=== PATIENT | female | born 1990 | race Caucasian/White ===

== ENCOUNTER 2019-07-17 08:30 | Outpatient (CLI) | payer BC ==
[~2019-07-17] VITALS: Ht 160 cm; Wt 90.0 kg
[~2019-07-17 08:30] MED LIST: BUPR300T43 PO; CETI10TA21 PO; DESO1TAB89 PO; FLUT9.9S NS; NF-LAMO200 PO; PRAZ1CAP2 PO
[2019-07-18] MEDS ORDERED: PRD20T PO (11:20)
[2019-07-18] MEDS ORDERED: AMOX500T2 PO (11:20)
[2019-07-18] MEDS ORDERED: HYDR-4226 PO (11:20)
== END 2019-07-17 08:47 | disposition home or self-care (01) ==
LOC: EDSEX 08:30 → PREOP 08:30
PROVIDERS: ATTEND Otolaryngology Otolaryngology/Facial Plastic Surgery
DX: Z01.818 Encounter for other preprocedural examination (principal)

== ENCOUNTER 2019-07-18 07:54 | Day surgery (SDC) | payer BC ==
[2019-07-18] VITALS (10 sets, daily range): BP systolic 101–136; BP diastolic 72–96
[~2019-07-18] VITALS: Ht 160 cm; Wt 90.0 kg
[2019-07-18] MEDS ORDERED: LACTATED RINGERS 1,000 ML IV PRN (08:13)
[2019-07-18] MEDS ORDERED: AMPICILLIN/SULBACTAM INJECTION 1.5 GM in NS (IVPB) 100 ML IV ONE (08:15)
[2019-07-18] MEDS ORDERED: HYDROCORTISONE 100 MG/2 ML (Solu-CORTEF) VIAL IV ONE (08:15)
[2019-07-18] MEDS ORDERED: BSS 15 ML ONE (08:24)
[2019-07-18] MEDS ORDERED: PHENYLEPHRINE 0.5% NASAL SPR (NEO-SYNEPHRINE) REG ONE (08:24)
[2019-07-18] MEDS ORDERED: LIDOCAINE/EPI 1%-1:100,000 (XYLOCAINE) 20ML ONE (08:24)
[2019-07-18] MEDS ORDERED: COCAINE HCL 4% 2 ML SYR ONE (08:24)
[2019-07-18] MEDS ORDERED: SCOPOLAMINE 1.5 MG (TRANSDERM-SCOP) PATCH ONE (08:27)
[2019-07-18] MEDS ORDERED: ONDANSETRON 4 MG/2 ML (SDV) Z0FRAN ONE ×2 (08:28→08:37)
[2019-07-18] MEDS ORDERED: FAMOTIDINE 20MG/2ML IV (PEPCID) ONE (08:28)
--- NOTE | 2019-07-18 08:31 | Progress Note-Pre Operative ---
Pre-Operative Progress Note H&P Reviewed The H&P was reviewed, patient examined and no changes noted. Date Seen by Provider: Jul 18, 2019 Time Seen by Provider: 08:10 Date H&P Reviewed: Jul 18, 2019 Time H&P Reviewed: 08:10 Pre-Operative Diagnosis: Bilateral Chronic Sinusitis, Deviatd Septum, Bialt Red of Inf Turbs JOVANI HAYES MD Jul 18, 2019 08:31
[2019-07-18] MEDS ORDERED: DEXAMETHASONE 10 MG/ML (DECADRON) 1 ML VIAL ONE (08:37)
[2019-07-18] MEDS ORDERED: LIDOCAINE PF 2% 5 ML (XYLOCAINE) VIAL ONE (08:37)
[2019-07-18] MEDS ORDERED: MIDAZOLAM 2 MG/2 ML (VERSED) VIAL ONE (08:37)
[2019-07-18] MEDS ORDERED: fentaNYL INJECTION 100 MCG/2 ML AMP ONE (08:37)
[2019-07-18] MEDS ORDERED: ROCURONIUM 10 MG/ML 5 ML SYRINGE IV ONE (08:37)
[2019-07-18] MEDS ORDERED: proPOfol 200 MG/20 ML (DIPRIVAN) VIAL IV ONE (08:37)
[2019-07-18] MEDS ORDERED: FAMOTIDINE 20MG/2ML IV (PEPCID) IV ONE (08:45)
[2019-07-18] MEDS ORDERED: ONDANSETRON 4 MG/2 ML (SDV) Z0FRAN IV ONE (08:45)
[2019-07-18] MEDS ORDERED: SCOPOLAMINE 1.5 MG (TRANSDERM-SCOP) PATCH TOP ONE (08:45)
[2019-07-18] MEDS ORDERED: SEVOFLURANE (ULTANE) 15 ML INHAL SOLN ONE ×2 (09:07→09:56)
[2019-07-18] MEDS ORDERED: PHENYLEPHRINE 100 MCG/ML 10 ML (ANESTHESIA) SYR ONE (09:17)
[2019-07-18] MEDS ORDERED: D5 1/2 NS W/KCL 20 MEQ/L 1,000 ML IV SCH (09:56)
--- NOTE | 2019-07-18 09:56 | Progress Note-Post Operative ---
Post-Operative Progess Note Surgeon (s)/Band Attacher (s) Surgeon JOVANI HAYES MD Band Attacher n/a Pre-Operative Diagnosis Bilateral Chronic Sinusitis, Deviatd Septum, Bialt Red of Inf Turbs Post-Operative Diagnosis same Post-Op Procedure Note Date of Procedure: Jul 18, 2019 Name of Procedure Performed: Bilat ESS, Bilateral Partial REduction of the INferior Turbiantes Description & Findings Description and Findings: n/a Anesthesia Type get Estimated Blood Loss minimal Packing none. Specimen(s) collected/removed Bilat Chronic Sinus Disease JOVANI HAYES MD Jul 18, 2019 09:56
[2019-07-18] MEDS ORDERED: MEPERIDINE (DEMEROL) INJ 50 MG/ML IVP ONE (10:00)
[2019-07-18] MEDS ORDERED: ONDANSETRON 4 MG/2 ML (SDV) Z0FRAN IVP PRN (10:00)
[2019-07-18] MEDS ORDERED: HYDROcodone/APAP 5 MG/325 MG (LORTAB) TAB PO PRN (10:00)
[2019-07-18] MEDS ORDERED: PROMETHAZINE INJ 25 MG/ML (PHENERGAN) AMP IVP PRN (10:00)
[2019-07-18] MEDS ORDERED: morphine INJ 10 MG/ML 1ML (SYR OR VIAL) IVP ONE (10:00)
[2019-07-18] MEDS ORDERED: PROMETHAZINE INJ 25 MG/ML (PHENERGAN) AMP IVP ONE (10:00)
[2019-07-18] MEDS ORDERED: predniSONE 20 MG TAB PO ONE (10:00)
[2019-07-18] MEDS ORDERED: HYDROmorphone 2 MG/ML VIAL (DILAUDID) IV ONE (10:00)
[2019-07-18] MEDS ORDERED: ACETAMINOPHEN 325 MG TABLET PO PRN (10:00)
--- NOTE | 2019-07-18 10:58 | Anesthesia-General Post-Op ---
General Patient Condition Mental Status/LOC: Same as Preop Cardiovascular: Satisfactory Nausea/Vomiting: Absent Respiratory: Satisfactory Pain: Controlled Complications: Absent Post Op Complications Complications None Follow Up Care/Instructions Patient Instructions None needed. Anesthesia/Patient Condition Patient Condition Patient is doing well, no complaints, stable vital signs, no apparent adverse anesthesia problems. No complications reported per nursing. APRIL MARTIN CRNA Jul 18, 2019 10:58
[2019-07-18] MEDS ORDERED: AMOX500T2 PO (11:20)
[2019-07-18] MEDS ORDERED: HYDR-4226 PO (11:20)
[2019-07-18] MEDS ORDERED: PRD20T PO (11:20)
--- NOTE | 2019-07-18 11:50 | NUR ---
phoned or and spoke with malorie thornton who relayed to dr. marcelino that patient is nauseated and is asking for medication to go home with. dr. marcelino gave telephone order for zofran 4mg 1 tablet q8h qty 10 refill 1 prn for nausea. this rn phoned to [facility] at [phone].
--- OUTSIDE RECORDS SUMMARY | 2019-07-22 04:51 | XMS REPORT ---
Author Author Virgen CUEVAS Organization [facility] [address] [place] [address] Care Team Providers Care Negative Assembler Name Role Phone AMINAH CUEVAS Unavailable PROBLEMS Unknown Problems ALLERGIES No Information ENCOUNTERS Encounter Location Date Diagnosis [facility] [address] [place] [address] Apr, Pre- employment drug testing Z02.1 IMMUNIZATIONS No Known Immunizations SOCIAL HISTORY Never Assessed REASON FOR VISIT in house ua. DianelysScott PLAN OF CARE Activity Details Follow Up prn Reason: VITAL SIGNS MEDICATIONS Unknown Medications RESULTS Name Result Date Reference Range URINE DRUG SCREEN (IN HOUSE) 2018-04-15 Lot # [id number] Exp date 06/2019 Control valid COCAINE neg AMPH neg MTD neg THC neg OPIATE neg BENZO positive PCP neg BAR neg OXY neg MAMP neg BUP MDMA neg TCA neg PROCEDURES Procedure Date Ordered Result Body Site DRUG TEST PRSMV DIR OPT OBS Apr 15, 2018 INSTRUCTIONS MEDICATIONS ADMINISTERED No Known Medications
--- OUTSIDE RECORDS SUMMARY | 2019-07-22 04:52 | XMS REPORT | Clinical Summary ---
Author Author Admin, Virgen MICHELET Organization [facility] Address Unknown Phone Unavailable Allergies, Adverse Reactions, Alerts Allergy Name Reaction Description Start Date Severity Status Pr ovider IODINE rash Mild Active Alban gentile MD LATEX rash Mild Active Alban gentile MD Conditions or Problems Problem Name Problem Code Onset Date Status Entry Date Provider Comment Standard Description Annotate Upper respiratory infection, viral 465.9 Resolved 2 Remigio Childress MD Acute upper respiratory infections of un specified site Sinusitis, acute frontal 461.1 Resolved Remigio Childress MD Acute frontal sinusitis Allergic rhinitis 477.9 Active Remigio Childress MD Allergic rhinitis, cause unspecified Bipolar disorder 296.80 Active Remigio Ann Bipolar disorder, unspecified Post traumatic stress disorder 309.81 Active 09/20 Remigio Childress MD Posttraumatic stress disorder Health screening V70.0 Active Remigio Ann Routine general medical examination at a health care facility Exercise induced asthma 493.81 Active Daryn Childress MD Exercise induced bronchospasm BMI 35-35.9 Refinement Remigio Childress MD Body Mass Index 35.0- 35.9, adult BMI 36-36.9 Refinement Kiana Miller APRN-C Body Mass Index 35.0- 35.9, adult BMI 35-35.9 Refinement Remigio Childress MD Body Mass Index 35.0- 35.9, adult BMI 36-36.9 Refinement Tigre Braden APRN Body Mass Index 35.0- 35.9, adult BMI 35-35.9 Refinement Lashawn Ding dy Mass Index 35.0-35.9, adult BMI 37-37.9 Refinement Angelique Dobson LPN Body Mass Index 35.0- 35.9, adult BMI 36-36.9 Active Remigio Childress MD Body Mass Index 35.0- 35.9, adult Obesity Class II (BMI 35-39.9) 278.00 Active Remigio Childress MD Obesity, unspecified Hyperlipidemia 272.4 Active Remigio Childress MD Other and unspecified hyperlipidemia Bitten by cat, initial encounter & Other injury of unspecified body region, initial encounter 879.8 Resolved Remigio Childress MD Open wound(s) (multiple) of unspecified site(s) except limbs, without mention of complication Acute sinusitis 461.9 Resolved Remigio Ann Acute sinusitis, unspecified Chronic sinusitis 473.9 Resolved Remigio Childress MD Unspecified sinusitis (chronic) Eustachian tube dysfunction, bilateral 381.81 Resolved Remigio Childress MD Dysfunction of Eustachian tube Mycoplasma pneumonia 483.0 Resolved Remigio vinson MD Pneumonia due to Mycoplasma pneumoniae Gynecological examination, routine V72.3 Active 2 Rebecca Burgos MD Special investigations and examinations - Gynecological examination Contraceptive pill surveillance V25.41 Active 2018 Rebecca Burgos MD Encounter for surveillance of contracept parth pill Hirsutism 704.1 Active Rebecca Burgos MD Hirsutism Sinus congestion 478.19 Resolved Remigio Childress MD Other disease of nasal cavity and sinuses Productive cough purulent sputum 786.2 Resolved 202 Remigio Childress MD Cough Low back pain, acute 724.2 Active Remigio zavala MD Lumbago Pre op cardiovascular exam V72.84 Active Jelly arguelloler Preoperative examination, unspecified Upper respiratory infection, viral ICD-465.9 I nactive Remigio Childress MD Sinusitis, acute frontal ICD-461.1 Inactive Remigio Childress MD Bitten by cat, initial encounter & Other injury of unspecified body region, initial encounter ICD-879.8 Inactive Remigio Childress MD Acute sinusitis ICD-461.9 Inactive Remigio vinson MD Chronic sinusitis ICD-473.9 Inactive Remigio johnson MD Eustachian tube dysfunction, bilateral ICD-381.81 20 01/04/06 Inactive Remigio Childress MD Mycoplasma pneumonia ICD-483.0 Inactive Daryn Childress MD Sinus congestion ICD-478.19 Inactive Remigio johnson MD Productive cough purulent sputum ICD-786.2 Jessica ctive Remigio Childress MD Medication List Medication Instructions Start Date Stop Date Generic Name NDC Status Provider Patient Instruction LAMICTAL 200 MG ORAL TABLET 2 po qHS LAMOTRIGINE 13615223193 Active Remigio Childress MD Active CETIRIZINE HCL 10 MG ORAL TABLET 1 po qd PRN Allergies CETIRIZINE HCL 36216805838 Active Remigio Childress MD Active MULTIVITAMIN ADULT ORAL TABLET 1 po qd MULTIPLE VITAMINS-MINERALS 13825212399 No Longer Active Remigio Childress MD Active PREDNISONE 20 MG ORAL TABLET take 40 mg daily for 7 days PREDNISONE 17227496075 No Longer Active Remigio Childress MD Activ e ZITHROMAX Z-FELA 250 MG ORAL TABLET 2 today, then 1 daily for 4 d ays AZITHROMYCIN 23893687673 No Longer Active Tigre Braden APRN Active TESSALON PERLES 100 MG ORAL CAPSULE 1 tablet by mouth 3 times da gin BENZONATATE 62155709398 No Longer Active Lashawn Blank Activ e PREDNISONE 20 MG ORAL TABLET take 40 mg dialy for 6 days PREDNISONE 32784759916 No Longer Active Tigre Braden APRN Active ATORVASTATIN CALCIUM 20 MG ORAL TABLET 1 po qHS 20 01/04/06 ATORVASTATIN CALCIUM 07324481783 No Longer Active Remigio Childress MD Active CLARITIN 10 MG ORAL TABLET 1 tab daily LORATADI NE 57878699390 No Longer Active Remigio Childress MD Active FLONASE ALLERGY RELIEF 50 MCG/ACT NASAL SUSPENSION 1 spray e ach nare BID FLUTICASONE PROPIONATE 42055178390 No Longer Active Aleksandra Childress MD Active PREDNISONE 20 MG ORAL TABLET 2 tabs po daily x3 days 2 PREDNISONE 49176041256 No Longer Active Remigio Childress MD Activ e CEFUROXIME AXETIL 500 MG ORAL TABLET 0.5 tab by mouth twice a da y CEFUROXIME AXETIL 36481676969 No Longer Active Kiana Miller APRN-Deonna Active AUGMENTIN 875-125 MG ORAL TABLET 1 po BID x 10 days 20 30/10/14 AMOXICILLIN-POT CLAVULANATE No Longer Active Tigre Braden APRN Active PRAZOSIN HCL 1 MG ORAL CAPSULE 2 po qHS PRAZOSIN HCL 26418021238 Active Remigio Childress MD Active BUPROPION HCL ER (XL) 300 MG ORAL TABLET EXTENDED RELEASE 24 HOUR 1 po qd BUPROPION HCL 54113776724 Active Remigio Childress MD Active PROAIR HFA 108 (90 BASE) MCG/ACT INHALATION AEROSOL SO LUTION 2 puffs q4hr PRN Shortness of air/Wheezing ALBUTEROL SULFATE 34632141165 Ac tive Remigio Childress MD Active FLUTICASONE PROPIONATE 50 MCG/ACT NASAL SUSPENSION 2 s prays/nostril qd PRN Congestion/Allergies FLUTICASONE PROPIONATE 56226790912 Ac tive Remigio Childress MD Active ENSKYCE 0.15-30 MG-MCG ORAL TABLET 1 po qd DESOGESTREL-ETHINYL ESTRADIOL 45999513177 Active Remigio Childress MD Active ZITHROMAX Z-FELA 250 MG ORAL TABLET 2 today, then 1 daily for 4 d ays AZITHROMYCIN 94662626580 No Longer Active Alban Boyce MD Active PREDNISONE 20 MG ORAL TABLET 3 tabs for 2 days, 2 tabs for 4 days 1 ta for 4 days, 1/2 tab for 4 days PREDNISONE 85631792208 No Longer Active Alban Boyce MD Active AMOXICILLIN-POT CLAVULANATE 875-125 MG ORAL TABLET 1 pill by mouth twice daily AMOXICILLIN-POT CLAVULANATE 35523919002 No Longer Act parth Trina Sell LEAK INSPECTOR Active ATORVASTATIN CALCIUM 20 MG ORAL TABLET 1 po qHS 20 02/07/19 ATORVASTATIN CALCIUM 29132995584 No Longer Active Trina Sell LEAK INSPECTOR Active [facility] MELATONIN 5 MG ORAL TABLET 1 TAB PO Q HS ME LATONIN 59631002044 No Longer Active Trina Sell LEAK INSPECTOR Active PROMETHAZINE-CODEINE 6.25-10 MG/5ML ORAL SYRUP 5ml po q6hr PRN C ough PROMETHAZINE-CODEINE 69448915051 No Longer Active Trina Sell LEAK INSPECTOR Active PREDNISONE 20 MG ORAL TABLET 2 po qd x 5 days P REDNISONE 52034290700 No Longer Active Remigio Childress MD Active PROMETHAZINE-CODEINE 6.25-10 MG/5ML ORAL SYRUP 5ml po q6hr PRN C ough PROMETHAZINE-CODEINE 6.25-10 MG/5ML ORAL SYRUP 495672 PROMETHAZINE-CODEINE Inactive [facility] MELATONIN 5 MG ORAL TABLET 1 TAB PO Q HS 1 [facility] MELATONIN 5 MG ORAL TABLET 718706 MELATONIN Inactive PREDNISONE 20 MG ORAL TABLET 3 tabs for 2 days, 2 tabs for 4 days 1 ta for 4 days, 1/2 tab for 4 days PREDNISONE 20 MG ORAL T ABLET 661507 PREDNISONE Inactive PREDNISONE 20 MG ORAL TABLET 2 tabs po daily x3 days 2 PREDNISONE 20 MG ORAL TABLET 076227 PREDNISONE Inactive FLONASE ALLERGY RELIEF 50 MCG/ACT NASAL SUSPENSION 1 spray e ach nare BID FLONASE ALLERGY RELIEF 50 MCG/ACT NASAL SUSPENSION 8681615 FLUTICASONE PROPIONATE Inactive CLARITIN 10 MG ORAL TABLET 1 tab daily C LARITIN 10 MG ORAL TABLET 957658 LORATADINE Inactive ATORVASTATIN CALCIUM 20 MG ORAL TABLET 1 po qHS 20 01/04/06 ATORVASTATIN CALCIUM 20 MG ORAL TABLET 221347 ATORVASTATIN CALCIUM Inactive TESSALON PERLES 100 MG ORAL CAPSULE 1 tablet by mouth 3 times da gin TESSALON PERLES 100 MG ORAL CAPSULE 946482 BENZONATATE Inactive PREDNISONE 20 MG ORAL TABLET take 40 mg daily for 7 days PREDNISONE 20 MG ORAL TABLET 693586 PREDNISONE Inactive MULTIVITAMIN ADULT ORAL TABLET 1 po qd MULTIVITAMIN ADULT ORAL TABLET MULTIPLE VITAMINS-MINERALS Inactive PREDNISONE 20 MG ORAL TABLET 2 po qd x 5 days PREDNISONE 20 MG ORAL TABLET 675407 PREDNISONE Inactive ATORVASTATIN CALCIUM 20 MG ORAL TABLET 1 po qHS 20 02/07/19 ATORVASTATIN CALCIUM 20 MG ORAL TABLET 162994 ATORVASTATIN CALCIUM Inactive AMOXICILLIN-POT CLAVULANATE 875-125 MG ORAL TABLET 1 pill by mouth twice daily AMOXICILLIN-POT CLAVULANATE 875-125 MG ORAL TABL ET 106332 AMOXICILLIN-POT CLAVULANATE Inactive ZITHROMAX Z-FELA 250 MG ORAL TABLET 2 today, then 1 daily for 4 d ays ZITHROMAX Z-FELA 250 MG ORAL TABLET 376038 AZITHROMYCIN Inactive AUGMENTIN 875-125 MG ORAL TABLET 1 po BID x 10 days 30/10/14 AUGMENTIN 875-125 MG ORAL TABLET AMOXICILLIN-POT CLAVULANATE Inactive CEFUROXIME AXETIL 500 MG ORAL TABLET 0.5 tab by mouth twice a da y CEFUROXIME AXETIL 500 MG ORAL TABLET 316472 CEFUROXIME AXETIL Inactive PREDNISONE 20 MG ORAL TABLET take 40 mg dialy for 6 days PREDNISONE 20 MG ORAL TABLET 869302 PREDNISONE Inactive ZITHROMAX Z-FELA 250 MG ORAL TABLET 2 today, then 1 daily for 4 d ays ZITHROMAX Z-FELA 250 MG ORAL TABLET 172120 AZITHROMYCIN Inactive Immunizations Vaccine Administration Date Value Standard Heber cription influenza immunization (Flu Vax) has been administered 03/19 Flulaval Quadrivalent (Flu) 10Pk Syringe IM influenza virus vaccine, unspecified formulation influenza immunization (Flu Vax) has been administered 02/26 Done according to patient influenza virus vaccine, unspecified for mulation Vital Signs Date Name Value Unit Range Description blood pressure, diastolic, repeated by physician 79 BP [place] blood pressure, diastolic 79 mm[Hg] BP [place] blood pressure, systolic, repeated by physician 122 BP sys blood pressure, systolic 122 mm[Hg] BP sys height E&M 63 [in_us] Bdy height pulse rate E&M 80 /min Heart rate temperature E&M 98.2 [degF] Body temp erature weight E&M 207.31 [lb_av] Weight Measure d blood pressure, diastolic, repeated by physician 85 BP [place] blood pressure, diastolic 85 mm[Hg] BP [place] blood pressure, systolic, repeated by physician 125 BP sys blood pressure, systolic 125 mm[Hg] BP sys height E&M 63 [in_us] Bdy height pulse rate E&M 75 /min Heart rate temperature E&M 99.2 [degF] Body temp erature weight E&M 209.50 [lb_av] Weight Measure d blood pressure, diastolic, repeated by physician 86 BP [place] blood pressure, diastolic 86 mm[Hg] BP [place] blood pressure, systolic, repeated by physician 119 BP sys blood pressure, systolic 119 mm[Hg] BP sys height E&M 63 [in_us] Bdy height pulse rate E&M 77 /min Heart rate temperature E&M 98.4 [degF] Body temp erature weight E&M 202 [lb_av] Weight Measure d blood pressure, diastolic, repeated by physician 87 BP [place] blood pressure, diastolic 87 mm[Hg] BP [place] blood pressure, systolic, repeated by physician 123 BP sys blood pressure, systolic 123 mm[Hg] BP sys height E&M 63 [in_us] Bdy height pulse rate E&M 101 /min Heart rate temperature E&M 98.3 [degF] Body temp erature weight E&M 204 [lb_av] Weight Measure d blood pressure, diastolic, repeated by physician 78 BP [place] blood pressure, diastolic 78 mm[Hg] BP [place] blood pressure, systolic, repeated by physician 118 BP sys blood pressure, systolic 118 mm[Hg] BP sys height E&M 63 [in_us] Bdy height pulse rate E&M 83 /min Heart rate temperature E&M 98.1 [degF] Body temp erature weight E&M 201.31 [lb_av] Weight Measure d blood pressure, diastolic, repeated by physician 96 BP [place] blood pressure, diastolic 96 mm[Hg] BP [place] blood pressure, systolic, repeated by physician 146 BP sys blood pressure, systolic 146 mm[Hg] BP sys height E&M 63 [in_us] Bdy height pulse rate E&M 81 /min Heart rate temperature E&M 98.9 [degF] Body temp erature weight E&M 203.40 [lb_av] Weight Measure d blood pressure, diastolic 83 mm[Hg] BP [place] blood pressure, systolic 123 mm[Hg] BP sys height E&M 63 [in_us] Bdy height pulse rate E&M 72 /min Heart rate temperature E&M 99.3 [degF] Body temp erature weight E&M 201 [lb_av] Weight Measure d blood pressure, diastolic 90 mm[Hg] BP [place] blood pressure, systolic 124 mm[Hg] BP sys height E&M 63 [in_us] Bdy height pulse rate E&M 81 /min Heart rate temperature E&M 97.6 [degF] Body temp erature weight E&M 199 [lb_av] Weight Measure d blood pressure, diastolic 86 mm[Hg] BP [place] blood pressure, systolic 116 mm[Hg] BP sys pulse rate E&M 68 /min Heart rate temperature E&M 99.0 [degF] Body temp erature weight E&M 193.50 [lb_av] Weight Measure d Diagnostic Results Date Name Value Unit Range Description Lab Report: Lipid Panel, CBC, Comp. [place] [facility] - Chemistry cholesterol, serum 256 mg/dL 617-026 9612/01/13 triglyceride, serum, fasting 166 mg/dL 30-200 HDL cholesterol, serum 78 mg/dL 32-60 LDL cholesterol, serum 145 mg/dL 0-130 sodium, serum 138 mmol/L 351-061 3764/01/13 carbon dioxide, venous blood 28.4 mmol/L 21.0-32 .0 potassium, serum 4.0 mmol/L 3.5-5.2 chloride, serum 104 mmol/L 98-107 blood glucose 90 mg/dL 65-95 urea nitrogen, blood 13 mg/dL 7-18 creatinine, serum 0.98 mg/dL 0.60-1.30 Estimated Glomerular Filtration Rate (calc) 71 (?) mL/min/1.73m2 = OR > 60 mL/min alanine aminotransferase (SGPT), serum 14 U/L 12-78 aspartate aminotransferase (SGOT), serum 21 U/L 15-37 calcium, serum 9.1 mg/dL 8.5-10.1 bilirubin, serum, total 0.40 mg/dL 0.00-1.00 Lab Report: Lipid Panel, CBC, Comp. [place] [facility] - Hematology leukocyte count, blood 6.8 10^3/MM^3 10*3/mm3 4.6-10.2 erythrocyte (RBC) count 4.50 10^6/MM^3 10*6/mm3 3.80-5.8 0 hemoglobin, blood 13.4 g/dL 12.0-16.0 hematocrit, blood 39.9 % 37.0-47.0 mean corpuscular volume, RBC 89 fL 80-97 mean corpuscular hemoglobin, RBC 29.8 pg 27. 0-31.2 mean corpuscular hemoglobin concentration, RBC 33.6 G/DL % 31.8-35.4 red blood cell distribution width 11.2 % 13 .0-18.0 platelet count 312 10^3/MM^3 10*3/mm3 142-424 Lab Report: Lipid Panel, CBC, Comp. [place] [facility] - Lab Alkaline phosphatase 66 50-136 Office Visit: 2 month follow up 302 - Ba sic LDL target level 160 mg/dL Office Visit: congestion,fever,cough - C hemistry HDL cholesterol, serum, target level 40 mg/dL cholesterol, target level 200 mg/dL triglyceride, target level 150 mg/dL Encounters Code Encounter Date Provider Facility CPT-44556 Level 4 Est. Patient 09:14:43 CONVENTION SERVICES DIRECTOR Remigio Childress MD [facility] CPT-15742 Level 3 Est. Patient 16:17:24 CONVENTION SERVICES DIRECTOR Tigre fu [facility] CPT-69045 Level 3 Est. Patient 09:05:56 CONVENTION SERVICES DIRECTOR Tigre fu [facility] CPT-39365 Level 4 Est. Patient 09:00:38 CONVENTION SERVICES DIRECTOR Remigio Childress MD [facility] CPT-52107 Level 3 Est. Patient 14:18:32 CDT Tigre fu [facility] CPT-62975 Level 4 Est. Patient 13:48:04 CDT Remigio Childress MD [facility] CPT-76987 09047-Ast Vst-Est Level III 10:10:19 CONVENTION SERVICES DIRECTOR Alban Boyce MD [facility] CPT-26158 Level 3 Est. Patient 13:45:32 CONVENTION SERVICES DIRECTOR Trina tapia [facility] CPT-95907 Level 3 Est. Patient 10:03:23 CDT Remigio Childress MD [facility] Procedures Code Procedure Name Date Entry Date Standard Desc ription CPT-07118 Venipuncture Draw Fee 08:56:26 CONVENTION SERVICES DIRECTOR CPT-YL8278T (4274F) Influenza immunization administe red or previously received 09:14:43 CONVENTION SERVICES DIRECTOR CPT-88995 Venipuncture Draw Fee 09:28:58 CONVENTION SERVICES DIRECTOR CPT-GE7185K (4274F) Influenza immunization administe red or previously received 16:05:01 CONVENTION SERVICES DIRECTOR CPT-97058 Prv Med Est Pt 18-39yrs 12:46:30 CONVENTION SERVICES DIRECTOR 05/31 CPT-21236 Prv Med Est Pt 18-39yrs 12:25:19 CONVENTION SERVICES DIRECTOR 05/31 CPT-90662 IM or SQ Injection 09:09:52 CONVENTION SERVICES DIRECTOR CPT-84872 41203 - Immun Admin 1 vac 09:08:43 CONVENTION SERVICES DIRECTOR 2018 CPT-97351 Flulaval Quadrivalent (Flu) 10Pk Syringe IM 2018 09:08:43 CONVENTION SERVICES DIRECTOR CPT-000 Give PPD 13:51:16 CDT
--- OUTSIDE RECORDS SUMMARY | 2019-07-22 04:52 | XMS REPORT | Clinical Summary ---
Author Author Admin, Virgen MICHELET Organization [employer] Address Unknown Phone Unavailable Allergies, Adverse Reactions, [...] Pre op cardiovascular exam V72.84 Active Jelly yañez Preoperative examination, unspecified Upper respiratory infection, viral [...] MG ORAL TABLET 2 po qHS LAMOTRIGINE 96100773803 Active Remigio Childress MD Active CETIRIZINE HCL 10 MG ORAL TABLET 1 po qd PRN Allergies CETIRIZINE HCL 14009777454 Active Remigio Childress MD Active MULTIVITAMIN ADULT ORAL TABLET 1 po qd MULTIPLE VITAMINS-MINERALS 85793602328 No Longer Active Remigio Childress MD Active PREDNISONE 20 MG ORAL TABLET take 40 mg daily for 7 days PREDNISONE 96636217256 No Longer Active Remigio Childress MD Activ e ZITHROMAX Z-FELA 250 MG ORAL TABLET 2 today, then 1 daily for 4 d ays AZITHROMYCIN 43240537713 No Longer Active Tigre Braden APRN Active TESSALON PERLES 100 MG ORAL CAPSULE 1 tablet by mouth 3 times da gin BENZONATATE 46613814688 No Longer Active Lashawn Blank Activ e PREDNISONE 20 MG ORAL TABLET take 40 mg dialy for 6 days PREDNISONE 55280968736 No Longer Active Tigre Braden APRN Active ATORVASTATIN CALCIUM 20 MG ORAL TABLET 1 po qHS 20 01/04/06 ATORVASTATIN CALCIUM 37711542387 No Longer Active Remigio Childress MD Active CLARITIN 10 MG ORAL TABLET 1 tab daily LORATADI [place] 32048819219 No Longer Active Remigio Childress MD Active FLONASE ALLERGY RELIEF 50 MCG/ACT NASAL SUSPENSION 1 spray e ach nare BID FLUTICASONE PROPIONATE 66849066879 No Longer Active Aleksandra Childress MD Active PREDNISONE 20 MG ORAL TABLET 2 tabs po daily x3 days 2 PREDNISONE 45745271772 No Longer Active Remigio Childress MD Activ e CEFUROXIME AXETIL 500 MG ORAL TABLET 0.5 tab by mouth twice a da y CEFUROXIME AXETIL 57949536803 No Longer Active Kiana Miller APRN-Deonna Active AUGMENTIN 875-125 MG ORAL TABLET 1 po BID x 10 days 20 30/10/14 AMOXICILLIN-POT CLAVULANATE No Longer Active Tigre Braden APRN Active PRAZOSIN HCL 1 MG ORAL CAPSULE 2 po qHS PRAZOSIN HCL 70133870388 Active Remigio Childress MD Active BUPROPION HCL ER (XL) 300 MG ORAL TABLET EXTENDED RELEASE 24 HOUR 1 po qd BUPROPION HCL 20211296291 Active Remigio Childress MD Active PROAIR HFA 108 (90 BASE) MCG/ACT INHALATION AEROSOL SO LUTION 2 puffs q4hr PRN Shortness of air/Wheezing ALBUTEROL SULFATE 20797715034 Ac tive Remigio Childress MD Active FLUTICASONE PROPIONATE 50 MCG/ACT NASAL SUSPENSION 2 s prays/nostril qd PRN Congestion/Allergies FLUTICASONE PROPIONATE 30302595366 Ac tive Remigio Childress MD Active ENSKYCE 0.15-30 MG-MCG ORAL TABLET 1 po qd DESOGESTREL-ETHINYL ESTRADIOL 03715784254 Active Remigio Childress MD Active ZITHROMAX Z-FELA 250 MG ORAL TABLET 2 today, then 1 daily for 4 d ays AZITHROMYCIN 54397965182 No Longer Active Alban Boyce MD Active PREDNISONE 20 MG ORAL TABLET 3 tabs for 2 days, 2 tabs for 4 days 1 ta for 4 days, 1/2 tab for 4 days PREDNISONE 60074043792 No Longer Active Alban Boyce MD Active AMOXICILLIN-POT CLAVULANATE 875-125 MG ORAL TABLET 1 pill by mouth twice daily AMOXICILLIN-POT CLAVULANATE 78318486896 No Longer Act parth Trina Sell APRON WORKER Active ATORVASTATIN CALCIUM 20 MG ORAL TABLET 1 po qHS 20 02/07/19 ATORVASTATIN CALCIUM 20559107334 No Longer Active Trina Sell APRON WORKER Active [facility] MELATONIN 5 MG ORAL TABLET 1 TAB PO Q HS ME LATONIN 48977026732 No Longer Active Trina Sell APRON WORKER Active PROMETHAZINE-CODEINE 6.25-10 MG/5ML ORAL SYRUP 5ml po q6hr PRN C ough PROMETHAZINE-CODEINE 01143036465 No Longer Active Trina Sell APRON WORKER Active PREDNISONE 20 MG ORAL TABLET 2 po qd x 5 days P REDNISONE 23145612412 No Longer Active Remigio Childress MD Active PROMETHAZINE-CODEINE 6.25-10 MG/5ML ORAL SYRUP 5ml po q6hr PRN C ough PROMETHAZINE-CODEINE 6.25-10 MG/5ML ORAL SYRUP 325114 PROMETHAZINE-CODEINE Inactive [facility] MELATONIN 5 MG ORAL TABLET 1 TAB PO Q HS 1 [facility] MEL[facility]IN 5 MG ORAL TABLET 143516 MELATONIN Inactive PREDNISONE 20 MG ORAL TABLET 3 tabs for 2 days, 2 tabs for 4 days 1 ta for 4 days, 1/2 tab for 4 days PREDNISONE 20 MG ORAL T ABLET 731974 PREDNISONE Inactive PREDNISONE 20 MG ORAL TABLET 2 tabs po daily x3 days 2 PREDNISONE 20 MG ORAL TABLET 624335 PREDNISONE Inactive FLONASE ALLERGY RELIEF 50 MCG/ACT NASAL SUSPENSION 1 spray e ach nare BID FLONASE ALLERGY RELIEF 50 MCG/ACT NASAL SUSPENSION 1356486 FLUTICASONE PROPIONATE Inactive CLARITIN 10 MG ORAL TABLET 1 tab daily C LARITIN 10 MG ORAL TABLET 284459 LORATADINE Inactive ATORVASTATIN CALCIUM 20 MG ORAL TABLET 1 po qHS 20 01/04/06 ATORVASTATIN CALCIUM 20 MG ORAL TABLET 936051 ATORVASTATIN CALCIUM Inactive TESSALON PERLES 100 MG ORAL CAPSULE 1 tablet by mouth 3 times da gin TESSALON PERLES 100 MG ORAL CAPSULE 037782 BENZONATATE Inactive PREDNISONE 20 MG ORAL TABLET take 40 mg daily for 7 days PREDNISONE 20 MG ORAL TABLET 350770 PREDNISONE Inactive MULTIVITAMIN ADULT ORAL TABLET 1 po qd MULTIVITAMIN ADULT ORAL TABLET MULTIPLE VITAMINS-MINERALS Inactive PREDNISONE 20 MG ORAL TABLET 2 po qd x 5 days PREDNISONE 20 MG ORAL TABLET 412887 PREDNISONE Inactive ATORVASTATIN CALCIUM 20 MG ORAL TABLET 1 po qHS 20 02/07/19 ATORVASTATIN CALCIUM 20 MG ORAL TABLET 627319 ATORVASTATIN CALCIUM Inactive AMOXICILLIN-POT CLAVULANATE 875-125 MG ORAL TABLET 1 pill by mouth twice daily AMOXICILLIN-POT CLAVULANATE 875-125 MG ORAL TABL ET 339954 AMOXICILLIN-POT CLAVULANATE Inactive ZITHROMAX Z-FELA 250 MG ORAL TABLET 2 today, then 1 daily for 4 d ays ZITHROMAX Z-FELA 250 MG ORAL TABLET 143712 AZITHROMYCIN Inactive AUGMENTIN 875-125 MG ORAL TABLET 1 po BID x 10 days 30/10/14 AUGMENTIN 875-125 MG ORAL TABLET AMOXICILLIN-POT CLAVULANATE Inactive CEFUROXIME AXETIL 500 MG ORAL TABLET 0.5 tab by mouth twice a da y CEFUROXIME AXETIL 500 MG ORAL TABLET 515490 CEFUROXIME AXETIL Inactive PREDNISONE 20 MG ORAL TABLET take 40 mg dialy for 6 days PREDNISONE 20 MG ORAL TABLET 273196 PREDNISONE Inactive ZITHROMAX Z-FELA 250 MG ORAL TABLET 2 today, then 1 daily for 4 d ays ZITHROMAX Z-FELA 250 MG ORAL TABLET 882527 AZITHROMYCIN Inactive Immunizations Vaccine Administration Date Value [...] Name Value Unit Range Description Lab Report: Basic Metabolic Panel, CBC - Chemistry sodium, serum 139 mmol/L 395-780 3657/03/05 potassium, serum 3.7 mmol/L 3.5-5.2 chloride, serum 106 mmol/L 98-107 carbon dioxide, venous blood 27.8 mmol/L 21.0-32 .0 blood glucose 83 mg/dL 65-95 calcium, serum 9.0 mg/dL 8.5-10.1 urea nitrogen, blood 16 mg/dL 7-18 creatinine, serum 0.96 mg/dL 0.60-1.30 Estimated Glomerular Filtration Rate (calc) 73 (?) mL/min/1.73m2 = OR > 60 mL/min Lab Report: Basic Metabolic Panel, CBC - Hematology leukocyte count, blood 11.8 10^3/MM^3 10*3/mm3 4.6-10.2 erythrocyte (RBC) count 4.48 10^6/MM^3 10*6/mm3 3.80-5.8 0 hemoglobin, blood 13.7 g/dL 12.0-16.0 hematocrit, blood 41.3 % 37.0-47.0 mean corpuscular volume, RBC 92 fL 80-97 mean corpuscular hemoglobin, RBC 30.5 pg 27. 0-31.2 mean corpuscular hemoglobin concentration, RBC 33.2 G/DL % 31.8-35.4 red blood cell distribution width 11.1 % 13 .0-18.0 platelet count 314 10^3/MM^3 10*3/mm3 142-424 Lab Report: Lipid Panel, CBC, Comp. [place] [facility] Panel - Chemistry cholesterol, serum 256 mg/dL 615-502 1488/01/13 triglyceride, serum, fasting 166 mg/dL 30-200 HDL cholesterol, serum 78 mg/dL 32-60 LDL cholesterol, serum 145 mg/dL 0-130 sodium, serum 138 mmol/L 914-648 0433/01/13 carbon dioxide, venous blood 28.4 mmol/L 21.0-32 [...] 0.00-1.00 Lab Report: Lipid Panel, CBC, Comp. [place] [facility] Panel - Hematology leukocyte count, blood [...] 142-424 Lab Report: Lipid Panel, CBC, Comp. [place] [facility] Panel - Lab Alkaline phosphatase 66 50-136 Office Visit: 2 month follow up 302 - Ba [facility] LDL target level 160 mg/dL Office Visit: congestion,fever,cough - C hemistry HDL cholesterol, serum, target level 40 mg/dL cholesterol, target level 200 mg/dL triglyceride, target level 150 mg/dL Encounters Code Encounter Date Provider Facility CPT-14820 Level 4 Est. Patient 09:14:43 STEEL BURNER Remigio Childress MD [facility] CPT-71608 Level 3 Est. Patient 16:17:24 STEEL BURNER Tigre fu [facility] CPT-92659 Level 3 Est. Patient 09:05:56 STEEL BURNER Tigre fu [facility] CPT-03835 Level 4 Est. Patient 09:00:38 STEEL B[employer]NER Remigio Childress MD [facility] CPT-01479 Level 3 Est. Patient 14:18:32 CDT Tigre fu [facility] CPT-40840 Level 4 Est. Patient 13:48:04 CDT Remigio Childress MD [facility] CPT-88564 [id number] Vst-Est Level III 10:10:19 STE[employer]NER Alban Boyce MD [facility] CPT-89271 Level 3 Est. Patient 13:45:32 STE[employer] B[employer]NER Trina tapia [facility] CPT-35754 Level 3 Est. Patient 10:03:23 CDT Remigio Childress MD [facility] Procedures Code Procedure Name Date Entry Date Standard Desc ription CPT-85957 Venipuncture Draw Fee 08:56:26 STEEL BURNER CPT-[id number] (4274F) Influenza immunization administe red or previously received 09:14:43 STE[employer]NER CPT-29559 Venipuncture Draw Fee 09:28:58 STE[employer] CPT-[id number] (4274F) Influenza immunization administe red or previously received 16:05:01 STE[employer]NER CPT-31384 Prv Med Est Pt 18-39yrs 12:46:30 STEEL BURNER 05/31 CPT-69670 Prv Med Est Pt 18-39yrs 12:25:19 STEEL BURNER 05/31 CPT-77861 IM or SQ Injection 09:09:52 STEEL BURNER CPT-09600 78604 - Immun Admin 1 vac 09:08:43 STEEL BURNER 2018 CPT-49434 Flulaval Quadrivalent (Flu) 10Pk Syringe IM 2018 09:08:43 STEEL BURNER CPT-000 Give PPD 13:51:16 CDT
--- OUTSIDE RECORDS SUMMARY | 2019-07-22 04:52 | XMS REPORT | Clinical Summary ---
Author Author Admin, Virgen MICHELET Organization [employer] Address Unknown Phone Unavailable Allergies, Adverse Reactions, [...] V72.84 Active Jelly arguelloler Preoperative examination, unspecified Sinusitis, acute frontal ICD-461.1 Inactive Remigio Childress MD Upper respiratory infection, viral ICD-465.9 I nactive Remigio Childress MD Bitten by cat, initial [...] Generic Name NDC Status Provider Patient Instruction PRAZOSIN HCL 1 MG ORAL CAPSULE 2 po qHS PRAZOSIN HCL 09655706835 Active Remigio Childress MD Active LAMICTAL 200 MG ORAL TABLET 2 po qHS LAMOTRIGINE 46755911504 Active Remigio hCildress MD Active CETIRIZINE HCL 10 MG ORAL TABLET 1 po qd PRN Allergies CETIRIZINE HCL 78004673523 Active Remigio Childress MD Active MULTIVITAMIN ADULT ORAL TABLET 1 po qd MULTIPLE VITAMINS-MINERALS 46385893355 No Longer Active Remigio Childress MD Active PREDNISONE 20 MG ORAL TABLET take 40 mg daily for 7 days PREDNISONE 06157435489 No Longer Active Remigio Childress MD Activ e ZITHROMAX Z-FELA 250 MG ORAL TABLET 2 today, then 1 daily for 4 d ays AZITHROMYCIN 23709683165 No Longer Active Tigre Braden APRN Active TESSALON PERLES 100 MG ORAL CAPSULE 1 tablet by mouth 3 times da gin BENZONATATE 94034570786 No Longer Active Lashawn Blank Activ e PREDNISONE 20 MG ORAL TABLET take 40 mg dialy for 6 days PREDNISONE 15679984644 No Longer Active Tigre Braden APRN Active ATORVASTATIN CALCIUM 20 MG ORAL TABLET 1 po qHS 20 01/04/06 ATORVASTATIN CALCIUM 20886528144 No Longer Active Remigio Childress MD Active CLARITIN 10 MG ORAL TABLET 1 tab daily LORATADI NE 18970856279 No Longer Active Remigio Childress MD Active FLONASE ALLERGY RELIEF 50 MCG/ACT NASAL SUSPENSION 1 spray e ach nare BID FLUTICASONE PROPIONATE 10745252798 No Longer Active Aleksandra Childress MD Active PREDNISONE 20 MG ORAL TABLET 2 tabs po daily x3 days 2 PREDNISONE 76553789946 No Longer Active Remigio Childress MD Activ e CEFUROXIME AXETIL 500 MG ORAL TABLET 0.5 tab by mouth twice a da y CEFUROXIME AXETIL 20984150331 No Longer Active Kiana Miller APRN-Deonna Active AUGMENTIN 875-125 MG ORAL TABLET 1 po BID x 10 days 20 30/10/14 AMOXICILLIN-POT CLAVULANATE No Longer Active Tigre Braden APRN Active BUPROPION HCL ER (XL) 300 MG ORAL TABLET EXTENDED RELEASE 24 HOUR 1 po qd BUPROPION HCL 87515837094 Active Remigio Childress MD Active PROAIR HFA 108 (90 BASE) MCG/ACT INHALATION AEROSOL SO LUTION 2 puffs q4hr PRN Shortness of air/Wheezing ALBUTEROL SULFATE 51466728265 Ac tive Remigio Childress MD Active FLUTICASONE PROPIONATE 50 MCG/ACT NASAL SUSPENSION 2 s prays/nostril qd PRN Congestion/Allergies FLUTICASONE PROPIONATE 05718244195 Ac tive Remigio Childress MD Active ENSKYCE 0.15-30 MG-MCG ORAL TABLET 1 po qd DESOGESTREL-ETHINYL ESTRADIOL 44477378375 Active Remigio Childress MD Active ZITHROMAX Z-FELA 250 MG ORAL TABLET 2 today, then 1 daily for 4 d ays AZITHROMYCIN 61396490611 No Longer Active Alban Boyce MD Active PREDNISONE 20 MG ORAL TABLET 3 tabs for 2 days, 2 tabs for 4 days 1 ta for 4 days, 1/2 tab for 4 days PREDNISONE 16940467635 No Longer Active Alban Boyce MD Active AMOXICILLIN-POT CLAVULANATE 875-125 MG ORAL TABLET 1 pill by mouth twice daily AMOXICILLIN-POT CLAVULANATE 00205617332 No Longer Act parth Trina Sell LAST CLEANER Active ATORVASTATIN CALCIUM 20 MG ORAL TABLET 1 po qHS 20 02/07/19 ATORVASTATIN CALCIUM 68740054155 No Longer Active Trina Sell LAST CLEANER Active [facility] MELATONIN 5 MG ORAL TABLET 1 TAB PO Q HS ME LATONIN 39822063180 No Longer Active Trina Sell LAST CLEANER Active PROMETHAZINE-CODEINE 6.25-10 MG/5ML ORAL SYRUP 5ml po q6hr PRN C ough PROMETHAZINE-CODEINE 13563752067 No Longer Active Trina Sell LAST CLEANER Active PREDNISONE 20 MG ORAL TABLET 2 po qd x 5 days P REDNISONE 08006194967 No Longer Active Remigio Childress MD Active PROMETHAZINE-CODEINE 6.25-10 MG/5ML ORAL SYRUP 5ml po q6hr PRN C ough PROMETHAZINE-CODEINE 6.25-10 MG/5ML ORAL SYRUP 710861 PROMETHAZINE-CODEINE Inactive [facility] MELAT[facility]IN 5 MG ORAL TABLET 1 TAB PO Q HS 1 [facility] MEL[facility]IN 5 MG ORAL TABLET 185348 MELATONIN Inactive PREDNISONE 20 MG ORAL TABLET 3 tabs for 2 days, 2 tabs for 4 days 1 ta for 4 days, 1/2 tab for 4 days PREDNISONE 20 MG ORAL T ABLET 247140 PREDNISONE Inactive PREDNISONE 20 MG ORAL TABLET 2 tabs po daily x3 days 2 PREDNISONE 20 MG ORAL TABLET 182675 PREDNISONE Inactive FLONASE ALLERGY RELIEF 50 MCG/ACT NASAL SUSPENSION 1 spray e ach nare BID FLONASE ALLERGY RELIEF 50 MCG/ACT NASAL SUSPENSION 5690931 FLUTICASONE PROPIONATE Inactive CLARITIN 10 MG ORAL TABLET 1 tab daily C LARITIN 10 MG ORAL TABLET 074595 LORATADINE Inactive ATORVASTATIN CALCIUM 20 MG ORAL TABLET 1 po qHS 20 01/04/06 ATORVASTATIN CALCIUM 20 MG ORAL TABLET 061679 ATORVASTATIN CALCIUM Inactive TESSALON PERLES 100 MG ORAL CAPSULE 1 tablet by mouth 3 times da gin TESSALON PERLES 100 MG ORAL CAPSULE 122446 BENZONATATE Inactive PREDNISONE 20 MG ORAL TABLET take 40 mg daily for 7 days PREDNISONE 20 MG ORAL TABLET 484173 PREDNISONE Inactive MULTIVITAMIN ADULT ORAL TABLET 1 po qd MULTIVITAMIN ADULT ORAL TABLET MULTIPLE VITAMINS-MINERALS Inactive PREDNISONE 20 MG ORAL TABLET 2 po qd x 5 days PREDNISONE 20 MG ORAL TABLET 887934 PREDNISONE Inactive ATORVASTATIN CALCIUM 20 MG ORAL TABLET 1 po qHS 20 02/07/19 ATORVASTATIN CALCIUM 20 MG ORAL TABLET 340516 ATORVASTATIN CALCIUM Inactive AMOXICILLIN-POT CLAVULANATE 875-125 MG ORAL TABLET 1 pill by mouth twice daily AMOXICILLIN-POT CLAVULANATE 875-125 MG ORAL TABL ET 984718 AMOXICILLIN-POT CLAVULANATE Inactive ZITHROMAX Z-FELA 250 MG ORAL TABLET 2 today, then 1 daily for 4 d ays ZITHROMAX Z-FELA 250 MG ORAL TABLET 298801 AZITHROMYCIN Inactive AUGMENTIN 875-125 MG ORAL TABLET 1 po BID x 10 days 30/10/14 AUGMENTIN 875-125 MG ORAL TABLET AMOXICILLIN-POT CLAVULANATE Inactive CEFUROXIME AXETIL 500 MG ORAL TABLET 0.5 tab by mouth twice a da y CEFUROXIME AXETIL 500 MG ORAL TABLET 651050 CEFUROXIME AXETIL Inactive PREDNISONE 20 MG ORAL TABLET take 40 mg dialy for 6 days PREDNISONE 20 MG ORAL TABLET 336808 PREDNISONE Inactive ZITHROMAX Z-FELA 250 MG ORAL TABLET 2 today, then 1 daily for 4 d ays ZITHROMAX Z-FELA 250 MG ORAL TABLET 221582 AZITHROMYCIN Inactive Immunizations Vaccine Administration Date Value [...] CBC - Chemistry sodium, serum 139 mmol/L 950-418 0538/03/05 potassium, serum 3.7 mmol/L 3.5-5.2 chloride, serum [...] 142-424 Lab Report: Lipid Panel, CBC, Comp. [place] [facility]olic Panel - Chemistry cholesterol, serum 256 mg/dL 481-094 1047/01/13 triglyceride, serum, fasting 166 mg/dL 30-200 HDL cholesterol, serum 78 mg/dL 32-60 LDL cholesterol, serum 145 mg/dL 0-130 sodium, serum 138 mmol/L 549-258 8592/01/13 carbon dioxide, venous blood 28.4 mmol/L 21.0-32 [...] 0.00-1.00 Lab Report: Lipid Panel, CBC, Comp. [place] [facility] Panel - Hematology leukocyte count, blood [...] 142-424 Lab Report: Lipid Panel, CBC, Comp. [place] [facility] Panel - Lab Alkaline phosphatase 66 50-136 Office Visit: 2 month follow up 302 - [facility] LDL target level 160 mg/dL Office Visit: congestion,fever,cough - C hemistry HDL cholesterol, serum, target level 40 mg/dL cholesterol, target level 200 mg/dL triglyceride, target level 150 mg/dL Encounters Code Encounter Date Provider Facility CPT-14693 Level 4 Est. Patient 09:14:43 OIL FILTERS INSPECTOR Remigio Childress MD [facility] CPT-64579 Level 3 Est. Patient 16:17:24 OIL FILTERS INSPECTOR Tigre fu [facility] CPT-45971 Level 3 Est. Patient 09:05:56 OIL FILTERS INSPECTOR Tigre fu [facility] CPT-47303 Level 4 Est. Patient 09:00:38 OIL FILTERS INSPECTOR Remigio Childress MD [facility] CPT-02633 Level 3 Est. Patient 14:18:32 CDT Tigre fu [facility] CPT-27074 Level 4 Est. Patient 13:48:04 CDT Remigio Childress MD [facility] CPT-10146 [id number] Vst-Est Level III 10:10:19 OIL FILTERS INSPECTOR Alban Boyce MD [facility] CPT-90818 Level 3 Est. Patient 13:45:32 OIL FILTERS INSPECTOR Trina Se tapia [facility] CPT-99861 Level 3 Est. Patient 10:03:23 CDT Remigio Childress MD [facility] Procedures Code Procedure Name Date Entry Date Standard Desc ription CPT-42449 Venipuncture Draw Fee 08:56:26 OIL FILTERS INSPECTOR CPT-[id number] (4274F) Influenza immunization administe red or previously received 09:14:43 OIL FILTERS INSPECTOR CPT-51103 Venipuncture Draw Fee 09:28:58 OIL FILTERS INSPECTOR CPT-[id number] (4274F) Influenza immunization administe red or previously received 16:05:01 OIL FILTERS INSPECTOR CPT-53637 Prv Med Est Pt 18-39yrs 12:46:30 OIL FILTERS INSPECTOR 05/31 CPT-99976 Prv Med Est Pt 18-39yrs 12:25:19 OIL FILTERS INSPECTOR 05/31 CPT-08932 IM or SQ Injection 09:09:52 OIL FILTERS INSPECTOR CPT-32690 51277 - Immun Admin 1 vac 09:08:43 OIL FILTERS INSPECTOR 2018 CPT-94975 Flulaval Quadrivalent (Flu) 10Pk Syringe IM 2018 09:08:43 OIL FILTERS INSPECTOR CPT-000 Give PPD 13:51:16 CDT
--- OUTSIDE RECORDS SUMMARY | 2019-07-22 04:53 | XMS REPORT | Clinical Summary ---
Author Author Admin, Virgen MICHELET Organization [employer] Address Unknown Phone Unavailable Allergies, Adverse Reactions, [...] ICD-381.81 20 01/04/06 Inactive Remigio Childress MD Sinus congestion ICD-478.19 Inactive Remigio johnson MD Productive cough purulent sputum ICD-786.2 [place] ct[place] Remigio Childress MD Mycoplasma pneumonia ICD-483.0 Inactive Daryn Childress MD Medication List Medication Instructions Start Date Stop Date Generic Name NDC Status Provider Patient Instruction CETIRIZINE HCL 10 MG ORAL TABLET 1 po qd PRN Allergies CETIRIZINE HCL 47483290422 Active Remigio Childress MD Active MULTIVITAMIN ADULT ORAL TABLET 1 po qd MULTIPLE VITAMINS-MINERALS 13390001087 No Longer Active Remigio Childress MD Active PREDNISONE 20 MG ORAL TABLET take 40 mg daily for 7 days PREDNISONE 22088476962 No Longer Active Remigio Childress MD Activ e ZITHROMAX Z-FELA 250 MG ORAL TABLET 2 today, then 1 daily for 4 d ays AZITHROMYCIN 94497497635 No Longer Active Tigre Braden APRN Active TESSALON PERLES 100 MG ORAL CAPSULE 1 tablet by mouth 3 times da gin BENZONATATE 04804876729 No Longer Active Lashawn Tannerna Activ e PREDNISONE 20 MG ORAL TABLET take 40 mg dialy for 6 days PREDNISONE 86110466263 No Longer Active Tigre Braden APRN Active ATORVASTATIN CALCIUM 20 MG ORAL TABLET 1 po qHS 20 01/04/06 ATORVASTATIN CALCIUM 12289984955 No Longer Active Remigio Childress MD Active LAMICTAL 200 MG ORAL TABLET 1.5 po qHS LAMOTRIGIN E 63462842978 Active Remigio Childress MD Active CLARITIN 10 MG ORAL TABLET 1 tab daily L[place]ATADI [place] 55321199113 No Longer Active Remigio Childress MD Active FLONASE ALLERGY RELIEF 50 MCG/ACT NASAL SUSPENSION 1 spray e ach nare BID FLUTICASONE PROPIONATE 29263550745 No Longer Active Aleksandra Childress MD Active PREDNISONE 20 MG ORAL TABLET 2 tabs po daily x3 days 2 PREDNISONE 58591270868 No Longer Active Remigio Childress MD Activ e CEFUROXIME AXETIL 500 MG ORAL TABLET 0.5 tab by mouth twice a da y CEFUROXIME AXETIL 91605442034 No Longer Active Kiana Miller APRN-C Active AUGMENTIN 875-125 MG ORAL TABLET 1 po BID x 10 days 20 30/10/14 AMOXICILLIN-POT CLAVULANATE No Longer Active Tigre Braden APRN Active PRAZOSIN HCL 1 MG ORAL CAPSULE 2 po qHS PRAZOSIN HCL 73700621216 Active Remigio Childress MD Active BUPROPION HCL ER (XL) 300 MG ORAL TABLET EXTENDED RELEASE 24 HOUR 1 po qd BUPROPION HCL 78185587825 Active Remigio Childress MD Active PROAIR HFA 108 (90 BASE) MCG/ACT INHALATION AEROSOL SO LUTION 2 puffs q4hr PRN Shortness of air/Wheezing ALBUTEROL SULFATE 28871179035 Ac tive Remigio Childress MD Active FLUTICASONE PROPIONATE 50 MCG/ACT NASAL SUSPENSION 2 s prays/nostril qd PRN Congestion/Allergies FLUTICASONE PROPIONATE 66486031339 Ac tive Remigio Childress MD Active ENSKYCE 0.15-30 MG-MCG ORAL TABLET 1 po qd DESOGESTREL-ETHINYL ESTRADIOL 25717031575 Active Remigio Childress MD Active ZITHROMAX Z-FELA 250 MG ORAL TABLET 2 today, then 1 daily for 4 d ays AZITHROMYCIN 13781775391 No Longer Active Alban Boyce MD Active PREDNISONE 20 MG ORAL TABLET 3 tabs for 2 days, 2 tabs for 4 days 1 ta for 4 days, 1/2 tab for 4 days PREDNISONE 24460613226 No Longer Active Alban Boyce MD Active AMOXICILLIN-POT CLAVULANATE 875-125 MG ORAL TABLET 1 pill by mouth twice daily AMOXICILLIN-POT CLAVULANATE 94440423034 No Longer Act parth Trina Sell [employer] Active ATORVASTATIN CALCIUM 20 MG ORAL TABLET 1 po qHS 20 02/07/19 ATORVASTATIN CALCIUM 14935385444 No Longer Active Trina Sell [employer] Active [facility] MELATONIN 5 MG ORAL TABLET 1 TAB PO Q HS ME LATONIN 04681278416 No Longer Active Trina Sell [employer]GIVER Active PROMETHAZINE-CODEINE 6.25-10 MG/5ML ORAL SYRUP 5ml po q6hr PRN C ough PROMETHAZINE-CODEINE 11014802862 No Longer Active Trina Sell [employer]GIVER Active PREDNISONE 20 MG ORAL TABLET 2 po qd x 5 days P REDNISONE 99970478557 No Longer Active Remigio Childress MD Active PROMETHAZINE-CODEINE 6.25-10 MG/5ML ORAL SYRUP 5ml po q6hr PRN C ough PROMETHAZINE-CODEINE 6.25-10 MG/5ML ORAL SYRUP 285822 PROMETHAZINE-CODEINE Inactive [facility] MELATONIN 5 MG ORAL TABLET 1 TAB PO Q HS 1 [facility] MELATONIN 5 MG ORAL TABLET 409858 MELATONIN Inactive PREDNISONE 20 MG ORAL TABLET 3 tabs for 2 days, 2 tabs for 4 days 1 ta for 4 days, 1/2 tab for 4 days PREDNISONE 20 MG ORAL T ABLET 037728 PREDNISONE Inactive PREDNISONE 20 MG ORAL TABLET 2 tabs po daily x3 days 2 PREDNISONE 20 MG ORAL TABLET 564220 PREDNISONE Inactive FLONASE ALLERGY RELIEF 50 MCG/ACT NASAL SUSPENSION 1 spray e ach nare BID FLONASE ALLERGY RELIEF 50 MCG/ACT NASAL SUSPENSION 6524003 FLUTICASONE PROPIONATE Inactive CLARITIN 10 MG ORAL TABLET 1 tab daily C LARITIN 10 MG ORAL TABLET 766019 LORATADINE Inactive ATORVASTATIN CALCIUM 20 MG ORAL TABLET 1 po qHS 20 01/04/06 ATORVASTATIN CALCIUM 20 MG ORAL TABLET 666949 ATORVASTATIN CALCIUM Inactive TESSALON PERLES 100 MG ORAL CAPSULE 1 tablet by mouth 3 times da gin TESSALON PERLES 100 MG ORAL CAPSULE 185491 BENZONATATE Inactive PREDNISONE 20 MG ORAL TABLET take 40 mg daily for 7 days PREDNISONE 20 MG ORAL TABLET 559568 PREDNISONE Inactive MULTIVITAMIN ADULT ORAL TABLET 1 po qd MULTIVITAMIN ADULT ORAL TABLET MULTIPLE VITAMINS-MINERALS Inactive PREDNISONE 20 MG ORAL TABLET 2 po qd x 5 days PREDNISONE 20 MG ORAL TABLET 100854 PREDNISONE Inactive ATORVASTATIN CALCIUM 20 MG ORAL TABLET 1 po qHS 20 02/07/19 ATORVASTATIN CALCIUM 20 MG ORAL TABLET 360914 ATORVASTATIN CALCIUM Inactive AMOXICILLIN-POT CLAVULANATE 875-125 MG ORAL TABLET 1 pill by mouth twice daily AMOXICILLIN-POT CLAVULANATE 875-125 MG ORAL TABL ET 632177 AMOXICILLIN-POT CLAVULANATE Inactive ZITHROMAX Z-FELA 250 MG ORAL TABLET 2 today, then 1 daily for 4 d ays ZITHROMAX Z-FELA 250 MG ORAL TABLET 087851 AZITHROMYCIN Inactive AUGMENTIN 875-125 MG ORAL TABLET 1 po BID x 10 days 30/10/14 AUGMENTIN 875-125 MG ORAL TABLET AMOXICILLIN-POT CLAVULANATE Inactive CEFUROXIME AXETIL 500 MG ORAL TABLET 0.5 tab by mouth twice a da y CEFUROXIME AXETIL 500 MG ORAL TABLET 947878 CEFUROXIME AXETIL Inactive PREDNISONE 20 MG ORAL TABLET take 40 mg dialy for 6 days PREDNISONE 20 MG ORAL TABLET 224443 PREDNISONE Inactive ZITHROMAX Z-FELA 250 MG ORAL TABLET 2 today, then 1 daily for 4 d ays ZITHROMAX Z-FELA 250 MG ORAL TABLET 074559 AZITHROMYCIN Inactive Immunizations Vaccine Administration Date Value [...] Description Lab Report: Lipid Panel, CBC, Comp. [place] [facility] Panel - Chemistry cholesterol, serum 256 mg/dL 965-424 2111/01/13 triglyceride, serum, fasting 166 mg/dL 30-200 HDL cholesterol, serum 78 mg/dL 32-60 LDL cholesterol, serum 145 mg/dL 0-130 sodium, serum 138 mmol/L 417-585 3755/01/13 carbon dioxide, venous blood 28.4 mmol/L 21.0-32 [...] 0.00-1.00 Lab Report: Lipid Panel, CBC, Comp. [place] [facility]olic Panel - Hematology leukocyte count, blood [...] 142-424 Lab Report: Lipid Panel, CBC, Comp. [place] [facility] Panel - Lab Alkaline phosphatase 66 50-136 Office Visit: 2 month follow up 302 - [facility] LDL target level 160 mg/dL Office Visit: congestion,fever,cough - C hemistry HDL cholesterol, serum, target level 40 mg/dL cholesterol, target level 200 mg/dL triglyceride, target level 150 mg/dL Encounters Code Encounter Date Provider Facility CPT-40944 Level 4 Est. Patient 09:14:43 LAB AID Remigio Childress MD [facility] CPT-35015 Level 3 Est. Patient 16:17:24 LAB AID Tigre micheleedward [facility] CPT-47893 Level 3 Est. Patient 09:05:56 LAB AID Tigre fu [facility] CPT-13066 Level 4 Est. Patient 09:00:38 LAB AID Remigio Childress MD [facility] CPT-19031 Level 3 Est. Patient 14:18:32 CDT Tigre fu [facility] CPT-06511 Level 4 Est. Patient 13:48:04 CDT Remigio Childress MD [facility] CPT-21845 [id number] Vst-Est Level III 10:10:19 LAB AID Alban Boyce MD [facility] CPT-33696 Level 3 Est. Patient 13:45:32 LAB AID Trina tapia [facility] CPT-15725 Level 3 Est. Patient 10:03:23 CDT Remigio Childress [facility] Procedures Code Procedure Name Date Entry Date Standard Desc ription [id number] (4274F) Influenza immunization administe red or previously received 09:14:43 LAB AID CPT-14919 Venipuncture Draw Fee 09:28:58 LAB AID [id number] (4274F) Influenza immunization administe red or previously received 16:05:01 LAB AID CPT-16038 Prv Med Est Pt 18-39yrs 12:46:30 LAB AID 05/31 CPT-10587 Prv Med Est Pt 18-39yrs 12:25:19 LAB AID 05/31 CPT-45643 IM or SQ Injection 09:09:52 LAB AID CPT-51544 44102 - Immun Admin 1 vac 09:08:43 LAB AID 2018 CPT-04310 Flulaval Quadrivalent (Flu) 10Pk Syringe IM 2018 09:08:43 LAB AID CPT-000 Give PPD 13:51:16 CDT
--- OUTSIDE RECORDS SUMMARY | 2019-07-22 04:53 | XMS REPORT | Clinical Summary ---
Author Author Admin, Virgen MICHELET Organization [employer] Address Unknown Phone Unavailable Allergies, Adverse Reactions, [...] 35.0- 35.9, adult BMI 36-36.9 Active Remigio Chidlress MD Body Mass Index 35.0- 35.9, adult [...] acute 724.2 Active Remigio zavala MD Lumbago Upper respiratory infection, viral ICD-465.9 I nactive [...] 1 po qd PRN Allergies CETIRIZINE HCL 38015234508 Active Remigio Childress MD Active MULTIVITAMIN ADULT ORAL TABLET 1 po qd MULTIPLE VITAMINS-MINERALS 49560538708 No Longer Active Remigio Childress MD Active PREDNISONE 20 MG ORAL TABLET take 40 mg daily for 7 days PREDNISONE 00026665462 No Longer Active Remigio Childress MD Activ e ZITHROMAX Z-FELA 250 MG ORAL TABLET 2 today, then 1 daily for 4 d ays AZITHROMYCIN 42693190461 No Longer Active Tigre Braden APRN Active TESSALON PERLES 100 MG ORAL CAPSULE 1 tablet by mouth 3 times da gin BENZONATATE 66816524798 No Longer Active Lashawn Blank Activ e PREDNISONE 20 MG ORAL TABLET take 40 mg dialy for 6 days PREDNISONE 70700815709 No Longer Active Tgire Braden APRN Active ATORVASTATIN CALCIUM 20 MG ORAL TABLET 1 po qHS 20 01/04/06 ATORVASTATIN CALCIUM 65626414241 No Longer Active Remigio Childress MD Active LAMICTAL 200 MG ORAL TABLET 1.5 po qHS LAMOTRIGIN E 34986891096 Active Remigio Childress MD Active CLARITIN 10 MG ORAL TABLET 1 tab daily LORATADI NE 65785675205 No Longer Active Remigio Childress MD Active FLONASE ALLERGY RELIEF 50 MCG/ACT NASAL SUSPENSION 1 spray e ach nare BID FLUTICASONE PROPIONATE 20834982307 No Longer Active Aleksandra Childress MD Active PREDNISONE 20 MG ORAL TABLET 2 tabs po daily x3 days 2 PREDNISONE 62046754431 No Longer Active Remigio Childress MD Activ e CEFUROXIME AXETIL 500 MG ORAL TABLET 0.5 tab by mouth twice a da y CEFUROXIME AXETIL 39757521731 No Longer Active Kiana Miller APRN-C Active AUGMENTIN 875-125 MG ORAL TABLET 1 po BID x 10 days 20 30/10/14 AMOXICILLIN-POT CLAVULANATE No Longer Active Tigre Braden APRN Active PRAZOSIN HCL 1 MG ORAL CAPSULE 2 po qHS PRAZOSIN HCL 90268357870 Active Remigio Childress MD Active BUPROPION HCL ER (XL) 300 MG ORAL TABLET EXTENDED RELEASE 24 HOUR 1 po qd BUPROPION HCL 19813469569 Active Remigio Childress MD Active PROAIR HFA 108 (90 BASE) MCG/ACT INHALATION AEROSOL SO LUTION 2 puffs q4hr PRN Shortness of air/Wheezing ALBUTEROL SULFATE 42197530390 Ac gifty Childress MD Active FLUTICASONE PROPIONATE 50 MCG/ACT NASAL SUSPENSION 2 s prays/nostril qd PRN Congestion/Allergies FLUTICASONE PROPIONATE 99112638930 Ac gifty Childress MD Active ENSKYCE 0.15-30 MG-MCG ORAL TABLET 1 po qd DESOGESTREL-ETHINYL ESTRADIOL 79791212121 Active Remigio Childress MD Active ZITHROMAX Z-FELA 250 MG ORAL TABLET 2 today, then 1 daily for 4 d ays AZITHROMYCIN 70492413025 No Longer Active Alban Boyec MD Active PREDNISONE 20 MG ORAL TABLET 3 tabs for 2 days, 2 tabs for 4 days 1 ta for 4 days, 1/2 tab for 4 days PREDNISONE 28999882126 No Longer Active Alban Boyce MD Active AMOXICILLIN-POT CLAVULANATE 875-125 MG ORAL TABLET 1 pill by mouth twice daily AMOXICILLIN-POT CLAVULANATE 48908940622 No Longer Act parth Trina Sell [employer]BLER Active ATORVASTATIN CALCIUM 20 MG ORAL TABLET 1 po qHS 20 02/07/19 ATORVASTATIN CALCIUM 43446853176 No Longer Active Trina Sell [employer] Active [facility] MELATONIN 5 MG ORAL TABLET 1 TAB PO Q HS ME LATONIN 06486060861 No Longer Active Trina Sell [employer] Active PROMETHAZINE-CODEINE 6.25-10 MG/5ML ORAL SYRUP 5ml po q6hr PRN C ou PROMETHAZINE-CODEINE 13076069913 No Longer Active Trina Sell [employer] Active PREDNISONE 20 MG ORAL TABLET 2 po qd x 5 days P REDNISONE 52336488367 No Longer Active Remigio Childress MD Active PROMETHAZINE-CODEINE 6.25-10 MG/5ML ORAL SYRUP 5ml po q6hr PRN C ou PROMETHAZINE-CODEINE 6.25-10 MG/5ML ORAL SYRUP 924054 PROMETHAZINE-CODEINE Inactive [facility] MELAT[facility]IN 5 MG ORAL TABLET 1 TAB PO Q HS 1 [facility] MELATONIN 5 MG ORAL TABLET 580424 MELATONIN Inactive PREDNISONE 20 MG ORAL TABLET 3 tabs for 2 days, 2 tabs for 4 days 1 ta for 4 days, 1/2 tab for 4 days PREDNISONE 20 MG ORAL T ABLET 830869 PREDNISONE Inactive PREDNISONE 20 MG ORAL TABLET 2 tabs po daily x3 days 2 PREDNISONE 20 MG ORAL TABLET 698153 PREDNISONE Inactive FLONASE ALLERGY RELIEF 50 MCG/ACT NASAL SUSPENSION 1 spray e ach nare BID FLONASE ALLERGY RELIEF 50 MCG/ACT NASAL SUSPENSION 5480625 FLUTICASONE PROPIONATE Inactive CLARITIN 10 MG ORAL TABLET 1 tab daily C LARITIN 10 MG ORAL TABLET 560992 LORATADINE Inactive ATORVASTATIN CALCIUM 20 MG ORAL TABLET 1 po qHS 20 01/04/06 ATORVASTATIN CALCIUM 20 MG ORAL TABLET 818493 ATORVASTATIN CALCIUM Inactive TESSALON PERLES 100 MG ORAL CAPSULE 1 tablet by mouth 3 times da gin TESSALON PERLES 100 MG ORAL CAPSULE 047987 BENZONATATE Inactive PREDNISONE 20 MG ORAL TABLET take 40 mg daily for 7 days PREDNISONE 20 MG ORAL TABLET 363908 PREDNISONE Inactive MULTIVITAMIN ADULT ORAL TABLET 1 po qd MULTIVITAMIN ADULT ORAL TABLET MULTIPLE VITAMINS-MINERALS Inactive PREDNISONE 20 MG ORAL TABLET 2 po qd x 5 days PREDNISONE 20 MG ORAL TABLET 672104 PREDNISONE Inactive ATORVASTATIN CALCIUM 20 MG ORAL TABLET 1 po qHS 20 02/07/19 ATORVASTATIN CALCIUM 20 MG ORAL TABLET 960075 ATORVASTATIN CALCIUM Inactive AMOXICILLIN-POT CLAVULANATE 875-125 MG ORAL TABLET 1 pill by mouth twice daily AMOXICILLIN-POT CLAVULANATE 875-125 MG ORAL TABL ET 458570 AMOXICILLIN-POT CLAVULANATE Inactive ZITHROMAX Z-FELA 250 MG ORAL TABLET 2 today, then 1 daily for 4 d ays ZITHROMAX Z-FELA 250 MG ORAL TABLET 972520 AZITHROMYCIN Inactive AUGMENTIN 875-125 MG ORAL TABLET 1 po BID x 10 days 20 30/10/14 AUGMENTIN 875-125 MG ORAL TABLET AMOXICILLIN-POT CLAVULANATE Inactive CEFUROXIME AXETIL 500 MG ORAL TABLET 0.5 tab by mouth twice a da y CEFUROXIME AXETIL 500 MG ORAL TABLET 652300 CEFUROXIME AXETIL Inactive PREDNISONE 20 MG ORAL TABLET take 40 mg dialy for 6 days PREDNISONE 20 MG ORAL TABLET 812033 PREDNISONE Inactive ZITHROMAX Z-FELA 250 MG ORAL TABLET 2 today, then 1 daily for 4 d ays ZITHROMAX Z-FELA 250 MG ORAL TABLET 808338 AZITHROMYCIN Inactive Immunizations Vaccine Administration Date Value [...] Description Lab Report: Lipid Panel, CBC, Comp. [place] [facility]olic Panel - Chemistry cholesterol, serum 256 mg/dL 318-931 5508/01/13 triglyceride, serum, fasting 166 mg/dL 30-200 HDL cholesterol, serum 78 mg/dL 32-60 LDL cholesterol, serum 145 mg/dL 0-130 sodium, serum 138 mmol/L 320-304 1529/01/13 carbon dioxide, venous blood 28.4 mmol/L 21.0-32 [...] 0.00-1.00 Lab Report: Lipid Panel, CBC, Comp. [place] bolic Panel - Hematology leukocyte count, blood [...] 142-424 Lab Report: Lipid Panel, CBC, Comp. [place] [facility]olic Panel - Lab Alkaline phosphatase 66 50-136 Office Visit: [address] [facility] LDL target level 160 mg/dL Office Visit: congestion,fever,cough - C hemistry HDL cholesterol, serum, target level 40 mg/dL cholesterol, target level 200 mg/dL triglyceride, target level 150 mg/dL Encounters Code Encounter Date Provider Facility CPT-69574 Level 4 Est. Patient 09:14:43 LIFE SCIENCES INSTRUCTOR Remigio Childress MD [facility] CPT-15712 Level 3 Est. Patient 16:17:24 LIFE SCIENCES INSTRUCTOR Tigre fu [facility] [place] CPT-22972 Level 3 Est. Patient 09:05:56 LIFE SCIENCES INSTRUCTOR Tigre fu [facility] [place] CPT-16798 Level 4 Est. Patient 09:00:38 LIFE SCIENCES INSTRUCTOR Remigio Childress MD [facility] CPT-40001 Level 3 Est. Patient 14:18:32 CDT Tigre fu [facility] [place] CPT-62068 Level 4 Est. Patient 13:48:04 CDT Remigio Childress MD [facility] CPT-62384 [id number] Vst-Est Level III 10:10:19 LIFE SCIENCES INSTRUCTOR Alban Boyce MD [facility] CPT-49346 Level 3 Est. Patient 13:45:32 LIFE SCIENCES INSTRUCTOR Trina tapia [facility] [place] CPT-10924 Level 3 Est. Patient 10:03:23 CDT Remigio Childress MD [facility] Procedures Code Procedure Name Date Entry Date Standard Desc ription [id number] (4274F) Influenza immunization administe red or previously received 09:14:43 LIFE SCIENCES INSTRUCTOR CPT-83708 Venipuncture Draw Fee 09:28:58 LIFE SCIENCES INSTRUCTOR CPT-[id number] (4274F) Influenza immunization administe red or previously received 16:05:01 LIFE SCIENCES INSTRUCTOR CPT-77668 Prv Med Est Pt 18-39yrs 12:46:30 LIFE SCIENCES INSTRUCTOR 05/31 CPT-76098 Prv Med Est Pt 18-39yrs 12:25:19 LIFE SCIENCES INSTRUCTOR 05/31 CPT-84507 IM or SQ Injection 09:09:52 LIFE SCIENCES INSTRUCTOR CPT-49960 78857 - Immun Admin 1 vac 09:08:43 LIFE SCIENCES INSTRUCTOR 2018 CPT-94947 Flulaval Quadrivalent (Flu) 10Pk Syringe IM 2018 09:08:43 LIFE SCIENCES INSTRUCTOR CPT-000 Give PPD 13:51:16 CDT
--- OUTSIDE RECORDS SUMMARY | 2019-07-22 04:53 | XMS REPORT | Clinical Summary ---
Author Author Admin, Virgen MICHELET Organization [employer] Address Unknown Phone Unavailable Allergies, Adverse Reactions, [...] 1 po qd PRN Allergies CETIRIZINE HCL 91177688286 Active Remigio Childress MD Active MULTIVITAMIN ADULT ORAL TABLET 1 po qd MULTIPLE VITAMINS-MINERALS 12146245626 No Longer Active Remigio Childress MD Active PREDNISONE 20 MG ORAL TABLET take 40 mg daily for 7 days PREDNISONE 17409260009 No Longer Active Remigio Childress MD Activ e ZITHROMAX Z-FELA 250 MG ORAL TABLET 2 today, then 1 daily for 4 d ays AZITHROMYCIN 16302695531 No Longer Active Tigre Braden APRN Active TESSALON PERLES 100 MG ORAL CAPSULE 1 tablet by mouth 3 times da gin BENZONATATE 76568979313 No Longer Active Lashawn Tannerna Activ e PREDNISONE 20 MG ORAL TABLET take 40 mg dialy for 6 days PREDNISONE 41056184134 No Longer Active Tigre Braden APRN Active ATORVASTATIN CALCIUM 20 MG ORAL TABLET 1 po qHS 20 01/04/06 ATORVASTATIN CALCIUM 67174396306 No Longer Active Remigio Childress MD Active LAMICTAL 200 MG ORAL TABLET 1.5 po qHS LAMOTRIGIN E 91111234550 Active Remigio Childress MD Active CLARITIN 10 MG ORAL TABLET 1 tab daily LORATADI NE 00401204281 No Longer Active Remigio Childress MD Active FLONASE ALLERGY RELIEF 50 MCG/ACT NASAL SUSPENSION 1 spray e ach nare BID FLUTICASONE PROPIONATE 58846192832 No Longer Active Aleksandra Childress MD Active PREDNISONE 20 MG ORAL TABLET 2 tabs po daily x3 days 2 PREDNISONE 68051709373 No Longer Active Remigio Childress MD Activ e CEFUROXIME AXETIL 500 MG ORAL TABLET 0.5 tab by mouth twice a da y CEFUROXIME AXETIL 02945957242 No Longer Active Kiana Miller APRN-C Active AUGMENTIN 875-125 MG ORAL TABLET 1 po BID x 10 days 20 30/10/14 AMOXICILLIN-POT CLAVULANATE No Longer Active Tigre Braden APRN Active PRAZOSIN HCL 1 MG ORAL CAPSULE 2 po qHS PRAZOSIN HCL 36616880499 Active Remigio Childress MD Active BUPROPION HCL ER (XL) 300 MG ORAL TABLET EXTENDED RELEASE 24 HOUR 1 po qd BUPROPION HCL 43406824175 Active Remigio Childress MD Active PROAIR HFA 108 (90 BASE) MCG/ACT INHALATION AEROSOL SO LUTION 2 puffs q4hr PRN Shortness of air/Wheezing ALBUTEROL SULFATE 04669932139 Ac tive Remigio Childress MD Active FLUTICASONE PROPIONATE 50 MCG/ACT NASAL SUSPENSION 2 s prays/nostril qd PRN Congestion/Allergies FLUTICASONE PROPIONATE 89261946539 Ac tive Remigio Childress MD Active ENSKYCE 0.15-30 MG-MCG ORAL TABLET 1 po qd DESOGESTREL-ETHINYL ESTRADIOL 31472156601 Active Remigio Childress MD Active ZITHROMAX Z-FELA 250 MG ORAL TABLET 2 today, then 1 daily for 4 d ays AZITHROMYCIN 39671544050 No Longer Active Alban Boyce MD Active PREDNISONE 20 MG ORAL TABLET 3 tabs for 2 days, 2 tabs for 4 days 1 ta for 4 days, 1/2 tab for 4 days PREDNISONE 96265652696 No Longer Active Alban Boyce MD Active AMOXICILLIN-POT CLAVULANATE 875-125 MG ORAL TABLET 1 pill by mouth twice daily AMOXICILLIN-POT CLAVULANATE 59419576946 No Longer Act parth Trina Sell CLIENT SUPPORT REPRESENTATIVE Active ATORVASTATIN CALCIUM 20 MG ORAL TABLET 1 po qHS 20 02/07/19 ATORVASTATIN CALCIUM 10707890617 No Longer Active Trina Sell CLIENT SUPPORT REPRESENTATIVE Active [facility] MELATONIN 5 MG ORAL TABLET 1 TAB PO Q HS ME LATONIN 89000647896 No Longer Active Trina Sell CLIENT SUPPORT REPRESENTATIVE Active PROMETHAZINE-CODEINE 6.25-10 MG/5ML ORAL SYRUP 5ml po q6hr PRN C ough PROMETHAZINE-CODEINE 34366552613 No Longer Active Trina Sell CLIENT SUPPORT REPRESENTATIVE Active PREDNISONE 20 MG ORAL TABLET 2 po qd x 5 days P REDNISONE 34603854031 No Longer Active Remigio Childress MD Active PROMETHAZINE-CODEINE 6.25-10 MG/5ML ORAL SYRUP 5ml po q6hr PRN C ough PROMETHAZINE-CODEINE 6.25-10 MG/5ML ORAL SYRUP 486134 PROMETHAZINE-CODEINE Inactive [facility] MELATONIN 5 MG ORAL TABLET 1 TAB PO Q HS 1 [facility] MELATONIN 5 MG ORAL TABLET 016837 MELATONIN Inactive PREDNISONE 20 MG ORAL TABLET 3 tabs for 2 days, 2 tabs for 4 days 1 ta for 4 days, 1/2 tab for 4 days PREDNISONE 20 MG ORAL T ABLET 653725 PREDNISONE Inactive PREDNISONE 20 MG ORAL TABLET 2 tabs po daily x3 days 2 PREDNISONE 20 MG ORAL TABLET 491806 PREDNISONE Inactive FLONASE ALLERGY RELIEF 50 MCG/ACT NASAL SUSPENSION 1 spray e ach nare BID FLONASE ALLERGY RELIEF 50 MCG/ACT NASAL SUSPENSION 2039967 FLUTICASONE PROPIONATE Inactive CLARITIN 10 MG ORAL TABLET 1 tab daily C LARITIN 10 MG ORAL TABLET 537838 LORATADINE Inactive ATORVASTATIN CALCIUM 20 MG ORAL TABLET 1 po qHS 20 01/04/06 ATORVASTATIN CALCIUM 20 MG ORAL TABLET 155361 ATORVASTATIN CALCIUM Inactive TESSALON PERLES 100 MG ORAL CAPSULE 1 tablet by mouth 3 times da gin TESSALON PERLES 100 MG ORAL CAPSULE 470922 BENZONATATE Inactive PREDNISONE 20 MG ORAL TABLET take 40 mg daily for 7 days PREDNISONE 20 MG ORAL TABLET 965991 PREDNISONE Inactive MULTIVITAMIN ADULT ORAL TABLET 1 po qd MULTIVITAMIN ADULT ORAL TABLET MULTIPLE VITAMINS-MINERALS Inactive PREDNISONE 20 MG ORAL TABLET 2 po qd x 5 days PREDNISONE 20 MG ORAL TABLET 347978 PREDNISONE Inactive ATORVASTATIN CALCIUM 20 MG ORAL TABLET 1 po qHS 20 02/07/19 ATORVASTATIN CALCIUM 20 MG ORAL TABLET 806293 ATORVASTATIN CALCIUM Inactive AMOXICILLIN-POT CLAVULANATE 875-125 MG ORAL TABLET 1 pill by mouth twice daily AMOXICILLIN-POT CLAVULANATE 875-125 MG ORAL TABL ET 948031 AMOXICILLIN-POT CLAVULANATE Inactive ZITHROMAX Z-FELA 250 MG ORAL TABLET 2 today, then 1 daily for 4 d ays ZITHROMAX Z-FELA 250 MG ORAL TABLET 635323 AZITHROMYCIN Inactive AUGMENTIN 875-125 MG ORAL TABLET 1 po BID x 10 days 30/10/14 AUGMENTIN 875-125 MG ORAL TABLET AMOXICILLIN-POT CLAVULANATE Inactive CEFUROXIME AXETIL 500 MG ORAL TABLET 0.5 tab by mouth twice a da y CEFUROXIME AXETIL 500 MG ORAL TABLET 300732 CEFUROXIME AXETIL Inactive PREDNISONE 20 MG ORAL TABLET take 40 mg dialy for 6 days PREDNISONE 20 MG ORAL TABLET 161092 PREDNISONE Inactive ZITHROMAX Z-FELA 250 MG ORAL TABLET 2 today, then 1 daily for 4 d ays ZITHROMAX Z-FELA 250 MG ORAL TABLET 506950 AZITHROMYCIN Inactive Immunizations Vaccine Administration Date Value [...] Description Lab Report: Lipid Panel, CBC, Comp. Fonda bolic Panel - Chemistry cholesterol, serum 256 mg/dL 996-768 5976/01/13 triglyceride, serum, fasting 166 mg/dL 30-200 HDL cholesterol, serum 78 mg/dL 32-60 LDL cholesterol, serum 145 mg/dL 0-130 sodium, serum 138 mmol/L 905-116 0240/01/13 carbon dioxide, venous blood 28.4 mmol/L 21.0-32 [...] 0.00-1.00 Lab Report: Lipid Panel, CBC, Comp. Fonda bolic Panel - Hematology leukocyte count, blood [...] 142-424 Lab Report: Lipid Panel, CBC, Comp. Fonda bolic Panel - Lab Alkaline phosphatase 66 50-136 Office Visit: 2 month follow up 302 - [facility] LDL target level 160 mg/dL Office Visit: congestion,fever,cough - C hemistry HDL cholesterol, serum, target level 40 mg/dL cholesterol, target level 200 mg/dL triglyceride, target level 150 mg/dL Encounters Code Encounter Date Provider Facility CPT-16108 Level 4 Est. Patient 09:14:43 PUMP PRESS OPERATOR Remigio Childress MD [facility] CPT-08725 Level 3 Est. Patient 16:17:24 PUMP PRESS OPERATOR Tigre micheleedward [facility] [place] CPT-35402 Level 3 Est. Patient 09:05:56 PUMP PRESS OPERATOR Tigre micheleedward [facility] [place] CPT-70088 Level 4 Est. Patient 09:00:38 PUMP PRESS OPERATOR Remigio Childress MD [facility] CPT-55585 Level 3 Est. Patient 14:18:32 CDT Tigre fu [facility] CPT-85511 Level 4 Est. Patient 13:48:04 CDT Remigio Childress MD [facility] CPT-33993 [id number] Vst-Est Level III 10:10:19 PUMP PRESS OPERATOR Alban Boyce MD [facility] CPT-69823 Level 3 Est. Patient 13:45:32 PUMP PRESS OPERATOR Trina tapia [facility] [place] CPT-99647 Level 3 Est. Patient 10:03:23 CDT Remigio Childress [facility] Procedures Code Procedure Name Date Entry Date Standard Desc ription CPT-85398 Venipuncture Draw Fee 08:56:26 PUMP PRESS OPERATOR CPT-[id number] (4274F) Influenza immunization administe red or previously received 09:14:43 PUMP PRESS OPERATOR CPT-59791 Venipuncture Draw Fee 09:28:58 PUMP PRESS OPERATOR CPT-[id number] (4274F) Influenza immunization administe red or previously received 16:05:01 PUMP PRESS OPERATOR CPT-93650 Prv Med Est Pt 18-39yrs 12:46:30 PUMP PRESS OPERATOR 05/31 CPT-61804 Prv Med Est Pt 18-39yrs 12:25:19 PUMP PRESS OPERATOR 05/31 CPT-42918 IM or SQ Injection 09:09:52 PUMP PRESS OPERATOR CPT-51683 48158 - Immun Admin 1 vac 09:08:43 PUMP PRESS OPERATOR 2018 CPT-51700 Flulaval Quadrivalent (Flu) 10Pk Syringe IM 2018 09:08:43 PUMP PRESS OPERATOR CPT-000 Give PPD 13:51:16 CDT
--- OUTSIDE RECORDS SUMMARY | 2019-07-22 04:53 | XMS REPORT | Clinical Summary ---
Author Author Admin, Virgen MICHELET Organization [facility] Address Unknown Phone Unavailable Allergies, Adverse Reactions, [...] 35.0- 35.9, adult BMI 36-36.9 Refinement Kiana MELENDEZ Body Mass Index 35.0- 35.9, adult BMI [...] 1 po qd PRN Allergies CETIRIZINE HCL 60831199717 Active Remigio Childress MD Active MULTIVITAMIN ADULT ORAL TABLET 1 po qd MULTIPLE VITAMINS-MINERALS 21355659110 No Longer Active Remigio Childress MD Active PREDNISONE 20 MG ORAL TABLET take 40 mg daily for 7 days PREDNISONE 71527862738 No Longer Active Remigio Childress MD Activ e ZITHROMAX Z-FELA 250 MG ORAL TABLET 2 today, then 1 daily for 4 d ays AZITHROMYCIN 33118704610 No Longer Active Tigre Braden APRN Active TESSALON PERLES 100 MG ORAL CAPSULE 1 tablet by mouth 3 times da gin BENZONATATE 89755096967 No Longer Active Lashawn Rosamaria Activ e PREDNISONE 20 MG ORAL TABLET take 40 mg dialy for 6 days PREDNISONE 67176128875 No Longer Active Tigre Braden APRN Active ATORVASTATIN CALCIUM 20 MG ORAL TABLET 1 po qHS 20 01/04/06 ATORVASTATIN CALCIUM 41152751899 No Longer Active Remigio Childress MD Active LAMICTAL 200 MG ORAL TABLET 1.5 po qHS LAMOTRIGIN E 22529100521 Active Remigio Childress MD Active CLARITIN 10 MG ORAL TABLET 1 tab daily LORATADI NE 46121896525 No Longer Active Remigio Childress MD Active FLONASE ALLERGY RELIEF 50 MCG/ACT NASAL SUSPENSION 1 spray e ach nare BID FLUTICASONE PROPIONATE 19245362889 No Longer Active Aleksandra Childress MD Active PREDNISONE 20 MG ORAL TABLET 2 tabs po daily x3 days 2 PREDNISONE 67457059486 No Longer Active Remigio Childress MD Activ e CEFUROXIME AXETIL 500 MG ORAL TABLET 0.5 tab by mouth twice a da y CEFUROXIME AXETIL 99179138416 No Longer Active Kiana Miller APRN-Deonna Active AUGMENTIN 875-125 MG ORAL TABLET 1 po BID x 10 days 20 30/10/14 AMOXICILLIN-POT CLAVULANATE No Longer Active Tigre Braden APRN Active PRAZOSIN HCL 1 MG ORAL CAPSULE 2 po qHS PRAZOSIN HCL 44826265496 Active Remigio Childress MD Active BUPROPION HCL ER (XL) 300 MG ORAL TABLET EXTENDED RELEASE 24 HOUR 1 po qd BUPROPION HCL 01423402184 Active Remigio Childress MD Active PROAIR HFA 108 (90 BASE) MCG/ACT INHALATION AEROSOL SO LUTION 2 puffs q4hr PRN Shortness of air/Wheezing ALBUTEROL SULFATE 04003186820 Ac gifty Childress MD Active FLUTICASONE PROPIONATE 50 MCG/ACT NASAL SUSPENSION 2 s prays/nostril qd PRN Congestion/Allergies FLUTICASONE PROPIONATE 07548184178 Ac gifty Childress MD Active ENSKYCE 0.15-30 MG-MCG ORAL TABLET 1 po qd DESOGESTREL-ETHINYL ESTRADIOL 78913833693 Active Remigio Childress MD Active ZITHROMAX Z-FELA 250 MG ORAL TABLET 2 today, then 1 daily for 4 d ays AZITHROMYCIN 52379471605 No Longer Active Alban Boyce MD Active PREDNISONE 20 MG ORAL TABLET 3 tabs for 2 days, 2 tabs for 4 days 1 ta for 4 days, 1/2 tab for 4 days PREDNISONE 77727956740 No Longer Active Alban Boyce MD Active AMOXICILLIN-POT CLAVULANATE 875-125 MG ORAL TABLET 1 pill by mouth twice daily AMOXICILLIN-POT CLAVULANATE 52287675935 No Longer Act parth Trina Sell BEHAVIORAL HEALTH CASE MANAGER Active ATORVASTATIN CALCIUM 20 MG ORAL TABLET 1 po qHS 20 02/07/19 ATORVASTATIN CALCIUM 70985285415 No Longer Active Trina Sell BEHAVIORAL HEALTH CASE MANAGER Active [facility] MELATONIN 5 MG ORAL TABLET 1 TAB PO Q HS ME LATONIN 08221537394 No Longer Active Trina Sell BEHAVIORAL HEALTH CASE MANAGER Active PROMETHAZINE-CODEINE 6.25-10 MG/5ML ORAL SYRUP 5ml po q6hr PRN C ou PROMETHAZINE-CODEINE 08537021819 No Longer Active Trina Sell BEHAVIORAL HEALTH CASE MANAGER Active PREDNISONE 20 MG ORAL TABLET 2 po qd x 5 days P REDNISONE 67459495048 No Longer Active Remigio Childress MD Active PROMETHAZINE-CODEINE 6.25-10 MG/5ML ORAL SYRUP 5ml po q6hr PRN C ou PROMETHAZINE-CODEINE 6.25-10 MG/5ML ORAL SYRUP 957424 PROMETHAZINE-CODEINE Inactive [facility] MELATONIN 5 MG ORAL TABLET 1 TAB PO Q HS 1 [facility] MELATONIN 5 MG ORAL TABLET 526617 MELATONIN Inactive PREDNISONE 20 MG ORAL TABLET 3 tabs for 2 days, 2 tabs for 4 days 1 ta for 4 days, 1/2 tab for 4 days PREDNISONE 20 MG ORAL T ABLET 816515 PREDNISONE Inactive PREDNISONE 20 MG ORAL TABLET 2 tabs po daily x3 days 2 PREDNISONE 20 MG ORAL TABLET 292337 PREDNISONE Inactive FLONASE ALLERGY RELIEF 50 MCG/ACT NASAL SUSPENSION 1 spray e ach nare BID FLONASE ALLERGY RELIEF 50 MCG/ACT NASAL SUSPENSION 6887740 FLUTICASONE PROPIONATE Inactive CLARITIN 10 MG ORAL TABLET 1 tab daily C LARITIN 10 MG ORAL TABLET 284001 LORATADINE Inactive ATORVASTATIN CALCIUM 20 MG ORAL TABLET 1 po qHS 20 01/04/06 ATORVASTATIN CALCIUM 20 MG ORAL TABLET 863694 ATORVASTATIN CALCIUM Inactive TESSALON PERLES 100 MG ORAL CAPSULE 1 tablet by mouth 3 times da gin TESSALON PERLES 100 MG ORAL CAPSULE 374271 BENZONATATE Inactive PREDNISONE 20 MG ORAL TABLET take 40 mg daily for 7 days PREDNISONE 20 MG ORAL TABLET 877389 PREDNISONE Inactive MULTIVITAMIN ADULT ORAL TABLET 1 po qd MULTIVITAMIN ADULT ORAL TABLET MULTIPLE VITAMINS-MINERALS Inactive PREDNISONE 20 MG ORAL TABLET 2 po qd x 5 days PREDNISONE 20 MG ORAL TABLET 363312 PREDNISONE Inactive ATORVASTATIN CALCIUM 20 MG ORAL TABLET 1 po qHS 20 02/07/19 ATORVASTATIN CALCIUM 20 MG ORAL TABLET 487198 ATORVASTATIN CALCIUM Inactive AMOXICILLIN-POT CLAVULANATE 875-125 MG ORAL TABLET 1 pill by mouth twice daily AMOXICILLIN-POT CLAVULANATE 875-125 MG ORAL TABL ET 964679 AMOXICILLIN-POT CLAVULANATE Inactive ZITHROMAX Z-FELA 250 MG ORAL TABLET 2 today, then 1 daily for 4 d ays ZITHROMAX Z-FELA 250 MG ORAL TABLET 457689 AZITHROMYCIN Inactive AUGMENTIN 875-125 MG ORAL TABLET 1 po BID x 10 days 20 30/10/14 AUGMENTIN 875-125 MG ORAL TABLET AMOXICILLIN-POT CLAVULANATE Inactive CEFUROXIME AXETIL 500 MG ORAL TABLET 0.5 tab by mouth twice a da y CEFUROXIME AXETIL 500 MG ORAL TABLET 590697 CEFUROXIME AXETIL Inactive PREDNISONE 20 MG ORAL TABLET take 40 mg dialy for 6 days PREDNISONE 20 MG ORAL TABLET 558186 PREDNISONE Inactive ZITHROMAX Z-FELA 250 MG ORAL TABLET 2 today, then 1 daily for 4 d ays ZITHROMAX Z-FELA 250 MG ORAL TABLET 874715 AZITHROMYCIN Inactive Immunizations Vaccine Administration Date Value [...] Description Lab Report: Lipid Panel, CBC, Comp. Melvin bolic Panel - Chemistry cholesterol, serum 256 mg/dL 925-274 6356/01/13 triglyceride, serum, fasting 166 mg/dL 30-200 HDL cholesterol, serum 78 mg/dL 32-60 LDL cholesterol, serum 145 mg/dL 0-130 sodium, serum 138 mmol/L 399-977 0411/01/13 carbon dioxide, venous blood 28.4 mmol/L 21.0-32 [...] 0.00-1.00 Lab Report: Lipid Panel, CBC, Comp. Melvin bolic Panel - Hematology leukocyte count, blood [...] 142-424 Lab Report: Lipid Panel, CBC, Comp. Melvin bolic Panel - Lab Alkaline phosphatase 66 50-136 Office Visit: 2 month follow up 302 - [facility] LDL target level 160 mg/dL Office Visit: congestion,fever,cough - C hemistry HDL cholesterol, serum, target level 40 mg/dL cholesterol, target level 200 mg/dL triglyceride, target level 150 mg/dL Encounters Code Encounter Date Provider Facility CPT-90878 Level 4 Est. Patient 09:14:43 DERRICK BUILDER Remigio Childress MD [facility] CPT-00482 Level 3 Est. Patient 16:17:24 DERRICK BUILDER Tigre fu [facility] [place] CPT-79147 Level 3 Est. Patient 09:05:56 DERRICK BUILDER Tigre fu [facility] CPT-12953 Level 4 Est. Patient 09:00:38 DERRICK BUILDER Remigio Childress MD [facility] CPT-52559 Level 3 Est. Patient 14:18:[address] [facility] CPT-79783 Level 4 Est. Patient 13:48:04 CDT Remigio Childress MD [facility] CPT-21911 [id number] Vst-Est Level III 10:10:19 DERRICK BUILDER Alban Boyce MD [facility] CPT-81115 Level 3 Est. Patient 13:45:32 DERRICK BUILDER Trina tapia [facility] CPT-11178 Level 3 Est. Patient 10:03:23 CDT Remigio Childress MD [facility] Procedures Code Procedure Name Date Entry Date Standard Desc ription [id number] (4274F) Influenza immunization administe red or previously received 09:14:43 DERRICK BUILDER CPT-31281 Venipuncture Draw Fee 09:28:58 DERRICK BUILDER CPT-[id number] (4274F) Influenza immunization administe red or previously received 16:05:01 DERRICK BUILDER CPT-46926 Prv Med Est Pt 18-39yrs 12:46:30 DERRICK BUILDER 05/31 CPT-02918 Prv Med Est Pt 18-39yrs 12:25:19 DERRICK BUILDER 05/31 CPT-46691 IM or SQ Injection 09:09:52 DERRICK BUILDER CPT-57488 96573 - Immun Admin 1 vac 09:08:43 DERRICK BUILDER 2018 [facility]-30726 Flulaval Quadrivalent (Flu) 10Pk Syringe IM 2018 09:08:43 DERRICK BUILDER CPT-000 Give PPD 13:51:16 CDT
--- OUTSIDE RECORDS SUMMARY | 2019-07-22 04:54 | XMS REPORT | Clinical Summary ---
Author Author Admin, Virgen MICHELET Organization [employer] Address Unknown Phone Unavailable Allergies, Adverse Reactions, [...] care facility Exercise induced asthma 493.81 Active aDryn Childress MD Exercise induced bronchospasm BMI 35-35.9 [...] 1 po qd PRN Allergies CETIRIZINE HCL 72409681033 Active Remigio Childress MD Active MULTIVITAMIN ADULT ORAL TABLET 1 po qd MULTIPLE VITAMINS-MINERALS 69126902172 No Longer Active Remigio Childress MD Active PREDNISONE 20 MG ORAL TABLET take 40 mg daily for 7 days PREDNISONE 27313248230 No Longer Active Remigio Childress MD Activ e ZITHROMAX Z-FELA 250 MG ORAL TABLET 2 today, then 1 daily for 4 d ays AZITHROMYCIN 33181317603 No Longer Active Tigre Braden APRN Active TESSALON PERLES 100 MG ORAL CAPSULE 1 tablet by mouth 3 times da gin BENZONATATE 41417900477 No Longer Active Lashawn Blank Activ e PREDNISONE 20 MG ORAL TABLET take 40 mg dialy for 6 days PREDNISONE 64332109117 No Longer Active Tigre Braden APRN Active ATORVASTATIN CALCIUM 20 MG ORAL TABLET 1 po qHS 20 01/04/06 ATORVASTATIN CALCIUM 63326674407 No Longer Active Remigio Childress MD Active LAMICTAL 200 MG ORAL TABLET 1.5 po qHS LAMOTRIGIN E 79248754316 Active Remigio Childress MD Active CLARITIN 10 MG ORAL TABLET 1 tab daily LORATADI [place] 79379286402 No Longer Active Remigio Childress MD Active FLONASE ALLERGY RELIEF 50 MCG/ACT NASAL SUSPENSION 1 spray e ach nare BID FLUTICASONE PROPIONATE 18022729474 No Longer Active Aleksandra Childress MD Active PREDNISONE 20 MG ORAL TABLET 2 tabs po daily x3 days 2 PREDNISONE 03460559829 No Longer Active Remigio Childress MD Activ e CEFUROXIME AXETIL 500 MG ORAL TABLET 0.5 tab by mouth twice a da y CEFUROXIME AXETIL 22259423186 No Longer Active Kiana Miller APRN-C Active AUGMENTIN 875-125 MG ORAL TABLET 1 po BID x 10 days 20 30/10/14 AMOXICILLIN-POT CLAVULANATE No Longer Active Tigre Braden APRN Active PRAZOSIN HCL 1 MG ORAL CAPSULE 2 po qHS PRAZOSIN HCL 98678891728 Active Remigio Childress MD Active BUPROPION HCL ER (XL) 300 MG ORAL TABLET EXTENDED RELEASE 24 HOUR 1 po qd BUPROPION HCL 03464788971 Active Remigio Childress MD Active PROAIR HFA 108 (90 BASE) MCG/ACT INHALATION AEROSOL SO LUTION 2 puffs q4hr PRN Shortness of air/Wheezing ALBUTEROL SULFATE 99861083684 Ac gifty Childress MD Active FLUTICASONE PROPIONATE 50 MCG/ACT NASAL SUSPENSION 2 s prays/nostril qd PRN Congestion/Allergies FLUTICASONE PROPIONATE 61745417915 Ac gifty Childress MD Active ENSKYCE 0.15-30 MG-MCG ORAL TABLET 1 po qd DESOGESTREL-ETHINYL ESTRADIOL 45238358913 Active Remigio Childress MD Active ZITHROMAX Z-FELA 250 MG ORAL TABLET 2 today, then 1 daily for 4 d ays AZITHROMYCIN 13200457372 No Longer Active Alban Boyce MD Active PREDNISONE 20 MG ORAL TABLET 3 tabs for 2 days, 2 tabs for 4 days 1 ta for 4 days, 1/2 tab for 4 days PREDNISONE 87454273232 No Longer Active Alban Boyce MD Active AMOXICILLIN-POT CLAVULANATE 875-125 MG ORAL TABLET 1 pill by mouth twice daily AMOXICILLIN-POT CLAVULANATE 23752832624 No Longer Act parth Trina Sell GREY STOCK RECORDER Active ATORVASTATIN CALCIUM 20 MG ORAL TABLET 1 po qHS 20 02/07/19 ATORVASTATIN CALCIUM 27791209076 No Longer Active Trina Sell GREY STOCK RECORDER Active [facility] MELAT[facility] 5 MG ORAL TABLET 1 TAB PO Q HS ME LATONIN 18823036400 No Longer Active Trina Sell GREY STOCK RECORDER Active PROMETHAZINE-CODEINE 6.25-10 MG/5ML ORAL SYRUP 5ml po q6hr PRN C ou PROMETHAZINE-CODEINE 84099607229 No Longer Active Trina Sell GREY STOCK RECORDER Active PREDNISONE 20 MG ORAL TABLET 2 po qd x 5 days P REDNISONE 22233722687 No Longer Active Remigio Childress MD Active PROMETHAZINE-CODEINE 6.25-10 MG/5ML ORAL SYRUP 5ml po q6hr PRN C ou PROMETHAZINE-CODEINE 6.25-10 MG/5ML ORAL SYRUP 939671 PROMETHAZINE-CODEINE Inactive [facility] MELAT[facility]IN 5 MG ORAL TABLET 1 TAB PO Q HS 1 [facility] MELAT[facility] 5 MG ORAL TABLET 477505 MELATONIN Inactive PREDNISONE 20 MG ORAL TABLET 3 tabs for 2 days, 2 tabs for 4 days 1 ta for 4 days, 1/2 tab for 4 days PREDNISONE 20 MG ORAL T ABLET 461964 PREDNISONE Inactive PREDNISONE 20 MG ORAL TABLET 2 tabs po daily x3 days 2 PREDNISONE 20 MG ORAL TABLET 426803 PREDNISONE Inactive FLONASE ALLERGY RELIEF 50 MCG/ACT NASAL SUSPENSION 1 spray e ach nare BID FLONASE ALLERGY RELIEF 50 MCG/ACT NASAL SUSPENSION 6368584 FLUTICASONE PROPIONATE Inactive CLARITIN 10 MG ORAL TABLET 1 tab daily C LARITIN 10 MG ORAL TABLET 495444 LORATADINE Inactive ATORVASTATIN CALCIUM 20 MG ORAL TABLET 1 po qHS 20 01/04/06 ATORVASTATIN CALCIUM 20 MG ORAL TABLET 973823 ATORVASTATIN CALCIUM Inactive TESSALON PERLES 100 MG ORAL CAPSULE 1 tablet by mouth 3 times da gin TESSALON PERLES 100 MG ORAL CAPSULE 465753 BENZONATATE Inactive PREDNISONE 20 MG ORAL TABLET take 40 mg daily for 7 days PREDNISONE 20 MG ORAL TABLET 732277 PREDNISONE Inactive MULTIVITAMIN ADULT ORAL TABLET 1 po qd MULTIVITAMIN ADULT ORAL TABLET MULTIPLE VITAMINS-MINERALS Inactive PREDNISONE 20 MG ORAL TABLET 2 po qd x 5 days PREDNISONE 20 MG ORAL TABLET 420938 PREDNISONE Inactive ATORVASTATIN CALCIUM 20 MG ORAL TABLET 1 po qHS 20 02/07/19 ATORVASTATIN CALCIUM 20 MG ORAL TABLET 891247 ATORVASTATIN CALCIUM Inactive AMOXICILLIN-POT CLAVULANATE 875-125 MG ORAL TABLET 1 pill by mouth twice daily AMOXICILLIN-POT CLAVULANATE 875-125 MG ORAL TABL ET 337122 AMOXICILLIN-POT CLAVULANATE Inactive ZITHROMAX Z-FELA 250 MG ORAL TABLET 2 today, then 1 daily for 4 d ays ZITHROMAX Z-FELA 250 MG ORAL TABLET 613749 AZITHROMYCIN Inactive AUGMENTIN 875-125 MG ORAL TABLET 1 po BID x 10 days 20 30/10/14 AUGMENTIN 875-125 MG ORAL TABLET AMOXICILLIN-POT CLAVULANATE Inactive CEFUROXIME AXETIL 500 MG ORAL TABLET 0.5 tab by mouth twice a da y CEFUROXIME AXETIL 500 MG ORAL TABLET 687870 CEFUROXIME AXETIL Inactive PREDNISONE 20 MG ORAL TABLET take 40 mg dialy for 6 days PREDNISONE 20 MG ORAL TABLET 628145 PREDNISONE Inactive ZITHROMAX Z-FELA 250 MG ORAL TABLET 2 today, then 1 daily for 4 d ays ZITHROMAX Z-FELA 250 MG ORAL TABLET 112597 AZITHROMYCIN Inactive Immunizations Vaccine Administration Date Value [...] weight E&M 193.50 [lb_av] Weight Measure d blood pressure, diastolic 89 mm[Hg] BP [place] blood pressure, systolic 129 mm[Hg] BP sys pulse rate E&M 86 /min Heart rate temperature E&M 97.8 [degF] Body temp erature weight E&M 191 [lb_av] Weight Measure d Diagnostic Results Date Name Value Unit Range Description Lab Report: Lipid Panel, CBC, Comp. [place] [facility] Panel - Chemistry cholesterol, serum 256 mg/dL 059-022 0573/01/13 triglyceride, serum, fasting 166 mg/dL 30-200 HDL cholesterol, serum 78 mg/dL 32-60 LDL cholesterol, serum 145 mg/dL 0-130 sodium, serum 138 mmol/L 425-288 2421/01/13 carbon dioxide, venous blood 28.4 mmol/L 21.0-32 [...] 0.00-1.00 Lab Report: Lipid Panel, CBC, Comp. [place] [facility] Panel - Hematology leukocyte count, blood [...] 142-424 Lab Report: Lipid Panel, CBC, Comp. [place] [facility] Panel - Lab Alkaline phosphatase 66 50-136 Office Visit: 2 month follow up 302 - Ba sic LDL target level 160 mg/dL Office Visit: congestion,fever,cough - C hemistry HDL cholesterol, serum, target level 40 mg/dL cholesterol, target level 200 mg/dL triglyceride, target level 150 mg/dL Encounters Code Encounter Date Provider Facility CPT-57448 Level 4 Est. Patient 09:14:43 EXPLOITATION ANALYST Remigio Childress MD [facility] CPT-06664 Level 3 Est. Patient 16:17:24 EXPLOITATION ANALYST Tigre fu [facility] CPT-85765 Level 3 Est. Patient 09:05:56 EXPLOITATION ANALYST Tigre fu [facility] CPT-39218 Level 4 Est. Patient 09:00:38 EXPLOITATION ANALYST Remigio Childress MD [facility] CPT-22273 Level 3 Est. Patient 14:18:32 CDT Tigre fu [facility] CPT-31179 Level 4 Est. Patient 13:48:04 CDT Remigio Childress MD [facility] CPT-50843 [id number] Vst-Est Level III 10:10:19 EXPLOITATION ANALYST Alban Boyce MD [facility] CPT-12055 Level 3 Est. Patient 13:45:32 EXPLOITATION ANALYST Trina tapia [facility] CPT-31616 Level 3 Est. Patient 10:03:23 CDT Remigio Childress MD [facility] Procedures Code Procedure Name Date Entry Date Standard Desc ription [id number] (4274F) Influenza immunization administe red or previously received 09:14:43 EXPLOITATION ANALYST CPT-63082 Venipuncture Draw Fee 09:28:58 EXPLOITATION ANALYST CPT-[id number] (4274F) Influenza immunization administe red or previously received 16:05:01 EXPLOITATION ANALYST CPT-52986 Prv Med Est Pt 18-39yrs 12:46:30 EXPLOITATION ANALYST 05/31 CPT-94671 Prv Med Est Pt 18-39yrs 12:25:19 EXPLOITATION ANALYST 05/31 CPT-01640 IM or SQ Injection 09:09:52 EXPLOITATION ANALYST CPT-27164 98904 - Immun Admin 1 vac 09:08:43 EXPLOITATION ANALYST 2018 CPT-29707 Flulaval Quadrivalent (Flu) 10Pk Syringe IM 2018 09:08:43 EXPLOITATION ANALYST CPT-000 Give PPD 13:51:16 CDT
--- OUTSIDE RECORDS SUMMARY | 2019-07-22 04:54 | XMS REPORT | Clinical Summary ---
Author Author Admin, Virgen MICHELET Organization [employer] Address Unknown Phone Unavailable Allergies, Adverse Reactions, [...] MD Exercise induced bronchospasm BMI 35-35.9 Refinement Rmeigio Childress MD Body Mass Index 35.0- 35.9, [...] 1 po qd PRN Allergies CETIRIZINE HCL 54770903294 Active Remigio Childress MD Active MULTIVITAMIN ADULT ORAL TABLET 1 po qd MULTIPLE VITAMINS-MINERALS 79859709893 No Longer Active Remigio Childress MD Active PREDNISONE 20 MG ORAL TABLET take 40 mg daily for 7 days PREDNISONE 39838436897 No Longer Active Remigio Childress MD Activ e ZITHROMAX Z-FELA 250 MG ORAL TABLET 2 today, then 1 daily for 4 d ays AZITHROMYCIN 41050394179 No Longer Active Tigre Braden APRN Active TESSALON PERLES 100 MG ORAL CAPSULE 1 tablet by mouth 3 times da gin BENZONATATE 09904073559 No Longer Active Lashawn Blank Activ e PREDNISONE 20 MG ORAL TABLET take 40 mg dialy for 6 days PREDNISONE 96774998061 No Longer Active Tigre Braden APRN Active ATORVASTATIN CALCIUM 20 MG ORAL TABLET 1 po qHS 20 01/04/06 ATORVASTATIN CALCIUM 04805779318 No Longer Active Remigio Childress MD Active LAMICTAL 200 MG ORAL TABLET 1.5 po qHS LAMOTRIGIN E 24449406281 Active Remigio Childress MD Active CLARITIN 10 MG ORAL TABLET 1 tab daily LORATADI NE 15618119550 No Longer Active Remigio Cihldress MD Active FLONASE ALLERGY RELIEF 50 MCG/ACT NASAL SUSPENSION 1 spray e ach nare BID FLUTICASONE PROPIONATE 06727864674 No Longer Active Aleksandra Childress MD Active PREDNISONE 20 MG ORAL TABLET 2 tabs po daily x3 days 2 PREDNISONE 63285346798 No Longer Active Remigio Childress MD Activ e CEFUROXIME AXETIL 500 MG ORAL TABLET 0.5 tab by mouth twice a da y CEFUROXIME AXETIL 72301024288 No Longer Active Kiana Miller APRN-C Active AUGMENTIN 875-125 MG ORAL TABLET 1 po BID x 10 days 20 30/10/14 AMOXICILLIN-POT CLAVULANATE No Longer Active Tigre Braden APRN Active PRAZOSIN HCL 1 MG ORAL CAPSULE 2 po qHS PRAZOSIN HCL 04414629693 Active Remigio Childress MD Active BUPROPION HCL ER (XL) 300 MG ORAL TABLET EXTENDED RELEASE 24 HOUR 1 po qd BUPROPION HCL 78389364642 Active Remigio Childress MD Active PROAIR HFA 108 (90 BASE) MCG/ACT INHALATION AEROSOL SO LUTION 2 puffs q4hr PRN Shortness of air/Wheezing ALBUTEROL SULFATE 91518832046 Ac gifty Childress MD Active FLUTICASONE PROPIONATE 50 MCG/ACT NASAL SUSPENSION 2 s prays/nostril qd PRN Congestion/Allergies FLUTICASONE PROPIONATE 34584001870 Ac gifty Childress MD Active ENSKYCE 0.15-30 MG-MCG ORAL TABLET 1 po qd DESOGESTREL-ETHINYL ESTRADIOL 57864463007 Active Remigio Childress MD Active ZITHROMAX Z-FELA 250 MG ORAL TABLET 2 today, then 1 daily for 4 d ays AZITHROMYCIN 70863997872 No Longer Active Alban Boyce MD Active PREDNISONE 20 MG ORAL TABLET 3 tabs for 2 days, 2 tabs for 4 days 1 ta for 4 days, 1/2 tab for 4 days PREDNISONE 06212423089 No Longer Active Alban Boyce MD Active AMOXICILLIN-POT CLAVULANATE 875-125 MG ORAL TABLET 1 pill by mouth twice daily AMOXICILLIN-POT CLAVULANATE 41774528835 No Longer Act parth Trina Sell FLASK CARRIER Active ATORVASTATIN CALCIUM 20 MG ORAL TABLET 1 po qHS 20 02/07/19 ATORVASTATIN CALCIUM 82899263527 No Longer Active Trina Sell FLASK CARRIER Active [facility] MELAT[facility]IN 5 MG ORAL TABLET 1 TAB PO Q HS ME LATONIN 17170775365 No Longer Active Trina Sell FLASK CARRIER Active PROMETHAZINE-CODEINE 6.25-10 MG/5ML ORAL SYRUP 5ml po q6hr PRN C ou PROMETHAZINE-CODEINE 42924274363 No Longer Active Trina Sell FLASK CARRIER Active PREDNISONE 20 MG ORAL TABLET 2 po qd x 5 days P REDNISONE 80514428692 No Longer Active Remigio Childress MD Active PROMETHAZINE-CODEINE 6.25-10 MG/5ML ORAL SYRUP 5ml po q6hr PRN C ou PROMETHAZINE-CODEINE 6.25-10 MG/5ML ORAL SYRUP 928850 PROMETHAZINE-CODEINE Inactive [facility] MELAT[facility]IN 5 MG ORAL TABLET 1 TAB PO Q HS 1 [facility] MEL[facility]IN 5 MG ORAL TABLET 664812 MELATONIN Inactive PREDNISONE 20 MG ORAL TABLET 3 tabs for 2 days, 2 tabs for 4 days 1 ta for 4 days, 1/2 tab for 4 days PREDNISONE 20 MG ORAL T ABLET 236826 PREDNISONE Inactive PREDNISONE 20 MG ORAL TABLET 2 tabs po daily x3 days 2 PREDNISONE 20 MG ORAL TABLET 365605 PREDNISONE Inactive FLONASE ALLERGY RELIEF 50 MCG/ACT NASAL SUSPENSION 1 spray e ach nare BID FLONASE ALLERGY RELIEF 50 MCG/ACT NASAL SUSPENSION 4271485 FLUTICASONE PROPIONATE Inactive CLARITIN 10 MG ORAL TABLET 1 tab daily C LARITIN 10 MG ORAL TABLET 505845 LORATADINE Inactive ATORVASTATIN CALCIUM 20 MG ORAL TABLET 1 po qHS 20 01/04/06 ATORVASTATIN CALCIUM 20 MG ORAL TABLET 782120 ATORVASTATIN CALCIUM Inactive TESSALON PERLES 100 MG ORAL CAPSULE 1 tablet by mouth 3 times da gin TESSALON PERLES 100 MG ORAL CAPSULE 327082 BENZONATATE Inactive PREDNISONE 20 MG ORAL TABLET take 40 mg daily for 7 days PREDNISONE 20 MG ORAL TABLET 099086 PREDNISONE Inactive MULTIVITAMIN ADULT ORAL TABLET 1 po qd MULTIVITAMIN ADULT ORAL TABLET MULTIPLE VITAMINS-MINERALS Inactive PREDNISONE 20 MG ORAL TABLET 2 po qd x 5 days PREDNISONE 20 MG ORAL TABLET 390625 PREDNISONE Inactive ATORVASTATIN CALCIUM 20 MG ORAL TABLET 1 po qHS 20 02/07/19 ATORVASTATIN CALCIUM 20 MG ORAL TABLET 067695 ATORVASTATIN CALCIUM Inactive AMOXICILLIN-POT CLAVULANATE 875-125 MG ORAL TABLET 1 pill by mouth twice daily AMOXICILLIN-POT CLAVULANATE 875-125 MG ORAL TABL ET 147124 AMOXICILLIN-POT CLAVULANATE Inactive ZITHROMAX Z-FELA 250 MG ORAL TABLET 2 today, then 1 daily for 4 d ays ZITHROMAX Z-FELA 250 MG ORAL TABLET 409090 AZITHROMYCIN Inactive AUGMENTIN 875-125 MG ORAL TABLET 1 po BID x 10 days 20 30/10/14 AUGMENTIN 875-125 MG ORAL TABLET AMOXICILLIN-POT CLAVULANATE Inactive CEFUROXIME AXETIL 500 MG ORAL TABLET 0.5 tab by mouth twice a da y CEFUROXIME AXETIL 500 MG ORAL TABLET 106808 CEFUROXIME AXETIL Inactive PREDNISONE 20 MG ORAL TABLET take 40 mg dialy for 6 days PREDNISONE 20 MG ORAL TABLET 859700 PREDNISONE Inactive ZITHROMAX Z-FELA 250 MG ORAL TABLET 2 today, then 1 daily for 4 d ays ZITHROMAX Z-FELA 250 MG ORAL TABLET 071945 AZITHROMYCIN Inactive Immunizations Vaccine Administration Date Value [...] Description Lab Report: Lipid Panel, CBC, Comp. [place] bolic Panel - Chemistry cholesterol, serum 256 mg/dL 612-809 9222/01/13 triglyceride, serum, fasting 166 mg/dL 30-200 HDL cholesterol, serum 78 mg/dL 32-60 LDL cholesterol, serum 145 mg/dL 0-130 sodium, serum 138 mmol/L 503-948 4607/01/13 carbon dioxide, venous blood 28.4 mmol/L 21.0-32 [...] 0.00-1.00 Lab Report: Lipid Panel, CBC, Comp. [place] bolic Panel - Hematology leukocyte count, blood [...] 142-424 Lab Report: Lipid Panel, CBC, Comp. [place] bolic Panel - Lab Alkaline phosphatase 66 50-136 Office Visit: 2 month follow up 302 - Ba sic LDL target level 160 mg/dL Office Visit: congestion,fever,cough - C hemistry HDL cholesterol, serum, target level 40 mg/dL cholesterol, target level 200 mg/dL triglyceride, target level 150 mg/dL Encounters Code Encounter Date Provider Facility CPT-91894 Level 4 Est. Patient 09:14:43 MANUFACTURING ENGINEER MACHINING Remigio Childress MD [facility] CPT-78782 Level 3 Est. Patient 16:17:24 MANUFACTURING ENGINEER MACHINING Tigre fu [facility] CPT-50724 Level 3 Est. Patient 09:05:56 MANUFACTURING ENGINEER MACHINING Tigre fu [facility] CPT-40045 Level 4 Est. Patient 09:00:38 MANUFACTURING ENGINEER MACHINING Remigio Childress MD [facility] CPT-67734 Level 3 Est. Patient 14:18:32 CDT Tigre fu [facility] CPT-73093 Level 4 Est. Patient 13:48:04 CDT Remigio Childress MD [facility] CPT-15983 52866-Biy Vst-Est Level III 10:10:19 MANUFACTURING ENGINEER MACHINING Alban Boyce MD [facility] CPT-70096 Level 3 Est. Patient 13:45:32 MANUFACTURING ENGINEER MACHINING Trina tapia [facility] CPT-70857 Level 3 Est. Patient 10:03:23 CDT Remigio Childress MD [facility] Procedures Code Procedure Name Date Entry Date Standard Desc ription CPT-[id number] (4274F) Influenza immunization administe red or previously received 09:14:43 MANUFACTURING ENGINEER MACHINING CPT-99073 Venipuncture Draw Fee 09:28:58 MANUFACTURING ENGINEER MACHINING CPT-CI3273X (4274F) Influenza immunization administe red or previously received 16:05:01 MANUFACTURING ENGINEER MACHINING CPT-46094 Prv Med Est Pt 18-39yrs 12:46:30 MANUFACTURING ENGINEER MACHINING 05/31 CPT-71411 Prv Med Est Pt 18-39yrs 12:25:19 MANUFACTURING ENGINEER MACHINING 05/31 CPT-62529 IM or SQ Injection 09:09:52 MANUFACTURING ENGINEER MACHINING CPT-10589 01607 - Immun Admin 1 vac 09:08:43 MANUFACTURING ENGINEER MACHINING 2018 CPT-96637 Flulaval Quadrivalent (Flu) 10Pk Syringe IM 2018 09:08:43 MANUFACTURING ENGINEER MACHINING CPT-000 Give PPD 13:51:16 CDT
--- OUTSIDE RECORDS SUMMARY | 2019-07-22 04:54 | XMS REPORT | Clinical Summary ---
Author Author Admin, Virgen MICHELET Organization [facility] Address Unknown Phone Unavailable Allergies, Adverse Reactions, [...] Childress MD Obesity, unspecified Hyperlipidemia 272.4 Active Remiigo Childress MD Other and unspecified hyperlipidemia Bitten [...] 1 po qd PRN Allergies CETIRIZINE HCL 61436891623 Active Remigio Childress MD Active MULTIVITAMIN ADULT ORAL TABLET 1 po qd MULTIPLE VITAMINS-MINERALS 91716178540 No Longer Active Remigio Childress MD Active PREDNISONE 20 MG ORAL TABLET take 40 mg daily for 7 days PREDNISONE 57184704111 No Longer Active Remigio Childress MD Activ e ZITHROMAX Z-FELA 250 MG ORAL TABLET 2 today, then 1 daily for 4 d ays AZITHROMYCIN 13235024522 No Longer Active Tigre Braden APRN Active TESSALON PERLES 100 MG ORAL CAPSULE 1 tablet by mouth 3 times da gin BENZONATATE 48607327189 No Longer Active Lashawn Blank Activ e PREDNISONE 20 MG ORAL TABLET take 40 mg dialy for 6 days PREDNISONE 49663889360 No Longer Active Tigre Braden APRN Active ATORVASTATIN CALCIUM 20 MG ORAL TABLET 1 po qHS 20 01/04/06 ATORVASTATIN CALCIUM 64884966929 No Longer Active Remigio Childress MD Active LAMICTAL 200 MG ORAL TABLET 1.5 po qHS LAMOTRIGIN E 98584150302 Active Remgiio Childress MD Active CLARITIN 10 MG ORAL TABLET 1 tab daily LORATADI NE 02532732578 No Longer Active Remigio Childress MD Active FLONASE ALLERGY RELIEF 50 MCG/ACT NASAL SUSPENSION 1 spray e ach nare BID FLUTICASONE PROPIONATE 17883872268 No Longer Active Aleksandra Childress MD Active PREDNISONE 20 MG ORAL TABLET 2 tabs po daily x3 days 2 PREDNISONE 09542543203 No Longer Active Remigio Childress MD Activ e CEFUROXIME AXETIL 500 MG ORAL TABLET 0.5 tab by mouth twice a da y CEFUROXIME AXETIL 14906566040 No Longer Active Kiana Miller APRN-C Active AUGMENTIN 875-125 MG ORAL TABLET 1 po BID x 10 days 20 30/10/14 AMOXICILLIN-POT CLAVULANATE No Longer Active Tigre Braden APRN Active PRAZOSIN HCL 1 MG ORAL CAPSULE 2 po qHS PRAZOSIN HCL 45447520623 Active Remigio Childress MD Active BUPROPION HCL ER (XL) 300 MG ORAL TABLET EXTENDED RELEASE 24 HOUR 1 po qd BUPROPION HCL 77430684826 Active Remigio Childress MD Active PROAIR HFA 108 (90 BASE) MCG/ACT INHALATION AEROSOL SO LUTION 2 puffs q4hr PRN Shortness of air/Wheezing ALBUTEROL SULFATE 24380054538 Ac gifty Childress MD Active FLUTICASONE PROPIONATE 50 MCG/ACT NASAL SUSPENSION 2 s prays/nostril qd PRN Congestion/Allergies FLUTICASONE PROPIONATE 16276072952 Ac gifty Childress MD Active ENSKYCE 0.15-30 MG-MCG ORAL TABLET 1 po qd DESOGESTREL-ETHINYL ESTRADIOL 90932966451 Active Remigio Childress MD Active ZITHROMAX Z-FELA 250 MG ORAL TABLET 2 today, then 1 daily for 4 d ays AZITHROMYCIN 64148043441 No Longer Active Alban Boyce MD Active PREDNISONE 20 MG ORAL TABLET 3 tabs for 2 days, 2 tabs for 4 days 1 ta for 4 days, 1/2 tab for 4 days PREDNISONE 84937995229 No Longer Active Alban Boyce MD Active AMOXICILLIN-POT CLAVULANATE 875-125 MG ORAL TABLET 1 pill by mouth twice daily AMOXICILLIN-POT CLAVULANATE 62118148002 No Longer Act parth Trina Sell DESIGN DRAFTSMAN Active ATORVASTATIN CALCIUM 20 MG ORAL TABLET 1 po qHS 20 02/07/19 ATORVASTATIN CALCIUM 79182612474 No Longer Active Trina Sell DESIGN DRAFTSMAN Active [facility] MELATONIN 5 MG ORAL TABLET 1 TAB PO Q HS ME LATONIN 28409183682 No Longer Active Trina Sell DESIGN DRAFTSMAN Active PROMETHAZINE-CODEINE 6.25-10 MG/5ML ORAL SYRUP 5ml po q6hr PRN C ou PROMETHAZINE-CODEINE 18120973415 No Longer Active Trina Sell DESIGN DRAFTSMAN Active PREDNISONE 20 MG ORAL TABLET 2 po qd x 5 days P REDNISONE 94985631199 No Longer Active Remigio Childress MD Active PROMETHAZINE-CODEINE 6.25-10 MG/5ML ORAL SYRUP 5ml po q6hr PRN C ou PROMETHAZINE-CODEINE 6.25-10 MG/5ML ORAL SYRUP 584187 PROMETHAZINE-CODEINE Inactive [facility] MELATONIN 5 MG ORAL TABLET 1 TAB PO Q HS 1 [facility] MELATONIN 5 MG ORAL TABLET 558786 MELATONIN Inactive PREDNISONE 20 MG ORAL TABLET 3 tabs for 2 days, 2 tabs for 4 days 1 ta for 4 days, 1/2 tab for 4 days PREDNISONE 20 MG ORAL T ABLET 373218 PREDNISONE Inactive PREDNISONE 20 MG ORAL TABLET 2 tabs po daily x3 days 2 PREDNISONE 20 MG ORAL TABLET 866576 PREDNISONE Inactive FLONASE ALLERGY RELIEF 50 MCG/ACT NASAL SUSPENSION 1 spray e ach nare BID FLONASE ALLERGY RELIEF 50 MCG/ACT NASAL SUSPENSION 6000715 FLUTICASONE PROPIONATE Inactive CLARITIN 10 MG ORAL TABLET 1 tab daily C LARITIN 10 MG ORAL TABLET 932050 LORATADINE Inactive ATORVASTATIN CALCIUM 20 MG ORAL TABLET 1 po qHS 20 01/04/06 ATORVASTATIN CALCIUM 20 MG ORAL TABLET 151963 ATORVASTATIN CALCIUM Inactive TESSALON PERLES 100 MG ORAL CAPSULE 1 tablet by mouth 3 times da gin TESSALON PERLES 100 MG ORAL CAPSULE 213137 BENZONATATE Inactive PREDNISONE 20 MG ORAL TABLET take 40 mg daily for 7 days PREDNISONE 20 MG ORAL TABLET 823206 PREDNISONE Inactive MULTIVITAMIN ADULT ORAL TABLET 1 po qd MULTIVITAMIN ADULT ORAL TABLET MULTIPLE VITAMINS-MINERALS Inactive PREDNISONE 20 MG ORAL TABLET 2 po qd x 5 days PREDNISONE 20 MG ORAL TABLET 648891 PREDNISONE Inactive ATORVASTATIN CALCIUM 20 MG ORAL TABLET 1 po qHS 20 02/07/19 ATORVASTATIN CALCIUM 20 MG ORAL TABLET 665529 ATORVASTATIN CALCIUM Inactive AMOXICILLIN-POT CLAVULANATE 875-125 MG ORAL TABLET 1 pill by mouth twice daily AMOXICILLIN-POT CLAVULANATE 875-125 MG ORAL TABL ET 157570 AMOXICILLIN-POT CLAVULANATE Inactive ZITHROMAX Z-FELA 250 MG ORAL TABLET 2 today, then 1 daily for 4 d ays ZITHROMAX Z-FELA 250 MG ORAL TABLET 741463 AZITHROMYCIN Inactive AUGMENTIN 875-125 MG ORAL TABLET 1 po BID x 10 days 20 30/10/14 AUGMENTIN 875-125 MG ORAL TABLET AMOXICILLIN-POT CLAVULANATE Inactive CEFUROXIME AXETIL 500 MG ORAL TABLET 0.5 tab by mouth twice a da y CEFUROXIME AXETIL 500 MG ORAL TABLET 119626 CEFUROXIME AXETIL Inactive PREDNISONE 20 MG ORAL TABLET take 40 mg dialy for 6 days PREDNISONE 20 MG ORAL TABLET 957932 PREDNISONE Inactive ZITHROMAX Z-FELA 250 MG ORAL TABLET 2 today, then 1 daily for 4 d ays ZITHROMAX Z-FELA 250 MG ORAL TABLET 589872 AZITHROMYCIN Inactive Immunizations Vaccine Administration Date Value [...] Description Lab Report: Lipid Panel, CBC, Comp. [place] bolic Panel - Chemistry cholesterol, serum 256 mg/dL 478-086 3403/01/13 triglyceride, serum, fasting 166 mg/dL 30-200 HDL cholesterol, serum 78 mg/dL 32-60 LDL cholesterol, serum 145 mg/dL 0-130 sodium, serum 138 mmol/L 566-507 4798/01/13 carbon dioxide, venous blood 28.4 mmol/L 21.0-32 [...] 0.00-1.00 Lab Report: Lipid Panel, CBC, Comp. [place] bolic Panel - Hematology leukocyte count, blood [...] 142-424 Lab Report: Lipid Panel, CBC, Comp. [place] [facility] Panel - Lab Alkaline phosphatase 66 50-136 Office Visit: 2 month follow up 302 - Ba sic LDL target level 160 mg/dL Office Visit: congestion,fever,cough - C hemistry HDL cholesterol, serum, target level 40 mg/dL cholesterol, target level 200 mg/dL triglyceride, target level 150 mg/dL Encounters Code Encounter Date Provider Facility CPT-24441 Level 4 Est. 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 Patient 16:17:24 SUPERVISOR ELECTRIC MOTOR TESTING Tigre fu [facility] CPT-64350 Level 3 Est. Patient 09:05:56 SUPERVISOR ELECTRIC MOTOR TESTING Tigre fu [facility] CPT-22895 Level 4 Est. Patient 09:00:38 SUPERVISOR ELECTRIC MOTOR TESTING Remigio Childress MD [facility] CPT-49183 Level 3 Est. Patient 14:18:32 CDT Tigre fu [facility] CPT-94891 Level 4 Est. Patient 13:48:04 CDT Remigio Childress MD [facility] CPT-61567 37260-Ypf Vst-Est Level III 10:10:19 SUPERVISOR ELECTR[employer] MOTOR TESTING Alban Boyce MD [facility] CPT-45402 Level 3 Est. Patient 13:45:32 SUPERVISOR ELECTRIC MOTOR TESTING Trina tapia [facility] CPT-08578 Level 3 Est. Patient 10:03:23 CDT Remigio Childress MD [facility] Procedures Code Procedure Name Date Entry Date Standard Desc ription [id number] (4274F) Influenza immunization administe red or previously received 09:14:43 SUPERVISOR [employer] TESTING CPT-43462 Venipuncture Draw Fee 09:28:58 SUPERVISOR E[employer] TESTING CPT-[id number] (4274F) Influenza immunization administe red or previously received 16:05:01 SUPERVISOR E[employer] TESTING CPT-40076 Prv Med Est Pt 18-39yrs 12:46:30 SUPERVISOR E[employer] TESTING 05/31 CPT-81501 Prv Med Est Pt 18-39yrs 12:25:19 SUPERVISOR [employer] TESTING 05/31 CPT-39784 IM or SQ Injection 09:09:52 SUPERVISOR E[employer] TESTING CPT-71554 31498 - Immun Admin 1 vac 09:08:43 SUPERVISOR ELECTR[employer]OR TESTING 2018 CPT-87752 Flulaval Quadrivalent (Flu) 10Pk Syringe IM 2018 09:08:43 SUPERVISOR ELECTR[employer]OR TESTING CPT-000 Give PPD 13:51:16 CDT
--- OUTSIDE RECORDS SUMMARY | 2019-07-22 04:55 | XMS REPORT | Clinical Summary ---
Author Author Admin, Virgen MICHELET Organization [employer] Address Unknown Phone Unavailable Allergies, Adverse Reactions, [...] 35.0- 35.9, adult BMI 35-35.9 Refinement Lashawn Rosamaria [place] Mass Index 35.0-35.9, adult BMI 37-37.9 Active Angelique Dobson LPN [place] Mass Index 35.0-35.9, adult Obesity Class II (BMI 35-39.9) 278.00 [...] Dysfunction of Eustachian tube Mycoplasma pneumonia 483.0 Active Tigre Braden APRN Pneumonia due to Mycoplasma pneumoniae Gynecological examination, routine V72.3 Active 2 Rebecca Burgos MD Special investigations and examinations - Gynecological examination Contraceptive pill surveillance V25.41 Active 2018 Rebecca Burgos MD Encounter for surveillance of contracept parth pill Hirsutism 704.1 Active Rebecca Burgos MD Hirsutism Sinus congestion 478.19 Active Tigre Braden APRN Other disease of nasal cavity and sinuses Productive cough purulent sputum 786.2 Active 201 01/23/26 Tigre Braden APRN Cough Upper respiratory infection, viral ICD-465.9 I nactive Remigio Childress MD Sinusitis, acute frontal ICD-461.1 Inactive Remigio Childress MD Bitten by cat, initial encounter & Other injury of unspecified body region, initial encounter ICD-879.8 Inactive Remigio Childress MD Acute sinusitis ICD-461.9 Inactive Remigio vinson MD Chronic sinusitis ICD-473.9 Inactive Remigio johnson MD Eustachian tube dysfunction, bilateral ICD-381.81 20 01/04/06 Inactive Remigio Childress MD Medication List Medication Instructions Start Date Stop Date Generic Name NDC Status Provider Patient Instruction PREDNISONE 20 MG ORAL TABLET take 40 mg daily for 7 days PREDNISONE 70093992387 Active Tigre Asiya REMOTE ENCODING OPERATIONS SUPERVISOR Active ZITHROMAX Z-FELA 250 MG ORAL TABLET 2 today, then 1 daily for 4 d ays AZITHROMYCIN 15390589705 No Longer Active Tigre Braden APRN Active ZYRTEC ALLERGY 10 MG ORAL CAPSULE 1 tablet daily CETIRIZINE HCL 49025393433 Active Lashawn Blank Active TESSALON PERLES 100 MG ORAL CAPSULE 1 tablet by mouth 3 times da gin BENZONATATE 28774813365 No Longer Active Lashawn Rosamaria Activ e PREDNISONE 20 MG ORAL TABLET take 40 mg dialy for 6 days PREDNISONE 68166540564 No Longer Active Tigre Braden APRN Active ATORVASTATIN CALCIUM 20 MG ORAL TABLET 1 po qHS 20 01/04/06 ATORVASTATIN CALCIUM 82228030989 No Longer Active Remigio Childress MD Active LAMICTAL 200 MG ORAL TABLET 1.5 po qHS LAMOTRIGIN E 31245938219 Active Remigio Childress MD Active CLARITIN 10 MG ORAL TABLET 1 tab daily LORATADI NE 14919217499 No Longer Active Remigio Childress MD Active FLONASE ALLERGY RELIEF 50 MCG/ACT NASAL SUSPENSION 1 spray e ach nare BID FLUTICASONE PROPIONATE 68157177568 No Longer Active Aleksandra Childress MD Active PREDNISONE 20 MG ORAL TABLET 2 tabs po daily x3 days 2 PREDNISONE 28057816079 No Longer Active Remigio Childress MD Activ e CEFUROXIME AXETIL 500 MG ORAL TABLET 0.5 tab by mouth twice a da y CEFUROXIME AXETIL 09767677181 No Longer Active Kiana Miller REMOTE ENCODING OPERATIONS SUPERVISOR-C Active AUGMENTIN 875-125 MG ORAL TABLET 1 po BID x 10 days 30/10/14 AMOXICILLIN-POT CLAVULANATE No Longer Active Tigre Braden APRN Active PRAZOSIN HCL 1 MG ORAL CAPSULE 2 po qHS PRAZOSIN HCL 49792653567 Active Remigio Childress MD Active BUPROPION HCL ER (XL) 300 MG ORAL TABLET EXTENDED RELEASE 24 HOUR 1 po qd BUPROPION HCL 11872381582 Active Remigio Childress MD Active MULTIVITAMIN ADULT ORAL TABLET 1 po qd MULTI PLE VITAMINS-MINERALS 29017682439 Active Remigio Childress MD Active PROAIR HFA 108 (90 BASE) MCG/ACT INHALATION AEROSOL SO LUTION 2 puffs q4hr PRN Shortness of air/Wheezing ALBUTEROL SULFATE 74546518038 Ac tive Remigio Childress MD Active FLUTICASONE PROPIONATE 50 MCG/ACT NASAL SUSPENSION 2 s prays/nostril qd PRN Congestion/Allergies FLUTICASONE PROPIONATE 55509098120 Ac gifty Childress MD Active ENSKYCE 0.15-30 MG-MCG ORAL TABLET 1 po qd DESOGESTREL-ETHINYL ESTRADIOL 81707287193 Active Remigio Childress MD Active ZITHROMAX Z-FELA 250 MG ORAL TABLET 2 today, then 1 daily for 4 d ays AZITHROMYCIN 07978953558 No Longer Active Alban Boyce MD Active PREDNISONE 20 MG ORAL TABLET 3 tabs for 2 days, 2 tabs for 4 days 1 ta for 4 days, 1/2 tab for 4 days PREDNISONE 51354763873 No Longer Active Alban Boyce MD Active AMOXICILLIN-POT CLAVULANATE 875-125 MG ORAL TABLET 1 pill by mouth twice daily AMOXICILLIN-POT CLAVULANATE 06971125501 No Longer Act parth Trina Sell REMOTE ENCODING OPERATIONS SUPERVISOR Active ATORVASTATIN CALCIUM 20 MG ORAL TABLET 1 po qHS 02/07/19 ATORVASTATIN CALCIUM 52227937312 No Longer Active Trina Sell REMOTE ENCODING OPERATIONS SUPERVISOR Active [facility] MELATONIN 5 MG ORAL TABLET 1 TAB PO Q HS ME LATONIN 87739344766 No Longer Active Trina Sell REMOTE ENCODING OPERATIONS SUPERVISOR Active PROMETHAZINE-CODEINE 6.25-10 MG/5ML ORAL SYRUP 5ml po q6hr PRN C ou PROMETHAZINE-CODEINE 36492012533 No Longer Active Trina Sell REMOTE ENCODING OPERATIONS SUPERVISOR Active PREDNISONE 20 MG ORAL TABLET 2 po qd x 5 days P REDNISONE 64529146678 No Longer Active Remigio Childress MD Active PROMETHAZINE-CODEINE 6.25-10 MG/5ML ORAL SYRUP 5ml po q6hr PRN C ou PROMETHAZINE-CODEINE 6.25-10 MG/5ML ORAL SYRUP 127610 PROMETHAZINE-CODEINE Inactive [facility] MELATONIN 5 MG ORAL TABLET 1 TAB PO Q HS 1 [facility] MELATONIN 5 MG ORAL TABLET 769807 MELATONIN Inactive PREDNISONE 20 MG ORAL TABLET 3 tabs for 2 days, 2 tabs for 4 days 1 ta for 4 days, 1/2 tab for 4 days PREDNISONE 20 MG ORAL T ABLET 390175 PREDNISONE Inactive PREDNISONE 20 MG ORAL TABLET 2 tabs po daily x3 days 2 PREDNISONE 20 MG ORAL TABLET 489382 PREDNISONE Inactive FLONASE ALLERGY RELIEF 50 MCG/ACT NASAL SUSPENSION 1 spray e ach nare BID FLONASE ALLERGY RELIEF 50 MCG/ACT NASAL SUSPENSION 0568899 FLUTICASONE PROPIONATE Inactive CLARITIN 10 MG ORAL TABLET 1 tab daily C LARITIN 10 MG ORAL TABLET 564031 LORATADINE Inactive ATORVASTATIN CALCIUM 20 MG ORAL TABLET 1 po qHS 01/04/06 ATORVASTATIN CALCIUM 20 MG ORAL TABLET 060837 ATORVASTATIN CALCIUM Inactive TESSALON PERLES 100 MG ORAL CAPSULE 1 tablet by mouth 3 times da gin TESSALON PERLES 100 MG ORAL CAPSULE 938044 BENZONATATE Inactive PREDNISONE 20 MG ORAL TABLET 2 po qd x 5 days PREDNISONE 20 MG ORAL TABLET 311129 PREDNISONE Inactive ATORVASTATIN CALCIUM 20 MG ORAL TABLET 1 po qHS 02/07/19 ATORVASTATIN CALCIUM 20 MG ORAL TABLET 945561 ATORVASTATIN CALCIUM Inactive AMOXICILLIN-POT CLAVULANATE 875-125 MG ORAL TABLET 1 pill by mouth twice daily AMOXICILLIN-POT CLAVULANATE 875-125 MG ORAL TABL ET 711921 AMOXICILLIN-POT CLAVULANATE Inactive ZITHROMAX Z-FEAL 250 MG ORAL TABLET 2 today, then 1 daily for 4 d ays ZITHROMAX Z-FELA 250 MG ORAL TABLET 112541 AZITHROMYCIN Inactive AUGMENTIN 875-125 MG ORAL TABLET 1 po BID x 10 days 30/10/14 AUGMENTIN 875-125 MG ORAL TABLET AMOXICILLIN-POT CLAVULANATE Inactive CEFUROXIME AXETIL 500 MG ORAL TABLET 0.5 tab by mouth twice a da y CEFUROXIME AXETIL 500 MG ORAL TABLET 793738 CEFUROXIME AXETIL Inactive PREDNISONE 20 MG ORAL TABLET take 40 mg dialy for 6 days PREDNISONE 20 MG ORAL TABLET 614675 PREDNISONE Inactive ZITHROMAX Z-FELA 250 MG ORAL TABLET 2 today, then 1 daily for 4 d ays ZITHROMAX Z-FELA 250 MG ORAL TABLET 730971 AZITHROMYCIN Inactive Immunizations Vaccine Administration Date Value Standard Heber cription influenza immunization (Flu Vax) has been administered 03/19 Flulaval Quadrivalent (Flu) 10Pk Syringe IM influenza virus vaccine, unspecified formulation influenza immunization (Flu Vax) has been administered 02/26 Done according to patient influenza virus vaccine, unspecified for mulation Vital Signs Date Name Value Unit Range Description blood pressure, diastolic, repeated by physician 85 [...] Description Lab Report: Lipid Panel, CBC, Comp. [place] bolic Panel - Chemistry cholesterol, serum 256 mg/dL 821-206 7864/01/13 triglyceride, serum, fasting 166 mg/dL 30-200 HDL cholesterol, serum 78 mg/dL 32-60 LDL cholesterol, serum 145 mg/dL 0-130 sodium, serum 138 mmol/L 460-715 7668/01/13 carbon dioxide, venous blood 28.4 mmol/L 21.0-32 [...] 0.00-1.00 Lab Report: Lipid Panel, CBC, Comp. [place] bolic Panel - Hematology leukocyte count, blood [...] 142-424 Lab Report: Lipid Panel, CBC, Comp. [place] bolic Panel - Lab Alkaline phosphatase 66 50-136 Office Visit: congestion,fever,cough - C hemistry HDL cholesterol, serum, target level 40 mg/dL cholesterol, target level 200 mg/dL triglyceride, target level 150 mg/dL Encounters Code Encounter Date Provider Facility CPT-77730 Level 3 Est. Patient 16:17:24 FURNITURE DESIGNER Tigre fu [facility] [place] CPT-57394 Level 3 Est. Patient 09:05:56 FURNITURE DESIGNER Tigre fu [facility] [place] CPT-77268 Level 4 Est. Patient 09:00:38 FURNITURE DESIGNER Remigio Childress MD [facility] CPT-30786 Level 3 Est. Patient 14:18:32 CDT Tigre fu [facility] [place] CPT-63031 Level 4 Est. Patient 13:48:04 CDT Remigio Childress MD [facility] CPT-63347 14068-Ioc Vst-Est Level III 10:10:19 FURNITURE DESIGNER Alban Boyce MD [facility] CPT-76171 Level 3 Est. Patient 13:45:32 FURNITURE DESIGNER Trina tapia [facility] [place] CPT-59185 Level 3 Est. Patient 10:03:23 CDT Remigio Childress MD [facility] Procedures Code Procedure Name Date Entry Date Standard Desc ription CPT-78407 Venipuncture Draw Fee 09:28:58 FURNITURE DESIGNER CPT-LS3779V (4274F) Influenza immunization administe red or previously received 16:05:[address] [facility] CPT-65842 Prv Med Est Pt 18-39yrs 12:46:30 FURNITURE DESIGNER 05/31 CPT-94703 Prv Med Est Pt 18-39yrs 12:25:[address] [facility] 05/31 CPT-01054 IM or SQ Injection 09:09:52 FURNITURE DESIGNER CPT-26599 24676 - Immun Admin 1 vac 09:08:43 FURNITURE DESIGNER 2018 CPT-74919 Flulaval Quadrivalent (Flu) 10Pk Syringe IM 2018 09:08:43 FURNITURE DESIGNER CPT-000 Give PPD 13:51:16 CDT
--- OUTSIDE RECORDS SUMMARY | 2019-07-22 04:55 | XMS REPORT | Clinical Summary ---
Author Author Admin, Virgen MICHELET Organization [employer] Address Unknown Phone Unavailable Allergies, Adverse Reactions, [...] of Eustachian tube Mycoplasma pneumonia 483.0 Active iTgre Braden APRN Pneumonia due to Mycoplasma pneumoniae [...] 40 mg daily for 7 days PREDNISONE 83446296906 Active Tigre Asiya WRECKING MECHANIC Active ZITHROMAX Z-FELA 250 MG ORAL TABLET 2 today, then 1 daily for 4 d ays AZITHROMYCIN 93547497153 No Longer Active Tigre Braden APRN Active ZYRTEC ALLERGY 10 MG ORAL CAPSULE 1 tablet daily CETIRIZINE HCL 89601513975 Active Lashawn Blank Active TESSALON PERLES 100 MG ORAL CAPSULE 1 tablet by mouth 3 times da gin BENZONATATE 26860798569 No Longer Active Lashawn Rosamaria Activ e PREDNISONE 20 MG ORAL TABLET take 40 mg dialy for 6 days PREDNISONE 33287749883 No Longer Active Tigre Braden APRN Active ATORVASTATIN CALCIUM 20 MG ORAL TABLET 1 po qHS 20 01/04/06 ATORVASTATIN CALCIUM 40522696568 No Longer Active Remigio Childress MD Active LAMICTAL 200 MG ORAL TABLET 1.5 po qHS LAMOTRIGIN E 52297321515 Active Remigio Childress MD Active CLARITIN 10 MG ORAL TABLET 1 tab daily LORATADI NE 19075544057 No Longer Active Remigio Childress MD Active FLONASE ALLERGY RELIEF 50 MCG/ACT NASAL SUSPENSION 1 spray e ach nare BID FLUTICASONE PROPIONATE 73047788398 No Longer Active Aleksandra Childress MD Active PREDNISONE 20 MG ORAL TABLET 2 tabs po daily x3 days 2 PREDNISONE 37651568513 No Longer Active Remigio Childress MD Activ e CEFUROXIME AXETIL 500 MG ORAL TABLET 0.5 tab by mouth twice a da y CEFUROXIME AXETIL 91739091543 No Longer Active Kiana Miller WRECKING MECHANIC-C Active AUGMENTIN 875-125 MG ORAL TABLET 1 po BID x 10 days 30/10/14 AMOXICILLIN-POT CLAVULANATE No Longer Active Tigre Braden APRN Active PRAZOSIN HCL 1 MG ORAL CAPSULE 2 po qHS PRAZOSIN HCL 62913507448 Active Remigio Childress MD Active BUPROPION HCL ER (XL) 300 MG ORAL TABLET EXTENDED RELEASE 24 HOUR 1 po qd BUPROPION HCL 85649290241 Active Remigio Childress MD Active MULTIVITAMIN ADULT ORAL TABLET 1 po qd MULTI PLE VITAMINS-MINERALS 53072738277 Active Remigio Childress MD Active PROAIR HFA 108 (90 BASE) MCG/ACT INHALATION AEROSOL SO LUTION 2 puffs q4hr PRN Shortness of air/Wheezing ALBUTEROL SULFATE 89728724227 Ac tive Remigio Childress MD Active FLUTICASONE PROPIONATE 50 MCG/ACT NASAL SUSPENSION 2 s prays/nostril qd PRN Congestion/Allergies FLUTICASONE PROPIONATE 75730355500 Ac gifty Childress MD Active ENSKYCE 0.15-30 MG-MCG ORAL TABLET 1 po qd DESOGESTREL-ETHINYL ESTRADIOL 90695405224 Active Remigio Childress MD Active ZITHROMAX Z-FELA 250 MG ORAL TABLET 2 today, then 1 daily for 4 d ays AZITHROMYCIN 95037633841 No Longer Active Alban Boyce MD Active PREDNISONE 20 MG ORAL TABLET 3 tabs for 2 days, 2 tabs for 4 days 1 ta for 4 days, 1/2 tab for 4 days PREDNISONE 10892291171 No Longer Active Alban Boyce MD Active AMOXICILLIN-POT CLAVULANATE 875-125 MG ORAL TABLET 1 pill by mouth twice daily AMOXICILLIN-POT CLAVULANATE 48602100094 No Longer Act parth Trina Sell WRECKING MECHANIC Active ATORVASTATIN CALCIUM 20 MG ORAL TABLET 1 po qHS 02/07/19 ATORVASTATIN CALCIUM 87037731645 No Longer Active Trina Sell WRECKING MECHANIC Active [facility] MELATONIN 5 MG ORAL TABLET 1 TAB PO Q HS ME LATONIN 67389848551 No Longer Active Trina Sell WRECKING MECHANIC Active PROMETHAZINE-CODEINE 6.25-10 MG/5ML ORAL SYRUP 5ml po q6hr PRN C ou PROMETHAZINE-CODEINE 25057273897 No Longer Active Trina Sell WRECKING MECHANIC Active PREDNISONE 20 MG ORAL TABLET 2 po qd x 5 days P REDNISONE 05551754960 No Longer Active Remigio Childress MD Active PROMETHAZINE-CODEINE 6.25-10 MG/5ML ORAL SYRUP 5ml po q6hr PRN C ou PROMETHAZINE-CODEINE 6.25-10 MG/5ML ORAL SYRUP 697859 PROMETHAZINE-CODEINE Inactive [facility] MELATONIN 5 MG ORAL TABLET 1 TAB PO Q HS 1 [facility] MELATONIN 5 MG ORAL TABLET 817631 MELATONIN Inactive PREDNISONE 20 MG ORAL TABLET 3 tabs for 2 days, 2 tabs for 4 days 1 ta for 4 days, 1/2 tab for 4 days PREDNISONE 20 MG ORAL T ABLET 227673 PREDNISONE Inactive PREDNISONE 20 MG ORAL TABLET 2 tabs po daily x3 days 2 PREDNISONE 20 MG ORAL TABLET 229354 PREDNISONE Inactive FLONASE ALLERGY RELIEF 50 MCG/ACT NASAL SUSPENSION 1 spray e ach nare BID FLONASE ALLERGY RELIEF 50 MCG/ACT NASAL SUSPENSION 0394704 FLUTICASONE PROPIONATE Inactive CLARITIN 10 MG ORAL TABLET 1 tab daily C LARITIN 10 MG ORAL TABLET 259039 LORATADINE Inactive ATORVASTATIN CALCIUM 20 MG ORAL TABLET 1 po qHS 01/04/06 ATORVASTATIN CALCIUM 20 MG ORAL TABLET 559467 ATORVASTATIN CALCIUM Inactive TESSALON PERLES 100 MG ORAL CAPSULE 1 tablet by mouth 3 times da gin TESSALON PERLES 100 MG ORAL CAPSULE 316273 BENZONATATE Inactive PREDNISONE 20 MG ORAL TABLET 2 po qd x 5 days PREDNISONE 20 MG ORAL TABLET 510389 PREDNISONE Inactive ATORVASTATIN CALCIUM 20 MG ORAL TABLET 1 po qHS 02/07/19 ATORVASTATIN CALCIUM 20 MG ORAL TABLET 941487 ATORVASTATIN CALCIUM Inactive AMOXICILLIN-POT CLAVULANATE 875-125 MG ORAL TABLET 1 pill by mouth twice daily AMOXICILLIN-POT CLAVULANATE 875-125 MG ORAL TABL ET 592450 AMOXICILLIN-POT CLAVULANATE Inactive ZITHROMAX Z-FELA 250 MG ORAL TABLET 2 today, then 1 daily for 4 d ays ZITHROMAX Z-FELA 250 MG ORAL TABLET 878050 AZITHROMYCIN Inactive AUGMENTIN 875-125 MG ORAL TABLET 1 po BID x 10 days 30/10/14 AUGMENTIN 875-125 MG ORAL TABLET AMOXICILLIN-POT CLAVULANATE Inactive CEFUROXIME AXETIL 500 MG ORAL TABLET 0.5 tab by mouth twice a da y CEFUROXIME AXETIL 500 MG ORAL TABLET 539409 CEFUROXIME AXETIL Inactive PREDNISONE 20 MG ORAL TABLET take 40 mg dialy for 6 days PREDNISONE 20 MG ORAL TABLET 253331 PREDNISONE Inactive ZITHROMAX Z-FELA 250 MG ORAL TABLET 2 today, then 1 daily for 4 d ays ZITHROMAX Z-FELA 250 MG ORAL TABLET 107143 AZITHROMYCIN Inactive Immunizations Vaccine Administration Date Value [...] Results Date Name Value Unit Range Description Office Visit: congestion,fever,cough - C hemistry HDL cholesterol, serum, target level 40 mg/dL cholesterol, target level 200 mg/dL triglyceride, target level 150 mg/dL Encounters Code Encounter Date Provider Facility CPT-01585 Level 3 Est. Patient 16:17:24 CENTRAL [employer]PPLY WORKER Tigre fu [facility] CPT-69692 Level 3 Est. Patient 09:05:56 CENTRAL SUPPLY WORKER Tigre fu [facility] CPT-53847 Level 4 Est. Patient 09:00:38 CENTRAL SUPPLY WORKER Remigio Childress MD [facility] CPT-97486 Level 3 Est. Patient 14:18:32 CDT Tigre fu [facility] CPT-80782 Level 4 Est. Patient 13:48:04 CDT Remigio Childress MD [facility] CPT-62597 [id number] Vst-Est Level III 10:10:19 CENTRAL SUPPLY WORKER Alban Boyce MD [facility] CPT-90288 Level 3 Est. Patient 13:45:32 CENTRAL SUPPLY WORKER Trina tapia [facility] CPT-89342 Level 3 Est. Patient 10:03:23 CDT Remigio Childress MD [facility] Procedures Code Procedure Name Date Entry Date Standard Desc ription CPT-93208 Venipuncture Draw Fee 09:28:58 [employer] CPT-IZ3410R (4274F) Influenza immunization administe red or previously received 16:05:01 [employer] CPT-92385 Prv Med Est Pt 18-39yrs 12:46:30 [employer] WORK[employer] 05/31 CPT-50779 Prv Med Est Pt 18-39yrs 12:25:19 [employer] 05/31 CPT-14920 IM or SQ Injection 09:09:52 [employer] CPT-91696 63559 - Immun Admin 1 vac 09:08:43 [employer]AL [employer]Y WORK[employer] 2018 CPT-79898 Flulaval Quadrivalent (Flu) 10Pk Syringe IM 2018 09:08:43 [employer] CPT-000 Give PPD 13:51:16 CDT
--- OUTSIDE RECORDS SUMMARY | 2019-07-22 04:55 | XMS REPORT | Clinical Summary ---
Author Author Admin, Virgen MICHELET Organization [employer] Address Unknown Phone Unavailable Allergies, Adverse Reactions, [...] 40 mg daily for 7 days PREDNISONE 92931584584 Active Tirge Asiya BENZOL STILL OPERATOR Active ZITHROMAX Z-FELA 250 MG ORAL TABLET 2 today, then 1 daily for 4 d ays AZITHROMYCIN 15275799402 No Longer Active Tigre Braden APRN Active ZYRTEC ALLERGY 10 MG ORAL CAPSULE 1 tablet daily CETIRIZINE HCL 66101008869 Active Lashawn lBank Active TESSALON PERLES 100 MG ORAL CAPSULE 1 tablet by mouth 3 times da gin BENZONATATE 12625428270 No Longer Active Lashawn Rosamaria Activ e PREDNISONE 20 MG ORAL TABLET take 40 mg dialy for 6 days PREDNISONE 15895963143 No Longer Active Tigre Braden APRN Active ATORVASTATIN CALCIUM 20 MG ORAL TABLET 1 po qHS 20 01/04/06 ATORVASTATIN CALCIUM 27405854149 No Longer Active Remigio Childress MD Active LAMICTAL 200 MG ORAL TABLET 1.5 po qHS LAMOTRIGIN E 30815408191 Active Remigio Childress MD Active CLARITIN 10 MG ORAL TABLET 1 tab daily LORATADI NE 11410944030 No Longer Active Remigio Childress MD Active FLONASE ALLERGY RELIEF 50 MCG/ACT NASAL SUSPENSION 1 spray e ach nare BID FLUTICASONE PROPIONATE 66418099685 No Longer Active Aleksandra Childress MD Active PREDNISONE 20 MG ORAL TABLET 2 tabs po daily x3 days 2 PREDNISONE 92352625334 No Longer Active Remigio Childress MD Activ e CEFUROXIME AXETIL 500 MG ORAL TABLET 0.5 tab by mouth twice a da y CEFUROXIME AXETIL 05785813515 No Longer Active Kiana Miller BENZOL STILL OPERATOR-C Active AUGMENTIN 875-125 MG ORAL TABLET 1 po BID x 10 days 30/10/14 AMOXICILLIN-POT CLAVULANATE No Longer Active Tigre Braden APRN Active PRAZOSIN HCL 1 MG ORAL CAPSULE 2 po qHS PRAZOSIN HCL 17763430464 Active Remigio Childress MD Active BUPROPION HCL ER (XL) 300 MG ORAL TABLET EXTENDED RELEASE 24 HOUR 1 po qd BUPROPION HCL 19714331380 Active Remigio Childress MD Active MULTIVITAMIN ADULT ORAL TABLET 1 po qd MULTI PLE VITAMINS-MINERALS 22475679067 Active Remigio Childress MD Active PROAIR HFA 108 (90 BASE) MCG/ACT INHALATION AEROSOL SO LUTION 2 puffs q4hr PRN Shortness of air/Wheezing ALBUTEROL SULFATE 23810118054 Ac tive Remigio Childress MD Active FLUTICASONE PROPIONATE 50 MCG/ACT NASAL SUSPENSION 2 s prays/nostril qd PRN Congestion/Allergies FLUTICASONE PROPIONATE 67275829334 Ac gifty Childress MD Active ENSKYCE 0.15-30 MG-MCG ORAL TABLET 1 po qd DESOGESTREL-ETHINYL ESTRADIOL 22535223858 Active Remigio Childress MD Active ZITHROMAX Z-FELA 250 MG ORAL TABLET 2 today, then 1 daily for 4 d ays AZITHROMYCIN 33472613443 No Longer Active Alban Boyce MD Active PREDNISONE 20 MG ORAL TABLET 3 tabs for 2 days, 2 tabs for 4 days 1 ta for 4 days, 1/2 tab for 4 days PREDNISONE 02287663139 No Longer Active Alban Boyce MD Active AMOXICILLIN-POT CLAVULANATE 875-125 MG ORAL TABLET 1 pill by mouth twice daily AMOXICILLIN-POT CLAVULANATE 87505784505 No Longer Act parth Trina Sell BENZOL STILL OPERATOR Active ATORVASTATIN CALCIUM 20 MG ORAL TABLET 1 po qHS 02/07/19 ATORVASTATIN CALCIUM 73683549291 No Longer Active Trina Sell BENZOL STILL OPERATOR Active [facility] MELATONIN 5 MG ORAL TABLET 1 TAB PO Q HS ME LATONIN 80476995869 No Longer Active Trina Sell BENZOL STILL OPERATOR Active PROMETHAZINE-CODEINE 6.25-10 MG/5ML ORAL SYRUP 5ml po q6hr PRN C ou PROMETHAZINE-CODEINE 51333740972 No Longer Active Trina Sell BENZOL STILL OPERATOR Active PREDNISONE 20 MG ORAL TABLET 2 po qd x 5 days P REDNISONE 27047778729 No Longer Active Remigio Childress MD Active PROMETHAZINE-CODEINE 6.25-10 MG/5ML ORAL SYRUP 5ml po q6hr PRN C ou PROMETHAZINE-CODEINE 6.25-10 MG/5ML ORAL SYRUP 313214 PROMETHAZINE-CODEINE Inactive [facility] MELATONIN 5 MG ORAL TABLET 1 TAB PO Q HS 1 [facility] MELATONIN 5 MG ORAL TABLET 398695 MELATONIN Inactive PREDNISONE 20 MG ORAL TABLET 3 tabs for 2 days, 2 tabs for 4 days 1 ta for 4 days, 1/2 tab for 4 days PREDNISONE 20 MG ORAL T ABLET 887613 PREDNISONE Inactive PREDNISONE 20 MG ORAL TABLET 2 tabs po daily x3 days 2 PREDNISONE 20 MG ORAL TABLET 457855 PREDNISONE Inactive FLONASE ALLERGY RELIEF 50 MCG/ACT NASAL SUSPENSION 1 spray e ach nare BID FLONASE ALLERGY RELIEF 50 MCG/ACT NASAL SUSPENSION 3973911 FLUTICASONE PROPIONATE Inactive CLARITIN 10 MG ORAL TABLET 1 tab daily C LARITIN 10 MG ORAL TABLET 296992 LORATADINE Inactive ATORVASTATIN CALCIUM 20 MG ORAL TABLET 1 po qHS 01/04/06 ATORVASTATIN CALCIUM 20 MG ORAL TABLET 740846 ATORVASTATIN CALCIUM Inactive TESSALON PERLES 100 MG ORAL CAPSULE 1 tablet by mouth 3 times da gin TESSALON PERLES 100 MG ORAL CAPSULE 048272 BENZONATATE Inactive PREDNISONE 20 MG ORAL TABLET 2 po qd x 5 days PREDNISONE 20 MG ORAL TABLET 812907 PREDNISONE Inactive ATORVASTATIN CALCIUM 20 MG ORAL TABLET 1 po qHS 02/07/19 ATORVASTATIN CALCIUM 20 MG ORAL TABLET 109190 ATORVASTATIN CALCIUM Inactive AMOXICILLIN-POT CLAVULANATE 875-125 MG ORAL TABLET 1 pill by mouth twice daily AMOXICILLIN-POT CLAVULANATE 875-125 MG ORAL TABL ET 552843 AMOXICILLIN-POT CLAVULANATE Inactive ZITHROMAX Z-FELA 250 MG ORAL TABLET 2 today, then 1 daily for 4 d ays ZITHROMAX Z-FELA 250 MG ORAL TABLET 302111 AZITHROMYCIN Inactive AUGMENTIN 875-125 MG ORAL TABLET 1 po BID x 10 days 30/10/14 AUGMENTIN 875-125 MG ORAL TABLET AMOXICILLIN-POT CLAVULANATE Inactive CEFUROXIME AXETIL 500 MG ORAL TABLET 0.5 tab by mouth twice a da y CEFUROXIME AXETIL 500 MG ORAL TABLET 898281 CEFUROXIME AXETIL Inactive PREDNISONE 20 MG ORAL TABLET take 40 mg dialy for 6 days PREDNISONE 20 MG ORAL TABLET 182327 PREDNISONE Inactive ZITHROMAX Z-FELA 250 MG ORAL TABLET 2 today, then 1 daily for 4 d ays ZITHROMAX Z-FELA 250 MG ORAL TABLET 171957 AZITHROMYCIN Inactive Immunizations Vaccine Administration Date Value [...] Description Lab Report: Lipid Panel, CBC, Comp. [facility] bolic Panel - Chemistry cholesterol, serum 256 mg/dL 160-029 4349/01/13 triglyceride, serum, fasting 166 mg/dL 30-200 HDL cholesterol, serum 78 mg/dL 32-60 LDL cholesterol, serum 145 mg/dL 0-130 sodium, serum 138 mmol/L 280-325 5532/01/13 carbon dioxide, venous blood 28.4 mmol/L 21.0-32 [...] 0.00-1.00 Lab Report: Lipid Panel, CBC, Comp. [facility] bolic Panel - Hematology leukocyte count, blood [...] 142-424 Lab Report: Lipid Panel, CBC, Comp. [facility] bolic Panel - Lab Alkaline phosphatase 66 50-136 Office Visit: congestion,fever,cough - C hemistry HDL cholesterol, serum, target level 40 mg/dL cholesterol, target level 200 mg/dL triglyceride, target level 150 mg/dL Encounters Code Encounter Date Provider Facility CPT-09690 Level 3 Est. Patient 16:17:24 EMS EDUCATOR Tigre fu [facility] CPT-52213 Level 3 Est. Patient 09:05:56 EMS EDUCATOR Tigre fu [facility] CPT-43089 Level 4 Est. Patient 09:00:38 EMS EDUCATOR Remigio Childress MD [facility] CPT-13346 Level 3 Est. Patient 14:18:32 CDT Tigre fu [facility] CPT-08832 Level 4 Est. Patient 13:48:04 CDT Remigio Childress MD [facility] CPT-81632 [id number] Vst-Est Level III 10:10:19 EMS EDUCATOR Alban Boyce MD [facility] CPT-26292 Level 3 Est. Patient 13:45:32 EMS EDUCATOR Trina tapia [facility] CPT-21970 Level 3 Est. Patient 10:03:23 CDT Remigio Childress MD [facility] Procedures Code Procedure Name Date Entry Date Standard Desc ription CPT-20805 Venipuncture Draw Fee 09:28:58 EMS EDUCATOR CPT-[id number] (4274F) Influenza immunization administe red or previously received 16:05:01 [facility] CPT-53093 Prv Med Est Pt 18-39yrs 12:46:30 EMS EDUCATOR 05/31 CPT-00606 Prv Med Est Pt 18-39yrs 12:25:19 [facility] 05/31 CPT-10848 IM or SQ Injection 09:09:52 EMS EDUCATOR CPT-50822 41490 - Immun Admin 1 vac 09:08:43 EMS EDUCATOR 2018 CPT-71023 Flulaval Quadrivalent (Flu) 10Pk Syringe IM 2018 09:08:43 EMS EDUCATOR CPT-000 Give PPD 13:51:16 CDT
--- OUTSIDE RECORDS SUMMARY | 2019-07-22 04:55 | XMS REPORT | Clinical Summary ---
Author Author Admin, Virgen MICHELET Organization [facility] Address Unknown Phone Unavailable Allergies, Adverse Reactions, [...] 40 mg daily for 7 days PREDNISONE 18585574571 Active Tigre Asiya DRY HEAT ROOM ATTENDANT Active ZITHROMAX Z-FELA 250 MG ORAL TABLET 2 today, then 1 daily for 4 d ays AZITHROMYCIN 85103672492 No Longer Active Tigre Braden APRN Active ZYRTEC ALLERGY 10 MG ORAL CAPSULE 1 tablet daily CETIRIZINE HCL 60415637458 Active Lashawn Blank Active TESSALON PERLES 100 MG ORAL CAPSULE 1 tablet by mouth 3 times da gin BENZONATATE 30129484830 No Longer Active Lashawn Rosamaria Activ e PREDNISONE 20 MG ORAL TABLET take 40 mg dialy for 6 days PREDNISONE 52812932839 No Longer Active Tigre Braden APRN Active ATORVASTATIN CALCIUM 20 MG ORAL TABLET 1 po qHS 20 01/04/06 ATORVASTATIN CALCIUM 48452959298 No Longer Active Remigio Childress MD Active LAMICTAL 200 MG ORAL TABLET 1.5 po qHS LAMOTRIGIN E 60119885302 Active Remigio Childress MD Active CLARITIN 10 MG ORAL TABLET 1 tab daily LORATADI NE 89031630929 No Longer Active Remigio Childress MD Active FLONASE ALLERGY RELIEF 50 MCG/ACT NASAL SUSPENSION 1 spray e ach nare BID FLUTICASONE PROPIONATE 20622471494 No Longer Active Aleksandra Childress MD Active PREDNISONE 20 MG ORAL TABLET 2 tabs po daily x3 days 2 PREDNISONE 68949087209 No Longer Active Remigio Childress MD Activ e CEFUROXIME AXETIL 500 MG ORAL TABLET 0.5 tab by mouth twice a da y CEFUROXIME AXETIL 23817968635 No Longer Active Kiana Miller DRY HEAT ROOM ATTENDANT-C Active AUGMENTIN 875-125 MG ORAL TABLET 1 po BID x 10 days 30/10/14 AMOXICILLIN-POT CLAVULANATE No Longer Active Tigre Braden APRN Active PRAZOSIN HCL 1 MG ORAL CAPSULE 2 po qHS PRAZOSIN HCL 23012754404 Active Remigio Childress MD Active BUPROPION HCL ER (XL) 300 MG ORAL TABLET EXTENDED RELEASE 24 HOUR 1 po qd BUPROPION HCL 46114504306 Active Remigio Childress MD Active MULTIVITAMIN ADULT ORAL TABLET 1 po qd MULTI PLE VITAMINS-MINERALS 21696978975 Active Remigio Childress MD Active PROAIR HFA 108 (90 BASE) MCG/ACT INHALATION AEROSOL SO LUTION 2 puffs q4hr PRN Shortness of air/Wheezing ALBUTEROL SULFATE 39686776547 Ac gifty Childress MD Active FLUTICASONE PROPIONATE 50 MCG/ACT NASAL SUSPENSION 2 s prays/nostril qd PRN Congestion/Allergies FLUTICASONE PROPIONATE 39308681048 Ac gifty Childress MD Active ENSKYCE 0.15-30 MG-MCG ORAL TABLET 1 po qd DESOGESTREL-ETHINYL ESTRADIOL 62587493956 Active Remigio Childress MD Active ZITHROMAX Z-FELA 250 MG ORAL TABLET 2 today, then 1 daily for 4 d ays AZITHROMYCIN 66114675933 No Longer Active Alban Boyce MD Active PREDNISONE 20 MG ORAL TABLET 3 tabs for 2 days, 2 tabs for 4 days 1 ta for 4 days, 1/2 tab for 4 days PREDNISONE 05857597894 No Longer Active Alban Boyce MD Active AMOXICILLIN-POT CLAVULANATE 875-125 MG ORAL TABLET 1 pill by mouth twice daily AMOXICILLIN-POT CLAVULANATE 73209884458 No Longer Act parth Trina Sell DRY HEAT ROOM ATTENDANT Active ATORVASTATIN CALCIUM 20 MG ORAL TABLET 1 po qHS 02/07/19 ATORVASTATIN CALCIUM 08818724370 No Longer Active Trina Sell DRY HEAT ROOM ATTENDANT Active [facility] MELATONIN 5 MG ORAL TABLET 1 TAB PO Q HS ME LATONIN 80047210883 No Longer Active Trina Sell DRY HEAT ROOM ATTENDANT Active PROMETHAZINE-CODEINE 6.25-10 MG/5ML ORAL SYRUP 5ml po q6hr PRN C ou PROMETHAZINE-CODEINE 77537724179 No Longer Active Tirna Sell DRY HEAT ROOM ATTENDANT Active PREDNISONE 20 MG ORAL TABLET 2 po qd x 5 days P REDNISONE 18395234317 No Longer Active Remigio Childress MD Active PROMETHAZINE-CODEINE 6.25-10 MG/5ML ORAL SYRUP 5ml po q6hr PRN C ou PROMETHAZINE-CODEINE 6.25-10 MG/5ML ORAL SYRUP 200749 PROMETHAZINE-CODEINE Inactive [facility] MELATONIN 5 MG ORAL TABLET 1 TAB PO Q HS 1 [facility] MELATONIN 5 MG ORAL TABLET 120530 MELATONIN Inactive PREDNISONE 20 MG ORAL TABLET 3 tabs for 2 days, 2 tabs for 4 days 1 ta for 4 days, 1/2 tab for 4 days PREDNISONE 20 MG ORAL T ABLET 719537 PREDNISONE Inactive PREDNISONE 20 MG ORAL TABLET 2 tabs po daily x3 days 2 PREDNISONE 20 MG ORAL TABLET 328164 PREDNISONE Inactive FLONASE ALLERGY RELIEF 50 MCG/ACT NASAL SUSPENSION 1 spray e ach nare BID FLONASE ALLERGY RELIEF 50 MCG/ACT NASAL SUSPENSION 9806867 FLUTICASONE PROPIONATE Inactive CLARITIN 10 MG ORAL TABLET 1 tab daily C LARITIN 10 MG ORAL TABLET 056038 LORATADINE Inactive ATORVASTATIN CALCIUM 20 MG ORAL TABLET 1 po qHS 01/04/06 ATORVASTATIN CALCIUM 20 MG ORAL TABLET 537151 ATORVASTATIN CALCIUM Inactive TESSALON PERLES 100 MG ORAL CAPSULE 1 tablet by mouth 3 times da gin TESSALON PERLES 100 MG ORAL CAPSULE 588579 BENZONATATE Inactive PREDNISONE 20 MG ORAL TABLET 2 po qd x 5 days PREDNISONE 20 MG ORAL TABLET 969846 PREDNISONE Inactive ATORVASTATIN CALCIUM 20 MG ORAL TABLET 1 po qHS 02/07/19 ATORVASTATIN CALCIUM 20 MG ORAL TABLET 851777 ATORVASTATIN CALCIUM Inactive AMOXICILLIN-POT CLAVULANATE 875-125 MG ORAL TABLET 1 pill by mouth twice daily AMOXICILLIN-POT CLAVULANATE 875-125 MG ORAL TABL ET 273658 AMOXICILLIN-POT CLAVULANATE Inactive ZITHROMAX Z-FELA 250 MG ORAL TABLET 2 today, then 1 daily for 4 d ays ZITHROMAX Z-FELA 250 MG ORAL TABLET 034625 AZITHROMYCIN Inactive AUGMENTIN 875-125 MG ORAL TABLET 1 po BID x 10 days 30/10/14 AUGMENTIN 875-125 MG ORAL TABLET AMOXICILLIN-POT CLAVULANATE Inactive CEFUROXIME AXETIL 500 MG ORAL TABLET 0.5 tab by mouth twice a da y CEFUROXIME AXETIL 500 MG ORAL TABLET 338894 CEFUROXIME AXETIL Inactive PREDNISONE 20 MG ORAL TABLET take 40 mg dialy for 6 days PREDNISONE 20 MG ORAL TABLET 152033 PREDNISONE Inactive ZITHROMAX Z-FELA 250 MG ORAL TABLET 2 today, then 1 daily for 4 d ays ZITHROMAX Z-FELA 250 MG ORAL TABLET 637515 AZITHROMYCIN Inactive Immunizations Vaccine Administration Date Value [...] mg/dL Encounters Code Encounter Date Provider Facility CPT-13665 Level 3 Est. Patient 16:17:24 [employer] Tigre fu [facility] CPT-44185 Level 3 Est. Patient 09:05:56 [employer] Tigre fu [facility] CPT-39339 Level 4 Est. Patient 09:00:38 [employer] Remigio Childress MD [facility] CPT-57970 Level 3 Est. Patient 14:18:32 CDT Tigre fu [facility] CPT-14883 Level 4 Est. Patient 13:48:04 CDT Remigio Childress MD [facility] CPT-07749 [id number] Vst-Est Level III 10:10:19 [employer] Alban Boyce MD [facility] CPT-78314 Level 3 Est. Patient 13:45:32 [employer] Trina tapia [facility] CPT-93059 Level 3 Est. Patient 10:03:23 CDT Remigio Childress MD [facility] Procedures Code Procedure Name Date Entry Date Standard Desc ription CPT-17265 Venipuncture Draw Fee 09:28:58 [employer] CPT-[id number] (4274F) Influenza immunization administe red or previously received 16:05:01 [employer] CPT-75727 Prv Med Est Pt 18-39yrs 12:46:30 [employer] 05/31 CPT-67265 Prv Med Est Pt 18-39yrs 12:25:19 [employer] 05/31 CPT-67601 IM or SQ Injection 09:09:52 [employer] CPT-52746 60490 - Immun Admin 1 vac 09:08:43 [employer] 2018 CPT-62800 Flulaval Quadrivalent (Flu) 10Pk Syringe IM 2018 09:08:43 [employer] CPT-000 Give PPD 13:51:16 CDT
--- OUTSIDE RECORDS SUMMARY | 2019-07-22 04:56 | XMS REPORT | Clinical Summary ---
Author Author Admin, Virgen MICHELET Organization [facility] Address Unknown Phone Unavailable Allergies, Adverse Reactions, [...] 40 mg daily for 7 days PREDNISONE 36906818412 Active Tigre Asiya SAFE TECHNICIAN Active ZITHROMAX Z-FELA 250 MG ORAL TABLET 2 today, then 1 daily for 4 d ays AZITHROMYCIN 61173199612 No Longer Active Tigre Braden APRN Active ZYRTEC ALLERGY 10 MG ORAL CAPSULE 1 tablet daily CETIRIZINE HCL 07168618334 Active Lashawn Blank Active TESSALON PERLES 100 MG ORAL CAPSULE 1 tablet by mouth 3 times da gin BENZONATATE 03680477520 No Longer Active Lashawn Rosamaria Activ e PREDNISONE 20 MG ORAL TABLET take 40 mg dialy for 6 days PREDNISONE 55123898397 No Longer Active Tigre Braden APRN Active ATORVASTATIN CALCIUM 20 MG ORAL TABLET 1 po qHS 20 01/04/06 ATORVASTATIN CALCIUM 57706576880 No Longer Active Remigio Childress MD Active LAMICTAL 200 MG ORAL TABLET 1.5 po qHS LAMOTRIGIN E 46292789801 Active Remigio Childress MD Active CLARITIN 10 MG ORAL TABLET 1 tab daily LORATADI NE 62316610701 No Longer Active Remigio Childress MD Active FLONASE ALLERGY RELIEF 50 MCG/ACT NASAL SUSPENSION 1 spray e ach nare BID FLUTICASONE PROPIONATE 19048668058 No Longer Active Aleksandra Childress MD Active PREDNISONE 20 MG ORAL TABLET 2 tabs po daily x3 days 2 PREDNISONE 62218824401 No Longer Active Remigio Childress MD Activ e CEFUROXIME AXETIL 500 MG ORAL TABLET 0.5 tab by mouth twice a da y CEFUROXIME AXETIL 48887896429 No Longer Active Kiana Miller SAFE TECHNICIAN-C Active AUGMENTIN 875-125 MG ORAL TABLET 1 po BID x 10 days 30/10/14 AMOXICILLIN-POT CLAVULANATE No Longer Active Tigre Braden APRN Active PRAZOSIN HCL 1 MG ORAL CAPSULE 2 po qHS PRAZOSIN HCL 16682213871 Active Remigio Childress MD Active BUPROPION HCL ER (XL) 300 MG ORAL TABLET EXTENDED RELEASE 24 HOUR 1 po qd BUPROPION HCL 92510143440 Active Remigio Childress MD Active MULTIVITAMIN ADULT ORAL TABLET 1 po qd MULTI PLE VITAMINS-MINERALS 56314086797 Active Remigio Childress MD Active PROAIR HFA 108 (90 BASE) MCG/ACT INHALATION AEROSOL SO LUTION 2 puffs q4hr PRN Shortness of air/Wheezing ALBUTEROL SULFATE 53681373266 Ac gifty Childress MD Active FLUTICASONE PROPIONATE 50 MCG/ACT NASAL SUSPENSION 2 s prays/nostril qd PRN Congestion/Allergies FLUTICASONE PROPIONATE 41897510507 Ac gifty Childress MD Active ENSKYCE 0.15-30 MG-MCG ORAL TABLET 1 po qd DESOGESTREL-ETHINYL ESTRADIOL 66742018934 Active Remigio Childress MD Active ZITHROMAX Z-FELA 250 MG ORAL TABLET 2 today, then 1 daily for 4 d ays AZITHROMYCIN 10207402696 No Longer Active Alban Boyce MD Active PREDNISONE 20 MG ORAL TABLET 3 tabs for 2 days, 2 tabs for 4 days 1 ta for 4 days, 1/2 tab for 4 days PREDNISONE 37747112529 No Longer Active Alban Boyce MD Active AMOXICILLIN-POT CLAVULANATE 875-125 MG ORAL TABLET 1 pill by mouth twice daily AMOXICILLIN-POT CLAVULANATE 93595209126 No Longer Act parth Trina Sell SAFE TECHNICIAN Active ATORVASTATIN CALCIUM 20 MG ORAL TABLET 1 po qHS 02/07/19 ATORVASTATIN CALCIUM 01980357442 No Longer Active Trina Sell SAFE TECHNICIAN Active [facility] MELATONIN 5 MG ORAL TABLET 1 TAB PO Q HS ME LATONIN 32763109165 No Longer Active Trina Sell SAFE TECHNICIAN Active PROMETHAZINE-CODEINE 6.25-10 MG/5ML ORAL SYRUP 5ml po q6hr PRN C ou PROMETHAZINE-CODEINE 23945821148 No Longer Active Trina Sell SAFE TECHNICIAN Active PREDNISONE 20 MG ORAL TABLET 2 po qd x 5 days P REDNISONE 58792789297 No Longer Active Remigio Childress MD Active PROMETHAZINE-CODEINE 6.25-10 MG/5ML ORAL SYRUP 5ml po q6hr PRN C ou PROMETHAZINE-CODEINE 6.25-10 MG/5ML ORAL SYRUP 345981 PROMETHAZINE-CODEINE Inactive [facility] MELATONIN 5 MG ORAL TABLET 1 TAB PO Q HS 1 [facility] MELATONIN 5 MG ORAL TABLET 371443 MELATONIN Inactive PREDNISONE 20 MG ORAL TABLET 3 tabs for 2 days, 2 tabs for 4 days 1 ta for 4 days, 1/2 tab for 4 days PREDNISONE 20 MG ORAL T ABLET 097493 PREDNISONE Inactive PREDNISONE 20 MG ORAL TABLET 2 tabs po daily x3 days 2 PREDNISONE 20 MG ORAL TABLET 456500 PREDNISONE Inactive FLONASE ALLERGY RELIEF 50 MCG/ACT NASAL SUSPENSION 1 spray e ach nare BID FLONASE ALLERGY RELIEF 50 MCG/ACT NASAL SUSPENSION 0504034 FLUTICASONE PROPIONATE Inactive CLARITIN 10 MG ORAL TABLET 1 tab daily C LARITIN 10 MG ORAL TABLET 162275 LORATADINE Inactive ATORVASTATIN CALCIUM 20 MG ORAL TABLET 1 po qHS 01/04/06 ATORVASTATIN CALCIUM 20 MG ORAL TABLET 092738 ATORVASTATIN CALCIUM Inactive TESSALON PERLES 100 MG ORAL CAPSULE 1 tablet by mouth 3 times da gin TESSALON PERLES 100 MG ORAL CAPSULE 835687 BENZONATATE Inactive PREDNISONE 20 MG ORAL TABLET 2 po qd x 5 days PREDNISONE 20 MG ORAL TABLET 919792 PREDNISONE Inactive ATORVASTATIN CALCIUM 20 MG ORAL TABLET 1 po qHS 02/07/19 ATORVASTATIN CALCIUM 20 MG ORAL TABLET 235765 ATORVASTATIN CALCIUM Inactive AMOXICILLIN-POT CLAVULANATE 875-125 MG ORAL TABLET 1 pill by mouth twice daily AMOXICILLIN-POT CLAVULANATE 875-125 MG ORAL TABL ET 564354 AMOXICILLIN-POT CLAVULANATE Inactive ZITHROMAX Z-FELA 250 MG ORAL TABLET 2 today, then 1 daily for 4 d ays ZITHROMAX Z-FELA 250 MG ORAL TABLET 242516 AZITHROMYCIN Inactive AUGMENTIN 875-125 MG ORAL TABLET 1 po BID x 10 days 30/10/14 AUGMENTIN 875-125 MG ORAL TABLET AMOXICILLIN-POT CLAVULANATE Inactive CEFUROXIME AXETIL 500 MG ORAL TABLET 0.5 tab by mouth twice a da y CEFUROXIME AXETIL 500 MG ORAL TABLET 537726 CEFUROXIME AXETIL Inactive PREDNISONE 20 MG ORAL TABLET take 40 mg dialy for 6 days PREDNISONE 20 MG ORAL TABLET 006652 PREDNISONE Inactive ZITHROMAX Z-FELA 250 MG ORAL TABLET 2 today, then 1 daily for 4 d ays ZITHROMAX Z-FELA 250 MG ORAL TABLET 664289 AZITHROMYCIN Inactive Immunizations Vaccine Administration Date Value [...] mg/dL Encounters Code Encounter Date Provider Facility CPT-40003 Level 3 Est. Patient 16:17:24 [employer] [facility]re fu [facility] CPT-08111 Level 3 Est. Patient 09:05:56 [employer] [facility] CPT-66683 Level 4 Est. Patient 09:00:38 [employer] Remigio Childress MD [facility] CPT-57961 Level 3 Est. Patient 14:18:32 CDT Tigre fu [facility] CPT-69883 Level 4 Est. Patient 13:48:04 CDT Remigio Childress MD [facility] CPT-33057 [id number] Vst-Est Level III 10:10:19 [employer] Alban Boyce MD [facility] CPT-89622 Level 3 Est. Patient 13:45:32 [employer] Trina tapia [facility] CPT-01893 Level 3 Est. Patient 10:03:23 CDT Remigio Childress MD [facility] Procedures Code Procedure Name Date Entry Date Standard Desc ription [id number]-[id number] (4274F) Influenza immunization administe red or previously received 16:05:01 [employer] CPT-01495 Prv Med Est Pt 18-39yrs 12:46:30 [employer] 05/31 CPT-91328 Prv Med Est Pt 18-39yrs 12:25:19 [employer] 05/31 CPT-47429 IM or SQ Injection 09:09:52 [employer] CPT-49458 68665 - Immun Admin 1 vac 09:08:43 [employer] 2018 CPT-44639 Flulaval Quadrivalent (Flu) 10Pk Syringe IM 2018 09:08:43 [employer] CPT-000 Give PPD 13:51:16 CDT
--- OUTSIDE RECORDS SUMMARY | 2019-07-22 04:56 | XMS REPORT | Clinical Summary ---
Author Author Admin, Virgen MICHELET Organization [facility] Address Unknown Phone Unavailable Allergies, Adverse Reactions, [...] Upper respiratory infection, viral ICD-465.9 I nactive eRmigio Childress MD Sinusitis, acute frontal ICD-461.1 Inactive [...] 40 mg daily for 7 days PREDNISONE 88024040419 Active Tigre Asiya ICE HOCKEY COACH Active ZITHROMAX Z-FELA 250 MG ORAL TABLET 2 today, then 1 daily for 4 d ays AZITHROMYCIN 67549511254 No Longer Active Tigre Braden APRN Active ZYRTEC ALLERGY 10 MG ORAL CAPSULE 1 tablet daily CETIRIZINE HCL 32219559666 Active Lashawn Blank Active TESSALON PERLES 100 MG ORAL CAPSULE 1 tablet by mouth 3 times da gin BENZONATATE 02814903466 No Longer Active Lashawn Tannerna Activ e PREDNISONE 20 MG ORAL TABLET take 40 mg dialy for 6 days PREDNISONE 05184566406 No Longer Active Tigre Braden APRN Active ATORVASTATIN CALCIUM 20 MG ORAL TABLET 1 po qHS 20 01/04/06 ATORVASTATIN CALCIUM 76050230668 No Longer Active Remigio Childress MD Active LAMICTAL 200 MG ORAL TABLET 1.5 po qHS LAMOTRIGIN E 02721790557 Active Remigio Childress MD Active CLARITIN 10 MG ORAL TABLET 1 tab daily LORATADI NE 38643681023 No Longer Active Remigio Childress MD Active FLONASE ALLERGY RELIEF 50 MCG/ACT NASAL SUSPENSION 1 spray e ach nare BID FLUTICASONE PROPIONATE 46818440461 No Longer Active Aleksandra Childress MD Active PREDNISONE 20 MG ORAL TABLET 2 tabs po daily x3 days 2 PREDNISONE 23976380997 No Longer Active Remigio Childress MD Activ e CEFUROXIME AXETIL 500 MG ORAL TABLET 0.5 tab by mouth twice a da y CEFUROXIME AXETIL 85946666807 No Longer Active Kiana Miller ICE HOCKEY COACH-C Active AUGMENTIN 875-125 MG ORAL TABLET 1 po BID x 10 days 30/10/14 AMOXICILLIN-POT CLAVULANATE No Longer Active Tigre Braden APRN Active PRAZOSIN HCL 1 MG ORAL CAPSULE 2 po qHS PRAZOSIN HCL 82539613098 Active Remigio Childress MD Active BUPROPION HCL ER (XL) 300 MG ORAL TABLET EXTENDED RELEASE 24 HOUR 1 po qd BUPROPION HCL 18252905325 Active Remigio Childress MD Active MULTIVITAMIN ADULT ORAL TABLET 1 po qd MULTI PLE VITAMINS-MINERALS 72783307132 Active Remigio Childress MD Active PROAIR HFA 108 (90 BASE) MCG/ACT INHALATION AEROSOL SO LUTION 2 puffs q4hr PRN Shortness of air/Wheezing ALBUTEROL SULFATE 74161245567 Ac tive Remigio Childress MD Active FLUTICASONE PROPIONATE 50 MCG/ACT NASAL SUSPENSION 2 s prays/nostril qd PRN Congestion/Allergies FLUTICASONE PROPIONATE 38758167161 Ac rickve Remigio Childress MD Active ENSKYCE 0.15-30 MG-MCG ORAL TABLET 1 po qd DESOGESTREL-ETHINYL ESTRADIOL 17770951518 Active Remigio Childress MD Active ZITHROMAX Z-FELA 250 MG ORAL TABLET 2 today, then 1 daily for 4 d ays AZITHROMYCIN 41974992932 No Longer Active Alban Boyce MD Active PREDNISONE 20 MG ORAL TABLET 3 tabs for 2 days, 2 tabs for 4 days 1 ta for 4 days, 1/2 tab for 4 days PREDNISONE 58130873247 No Longer Active Alban Boyce MD Active AMOXICILLIN-POT CLAVULANATE 875-125 MG ORAL TABLET 1 pill by mouth twice daily AMOXICILLIN-POT CLAVULANATE 48545502600 No Longer Act parth Trina Sell ICE HOCKEY COACH Active ATORVASTATIN CALCIUM 20 MG ORAL TABLET 1 po qHS 02/07/19 ATORVASTATIN CALCIUM 50337719702 No Longer Active Trina Sell ICE HOCKEY COACH Active [facility] MELATONIN 5 MG ORAL TABLET 1 TAB PO Q HS ME LATONIN 75021900771 No Longer Active Trina Sell ICE HOCKEY COACH Active PROMETHAZINE-CODEINE 6.25-10 MG/5ML ORAL SYRUP 5ml po q6hr PRN C ou PROMETHAZINE-CODEINE 38763116814 No Longer Active Trina Sell ICE HOCKEY COACH Active PREDNISONE 20 MG ORAL TABLET 2 po qd x 5 days P REDNISONE 51330058480 No Longer Active Remigio Childress MD Active PROMETHAZINE-CODEINE 6.25-10 MG/5ML ORAL SYRUP 5ml po q6hr PRN C ou PROMETHAZINE-CODEINE 6.25-10 MG/5ML ORAL SYRUP 036587 PROMETHAZINE-CODEINE Inactive [facility] MELATONIN 5 MG ORAL TABLET 1 TAB PO Q HS 1 [facility] MELATONIN 5 MG ORAL TABLET 959840 MELATONIN Inactive PREDNISONE 20 MG ORAL TABLET 3 tabs for 2 days, 2 tabs for 4 days 1 ta for 4 days, 1/2 tab for 4 days PREDNISONE 20 MG ORAL T ABLET 598251 PREDNISONE Inactive PREDNISONE 20 MG ORAL TABLET 2 tabs po daily x3 days 2 PREDNISONE 20 MG ORAL TABLET 523219 PREDNISONE Inactive FLONASE ALLERGY RELIEF 50 MCG/ACT NASAL SUSPENSION 1 spray e ach nare BID FLONASE ALLERGY RELIEF 50 MCG/ACT NASAL SUSPENSION 4617303 FLUTICASONE PROPIONATE Inactive CLARITIN 10 MG ORAL TABLET 1 tab daily C LARITIN 10 MG ORAL TABLET 843126 LORATADINE Inactive ATORVASTATIN CALCIUM 20 MG ORAL TABLET 1 po qHS 01/04/06 ATORVASTATIN CALCIUM 20 MG ORAL TABLET 745379 ATORVASTATIN CALCIUM Inactive TESSALON PERLES 100 MG ORAL CAPSULE 1 tablet by mouth 3 times da gin TESSALON PERLES 100 MG ORAL CAPSULE 331751 BENZONATATE Inactive PREDNISONE 20 MG ORAL TABLET 2 po qd x 5 days PREDNISONE 20 MG ORAL TABLET 996754 PREDNISONE Inactive ATORVASTATIN CALCIUM 20 MG ORAL TABLET 1 po qHS 02/07/19 ATORVASTATIN CALCIUM 20 MG ORAL TABLET 720067 ATORVASTATIN CALCIUM Inactive AMOXICILLIN-POT CLAVULANATE 875-125 MG ORAL TABLET 1 pill by mouth twice daily AMOXICILLIN-POT CLAVULANATE 875-125 MG ORAL TABL ET 851597 AMOXICILLIN-POT CLAVULANATE Inactive ZITHROMAX Z-FELA 250 MG ORAL TABLET 2 today, then 1 daily for 4 d ays ZITHROMAX Z-FELA 250 MG ORAL TABLET 478219 AZITHROMYCIN Inactive AUGMENTIN 875-125 MG ORAL TABLET 1 po BID x 10 days 30/10/14 AUGMENTIN 875-125 MG ORAL TABLET AMOXICILLIN-POT CLAVULANATE Inactive CEFUROXIME AXETIL 500 MG ORAL TABLET 0.5 tab by mouth twice a da y CEFUROXIME AXETIL 500 MG ORAL TABLET 552725 CEFUROXIME AXETIL Inactive PREDNISONE 20 MG ORAL TABLET take 40 mg dialy for 6 days PREDNISONE 20 MG ORAL TABLET 406272 PREDNISONE Inactive ZITHROMAX Z-FELA 250 MG ORAL TABLET 2 today, then 1 daily for 4 d ays ZITHROMAX Z-FELA 250 MG ORAL TABLET 627475 AZITHROMYCIN Inactive Immunizations Vaccine Administration Date Value [...] mg/dL Encounters Code Encounter Date Provider Facility CPT-35826 Level 3 Est. Patient 16:17:24 [employer] Tigre fu [facility] CPT-20316 Level 3 Est. Patient 09:05:56 [employer] Tigre fu [facility] [place] CPT-56555 Level 4 Est. Patient 09:00:38 [employer] Remigio Childress MD [facility] CPT-55817 Level 3 Est. Patient 14:18:32 CDT Tigre fu [facility] CPT-85868 Level 4 Est. Patient 13:48:04 CDT Remigio Childress MD [facility] CPT-86385 [id number] Vst-Est Level III 10:10:19 [employer] Alban Boyce MD [facility] CPT-24243 Level 3 Est. Patient 13:45:32 [employer] Trina tapia [facility] [facility] CPT-13086 Level 3 Est. Patient 10:03:23 CDT Remigio Childress MD [facility] Procedures Code Procedure Name Date Entry Date Standard Desc ription [id number] (4274F) Influenza immunization administe red or previously received 16:05:01 [employer] CPT-81993 Prv Med Est Pt 18-39yrs 12:46:30 [employer] 05/31 CPT-25841 Prv Med Est Pt 18-39yrs 12:25:19 [employer] 05/31 CPT-70272 IM or SQ Injection 09:09:52 [employer] CPT-81278 03994 - Immun Admin 1 vac 09:08:43 [employer] 2018 CPT-70230 Flulaval Quadrivalent (Flu) 10Pk Syringe IM 2018 09:08:43 [employer] CPT-000 Give PPD 13:51:16 CDT
--- OUTSIDE RECORDS SUMMARY | 2019-07-22 04:56 | XMS REPORT | Clinical Summary ---
Author Author Admin, Virgen MICHELET Organization [facility] Address Unknown Phone Unavailable Allergies, Adverse Reactions, [...] 40 mg daily for 7 days PREDNISONE 38862700109 Active Tigre Asiya NIGHT WORKER Active ZITHROMAX Z-FELA 250 MG ORAL TABLET 2 today, then 1 daily for 4 d ays AZITHROMYCIN 78029672321 Active Tigre Braden APRN Acti ve ZYRTEC ALLERGY 10 MG ORAL CAPSULE 1 tablet daily CETIRIZINE HCL 80748680927 Active Lashawn Blank Active TESSALON PERLES 100 MG ORAL CAPSULE 1 tablet by mouth 3 times da gin BENZONATATE 36608904738 No Longer Active Lashawn Blank Activ e PREDNISONE 20 MG ORAL TABLET take 40 mg dialy for 6 days PREDNISONE 19437209590 No Longer Active Tigre Braden APRN Active ATORVASTATIN CALCIUM 20 MG ORAL TABLET 1 po qHS 20 01/04/06 ATORVASTATIN CALCIUM 62506298817 No Longer Active Remigio Childress MD Active LAMICTAL 200 MG ORAL TABLET 1.5 po qHS LAMOTRIGIN E 00573895090 Active Remigio Childress MD Active CLARITIN 10 MG ORAL TABLET 1 tab daily LORATADI NE 78929559505 No Longer Active Remigio Childress MD Active FLONASE ALLERGY RELIEF 50 MCG/ACT NASAL SUSPENSION 1 spray e ach nare BID FLUTICASONE PROPIONATE 07690217681 No Longer Active Aleksandra Childress MD Active PREDNISONE 20 MG ORAL TABLET 2 tabs po daily x3 days 2 PREDNISONE 07007060046 No Longer Active Remigio Childress MD Activ e CEFUROXIME AXETIL 500 MG ORAL TABLET 0.5 tab by mouth twice a da y CEFUROXIME AXETIL 41652273503 No Longer Active Kiana Miller NIGHT WORKER-C Active AUGMENTIN 875-125 MG ORAL TABLET 1 po BID x 10 days 30/10/14 AMOXICILLIN-POT CLAVULANATE No Longer Active Tigre Braden APRN Active PRAZOSIN HCL 1 MG ORAL CAPSULE 2 po qHS PRAZOSIN HCL 31186541089 Active Remigio Childress MD Active BUPROPION HCL ER (XL) 300 MG ORAL TABLET EXTENDED RELEASE 24 HOUR 1 po qd BUPROPION HCL 67288879117 Active Remigio Childress MD Active MULTIVITAMIN ADULT ORAL TABLET 1 po qd MULTI PLE VITAMINS-MINERALS 28896811225 Active Remigio Childress MD Active PROAIR HFA 108 (90 BASE) MCG/ACT INHALATION AEROSOL SO LUTION 2 puffs q4hr PRN Shortness of air/Wheezing ALBUTEROL SULFATE 75281001601 Ac tive Remigio Childress MD Active FLUTICASONE PROPIONATE 50 MCG/ACT NASAL SUSPENSION 2 s prays/nostril qd PRN Congestion/Allergies FLUTICASONE PROPIONATE 36930807324 Ac rickve Remigio Childress MD Active ENSKYCE 0.15-30 MG-MCG ORAL TABLET 1 po qd DESOGESTREL-ETHINYL ESTRADIOL 66884054864 Active Remigio Childress MD Active ZITHROMAX Z-FELA 250 MG ORAL TABLET 2 today, then 1 daily for 4 d ays AZITHROMYCIN 53047866108 No Longer Active Alban Boyce MD Active PREDNISONE 20 MG ORAL TABLET 3 tabs for 2 days, 2 tabs for 4 days 1 ta for 4 days, 1/2 tab for 4 days PREDNISONE 61199749596 No Longer Active Alban Boyce MD Active AMOXICILLIN-POT CLAVULANATE 875-125 MG ORAL TABLET 1 pill by mouth twice daily AMOXICILLIN-POT CLAVULANATE 86138779999 No Longer Act parth Trina Sell NIGHT WORKER Active ATORVASTATIN CALCIUM 20 MG ORAL TABLET 1 po qHS 02/07/19 ATORVASTATIN CALCIUM 48556545831 No Longer Active Trina Sell NIGHT WORKER Active [facility] MELATONIN 5 MG ORAL TABLET 1 TAB PO Q HS ME LATONIN 67293137000 No Longer Active Trina Sell NIGHT WORKER Active PROMETHAZINE-CODEINE 6.25-10 MG/5ML ORAL SYRUP 5ml po q6hr PRN C ou PROMETHAZINE-CODEINE 36645962557 No Longer Active Trina Sell NIGHT WORKER Active PREDNISONE 20 MG ORAL TABLET 2 po qd x 5 days P REDNISONE 09832607609 No Longer Active Remigio Childress MD Active PROMETHAZINE-CODEINE 6.25-10 MG/5ML ORAL SYRUP 5ml po q6hr PRN C ou PROMETHAZINE-CODEINE 6.25-10 MG/5ML ORAL SYRUP 805990 PROMETHAZINE-CODEINE Inactive [facility] MELATONIN 5 MG ORAL TABLET 1 TAB PO Q HS 1 [facility] MELATONIN 5 MG ORAL TABLET 383705 MELATONIN Inactive PREDNISONE 20 MG ORAL TABLET 3 tabs for 2 days, 2 tabs for 4 days 1 ta for 4 days, 1/2 tab for 4 days PREDNISONE 20 MG ORAL T ABLET 015655 PREDNISONE Inactive PREDNISONE 20 MG ORAL TABLET 2 tabs po daily x3 days 2 PREDNISONE 20 MG ORAL TABLET 788619 PREDNISONE Inactive FLONASE ALLERGY RELIEF 50 MCG/ACT NASAL SUSPENSION 1 spray e ach nare BID FLONASE ALLERGY RELIEF 50 MCG/ACT NASAL SUSPENSION 6921107 FLUTICASONE PROPIONATE Inactive CLARITIN 10 MG ORAL TABLET 1 tab daily C LARITIN 10 MG ORAL TABLET 047475 LORATADINE Inactive ATORVASTATIN CALCIUM 20 MG ORAL TABLET 1 po qHS 01/04/06 ATORVASTATIN CALCIUM 20 MG ORAL TABLET 140905 ATORVASTATIN CALCIUM Inactive TESSALON PERLES 100 MG ORAL CAPSULE 1 tablet by mouth 3 times da gin TESSALON PERLES 100 MG ORAL CAPSULE 008660 BENZONATATE Inactive PREDNISONE 20 MG ORAL TABLET 2 po qd x 5 days PREDNISONE 20 MG ORAL TABLET 647170 PREDNISONE Inactive ATORVASTATIN CALCIUM 20 MG ORAL TABLET 1 po qHS 02/07/19 ATORVASTATIN CALCIUM 20 MG ORAL TABLET 451583 ATORVASTATIN CALCIUM Inactive AMOXICILLIN-POT CLAVULANATE 875-125 MG ORAL TABLET 1 pill by mouth twice daily AMOXICILLIN-POT CLAVULANATE 875-125 MG ORAL TABL ET 822305 AMOXICILLIN-POT CLAVULANATE Inactive ZITHROMAX Z-FELA 250 MG ORAL TABLET 2 today, then 1 daily for 4 d ays ZITHROMAX Z-FELA 250 MG ORAL TABLET 419917 AZITHROMYCIN Inactive AUGMENTIN 875-125 MG ORAL TABLET 1 po BID x 10 days 30/10/14 AUGMENTIN 875-125 MG ORAL TABLET AMOXICILLIN-POT CLAVULANATE Inactive CEFUROXIME AXETIL 500 MG ORAL TABLET 0.5 tab by mouth twice a da y CEFUROXIME AXETIL 500 MG ORAL TABLET 926294 CEFUROXIME AXETIL Inactive PREDNISONE 20 MG ORAL TABLET take 40 mg dialy for 6 days PREDNISONE 20 MG ORAL TABLET 604293 PREDNISONE Inactive Immunizations Vaccine Administration Date Value Standard [...] mg/dL Encounters Code Encounter Date Provider Facility CPT-12437 Level 3 Est. Patient 16:17:24 SIDE SEAM MACHINE OPERATOR Tigre uf [facility] CPT-83008 Level 3 Est. Patient 09:05:56 SIDE SEAM MACHINE OPERATOR Tigre fu [facility] CPT-72030 Level 4 Est. Patient 09:00:38 SIDE SEAM MACHINE OPERATOR Remigio Childress MD [facility] CPT-44007 Level 3 Est. Patient 14:18:32 CDT Tigre fu [facility] CPT-26338 Level 4 Est. Patient 13:48:04 CDT Remigio Childress MD [facility] CPT-19958 [id number] Vst-Est Level III 10:10:19 SIDE SEAM MACHINE OPERATOR Alban Boyce MD [facility] CPT-34061 Level 3 Est. Patient 13:45:32 SIDE SEAM MACHINE OPERATOR Trina tapia [facility] CPT-47271 Level 3 Est. Patient 10:03:23 CDT Remigio Childress [facility] Procedures Code Procedure Name Date Entry Date Standard Desc ription [id number]-[id number] (4274F) Influenza immunization administe red or previously received 16:05:01 SIDE SEAM MACHINE OPERATOR CPT-43671 Prv Med Est Pt 18-39yrs 12:46:30 SIDE SEAM MACHINE OPERATOR 05/31 CPT-17304 Prv Med Est Pt 18-39yrs 12:25:19 SIDE SEAM MACHINE OPERATOR 05/31 CPT-96375 IM or SQ Injection 09:09:52 SIDE SEAM MACHINE OPERATOR CPT-65387 90241 - Immun Admin 1 vac 09:08:43 SIDE SEAM MACHINE OPERATOR 2018 CPT-70450 Flulaval Quadrivalent (Flu) 10Pk Syringe IM 2018 09:08:43 SIDE SEAM MACHINE OPERATOR CPT-000 Give PPD 13:51:16 CDT
--- OUTSIDE RECORDS SUMMARY | 2019-07-22 04:56 | XMS REPORT | Clinical Summary ---
Author Author Admin, Virgen MICHELET Organization [employer] Address Unknown Phone Unavailable Allergies, Adverse Reactions, [...] 40 mg daily for 7 days PREDNISONE 36470113237 Active Tigre Asiya VICE PRESIDENT TALENT MANAGEMENT Active ZITHROMAX Z-FELA 250 MG ORAL TABLET 2 today, then 1 daily for 4 d ays AZITHROMYCIN 49282872228 Active Tigre Braden APRN Acti ve ZYRTEC ALLERGY 10 MG ORAL CAPSULE 1 tablet daily CETIRIZINE HCL 86556405304 Active Lashawn Blank Active TESSALON PERLES 100 MG ORAL CAPSULE 1 tablet by mouth 3 times da gin BENZONATATE 41405480159 No Longer Active Lashawn Tannerna Activ e PREDNISONE 20 MG ORAL TABLET take 40 mg dialy for 6 days PREDNISONE 38295279583 No Longer Active Tigre Braden APRN Active ATORVASTATIN CALCIUM 20 MG ORAL TABLET 1 po qHS 20 01/04/06 ATORVASTATIN CALCIUM 21644992832 No Longer Active Remigio Childress MD Active LAMICTAL 200 MG ORAL TABLET 1.5 po qHS LAMOTRIGIN E 19569272759 Active Remigio Childress MD Active CLARITIN 10 MG ORAL TABLET 1 tab daily LORATADI NE 93603144119 No Longer Active Remigio Childress MD Active FLONASE ALLERGY RELIEF 50 MCG/ACT NASAL SUSPENSION 1 spray e ach nare BID FLUTICASONE PROPIONATE 58311752041 No Longer Active Aleksandra Childress MD Active PREDNISONE 20 MG ORAL TABLET 2 tabs po daily x3 days 2 PREDNISONE 35006731889 No Longer Active Remigio Childress MD Activ e CEFUROXIME AXETIL 500 MG ORAL TABLET 0.5 tab by mouth twice a da y CEFUROXIME AXETIL 83547387647 No Longer Active Kiana Miller VICE PRESIDENT TALENT MANAGEMENT-C Active AUGMENTIN 875-125 MG ORAL TABLET 1 po BID x 10 days 30/10/14 AMOXICILLIN-POT CLAVULANATE No Longer Active Tigre Braden APRN Active PRAZOSIN HCL 1 MG ORAL CAPSULE 2 po qHS PRAZOSIN HCL 92489095378 Active Remigio Childress MD Active BUPROPION HCL ER (XL) 300 MG ORAL TABLET EXTENDED RELEASE 24 HOUR 1 po qd BUPROPION HCL 75611637009 Active Remigio Childress MD Active MULTIVITAMIN ADULT ORAL TABLET 1 po qd MULTI PLE VITAMINS-MINERALS 64317131002 Active Remigio Childress MD Active PROAIR HFA 108 (90 BASE) MCG/ACT INHALATION AEROSOL SO LUTION 2 puffs q4hr PRN Shortness of air/Wheezing ALBUTEROL SULFATE 19410357685 Ac tive Remigio Childress MD Active FLUTICASONE PROPIONATE 50 MCG/ACT NASAL SUSPENSION 2 s prays/nostril qd PRN Congestion/Allergies FLUTICASONE PROPIONATE 75964968711 Ac gifty Childress MD Active ENSKYCE 0.15-30 MG-MCG ORAL TABLET 1 po qd DESOGESTREL-ETHINYL ESTRADIOL 62969558546 Active Remigio Childress MD Active ZITHROMAX Z-FELA 250 MG ORAL TABLET 2 today, then 1 daily for 4 d ays AZITHROMYCIN 53059872938 No Longer Active Alban Boyce MD Active PREDNISONE 20 MG ORAL TABLET 3 tabs for 2 days, 2 tabs for 4 days 1 ta for 4 days, 1/2 tab for 4 days PREDNISONE 27331687440 No Longer Active Alban Boyce MD Active AMOXICILLIN-POT CLAVULANATE 875-125 MG ORAL TABLET 1 pill by mouth twice daily AMOXICILLIN-POT CLAVULANATE 79136964965 No Longer Act parth Trina Sell VICE PRESIDENT TALENT MANAGEMENT Active ATORVASTATIN CALCIUM 20 MG ORAL TABLET 1 po qHS 02/07/19 ATORVASTATIN CALCIUM 89407971035 No Longer Active Trina Sell VICE PRESIDENT TALENT MANAGEMENT Active [facility] MELATONIN 5 MG ORAL TABLET 1 TAB PO Q HS ME LATONIN 77848278788 No Longer Active Trina Sell VICE PRESIDENT TALENT MANAGEMENT Active PROMETHAZINE-CODEINE 6.25-10 MG/5ML ORAL SYRUP 5ml po q6hr PRN C ou PROMETHAZINE-CODEINE 93834699145 No Longer Active Trina Sell VICE PRESIDENT TALENT MANAGEMENT Active PREDNISONE 20 MG ORAL TABLET 2 po qd x 5 days P REDNISONE 11082239968 No Longer Active Remigio Childress MD Active PROMETHAZINE-CODEINE 6.25-10 MG/5ML ORAL SYRUP 5ml po q6hr PRN C ou PROMETHAZINE-CODEINE 6.25-10 MG/5ML ORAL SYRUP 224976 PROMETHAZINE-CODEINE Inactive [facility] MELATONIN 5 MG ORAL TABLET 1 TAB PO Q HS 1 [facility] MELATONIN 5 MG ORAL TABLET 617987 MELATONIN Inactive PREDNISONE 20 MG ORAL TABLET 3 tabs for 2 days, 2 tabs for 4 days 1 ta for 4 days, 1/2 tab for 4 days PREDNISONE 20 MG ORAL T ABLET 689791 PREDNISONE Inactive PREDNISONE 20 MG ORAL TABLET 2 tabs po daily x3 days 2 PREDNISONE 20 MG ORAL TABLET 690117 PREDNISONE Inactive FLONASE ALLERGY RELIEF 50 MCG/ACT NASAL SUSPENSION 1 spray e ach nare BID FLONASE ALLERGY RELIEF 50 MCG/ACT NASAL SUSPENSION 5225681 FLUTICASONE PROPIONATE Inactive CLARITIN 10 MG ORAL TABLET 1 tab daily C LARITIN 10 MG ORAL TABLET 927175 LORATADINE Inactive ATORVASTATIN CALCIUM 20 MG ORAL TABLET 1 po qHS 01/04/06 ATORVASTATIN CALCIUM 20 MG ORAL TABLET 034016 ATORVASTATIN CALCIUM Inactive TESSALON PERLES 100 MG ORAL CAPSULE 1 tablet by mouth 3 times da gin TESSALON PERLES 100 MG ORAL CAPSULE 936625 BENZONATATE Inactive PREDNISONE 20 MG ORAL TABLET 2 po qd x 5 days PREDNISONE 20 MG ORAL TABLET 778775 PREDNISONE Inactive ATORVASTATIN CALCIUM 20 MG ORAL TABLET 1 po qHS 02/07/19 ATORVASTATIN CALCIUM 20 MG ORAL TABLET 798405 ATORVASTATIN CALCIUM Inactive AMOXICILLIN-POT CLAVULANATE 875-125 MG ORAL TABLET 1 pill by mouth twice daily AMOXICILLIN-POT CLAVULANATE 875-125 MG ORAL TABL ET 910566 AMOXICILLIN-POT CLAVULANATE Inactive ZITHROMAX Z-FELA 250 MG ORAL TABLET 2 today, then 1 daily for 4 d ays ZITHROMAX Z-FELA 250 MG ORAL TABLET 752744 AZITHROMYCIN Inactive AUGMENTIN 875-125 MG ORAL TABLET 1 po BID x 10 days 30/10/14 AUGMENTIN 875-125 MG ORAL TABLET AMOXICILLIN-POT CLAVULANATE Inactive CEFUROXIME AXETIL 500 MG ORAL TABLET 0.5 tab by mouth twice a da y CEFUROXIME AXETIL 500 MG ORAL TABLET 976635 CEFUROXIME AXETIL Inactive PREDNISONE 20 MG ORAL TABLET take 40 mg dialy for 6 days PREDNISONE 20 MG ORAL TABLET 222069 PREDNISONE Inactive Immunizations Vaccine Administration Date Value [...] mg/dL Encounters Code Encounter Date Provider Facility CPT-81546 Level 3 Est. Patient 16:17:24 DIRECTOR OF REGIONAL SALES Tigre fu [facility] CPT-87344 Level 3 Est. Patient 09:05:56 DIRECTOR OF REGIONAL SALES Tigre fu [facility] CPT-93315 Level 4 Est. Patient 09:00:38 DIRECTOR OF REGIONAL SALES Remigio Childress MD [facility] CPT-99915 Level 3 Est. Patient 14:18:32 CDT Tigre fu [facility] CPT-60122 Level 4 Est. Patient 13:48:04 CDT Remigio Childress MD [facility] CPT-25815 [id number] Vst-Est Level III 10:10:19 DIRECTOR OF REGIONAL SALES Alban Boyce MD [facility] CPT-77384 Level 3 Est. Patient 13:45:32 DIRECTOR OF REGIONAL SALES Trina tapia [facility] CPT-85354 Level 3 Est. Patient 10:03:23 CDT Remigio Childress [facility] Procedures Code Procedure Name Date Entry Date Standard Desc ription [id number] (4274F) Influenza immunization administe red or previously received 16:05:01 DIRECTOR OF REGIONAL SALES CPT-35784 Prv Med Est Pt 18-39yrs 12:46:30 DIRECTOR OF REGIONAL SALES 05/31 CPT-20172 Prv Med Est Pt 18-39yrs 12:25:19 DIRECTOR OF REGIONAL SALES 05/31 CPT-32247 IM or SQ Injection 09:09:52 DIRECTOR OF REGIONAL SALES CPT-07509 43097 - Immun Admin 1 vac 09:08:43 DIRECTOR OF REGIONAL SALES 2018 CPT-07168 Flulaval Quadrivalent (Flu) 10Pk Syringe IM 2018 09:08:43 DIRECTOR OF REGIONAL SALES CPT-000 Give PPD 13:51:16 CDT
--- OUTSIDE RECORDS SUMMARY | 2019-07-22 04:57 | XMS REPORT | Clinical Summary ---
Author Author Admin, Virgen MICHELET Organization [employer] Address Unknown Phone Unavailable Allergies, Adverse Reactions, [...] Mass Index 35.0- 35.9, adult BMI 35-35.9 Active Lashawn Blank Body Mass Index 35.0-35.9, adult Obesity Class II [...] tube Mycoplasma pneumonia 483.0 Active Tigre Braden SEAFOOD SPECIALIST Pneumonia due to Mycoplasma pneumoniae Gynecological examination, routine V72.3 Active 2 Rebecca Burgos MD Special investigations and examinations - Gynecological examination Contraceptive pill surveillance V25.41 Active 2018 Rebecca Burgos MD Encounter for surveillance of contracept parth pill Hirsutism 704.1 Active Rebecca Burgos MD Hirsutism Upper respiratory infection, viral ICD-465.9 I nactive [...] Generic Name NDC Status Provider Patient Instruction ZYRTEC ALLERGY 10 MG ORAL CAPSULE 1 tablet daily CETIRIZINE HCL 13064600799 Active Lashawn Blank Active TESSALON PERLES 100 MG ORAL CAPSULE 1 tablet by mouth 3 times da gin BENZONATATE 70174810991 No Longer Active Lashawn Blank Activ e PREDNISONE 20 MG ORAL TABLET take 40 mg dialy for 6 days PREDNISONE 99323932729 No Longer Active Tigre Braden APRN Active ATORVASTATIN CALCIUM 20 MG ORAL TABLET 1 po qHS 20 01/04/06 ATORVASTATIN CALCIUM 07224550704 No Longer Active Remigio Childress MD Active LAMICTAL 200 MG ORAL TABLET 1.5 po qHS LAMOTRIGIN E 96625100038 Active Remigio Childress MD Active CLARITIN 10 MG ORAL TABLET 1 tab daily LORATADI NE 63944725492 No Longer Active Remigio Childress MD Active FLONASE ALLERGY RELIEF 50 MCG/ACT NASAL SUSPENSION 1 spray e ach nare BID FLUTICASONE PROPIONATE 04876399163 No Longer Active Aleksandra Childress MD Active PREDNISONE 20 MG ORAL TABLET 2 tabs po daily x3 days 2 PREDNISONE 70252777909 No Longer Active Remigio Childress MD Activ e CEFUROXIME AXETIL 500 MG ORAL TABLET 0.5 tab by mouth twice a da y CEFUROXIME AXETIL 41780173034 No Longer Active Kiana Miller SEAFOOD SPECIALIST-C Active AUGMENTIN 875-125 MG ORAL TABLET 1 po BID x 10 days 20 30/10/14 AMOXICILLIN-POT CLAVULANATE No Longer Active Tigre Braden APRN Active PRAZOSIN HCL 1 MG ORAL CAPSULE 2 po qHS PRAZOSIN HCL 16866396320 Active Remigio Childress MD Active BUPROPION HCL ER (XL) 300 MG ORAL TABLET EXTENDED RELEASE 24 HOUR 1 po qd BUPROPION HCL 25361305763 Active Remigio Childress MD Active MULTIVITAMIN ADULT ORAL TABLET 1 po qd MULTI PLE VITAMINS-MINERALS 61455128321 Active Remigio Childress MD Active PROAIR HFA 108 (90 BASE) MCG/ACT INHALATION AEROSOL SO LUTION 2 puffs q4hr PRN Shortness of air/Wheezing ALBUTEROL SULFATE 09943225616 Ac gifty Childress MD Active FLUTICASONE PROPIONATE 50 MCG/ACT NASAL SUSPENSION 2 s prays/nostril qd PRN Congestion/Allergies FLUTICASONE PROPIONATE 45741951146 Ac gifty Childress MD Active ENSKYCE 0.15-30 MG-MCG ORAL TABLET 1 po qd DESOGESTREL-ETHINYL ESTRADIOL 35116103546 Active Remigio Childress MD Active ZITHROMAX Z-FELA 250 MG ORAL TABLET 2 today, then 1 daily for 4 d ays AZITHROMYCIN 26802558878 No Longer Active Alban Boyce MD Active PREDNISONE 20 MG ORAL TABLET 3 tabs for 2 days, 2 tabs for 4 days 1 ta for 4 days, 1/2 tab for 4 days PREDNISONE 48889365477 No Longer Active Alban Boyce MD Active AMOXICILLIN-POT CLAVULANATE 875-125 MG ORAL TABLET 1 pill by mouth twice daily AMOXICILLIN-POT CLAVULANATE 43469049293 No Longer Act parth Trina Sell SEAFOOD SPECIALIST Active ATORVASTATIN CALCIUM 20 MG ORAL TABLET 1 po qHS 20 02/07/19 ATORVASTATIN CALCIUM 49897524088 No Longer Active Trina Sell SEAFOOD SPECIALIST Active [facility] MELATONIN 5 MG ORAL TABLET 1 TAB PO Q HS ME LATONIN 29082394491 No Longer Active Trina Sell SEAFOOD SPECIALIST Active PROMETHAZINE-CODEINE 6.25-10 MG/5ML ORAL SYRUP 5ml po q6hr PRN C ough PROMETHAZINE-CODEINE 50525798131 No Longer Active Trina Sell SEAFOOD SPECIALIST Active PREDNISONE 20 MG ORAL TABLET 2 po qd x 5 days P REDNISONE 29281240044 No Longer Active Remigio Childress MD Active PROMETHAZINE-CODEINE 6.25-10 MG/5ML ORAL SYRUP 5ml po q6hr PRN C ough PROMETHAZINE-CODEINE 6.25-10 MG/5ML ORAL SYRUP 494707 PROMETHAZINE-CODEINE Inactive [facility] MELATONIN 5 MG ORAL TABLET 1 TAB PO Q HS 1 [facility] MELATONIN 5 MG ORAL TABLET 561762 MELATONIN Inactive PREDNISONE 20 MG ORAL TABLET 3 tabs for 2 days, 2 tabs for 4 days 1 ta for 4 days, 1/2 tab for 4 days PREDNISONE 20 MG ORAL T ABLET 018989 PREDNISONE Inactive PREDNISONE 20 MG ORAL TABLET 2 tabs po daily x3 days 2 PREDNISONE 20 MG ORAL TABLET 310537 PREDNISONE Inactive FLONASE ALLERGY RELIEF 50 MCG/ACT NASAL SUSPENSION 1 spray e ach nare BID FLONASE ALLERGY RELIEF 50 MCG/ACT NASAL SUSPENSION 0321580 FLUTICASONE PROPIONATE Inactive CLARITIN 10 MG ORAL TABLET 1 tab daily C LARITIN 10 MG ORAL TABLET 105471 LORATADINE Inactive ATORVASTATIN CALCIUM 20 MG ORAL TABLET 1 po qHS 20 01/04/06 ATORVASTATIN CALCIUM 20 MG ORAL TABLET 716828 ATORVASTATIN CALCIUM Inactive TESSALON PERLES 100 MG ORAL CAPSULE 1 tablet by mouth 3 times da gin TESSALON PERLES 100 MG ORAL CAPSULE 315686 BENZONATATE Inactive PREDNISONE 20 MG ORAL TABLET 2 po qd x 5 days PREDNISONE 20 MG ORAL TABLET 699660 PREDNISONE Inactive ATORVASTATIN CALCIUM 20 MG ORAL TABLET 1 po qHS 20 02/07/19 ATORVASTATIN CALCIUM 20 MG ORAL TABLET 975561 ATORVASTATIN CALCIUM Inactive AMOXICILLIN-POT CLAVULANATE 875-125 MG ORAL TABLET 1 pill by mouth twice daily AMOXICILLIN-POT CLAVULANATE 875-125 MG ORAL TABL ET 114613 AMOXICILLIN-POT CLAVULANATE Inactive ZITHROMAX Z-FELA 250 MG ORAL TABLET 2 today, then 1 daily for 4 d ays ZITHROMAX Z-FELA 250 MG ORAL TABLET 245685 AZITHROMYCIN Inactive AUGMENTIN 875-125 MG ORAL TABLET 1 po BID x 10 days 30/10/14 AUGMENTIN 875-125 MG ORAL TABLET AMOXICILLIN-POT CLAVULANATE Inactive CEFUROXIME AXETIL 500 MG ORAL TABLET 0.5 tab by mouth twice a da y CEFUROXIME AXETIL 500 MG ORAL TABLET 106657 CEFUROXIME AXETIL Inactive PREDNISONE 20 MG ORAL TABLET take 40 mg dialy for 6 days PREDNISONE 20 MG ORAL TABLET 226001 PREDNISONE Inactive Immunizations Vaccine Administration Date Value Standard Heber cription influenza immunization (Flu Vax) has been administered 03/19 Flulaval Quadrivalent (Flu) 10Pk Syringe IM influenza virus vaccine, unspecified formulation influenza immunization (Flu Vax) has been administered 02/26 Done according to patient influenza virus vaccine, unspecified for mulation Vital Signs Date Name Value Unit Range Description blood pressure, diastolic, repeated by physician 86 [...] mg/dL Encounters Code Encounter Date Provider Facility CPT-06942 Level 3 Est. Patient 09:05:56 SENIOR CONSULTANT Tigre fu [facility] CPT-19749 Level 4 Est. Patient 09:00:38 SENIOR CONSULTANT Remigio Childress MD [facility] CPT-11234 Level 3 Est. Patient 14:18:32 CDT Tigre fu [facility] CPT-21470 Level 4 Est. Patient 13:48:04 CDT Remigio Childress MD [facility] CPT-63063 [id number] Vst-Est Level III 10:10:19 SENIOR CONSULTANT Alban Boyce MD [facility] CPT-10073 Level 3 Est. Patient 13:45:32 SENIOR CONSULTANT Trina tapia [facility] CPT-82476 Level 3 Est. Patient 10:03:23 CDT Remigio Childress MD [facility] Procedures Code Procedure Name Date Entry Date Standard Desc ription CPT-56366 Prv Med Est Pt 18-39yrs 12:46:30 SENIOR CONSULTANT 05/31 CPT-16488 Prv Med Est Pt 18-39yrs 12:25:19 SENIOR CONSULTANT 05/31 CPT-14193 IM or SQ Injection 09:09:52 SENIOR CONSULTANT CPT-11556 44833 - Immun Admin 1 vac 09:08:43 SENIOR CONSULTANT 2018 CPT-36199 Flulaval Quadrivalent (Flu) 10Pk Syringe IM 2018 09:08:43 SENIOR CONSULTANT CPT-000 Give PPD 13:51:16 CDT
--- OUTSIDE RECORDS SUMMARY | 2019-07-22 04:57 | XMS REPORT | Clinical Summary ---
Author Author Admin, Virgen MICHELET Organization [employer] Address Unknown Phone Unavailable Allergies, Adverse Reactions, [...] tube Mycoplasma pneumonia 483.0 Active Tigre Braden RADAR REPAIRER Pneumonia due to Mycoplasma pneumoniae Gynecological examination, routine V72.3 Active 2 Rebecca Burgos MD Special investigations and examinations - Gynecological examination Contraceptive pill surveillance V25.41 Active 2018 Rebecca Burgos MD Encounter for surveillance of contracept parth pill Hirsutism 704.1 Active Rebecca Burgos MD Hirsutism Sinusitis, acute frontal ICD-461.1 Inactive Remigio Childress [...] ORAL CAPSULE 1 tablet daily CETIRIZINE HCL 15240400164 Active Lashawn Blank Active TESSALON PERLES 100 MG ORAL CAPSULE 1 tablet by mouth 3 times da gin BENZONATATE 46103246138 No Longer Active Lashawn Blank Activ e PREDNISONE 20 MG ORAL TABLET take 40 mg dialy for 6 days PREDNISONE 55751415750 No Longer Active Tigre Braden APRN Active ATORVASTATIN CALCIUM 20 MG ORAL TABLET 1 po qHS 20 01/04/06 ATORVASTATIN CALCIUM 52161351171 No Longer Active Remigio Childress MD Active LAMICTAL 200 MG ORAL TABLET 1.5 po qHS LAMOTRIGIN E 06796794670 Active Remigio Childress MD Active CLARITIN 10 MG ORAL TABLET 1 tab daily LORATADI NE 35933290773 No Longer Active Remigio Childress MD Active FLONASE ALLERGY RELIEF 50 MCG/ACT NASAL SUSPENSION 1 spray e ach nare BID FLUTICASONE PROPIONATE 53558156028 No Longer Active Aleksandra Childress MD Active PREDNISONE 20 MG ORAL TABLET 2 tabs po daily x3 days 2 PREDNISONE 80824135703 No Longer Active Remigio Childress MD Activ e CEFUROXIME AXETIL 500 MG ORAL TABLET 0.5 tab by mouth twice a da y CEFUROXIME AXETIL 31054373474 No Longer Active Kiana Miller RADAR REPAIRER-C Active AUGMENTIN 875-125 MG ORAL TABLET 1 po BID x 10 days 20 30/10/14 AMOXICILLIN-POT CLAVULANATE No Longer Active Tigre Braden APRN Active PRAZOSIN HCL 1 MG ORAL CAPSULE 2 po qHS PRAZOSIN HCL 20262026232 Active Remigio Childress MD Active BUPROPION HCL ER (XL) 300 MG ORAL TABLET EXTENDED RELEASE 24 HOUR 1 po qd BUPROPION HCL 36931546920 Active Remigio Childress MD Active MULTIVITAMIN ADULT ORAL TABLET 1 po qd MULTI PLE VITAMINS-MINERALS 48523655550 Active Remigio Childress MD Active PROAIR HFA 108 (90 BASE) MCG/ACT INHALATION AEROSOL SO LUTION 2 puffs q4hr PRN Shortness of air/Wheezing ALBUTEROL SULFATE 01832744739 Ac gifty Childress MD Active FLUTICASONE PROPIONATE 50 MCG/ACT NASAL SUSPENSION 2 s prays/nostril qd PRN Congestion/Allergies FLUTICASONE PROPIONATE 27900221297 Ac gifty Childress MD Active ENSKYCE 0.15-30 MG-MCG ORAL TABLET 1 po qd DESOGESTREL-ETHINYL ESTRADIOL 87436241035 Active Remigio Childress MD Active ZITHROMAX Z-FELA 250 MG ORAL TABLET 2 today, then 1 daily for 4 d ays AZITHROMYCIN 95165635541 No Longer Active Alban Boyce MD Active PREDNISONE 20 MG ORAL TABLET 3 tabs for 2 days, 2 tabs for 4 days 1 ta for 4 days, 1/2 tab for 4 days PREDNISONE 31940030598 No Longer Active Alban Boyce MD Active AMOXICILLIN-POT CLAVULANATE 875-125 MG ORAL TABLET 1 pill by mouth twice daily AMOXICILLIN-POT CLAVULANATE 27252578343 No Longer Act parth Trina Sell RADAR REPAIRER Active ATORVASTATIN CALCIUM 20 MG ORAL TABLET 1 po qHS 20 02/07/19 ATORVASTATIN CALCIUM 44893403700 No Longer Active Trina Sell RADAR REPAIRER Active [facility] MELATONIN 5 MG ORAL TABLET 1 TAB PO Q HS ME LATONIN 29543014936 No Longer Active Trina Sell RADAR REPAIRER Active PROMETHAZINE-CODEINE 6.25-10 MG/5ML ORAL SYRUP 5ml po q6hr PRN C ough PROMETHAZINE-CODEINE 53331635462 No Longer Active Trina Sell RADAR REPAIRER Active PREDNISONE 20 MG ORAL TABLET 2 po qd x 5 days P REDNISONE 58352647908 No Longer Active Remigio Childress MD Active PROMETHAZINE-CODEINE 6.25-10 MG/5ML ORAL SYRUP 5ml po q6hr PRN C ough PROMETHAZINE-CODEINE 6.25-10 MG/5ML ORAL SYRUP 646764 PROMETHAZINE-CODEINE Inactive [facility] MELATONIN 5 MG ORAL TABLET 1 TAB PO Q HS 1 [facility] MELATONIN 5 MG ORAL TABLET 076995 MELATONIN Inactive PREDNISONE 20 MG ORAL TABLET 3 tabs for 2 days, 2 tabs for 4 days 1 ta for 4 days, 1/2 tab for 4 days PREDNISONE 20 MG ORAL T ABLET 213779 PREDNISONE Inactive PREDNISONE 20 MG ORAL TABLET 2 tabs po daily x3 days 2 PREDNISONE 20 MG ORAL TABLET 105238 PREDNISONE Inactive FLONASE ALLERGY RELIEF 50 MCG/ACT NASAL SUSPENSION 1 spray e ach nare BID FLONASE ALLERGY RELIEF 50 MCG/ACT NASAL SUSPENSION 6313108 FLUTICASONE PROPIONATE Inactive CLARITIN 10 MG ORAL TABLET 1 tab daily C LARITIN 10 MG ORAL TABLET 262400 LORATADINE Inactive ATORVASTATIN CALCIUM 20 MG ORAL TABLET 1 po qHS 20 01/04/06 ATORVASTATIN CALCIUM 20 MG ORAL TABLET 875705 ATORVASTATIN CALCIUM Inactive TESSALON PERLES 100 MG ORAL CAPSULE 1 tablet by mouth 3 times da gin TESSALON PERLES 100 MG ORAL CAPSULE 380523 BENZONATATE Inactive PREDNISONE 20 MG ORAL TABLET 2 po qd x 5 days PREDNISONE 20 MG ORAL TABLET 523876 PREDNISONE Inactive ATORVASTATIN CALCIUM 20 MG ORAL TABLET 1 po qHS 20 02/07/19 ATORVASTATIN CALCIUM 20 MG ORAL TABLET 214818 ATORVASTATIN CALCIUM Inactive AMOXICILLIN-POT CLAVULANATE 875-125 MG ORAL TABLET 1 pill by mouth twice daily AMOXICILLIN-POT CLAVULANATE 875-125 MG ORAL TABL ET 435685 AMOXICILLIN-POT CLAVULANATE Inactive ZITHROMAX Z-FELA 250 MG ORAL TABLET 2 today, then 1 daily for 4 d ays ZITHROMAX Z-FELA 250 MG ORAL TABLET 521478 AZITHROMYCIN Inactive AUGMENTIN 875-125 MG ORAL TABLET 1 po BID x 10 days 30/10/14 AUGMENTIN 875-125 MG ORAL TABLET AMOXICILLIN-POT CLAVULANATE Inactive CEFUROXIME AXETIL 500 MG ORAL TABLET 0.5 tab by mouth twice a da y CEFUROXIME AXETIL 500 MG ORAL TABLET 742783 CEFUROXIME AXETIL Inactive PREDNISONE 20 MG ORAL TABLET take 40 mg dialy for 6 days PREDNISONE 20 MG ORAL TABLET 286881 PREDNISONE Inactive Immunizations Vaccine Administration Date Value [...] mg/dL Encounters Code Encounter Date Provider Facility CPT-32130 Level 3 Est. Patient 09:05:56 GUARD SUPERVISOR Tigre fu [facility] CPT-44052 Level 4 Est. Patient 09:00:38 GUARD SUPERVISOR Remigio Childress MD [facility] CPT-87781 Level 3 Est. Patient 14:18:32 CDT Tigre fu [facility] CPT-02910 Level 4 Est. Patient 13:48:04 CDT Remigio Childress MD [facility] CPT-18758 [id number] Vst-Est Level III 10:10:19 GUARD SUPERVISOR Alban Boyce MD [facility] CPT-35201 Level 3 Est. Patient 13:45:32 GUARD SUPERVISOR Trina tapia [facility] CPT-42352 Level 3 Est. Patient 10:03:23 CDT Remigio Childress MD [facility] Procedures Code Procedure Name Date Entry Date Standard Desc ription CPT-28508 Prv Med Est Pt 18-39yrs 12:46:30 GUARD SUPERVISOR 05/31 CPT-57814 Prv Med Est Pt 18-39yrs 12:25:19 GUARD SUPERVISOR 05/31 CPT-14366 IM or SQ Injection 09:09:52 GUARD SUPERVISOR CPT-40658 19021 - Immun Admin 1 vac 09:08:43 GUARD SUPERVISOR 2018 CPT-77676 Flulaval Quadrivalent (Flu) 10Pk Syringe IM 2018 09:08:43 GUARD SUPERVISOR CPT-000 Give PPD 13:51:16 CDT
--- OUTSIDE RECORDS SUMMARY | 2019-07-22 04:57 | XMS REPORT | Clinical Summary ---
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 INSURANCE CLAIMS PROCESSOR Pneumonia due to Mycoplasma pneumoniae Gynecological examination, [...] ORAL CAPSULE 1 tablet daily CETIRIZINE HCL 76575303390 Active Lashawn Rosamaria Active TESSALON PERLES 100 MG ORAL CAPSULE 1 tablet by mouth 3 times da gin BENZONATATE 73999138803 No Longer Active Lashawn Blank Activ e PREDNISONE 20 MG ORAL TABLET take 40 mg dialy for 6 days PREDNISONE 82989719887 No Longer Active Tigre Braden APRN Active ATORVASTATIN CALCIUM 20 MG ORAL TABLET 1 po qHS 20 01/04/06 ATORVASTATIN CALCIUM 36211160556 No Longer Active Remigio Childress MD Active LAMICTAL 200 MG ORAL TABLET 1.5 po qHS LAMOTRIGIN E 19524552653 Active Remigio Childress MD Active CLARITIN 10 MG ORAL TABLET 1 tab daily LORATADI NE 68045235310 No Longer Active Remigio Childress MD Active FLONASE ALLERGY RELIEF 50 MCG/ACT NASAL SUSPENSION 1 spray e ach nare BID FLUTICASONE PROPIONATE 46462716544 No Longer Active Aleksandra Childress MD Active PREDNISONE 20 MG ORAL TABLET 2 tabs po daily x3 days 2 PREDNISONE 24616477854 No Longer Active Remigio Childress MD Activ e CEFUROXIME AXETIL 500 MG ORAL TABLET 0.5 tab by mouth twice a da y CEFUROXIME AXETIL 46443291920 No Longer Active Kiana Miller INSURANCE CLAIMS PROCESSOR-C Active AUGMENTIN 875-125 MG ORAL TABLET 1 po BID x 10 days 20 30/10/14 AMOXICILLIN-POT CLAVULANATE No Longer Active Tigre Braden APRN Active PRAZOSIN HCL 1 MG ORAL CAPSULE 2 po qHS PRAZOSIN HCL 63567755011 Active Remigio Childress MD Active BUPROPION HCL ER (XL) 300 MG ORAL TABLET EXTENDED RELEASE 24 HOUR 1 po qd BUPROPION HCL 45151011989 Active Remigio Childress MD Active MULTIVITAMIN ADULT ORAL TABLET 1 po qd MULTI PLE VITAMINS-MINERALS 87224681552 Active Remigio Childress MD Active PROAIR HFA 108 (90 BASE) MCG/ACT INHALATION AEROSOL SO LUTION 2 puffs q4hr PRN Shortness of air/Wheezing ALBUTEROL SULFATE 26802507317 Ac rickve Remigio Childress MD Active FLUTICASONE PROPIONATE 50 MCG/ACT NASAL SUSPENSION 2 s prays/nostril qd PRN Congestion/Allergies FLUTICASONE PROPIONATE 97763238834 Ac rickve Remigio Childress MD Active ENSKYCE 0.15-30 MG-MCG ORAL TABLET 1 po qd DESOGESTREL-ETHINYL ESTRADIOL 52280027516 Active Remigio Childress MD Active ZITHROMAX Z-FELA 250 MG ORAL TABLET 2 today, then 1 daily for 4 d ays AZITHROMYCIN 69553598077 No Longer Active Alban Boyce MD Active PREDNISONE 20 MG ORAL TABLET 3 tabs for 2 days, 2 tabs for 4 days 1 ta for 4 days, 1/2 tab for 4 days PREDNISONE 26852003070 No Longer Active Alban Boyce MD Active AMOXICILLIN-POT CLAVULANATE 875-125 MG ORAL TABLET 1 pill by mouth twice daily AMOXICILLIN-POT CLAVULANATE 91298929994 No Longer Act parth Trina Sell INSURANCE CLAIMS PROCESSOR Active ATORVASTATIN CALCIUM 20 MG ORAL TABLET 1 po qHS 20 02/07/19 ATORVASTATIN CALCIUM 98352201628 No Longer Active Trina Sell INSURANCE CLAIMS PROCESSOR Active [facility] MELATONIN 5 MG ORAL TABLET 1 TAB PO Q HS ME LATONIN 50728117023 No Longer Active Trina Sell INSURANCE CLAIMS PROCESSOR Active PROMETHAZINE-CODEINE 6.25-10 MG/5ML ORAL SYRUP 5ml po q6hr PRN C ough PROMETHAZINE-CODEINE 11208640240 No Longer Active Trina Sell INSURANCE CLAIMS PROCESSOR Active PREDNISONE 20 MG ORAL TABLET 2 po qd x 5 days P REDNISONE 46548331863 No Longer Active Remigio Childress MD Active PROMETHAZINE-CODEINE 6.25-10 MG/5ML ORAL SYRUP 5ml po q6hr PRN C ough PROMETHAZINE-CODEINE 6.25-10 MG/5ML ORAL SYRUP 435275 PROMETHAZINE-CODEINE Inactive [facility] MELATONIN 5 MG ORAL TABLET 1 TAB PO Q HS 1 [facility] MELATONIN 5 MG ORAL TABLET 931242 MELATONIN Inactive PREDNISONE 20 MG ORAL TABLET 3 tabs for 2 days, 2 tabs for 4 days 1 ta for 4 days, 1/2 tab for 4 days PREDNISONE 20 MG ORAL T ABLET 711130 PREDNISONE Inactive PREDNISONE 20 MG ORAL TABLET 2 tabs po daily x3 days 2 PREDNISONE 20 MG ORAL TABLET 752375 PREDNISONE Inactive FLONASE ALLERGY RELIEF 50 MCG/ACT NASAL SUSPENSION 1 spray e ach nare BID FLONASE ALLERGY RELIEF 50 MCG/ACT NASAL SUSPENSION 5685300 FLUTICASONE PROPIONATE Inactive CLARITIN 10 MG ORAL TABLET 1 tab daily C LARITIN 10 MG ORAL TABLET 882671 LORATADINE Inactive ATORVASTATIN CALCIUM 20 MG ORAL TABLET 1 po qHS 20 01/04/06 ATORVASTATIN CALCIUM 20 MG ORAL TABLET 222655 ATORVASTATIN CALCIUM Inactive TESSALON PERLES 100 MG ORAL CAPSULE 1 tablet by mouth 3 times da gin TESSALON PERLES 100 MG ORAL CAPSULE 009339 BENZONATATE Inactive PREDNISONE 20 MG ORAL TABLET 2 po qd x 5 days PREDNISONE 20 MG ORAL TABLET 109592 PREDNISONE Inactive ATORVASTATIN CALCIUM 20 MG ORAL TABLET 1 po qHS 20 02/07/19 ATORVASTATIN CALCIUM 20 MG ORAL TABLET 238168 ATORVASTATIN CALCIUM Inactive AMOXICILLIN-POT CLAVULANATE 875-125 MG ORAL TABLET 1 pill by mouth twice daily AMOXICILLIN-POT CLAVULANATE 875-125 MG ORAL TABL ET 799078 AMOXICILLIN-POT CLAVULANATE Inactive ZITHROMAX Z-FELA 250 MG ORAL TABLET 2 today, then 1 daily for 4 d ays ZITHROMAX Z-FELA 250 MG ORAL TABLET 806129 AZITHROMYCIN Inactive AUGMENTIN 875-125 MG ORAL TABLET 1 po BID x 10 days 30/10/14 AUGMENTIN 875-125 MG ORAL TABLET AMOXICILLIN-POT CLAVULANATE Inactive CEFUROXIME AXETIL 500 MG ORAL TABLET 0.5 tab by mouth twice a da y CEFUROXIME AXETIL 500 MG ORAL TABLET 920202 CEFUROXIME AXETIL Inactive PREDNISONE 20 MG ORAL TABLET take 40 mg dialy for 6 days PREDNISONE 20 MG ORAL TABLET 399630 PREDNISONE Inactive Immunizations Vaccine Administration Date Value [...] mg/dL Encounters Code Encounter Date Provider Facility CPT-36441 Level 3 Est. Patient 09:05:56 HAND BRUSH FILLER Tigre fu [facility] CPT-38066 Level 4 Est. Patient 09:00:38 HAND BRUSH FILLER Remigio Childress MD [facility] CPT-27726 Level 3 Est. Patient 14:18:32 CDT Tigre fu [facility] CPT-49120 Level 4 Est. Patient 13:48:04 CDT Remigio Childress MD [facility] CPT-32943 33906-Ghp Vst-Est Level III 10:10:19 HAND BRUSH FILLER Alban Boyce MD [facility] CPT-45306 Level 3 Est. Patient 13:45:32 HAND BRUSH FILLER Trina tapia [facility] CPT-37739 Level 3 Est. Patient 10:03:23 CDT Remigio Childress MD [facility] Procedures Code Procedure Name Date Entry Date Standard Desc ription CPT-17468 Prv Med Est Pt 18-39yrs 12:46:30 HAND BRUSH FILLER 05/31 CPT-80079 Prv Med Est Pt 18-39yrs 12:25:19 HAND BRUSH FILLER 05/31 CPT-18027 IM or SQ Injection 09:09:52 HAND BRUSH FILLER CPT-00632 71367 - Immun Admin 1 vac 09:08:43 HAND BRUSH FILLER 2018 CPT-80852 Flulaval Quadrivalent (Flu) 10Pk Syringe IM 2018 09:08:43 HAND BRUSH FILLER CPT-000 Give PPD 13:51:16 CDT
--- OUTSIDE RECORDS SUMMARY | 2019-07-22 04:57 | XMS REPORT | Clinical Summary ---
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 Pneumonia due to Mycoplasma pneumoniae Gynecological [...] dysfunction, bilateral ICD-381.81 20 01/04/06 Inactive Remigio Childerss MD Medication List Medication Instructions Start Date Stop Date Generic Name NDC Status Provider Patient Instruction ZYRTEC ALLERGY 10 MG ORAL CAPSULE 1 tablet daily CETIRIZINE HCL 46145568942 Active Lashawn Blank Active TESSALON PERLES 100 MG ORAL CAPSULE 1 tablet by mouth 3 times da gin BENZONATATE 65673843796 No Longer Active Lashawn Blank Activ e PREDNISONE 20 MG ORAL TABLET take 40 mg dialy for 6 days PREDNISONE 98793024418 No Longer Active Tigre Braden APRN Active ATORVASTATIN CALCIUM 20 MG ORAL TABLET 1 po qHS 20 01/04/06 ATORVASTATIN CALCIUM 81934069877 No Longer Active Remigio Childress MD Active LAMICTAL 200 MG ORAL TABLET 1.5 po qHS LAMOTRIGIN E 13823990891 Active Remigio Childress MD Active CLARITIN 10 MG ORAL TABLET 1 tab daily LORATADI NE 64587816531 No Longer Active Remigio Childress MD Active FLONASE ALLERGY RELIEF 50 MCG/ACT NASAL SUSPENSION 1 spray e ach nare BID FLUTICASONE PROPIONATE 13574499312 No Longer Active Aleksandra Childress MD Active PREDNISONE 20 MG ORAL TABLET 2 tabs po daily x3 days 2 PREDNISONE 22066858975 No Longer Active Remigio Childress MD Activ e CEFUROXIME AXETIL 500 MG ORAL TABLET 0.5 tab by mouth twice a da y CEFUROXIME AXETIL 73580682938 No Longer Active Kiana Miller RESIDENTIAL TREATMENT SPECIALIST-C Active AUGMENTIN 875-125 MG ORAL TABLET 1 po BID x 10 days 20 30/10/14 AMOXICILLIN-POT CLAVULANATE No Longer Active Tigre Braden APRN Active PRAZOSIN HCL 1 MG ORAL CAPSULE 2 po qHS PRAZOSIN HCL 60807725395 Active Remigio Childress MD Active BUPROPION HCL ER (XL) 300 MG ORAL TABLET EXTENDED RELEASE 24 HOUR 1 po qd BUPROPION HCL 61466914374 Active Remigio Childress MD Active MULTIVITAMIN ADULT ORAL TABLET 1 po qd MULTI PLE VITAMINS-MINERALS 58314460944 Active Remigio Childress MD Active PROAIR HFA 108 (90 BASE) MCG/ACT INHALATION AEROSOL SO LUTION 2 puffs q4hr PRN Shortness of air/Wheezing ALBUTEROL SULFATE 07962077043 Ac gifty Childress MD Active FLUTICASONE PROPIONATE 50 MCG/ACT NASAL SUSPENSION 2 s prays/nostril qd PRN Congestion/Allergies FLUTICASONE PROPIONATE 73808757172 Ac gifty Childress MD Active ENSKYCE 0.15-30 MG-MCG ORAL TABLET 1 po qd DESOGESTREL-ETHINYL ESTRADIOL 67302192521 Active Remigio Childress MD Active ZITHROMAX Z-FELA 250 MG ORAL TABLET 2 today, then 1 daily for 4 d ays AZITHROMYCIN 65992628022 No Longer Active Alban Boyce MD Active PREDNISONE 20 MG ORAL TABLET 3 tabs for 2 days, 2 tabs for 4 days 1 ta for 4 days, 1/2 tab for 4 days PREDNISONE 36457525049 No Longer Active Alban Boyce MD Active AMOXICILLIN-POT CLAVULANATE 875-125 MG ORAL TABLET 1 pill by mouth twice daily AMOXICILLIN-POT CLAVULANATE 76831434686 No Longer Act parth Trina Sell RESIDENTIAL TREATMENT SPECIALIST Active ATORVASTATIN CALCIUM 20 MG ORAL TABLET 1 po qHS 20 02/07/19 ATORVASTATIN CALCIUM 63857362323 No Longer Active Trina Sell RESIDENTIAL TREATMENT SPECIALIST Active [facility] MELAT[facility]IN 5 MG ORAL TABLET 1 TAB PO Q HS ME LATONIN 10961911868 No Longer Active Trina Sell RESIDENTIAL TREATMENT SPECIALIST Active PROMETHAZINE-CODEINE 6.25-10 MG/5ML ORAL SYRUP 5ml po q6hr PRN C ough PROMETHAZINE-CODEINE 49686065535 No Longer Active Trina Sell RESIDENTIAL TREATMENT SPECIALIST Active PREDNISONE 20 MG ORAL TABLET 2 po qd x 5 days P REDNISONE 55937432948 No Longer Active Remigio Childress MD Active PROMETHAZINE-CODEINE 6.25-10 MG/5ML ORAL SYRUP 5ml po q6hr PRN C ough PROMETHAZINE-CODEINE 6.25-10 MG/5ML ORAL SYRUP 933660 PROMETHAZINE-CODEINE Inactive [facility] MELATONIN 5 MG ORAL TABLET 1 TAB PO Q HS 1 [facility] MELATONIN 5 MG ORAL TABLET 821212 MELATONIN Inactive PREDNISONE 20 MG ORAL TABLET 3 tabs for 2 days, 2 tabs for 4 days 1 ta for 4 days, 1/2 tab for 4 days PREDNISONE 20 MG ORAL T ABLET 775878 PREDNISONE Inactive PREDNISONE 20 MG ORAL TABLET 2 tabs po daily x3 days 2 PREDNISONE 20 MG ORAL TABLET 559754 PREDNISONE Inactive FLONASE ALLERGY RELIEF 50 MCG/ACT NASAL SUSPENSION 1 spray e ach nare BID FLONASE ALLERGY RELIEF 50 MCG/ACT NASAL SUSPENSION 7632068 FLUTICASONE PROPIONATE Inactive CLARITIN 10 MG ORAL TABLET 1 tab daily C LARITIN 10 MG ORAL TABLET 234223 LORATADINE Inactive ATORVASTATIN CALCIUM 20 MG ORAL TABLET 1 po qHS 20 01/04/06 ATORVASTATIN CALCIUM 20 MG ORAL TABLET 002373 ATORVASTATIN CALCIUM Inactive TESSALON PERLES 100 MG ORAL CAPSULE 1 tablet by mouth 3 times da gin TESSALON PERLES 100 MG ORAL CAPSULE 132344 BENZONATATE Inactive PREDNISONE 20 MG ORAL TABLET 2 po qd x 5 days PREDNISONE 20 MG ORAL TABLET 660970 PREDNISONE Inactive ATORVASTATIN CALCIUM 20 MG ORAL TABLET 1 po qHS 20 02/07/19 ATORVASTATIN CALCIUM 20 MG ORAL TABLET 265221 ATORVASTATIN CALCIUM Inactive AMOXICILLIN-POT CLAVULANATE 875-125 MG ORAL TABLET 1 pill by mouth twice daily AMOXICILLIN-POT CLAVULANATE 875-125 MG ORAL TABL ET 905161 AMOXICILLIN-POT CLAVULANATE Inactive ZITHROMAX Z-FELA 250 MG ORAL TABLET 2 today, then 1 daily for 4 d ays ZITHROMAX Z-FELA 250 MG ORAL TABLET 027304 AZITHROMYCIN Inactive AUGMENTIN 875-125 MG ORAL TABLET 1 po BID x 10 days 30/10/14 AUGMENTIN 875-125 MG ORAL TABLET AMOXICILLIN-POT CLAVULANATE Inactive CEFUROXIME AXETIL 500 MG ORAL TABLET 0.5 tab by mouth twice a da y CEFUROXIME AXETIL 500 MG ORAL TABLET 307573 CEFUROXIME AXETIL Inactive PREDNISONE 20 MG ORAL TABLET take 40 mg dialy for 6 days PREDNISONE 20 MG ORAL TABLET 895331 PREDNISONE Inactive Immunizations Vaccine Administration Date Value [...] mg/dL Encounters Code Encounter Date Provider Facility CPT-95431 Level 3 Est. 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 Patient 09:00:38 CHILD DEVELOPMENT ASSOCIATE TEACHER Remigio Childress MD [facility] CPT-38603 Level 3 Est. Patient 14:18:32 CDT Tigre fu [facility] CPT-76598 Level 4 Est. Patient 13:48:04 CDT Remigio Childress MD [facility] CPT-42814 [id number] Vst-Est Level III 10:10:19 CHILD DEVELOPMENT ASSOCIATE TEACHER Alban Boyce MD [facility] CPT-55755 Level 3 Est. Patient 13:45:32 CHILD DEVELOPMENT ASSOCIATE TEACHER Trina tapia [facility] CPT-89746 Level 3 Est. Patient 10:03:23 CDT Remigio Childress MD [facility] Procedures Code Procedure Name Date Entry Date Standard Desc ription CPT-62983 Prv Med Est Pt 18-39yrs 12:46:30 CHILD DEVELOPMENT ASSOCIATE TEACHER 05/31 CPT-81733 Prv Med Est Pt 18-39yrs 12:25:19 CHILD DEVELOPMENT ASSOCIATE TEACHER 05/31 CPT-08838 IM or SQ Injection 09:09:52 CHILD DEVELOPMENT ASSOCIATE TEACHER CPT-03874 98246 - Immun Admin 1 vac 09:08:43 CHILD DEVELOPMENT ASSOCIATE TEACHER 2018 CPT-44132 Flulaval Quadrivalent (Flu) 10Pk Syringe IM 2018 09:08:43 CHILD DEVELOPMENT ASSOCIATE TEACHER CPT-000 Give PPD 13:51:16 CDT
--- OUTSIDE RECORDS SUMMARY | 2019-07-22 04:57 | XMS REPORT | Clinical Summary ---
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 Pneumonia due to Mycoplasma pneumoniae Gynecological examination, [...] ORAL CAPSULE 1 tablet daily CETIRIZINE HCL 59897099195 Active Lashawn Rosamaria Active TESSALON PERLES 100 MG ORAL CAPSULE 1 tablet by mouth 3 times da gin BENZONATATE 10251140019 No Longer Active Lashawn Blank Activ e PREDNISONE 20 MG ORAL TABLET take 40 mg dialy for 6 days PREDNISONE 06981734813 No Longer Active iTgre Braden APRN Active ATORVASTATIN CALCIUM 20 MG ORAL TABLET 1 po qHS 20 01/04/06 ATORVASTATIN CALCIUM 20918276806 No Longer Active Remigio Childress MD Active LAMICTAL 200 MG ORAL TABLET 1.5 po qHS LAMOTRIGIN E 68108647967 Active Remigio Childress MD Active CLARITIN 10 MG ORAL TABLET 1 tab daily LORATADI NE 47981737860 No Longer Active Remigio Childress MD Active FLONASE ALLERGY RELIEF 50 MCG/ACT NASAL SUSPENSION 1 spray e ach nare BID FLUTICASONE PROPIONATE 93317363913 No Longer Active Aleksandra Childress MD Active PREDNISONE 20 MG ORAL TABLET 2 tabs po daily x3 days 2 PREDNISONE 35690020591 No Longer Active Remigio Childress MD Activ e CEFUROXIME AXETIL 500 MG ORAL TABLET 0.5 tab by mouth twice a da y CEFUROXIME AXETIL 06293616180 No Longer Active Kiana Miller RECORDER HELPER SEISMOGRAPH-C Active AUGMENTIN 875-125 MG ORAL TABLET 1 po BID x 10 days 20 30/10/14 AMOXICILLIN-POT CLAVULANATE No Longer Active Tigre Braden APRN Active PRAZOSIN HCL 1 MG ORAL CAPSULE 2 po qHS PRAZOSIN HCL 42807453310 Active Remigio Childress MD Active BUPROPION HCL ER (XL) 300 MG ORAL TABLET EXTENDED RELEASE 24 HOUR 1 po qd BUPROPION HCL 93757823528 Active Remigio Childress MD Active MULTIVITAMIN ADULT ORAL TABLET 1 po qd MULTI PLE VITAMINS-MINERALS 04936396788 Active Remigio Childress MD Active PROAIR HFA 108 (90 BASE) MCG/ACT INHALATION AEROSOL SO LUTION 2 puffs q4hr PRN Shortness of air/Wheezing ALBUTEROL SULFATE 22257478333 Ac rickve Remigio Childress MD Active FLUTICASONE PROPIONATE 50 MCG/ACT NASAL SUSPENSION 2 s prays/nostril qd PRN Congestion/Allergies FLUTICASONE PROPIONATE 09801230818 Ac rikcve Remigio Childress MD Active ENSKYCE 0.15-30 MG-MCG ORAL TABLET 1 po qd DESOGESTREL-ETHINYL ESTRADIOL 39825926835 Active Remigio Childress MD Active ZITHROMAX Z-FELA 250 MG ORAL TABLET 2 today, then 1 daily for 4 d ays AZITHROMYCIN 21181937548 No Longer Active Alban Boyce MD Active PREDNISONE 20 MG ORAL TABLET 3 tabs for 2 days, 2 tabs for 4 days 1 ta for 4 days, 1/2 tab for 4 days PREDNISONE 95366832062 No Longer Active Alban Boyce MD Active AMOXICILLIN-POT CLAVULANATE 875-125 MG ORAL TABLET 1 pill by mouth twice daily AMOXICILLIN-POT CLAVULANATE 20671984794 No Longer Act parth Trina Sell RECORDER HELPER SEISMOGRAPH Active ATORVASTATIN CALCIUM 20 MG ORAL TABLET 1 po qHS 20 02/07/19 ATORVASTATIN CALCIUM 39019435099 No Longer Active Trina Sell RECORDER HELPER SEISMOGRAPH Active [facility] MEL[facility]IN 5 MG ORAL TABLET 1 TAB PO Q HS ME LATONIN 88726219563 No Longer Active Trina Sell RECORDER HELPER SEISMOGRAPH Active PROMETHAZINE-CODEINE 6.25-10 MG/5ML ORAL SYRUP 5ml po q6hr PRN C ough PROMETHAZINE-CODEINE 17036921544 No Longer Active Trina Sell RECORDER HELPER SEISMOGRAPH Active PREDNISONE 20 MG ORAL TABLET 2 po qd x 5 days P REDNISONE 65407018671 No Longer Active Remigio Childress MD Active PROMETHAZINE-CODEINE 6.25-10 MG/5ML ORAL SYRUP 5ml po q6hr PRN C ough PROMETHAZINE-CODEINE 6.25-10 MG/5ML ORAL SYRUP 091014 PROMETHAZINE-CODEINE Inactive [facility] MELATONIN 5 MG ORAL TABLET 1 TAB PO Q HS 1 [facility] MELATONIN 5 MG ORAL TABLET 473697 MELATONIN Inactive PREDNISONE 20 MG ORAL TABLET 3 tabs for 2 days, 2 tabs for 4 days 1 ta for 4 days, 1/2 tab for 4 days PREDNISONE 20 MG ORAL T ABLET 538366 PREDNISONE Inactive PREDNISONE 20 MG ORAL TABLET 2 tabs po daily x3 days 2 PREDNISONE 20 MG ORAL TABLET 626466 PREDNISONE Inactive FLONASE ALLERGY RELIEF 50 MCG/ACT NASAL SUSPENSION 1 spray e ach nare BID FLONASE ALLERGY RELIEF 50 MCG/ACT NASAL SUSPENSION 7278467 FLUTICASONE PROPIONATE Inactive CLARITIN 10 MG ORAL TABLET 1 tab daily C LARITIN 10 MG ORAL TABLET 846562 LORATADINE Inactive ATORVASTATIN CALCIUM 20 MG ORAL TABLET 1 po qHS 20 01/04/06 ATORVASTATIN CALCIUM 20 MG ORAL TABLET 441945 ATORVASTATIN CALCIUM Inactive TESSALON PERLES 100 MG ORAL CAPSULE 1 tablet by mouth 3 times da gin TESSALON PERLES 100 MG ORAL CAPSULE 548855 BENZONATATE Inactive PREDNISONE 20 MG ORAL TABLET 2 po qd x 5 days PREDNISONE 20 MG ORAL TABLET 470705 PREDNISONE Inactive ATORVASTATIN CALCIUM 20 MG ORAL TABLET 1 po qHS 20 02/07/19 ATORVASTATIN CALCIUM 20 MG ORAL TABLET 705740 ATORVASTATIN CALCIUM Inactive AMOXICILLIN-POT CLAVULANATE 875-125 MG ORAL TABLET 1 pill by mouth twice daily AMOXICILLIN-POT CLAVULANATE 875-125 MG ORAL TABL ET 073507 AMOXICILLIN-POT CLAVULANATE Inactive ZITHROMAX Z-FELA 250 MG ORAL TABLET 2 today, then 1 daily for 4 d ays ZITHROMAX Z-FELA 250 MG ORAL TABLET 953594 AZITHROMYCIN Inactive AUGMENTIN 875-125 MG ORAL TABLET 1 po BID x 10 days 30/10/14 AUGMENTIN 875-125 MG ORAL TABLET AMOXICILLIN-POT CLAVULANATE Inactive CEFUROXIME AXETIL 500 MG ORAL TABLET 0.5 tab by mouth twice a da y CEFUROXIME AXETIL 500 MG ORAL TABLET 241789 CEFUROXIME AXETIL Inactive PREDNISONE 20 MG ORAL TABLET take 40 mg dialy for 6 days PREDNISONE 20 MG ORAL TABLET 626375 PREDNISONE Inactive Immunizations Vaccine Administration Date Value [...] mg/dL Encounters Code Encounter Date Provider Facility CPT-29935 Level 3 Est. Patient 09:05:56 AIRPLANE FUELER Tigre fu [facility] CPT-50703 Level 4 Est. Patient 09:00:38 AIRPLANE FUELER Remigio Childress MD [facility] CPT-02721 Level 3 Est. Patient 14:18:32 CDT Tigre fu [facility] CPT-79242 Level 4 Est. Patient 13:48:04 CDT Remigio Childress MD [facility] CPT-86319 14816-Vvu Vst-Est Level III 10:10:19 AIRPLANE FUELER Alban Boyce MD [facility] CPT-92398 Level 3 Est. Patient 13:45:32 AIRPLANE FUELER Trina tapia [facility] CPT-94145 Level 3 Est. Patient 10:03:23 CDT Remigio Childress MD [facility] Procedures Code Procedure Name Date Entry Date Standard Desc ription CPT-95654 Prv Med Est Pt 18-39yrs 12:46:30 AIRPLANE FUELER 05/31 CPT-59304 Prv Med Est Pt 18-39yrs 12:25:19 AIRPLANE FUELER 05/31 CPT-00007 IM or SQ Injection 09:09:52 AIRPLANE FUELER CPT-64901 66372 - Immun Admin 1 vac 09:08:43 AIRPLANE FUELER 2018 CPT-21158 Flulaval Quadrivalent (Flu) 10Pk Syringe IM 2018 09:08:43 AIRPLANE FUELER CPT-000 Give PPD 13:51:16 CDT
--- OUTSIDE RECORDS SUMMARY | 2019-07-22 04:58 | XMS REPORT | Clinical Summary ---
Author Author Admin, Virgen MICHELET Organization [employer] Address Unknown Phone Unavailable Allergies, Adverse Reactions, [...] Index 35.0- 35.9, adult BMI 36-36.9 Active Tigre Braden APRN Body Mass Index 35.0-35.9, adult Obesity Class [...] Braden APRN Pneumonia due to Mycoplasma pneumoniae Upper respiratory infection, viral ICD-465.9 I nactive [...] Generic Name NDC Status Provider Patient Instruction TESSALON PERLES 100 MG ORAL CAPSULE 1 tablet by mouth 3 times da gin BENZONATATE 15323828927 Active Tigre Braden APRN Activ e PREDNISONE 20 MG ORAL TABLET take 40 mg dialy for 6 days PREDNISONE 12305299158 No Longer Active Tigre Braden APRN Active ATORVASTATIN CALCIUM 20 MG ORAL TABLET 1 po qHS 20 01/04/06 ATORVASTATIN CALCIUM 47378293128 No Longer Active Remigio Childress MD Active LAMICTAL 200 MG ORAL TABLET 1.5 po qHS LAMOTRIGIN E 29677106416 Active Remigio Childress MD Active CLARITIN 10 MG ORAL TABLET 1 tab daily LORATADI NE 70391079900 No Longer Active Remigio Childress MD Active FLONASE ALLERGY RELIEF 50 MCG/ACT NASAL SUSPENSION 1 spray e ach nare BID FLUTICASONE PROPIONATE 85615832577 No Longer Active Aleksandra Childress MD Active PREDNISONE 20 MG ORAL TABLET 2 tabs po daily x3 days 2 PREDNISONE 99830743683 No Longer Active Remigio Childress MD Activ e CEFUROXIME AXETIL 500 MG ORAL TABLET 0.5 tab by mouth twice a da y CEFUROXIME AXETIL 21470262410 No Longer Active Kiana Miller APRN-C Active AUGMENTIN 875-125 MG ORAL TABLET 1 po BID x 10 days 20 30/10/14 AMOXICILLIN-POT CLAVULANATE No Longer Active Tigre Braden APRN Active PRAZOSIN HCL 1 MG ORAL CAPSULE 2 po qHS PRAZOSIN HCL 55120470542 Active Remigio Childress MD Active BUPROPION HCL ER (XL) 300 MG ORAL TABLET EXTENDED RELEASE 24 HOUR 1 po qd BUPROPION HCL 80569082693 Active Remigio Childress MD Active MULTIVITAMIN ADULT ORAL TABLET 1 po qd MULTI PLE VITAMINS-MINERALS 93276333545 Active Remigio Childress MD Active PROAIR HFA 108 (90 BASE) MCG/ACT INHALATION AEROSOL SO LUTION 2 puffs q4hr PRN Shortness of air/Wheezing ALBUTEROL SULFATE 70209551724 Ac tive Remigio Childress MD Active FLUTICASONE PROPIONATE 50 MCG/ACT NASAL SUSPENSION 2 s prays/nostril qd PRN Congestion/Allergies FLUTICASONE PROPIONATE 18000675271 Ac tive Remigio Childress MD Active ENSKYCE 0.15-30 MG-MCG ORAL TABLET 1 po qd DESOGESTREL-ETHINYL ESTRADIOL 00982142413 Active Remigio Childress MD Active ZITHROMAX Z-FELA 250 MG ORAL TABLET 2 today, then 1 daily for 4 d ays AZITHROMYCIN 67433100419 No Longer Active Alban Boyce MD Active PREDNISONE 20 MG ORAL TABLET 3 tabs for 2 days, 2 tabs for 4 days 1 ta for 4 days, 1/2 tab for 4 days PREDNISONE 11158326416 No Longer Active Alban Boyce MD Active AMOXICILLIN-POT CLAVULANATE 875-125 MG ORAL TABLET 1 pill by mouth twice daily AMOXICILLIN-POT CLAVULANATE 46554600702 No Longer Act parth Trina Sell HARDWARE TEST ENGINEER Active ATORVASTATIN CALCIUM 20 MG ORAL TABLET 1 po qHS 20 02/07/19 ATORVASTATIN CALCIUM 05341147124 No Longer Active Trina Sell HARDWARE TEST ENGINEER Active [facility] MEL[facility] 5 MG ORAL TABLET 1 TAB PO Q HS ME LATONIN 51024901643 No Longer Active Trina Sell HARDWARE TEST ENGINEER Active PROMETHAZINE-CODEINE 6.25-10 MG/5ML ORAL SYRUP 5ml po q6hr PRN C ou PROMETHAZINE-CODEINE 20391661182 No Longer Active Trina Sell HARDWARE TEST ENGINEER Active PREDNISONE 20 MG ORAL TABLET 2 po qd x 5 days P REDNISONE 64039332097 No Longer Active Remigio Childress MD Active PROMETHAZINE-CODEINE 6.25-10 MG/5ML ORAL SYRUP 5ml po q6hr PRN C ou PROMETHAZINE-CODEINE 6.25-10 MG/5ML ORAL SYRUP 748591 PROMETHAZINE-CODEINE Inactive [facility] MELATONIN 5 MG ORAL TABLET 1 TAB PO Q HS 1 [facility] MELATONIN 5 MG ORAL TABLET 940044 MELATONIN Inactive PREDNISONE 20 MG ORAL TABLET 3 tabs for 2 days, 2 tabs for 4 days 1 ta for 4 days, 1/2 tab for 4 days PREDNISONE 20 MG ORAL T ABLET 209706 PREDNISONE Inactive PREDNISONE 20 MG ORAL TABLET 2 tabs po daily x3 days 2 PREDNISONE 20 MG ORAL TABLET 733366 PREDNISONE Inactive FLONASE ALLERGY RELIEF 50 MCG/ACT NASAL SUSPENSION 1 spray e ach nare BID FLONASE ALLERGY RELIEF 50 MCG/ACT NASAL SUSPENSION 5625564 FLUTICASONE PROPIONATE Inactive CLARITIN 10 MG ORAL TABLET 1 tab daily C LARITIN 10 MG ORAL TABLET 859077 LORATADINE Inactive ATORVASTATIN CALCIUM 20 MG ORAL TABLET 1 po qHS 20 01/04/06 ATORVASTATIN CALCIUM 20 MG ORAL TABLET 165699 ATORVASTATIN CALCIUM Inactive PREDNISONE 20 MG ORAL TABLET 2 po qd x 5 days PREDNISONE 20 MG ORAL TABLET 767309 PREDNISONE Inactive ATORVASTATIN CALCIUM 20 MG ORAL TABLET 1 po qHS 20 02/07/19 ATORVASTATIN CALCIUM 20 MG ORAL TABLET 274327 ATORVASTATIN CALCIUM Inactive AMOXICILLIN-POT CLAVULANATE 875-125 MG ORAL TABLET 1 pill by mouth twice daily AMOXICILLIN-POT CLAVULANATE 875-125 MG ORAL TABL ET 636815 AMOXICILLIN-POT CLAVULANATE Inactive ZITHROMAX Z-FELA 250 MG ORAL TABLET 2 today, then 1 daily for 4 d ays ZITHROMAX Z-FELA 250 MG ORAL TABLET 168613 AZITHROMYCIN Inactive AUGMENTIN 875-125 MG ORAL TABLET 1 po BID x 10 days 20 30/10/14 AUGMENTIN 875-125 MG ORAL TABLET AMOXICILLIN-POT CLAVULANATE Inactive CEFUROXIME AXETIL 500 MG ORAL TABLET 0.5 tab by mouth twice a da y CEFUROXIME AXETIL 500 MG ORAL TABLET 325731 CEFUROXIME AXETIL Inactive PREDNISONE 20 MG ORAL TABLET take 40 mg dialy for 6 days PREDNISONE 20 MG ORAL TABLET 660774 PREDNISONE Inactive Immunizations Vaccine Administration Date Value Standard Heber cription influenza immunization (Flu Vax) has been administered 03/19 Flulaval Quadrivalent (Flu) 10Pk Syringe IM influenza virus vaccine, unspecified formulation influenza immunization (Flu Vax) has been administered 02/26 Done according to patient influenza virus vaccine, unspecified for mulation Vital Signs Date Name Value Unit Range Description blood pressure, diastolic, repeated by physician 87 [...] mg/dL Encounters Code Encounter Date Provider Facility CPT-45255 Level 3 Est. Patient 09:05:56 AUTOMATION/CONTROLS MANAGER Tigre fu APRN [facility] CPT-41370 Level 4 Est. Patient 09:00:38 AUTOMATION/CONTROLS MANAGER Remigio Childress MD [facility] CPT-22396 Level 3 Est. Patient 14:18:32 CDT Tigre Tom dle [facility] CPT-31275 Level 4 Est. Patient 13:48:04 CDT Remigio Childress MD [facility]-09849 [id number] Vst-Est Level III 10:10:19 AUTOMATION/CONTROLS MANAGER Alban Boyce MD [facility] CPT-39773 Level 3 Est. Patient 13:45:32 AUTOMATION/CONTROLS MANAGER Trina tapia [facility] CPT-47832 Level 3 Est. Patient 10:03:23 CDT Remigio Childress MD [facility] Procedures Code Procedure Name Date Entry Date Standard Desc ription CPT-09228 IM or SQ Injection 09:09:52 AUTOMATION/CONTROLS MANAGER CPT-78868 07077 - Immun Admin 1 vac 09:08:43 AUTOMATION/CONTROLS MANAGER 2018 CPT-28287 Flulaval Quadrivalent (Flu) 10Pk Syringe IM 2018 09:08:43 AUTOMATION/CONTROLS MANAGER CPT-000 Give PPD 13:51:16 CDT
--- OUTSIDE RECORDS SUMMARY | 2019-07-22 04:58 | XMS REPORT | Clinical Summary ---
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 Pneumonia due to Mycoplasma pneumoniae Gynecological examination, [...] ORAL CAPSULE 1 tablet daily CETIRIZINE HCL 92159826387 Active Lashawn Blank Active TESSALON PERLES 100 MG ORAL CAPSULE 1 tablet by mouth 3 times da gin BENZONATATE 33385806227 No Longer Active Lashawn Blank Activ e PREDNISONE 20 MG ORAL TABLET take 40 mg dialy for 6 days PREDNISONE 70369880610 No Longer Active Tigre Braden APRN Active ATORVASTATIN CALCIUM 20 MG ORAL TABLET 1 po qHS 20 01/04/06 ATORVASTATIN CALCIUM 52463887246 No Longer Active Remigio Childress MD Active LAMICTAL 200 MG ORAL TABLET 1.5 po qHS LAMOTRIGIN E 09323900955 Active Remigio Childress MD Active CLARITIN 10 MG ORAL TABLET 1 tab daily LORATADI NE 47423745537 No Longer Active Remigio Childress MD Active FLONASE ALLERGY RELIEF 50 MCG/ACT NASAL SUSPENSION 1 spray e ach nare BID FLUTICASONE PROPIONATE 07946620006 No Longer Active Aleksandra Childress MD Active PREDNISONE 20 MG ORAL TABLET 2 tabs po daily x3 days 2 PREDNISONE 80863000662 No Longer Active Remigio Childress MD Activ e CEFUROXIME AXETIL 500 MG ORAL TABLET 0.5 tab by mouth twice a da y CEFUROXIME AXETIL 38297440025 No Longer Active Kiana Miller ASSISTANT FEDERAL PUBLIC DEFENDER-C Active AUGMENTIN 875-125 MG ORAL TABLET 1 po BID x 10 days 20 30/10/14 AMOXICILLIN-POT CLAVULANATE No Longer Active Tigre Braden APRN Active PRAZOSIN HCL 1 MG ORAL CAPSULE 2 po qHS PRAZOSIN HCL 11231951381 Active Remigio Childress MD Active BUPROPION HCL ER (XL) 300 MG ORAL TABLET EXTENDED RELEASE 24 HOUR 1 po qd BUPROPION HCL 42736703567 Active Remigio Childress MD Active MULTIVITAMIN ADULT ORAL TABLET 1 po qd MULTI PLE VITAMINS-MINERALS 68102640788 Active Remigio Childress MD Active PROAIR HFA 108 (90 BASE) MCG/ACT INHALATION AEROSOL SO LUTION 2 puffs q4hr PRN Shortness of air/Wheezing ALBUTEROL SULFATE 74057947567 Ac gifty Childress MD Active FLUTICASONE PROPIONATE 50 MCG/ACT NASAL SUSPENSION 2 s prays/nostril qd PRN Congestion/Allergies FLUTICASONE PROPIONATE 31340346333 Ac gifty Childress MD Active ENSKYCE 0.15-30 MG-MCG ORAL TABLET 1 po qd DESOGESTREL-ETHINYL ESTRADIOL 93458943628 Active Remigio Childress MD Active ZITHROMAX Z-FELA 250 MG ORAL TABLET 2 today, then 1 daily for 4 d ays AZITHROMYCIN 94201873185 No Longer Active Alban Boyce MD Active PREDNISONE 20 MG ORAL TABLET 3 tabs for 2 days, 2 tabs for 4 days 1 ta for 4 days, 1/2 tab for 4 days PREDNISONE 97641514181 No Longer Active Alban Boyce MD Active AMOXICILLIN-POT CLAVULANATE 875-125 MG ORAL TABLET 1 pill by mouth twice daily AMOXICILLIN-POT CLAVULANATE 05097858074 No Longer Act parth Trina Sell ASSISTANT FEDERAL PUBLIC DEFENDER Active ATORVASTATIN CALCIUM 20 MG ORAL TABLET 1 po qHS 20 02/07/19 ATORVASTATIN CALCIUM 85994734005 No Longer Active Trina Sell ASSISTANT FEDERAL PUBLIC DEFENDER Active [facility] MELAT[facility] 5 MG ORAL TABLET 1 TAB PO Q HS ME LATONIN 94239416301 No Longer Active Trina Sell ASSISTANT FEDERAL PUBLIC DEFENDER Active PROMETHAZINE-CODEINE 6.25-10 MG/5ML ORAL SYRUP 5ml po q6hr PRN C ough PROMETHAZINE-CODEINE 98268295114 No Longer Active Trina Sell ASSISTANT FEDERAL PUBLIC DEFENDER Active PREDNISONE 20 MG ORAL TABLET 2 po qd x 5 days P REDNISONE 40089072399 No Longer Active Remigio Childress MD Active PROMETHAZINE-CODEINE 6.25-10 MG/5ML ORAL SYRUP 5ml po q6hr PRN C ough PROMETHAZINE-CODEINE 6.25-10 MG/5ML ORAL SYRUP 402809 PROMETHAZINE-CODEINE Inactive [facility] MELAT[facility]IN 5 MG ORAL TABLET 1 TAB PO Q HS 1 [facility] MELAT[facility]IN 5 MG ORAL TABLET 385503 MELATONIN Inactive PREDNISONE 20 MG ORAL TABLET 3 tabs for 2 days, 2 tabs for 4 days 1 ta for 4 days, 1/2 tab for 4 days PREDNISONE 20 MG ORAL T ABLET 239017 PREDNISONE Inactive PREDNISONE 20 MG ORAL TABLET 2 tabs po daily x3 days 2 PREDNISONE 20 MG ORAL TABLET 172475 PREDNISONE Inactive FLONASE ALLERGY RELIEF 50 MCG/ACT NASAL SUSPENSION 1 spray e ach nare BID FLONASE ALLERGY RELIEF 50 MCG/ACT NASAL SUSPENSION 3255683 FLUTICASONE PROPIONATE Inactive CLARITIN 10 MG ORAL TABLET 1 tab daily C LARITIN 10 MG ORAL TABLET 755689 LORATADINE Inactive ATORVASTATIN CALCIUM 20 MG ORAL TABLET 1 po qHS 20 01/04/06 ATORVASTATIN CALCIUM 20 MG ORAL TABLET 104368 ATORVASTATIN CALCIUM Inactive TESSALON PERLES 100 MG ORAL CAPSULE 1 tablet by mouth 3 times da gin TESSALON PERLES 100 MG ORAL CAPSULE 924783 BENZONATATE Inactive PREDNISONE 20 MG ORAL TABLET 2 po qd x 5 days PREDNISONE 20 MG ORAL TABLET 182719 PREDNISONE Inactive ATORVASTATIN CALCIUM 20 MG ORAL TABLET 1 po qHS 20 02/07/19 ATORVASTATIN CALCIUM 20 MG ORAL TABLET 630646 ATORVASTATIN CALCIUM Inactive AMOXICILLIN-POT CLAVULANATE 875-125 MG ORAL TABLET 1 pill by mouth twice daily AMOXICILLIN-POT CLAVULANATE 875-125 MG ORAL TABL ET 072121 AMOXICILLIN-POT CLAVULANATE Inactive ZITHROMAX Z-FELA 250 MG ORAL TABLET 2 today, then 1 daily for 4 d ays ZITHROMAX Z-FELA 250 MG ORAL TABLET 539439 AZITHROMYCIN Inactive AUGMENTIN 875-125 MG ORAL TABLET 1 po BID x 10 days 30/10/14 AUGMENTIN 875-125 MG ORAL TABLET AMOXICILLIN-POT CLAVULANATE Inactive CEFUROXIME AXETIL 500 MG ORAL TABLET 0.5 tab by mouth twice a da y CEFUROXIME AXETIL 500 MG ORAL TABLET 425316 CEFUROXIME AXETIL Inactive PREDNISONE 20 MG ORAL TABLET take 40 mg dialy for 6 days PREDNISONE 20 MG ORAL TABLET 032635 PREDNISONE Inactive Immunizations Vaccine Administration Date Value [...] mg/dL Encounters Code Encounter Date Provider Facility CPT-24524 Level 3 Est. Patient 09:05:56 AUTOMATION ENGINEERING MANAGER Tigre fu [facility] CPT-96879 Level 4 Est. Patient 09:00:38 AUTOMATION ENGINEERING MANAGER Remigio Childress MD [facility] CPT-99447 Level 3 Est. Patient 14:18:32 CDT Tigre fu [facility] CPT-33165 Level 4 Est. Patient 13:48:04 CDT Remigio Childress MD [facility] CPT-20893 [id number] Vst-Est Level III 10:10:19 AUTOMATION ENGINEERING MANAGER Alban Boyce MD [facility] CPT-62622 Level 3 Est. Patient 13:45:32 AUTOMATION ENGINEERING MANAGER Trina tapia [facility] CPT-83690 Level 3 Est. Patient 10:03:23 CDT Remigio Childress MD [facility] Procedures Code Procedure Name Date Entry Date Standard Desc ription CPT-48679 Prv Med Est Pt 18-39yrs 12:46:30 AUTOMATION ENGINEERING MANAGER 05/31 CPT-58947 Prv Med Est Pt 18-39yrs 12:25:19 AUTOMATION ENGINEERING MANAGER 05/31 CPT-93362 IM or SQ Injection 09:09:52 AUTOMATION ENGINEERING MANAGER CPT-53896 25432 - Immun Admin 1 vac 09:08:43 AUTOMATION ENGINEERING MANAGER 2018 CPT-72241 Flulaval Quadrivalent (Flu) 10Pk Syringe IM 2018 09:08:43 AUTOMATION ENGINEERING MANAGER CPT-000 Give PPD 13:51:16 CDT
--- OUTSIDE RECORDS SUMMARY | 2019-07-22 04:58 | XMS REPORT | Clinical Summary ---
Author Author Admin, Virgen MICHELET Organization [employer] Address Unknown Phone Unavailable Allergies, Adverse Reactions, [...] tube Mycoplasma pneumonia 483.0 Active Tigre Braden DESK MAKER Pneumonia due to Mycoplasma pneumoniae Gynecological examination, [...] ORAL CAPSULE 1 tablet daily CETIRIZINE HCL 11738301448 Active Lashawn Rosamaria Active TESSALON PERLES 100 MG ORAL CAPSULE 1 tablet by mouth 3 times da gin BENZONATATE 16812407958 No Longer Active Lashawn Blank Activ e PREDNISONE 20 MG ORAL TABLET take 40 mg dialy for 6 days PREDNISONE 97581247499 No Longer Active Tigre Braden APRN Active ATORVASTATIN CALCIUM 20 MG ORAL TABLET 1 po qHS 20 01/04/06 ATORVASTATIN CALCIUM 91176707327 No Longer Active Remigio Childress MD Active LAMICTAL 200 MG ORAL TABLET 1.5 po qHS LAMOTRIGIN E 32417990735 Active Remigio Childress MD Active CLARITIN 10 MG ORAL TABLET 1 tab daily LORATADI NE 47891469948 No Longer Active Remigio Childress MD Active FLONASE ALLERGY RELIEF 50 MCG/ACT NASAL SUSPENSION 1 spray e ach nare BID FLUTICASONE PROPIONATE 46484385080 No Longer Active Aleksandra Childress MD Active PREDNISONE 20 MG ORAL TABLET 2 tabs po daily x3 days 2 PREDNISONE 71293589670 No Longer Active Remigio Childress MD Activ e CEFUROXIME AXETIL 500 MG ORAL TABLET 0.5 tab by mouth twice a da y CEFUROXIME AXETIL 46379766018 No Longer Active Kiana Miller DESK MAKER-C Active AUGMENTIN 875-125 MG ORAL TABLET 1 po BID x 10 days 20 30/10/14 AMOXICILLIN-POT CLAVULANATE No Longer Active Tigre Braden APRN Active PRAZOSIN HCL 1 MG ORAL CAPSULE 2 po qHS PRAZOSIN HCL 35116060606 Active Remigio Childress MD Active BUPROPION HCL ER (XL) 300 MG ORAL TABLET EXTENDED RELEASE 24 HOUR 1 po qd BUPROPION HCL 76572753871 Active Remigio Chilrdess MD Active MULTIVITAMIN ADULT ORAL TABLET 1 po qd MULTI PLE VITAMINS-MINERALS 92842080087 Active Remigio Childress MD Active PROAIR HFA 108 (90 BASE) MCG/ACT INHALATION AEROSOL SO LUTION 2 puffs q4hr PRN Shortness of air/Wheezing ALBUTEROL SULFATE 93126134607 Ac rickve Remigio Childress MD Active FLUTICASONE PROPIONATE 50 MCG/ACT NASAL SUSPENSION 2 s prays/nostril qd PRN Congestion/Allergies FLUTICASONE PROPIONATE 45079978406 Ac rickve Remigio Childress MD Active ENSKYCE 0.15-30 MG-MCG ORAL TABLET 1 po qd DESOGESTREL-ETHINYL ESTRADIOL 95506029947 Active Remigio Childress MD Active ZITHROMAX Z-FELA 250 MG ORAL TABLET 2 today, then 1 daily for 4 d ays AZITHROMYCIN 05112545058 No Longer Active Alban Boyce MD Active PREDNISONE 20 MG ORAL TABLET 3 tabs for 2 days, 2 tabs for 4 days 1 ta for 4 days, 1/2 tab for 4 days PREDNISONE 22223670060 No Longer Active Alban Boyce MD Active AMOXICILLIN-POT CLAVULANATE 875-125 MG ORAL TABLET 1 pill by mouth twice daily AMOXICILLIN-POT CLAVULANATE 66551069106 No Longer Act parth Trina Sell DESK MAKER Active ATORVASTATIN CALCIUM 20 MG ORAL TABLET 1 po qHS 20 02/07/19 ATORVASTATIN CALCIUM 18677693441 No Longer Active Trina Sell DESK MAKER Active [facility] MEL[facility] 5 MG ORAL TABLET 1 TAB PO Q HS ME LATONIN 46671224571 No Longer Active Trina Sell DESK MAKER Active PROMETHAZINE-CODEINE 6.25-10 MG/5ML ORAL SYRUP 5ml po q6hr PRN C ough PROMETHAZINE-CODEINE 50372443665 No Longer Active Trina Sell DESK MAKER Active PREDNISONE 20 MG ORAL TABLET 2 po qd x 5 days P REDNISONE 46307398228 No Longer Active Remigio Childress MD Active PROMETHAZINE-CODEINE 6.25-10 MG/5ML ORAL SYRUP 5ml po q6hr PRN C ough PROMETHAZINE-CODEINE 6.25-10 MG/5ML ORAL SYRUP 568917 PROMETHAZINE-CODEINE Inactive [facility] MELATONIN 5 MG ORAL TABLET 1 TAB PO Q HS 1 [facility] MELATONIN 5 MG ORAL TABLET 898397 MELATONIN Inactive PREDNISONE 20 MG ORAL TABLET 3 tabs for 2 days, 2 tabs for 4 days 1 ta for 4 days, 1/2 tab for 4 days PREDNISONE 20 MG ORAL T ABLET 060761 PREDNISONE Inactive PREDNISONE 20 MG ORAL TABLET 2 tabs po daily x3 days 2 PREDNISONE 20 MG ORAL TABLET 708636 PREDNISONE Inactive FLONASE ALLERGY RELIEF 50 MCG/ACT NASAL SUSPENSION 1 spray e ach nare BID FLONASE ALLERGY RELIEF 50 MCG/ACT NASAL SUSPENSION 1625210 FLUTICASONE PROPIONATE Inactive CLARITIN 10 MG ORAL TABLET 1 tab daily C LARITIN 10 MG ORAL TABLET 074258 LORATADINE Inactive ATORVASTATIN CALCIUM 20 MG ORAL TABLET 1 po qHS 20 01/04/06 ATORVASTATIN CALCIUM 20 MG ORAL TABLET 032243 ATORVASTATIN CALCIUM Inactive TESSALON PERLES 100 MG ORAL CAPSULE 1 tablet by mouth 3 times da gin TESSALON PERLES 100 MG ORAL CAPSULE 613070 BENZONATATE Inactive PREDNISONE 20 MG ORAL TABLET 2 po qd x 5 days PREDNISONE 20 MG ORAL TABLET 253009 PREDNISONE Inactive ATORVASTATIN CALCIUM 20 MG ORAL TABLET 1 po qHS 20 02/07/19 ATORVASTATIN CALCIUM 20 MG ORAL TABLET 125777 ATORVASTATIN CALCIUM Inactive AMOXICILLIN-POT CLAVULANATE 875-125 MG ORAL TABLET 1 pill by mouth twice daily AMOXICILLIN-POT CLAVULANATE 875-125 MG ORAL TABL ET 534141 AMOXICILLIN-POT CLAVULANATE Inactive ZITHROMAX Z-FELA 250 MG ORAL TABLET 2 today, then 1 daily for 4 d ays ZITHROMAX Z-FELA 250 MG ORAL TABLET 782119 AZITHROMYCIN Inactive AUGMENTIN 875-125 MG ORAL TABLET 1 po BID x 10 days 30/10/14 AUGMENTIN 875-125 MG ORAL TABLET AMOXICILLIN-POT CLAVULANATE Inactive CEFUROXIME AXETIL 500 MG ORAL TABLET 0.5 tab by mouth twice a da y CEFUROXIME AXETIL 500 MG ORAL TABLET 577543 CEFUROXIME AXETIL Inactive PREDNISONE 20 MG ORAL TABLET take 40 mg dialy for 6 days PREDNISONE 20 MG ORAL TABLET 292088 PREDNISONE Inactive Immunizations Vaccine Administration Date Value [...] mg/dL Encounters Code Encounter Date Provider Facility CPT-08368 Level 3 Est. Patient 09:05:56 MOTHER BABY RN Tigre fu [facility] CPT-88573 Level 4 Est. Patient 09:00:38 MOTHER BABY RN Remigio Childress MD [facility] CPT-07437 Level 3 Est. Patient 14:18:32 CDT Tigre fu [facility] CPT-91120 Level 4 Est. Patient 13:48:04 CDT Remigio Childress MD [facility] CPT-67001 [id number] Vst-Est Level III 10:10:19 MOTHER BABY RN Alban Boyce MD [facility] CPT-62711 Level 3 Est. Patient 13:45:32 MOTHER BABY RN Trina tapia [facility] CPT-59830 Level 3 Est. Patient 10:03:23 CDT Remigio Childress MD [facility] Procedures Code Procedure Name Date Entry Date Standard Desc ription CPT-77531 Prv Med Est Pt 18-39yrs 12:46:30 MOTHER BABY RN 05/31 CPT-19555 Prv Med Est Pt 18-39yrs 12:25:19 MOTHER BABY RN 05/31 CPT-95859 IM or SQ Injection 09:09:52 MOTHER BABY RN CPT-85370 41658 - Immun Admin 1 vac 09:08:43 MOTHER BABY RN 2018 CPT-37433 Flulaval Quadrivalent (Flu) 10Pk Syringe IM 2018 09:08:43 MOTHER BABY RN CPT-000 Give PPD 13:51:16 CDT
--- OUTSIDE RECORDS SUMMARY | 2019-07-22 04:58 | XMS REPORT | Clinical Summary ---
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 GAS TREATER Pneumonia due to Mycoplasma pneumoniae Gynecological examination, [...] ORAL CAPSULE 1 tablet daily CETIRIZINE HCL 17137668888 Active Lashawn Rosamaria Active TESSALON PERLES 100 MG ORAL CAPSULE 1 tablet by mouth 3 times da gin BENZONATATE 13009500478 No Longer Active Lashawn Blank Activ e PREDNISONE 20 MG ORAL TABLET take 40 mg dialy for 6 days PREDNISONE 02071558003 No Longer Active Tigre Braden APRN Active ATORVASTATIN CALCIUM 20 MG ORAL TABLET 1 po qHS 20 01/04/06 ATORVASTATIN CALCIUM 04325916525 No Longer Active Remigio Childress MD Active LAMICTAL 200 MG ORAL TABLET 1.5 po qHS LAMOTRIGIN E 05073922953 Active Remigio Childress MD Active CLARITIN 10 MG ORAL TABLET 1 tab daily LORATADI NE 24506404310 No Longer Active Remigio Childress MD Active FLONASE ALLERGY RELIEF 50 MCG/ACT NASAL SUSPENSION 1 spray e ach nare BID FLUTICASONE PROPIONATE 10634553719 No Longer Active Aleksandar Childress MD Active PREDNISONE 20 MG ORAL TABLET 2 tabs po daily x3 days 2 PREDNISONE 28572100753 No Longer Active Remigio Childress MD Activ e CEFUROXIME AXETIL 500 MG ORAL TABLET 0.5 tab by mouth twice a da y CEFUROXIME AXETIL 78883960199 No Longer Active Kiana Miller GAS TREATER-C Active AUGMENTIN 875-125 MG ORAL TABLET 1 po BID x 10 days 20 30/10/14 AMOXICILLIN-POT CLAVULANATE No Longer Active Tigre Braden APRN Active PRAZOSIN HCL 1 MG ORAL CAPSULE 2 po qHS PRAZOSIN HCL 06238553925 Active Remigio Childress MD Active BUPROPION HCL ER (XL) 300 MG ORAL TABLET EXTENDED RELEASE 24 HOUR 1 po qd BUPROPION HCL 21003076575 Active Remigio Childress MD Active MULTIVITAMIN ADULT ORAL TABLET 1 po qd MULTI PLE VITAMINS-MINERALS 07680274122 Active Remigio Childress MD Active PROAIR HFA 108 (90 BASE) MCG/ACT INHALATION AEROSOL SO LUTION 2 puffs q4hr PRN Shortness of air/Wheezing ALBUTEROL SULFATE 99566201042 Ac rickve Remigio Childress MD Active FLUTICASONE PROPIONATE 50 MCG/ACT NASAL SUSPENSION 2 s prays/nostril qd PRN Congestion/Allergies FLUTICASONE PROPIONATE 91377680195 Ac rickve Remigio Childress MD Active ENSKYCE 0.15-30 MG-MCG ORAL TABLET 1 po qd DESOGESTREL-ETHINYL ESTRADIOL 35852477421 Active Remigio Childress MD Active ZITHROMAX Z-FELA 250 MG ORAL TABLET 2 today, then 1 daily for 4 d ays AZITHROMYCIN 77614932360 No Longer Active Alban Boyce MD Active PREDNISONE 20 MG ORAL TABLET 3 tabs for 2 days, 2 tabs for 4 days 1 ta for 4 days, 1/2 tab for 4 days PREDNISONE 61660683510 No Longer Active Alban Boyce MD Active AMOXICILLIN-POT CLAVULANATE 875-125 MG ORAL TABLET 1 pill by mouth twice daily AMOXICILLIN-POT CLAVULANATE 02998433194 No Longer Act parth Trina Sell GAS TREATER Active ATORVASTATIN CALCIUM 20 MG ORAL TABLET 1 po qHS 20 02/07/19 ATORVASTATIN CALCIUM 31655218461 No Longer Active Trina Sell GAS TREATER Active [facility] 5 MG ORAL TABLET 1 TAB PO Q HS ME LATONIN 97327292373 No Longer Active Trina Sell GAS TREATER Active PROMETHAZINE-CODEINE 6.25-10 MG/5ML ORAL SYRUP 5ml po q6hr PRN C ough PROMETHAZINE-CODEINE 84404947387 No Longer Active Trina Sell GAS TREATER Active PREDNISONE 20 MG ORAL TABLET 2 po qd x 5 days P REDNISONE 78148745342 No Longer Active Remigio Childress MD Active PROMETHAZINE-CODEINE 6.25-10 MG/5ML ORAL SYRUP 5ml po q6hr PRN C ough PROMETHAZINE-CODEINE 6.25-10 MG/5ML ORAL SYRUP 985788 PROMETHAZINE-CODEINE Inactive [facility] MEL[facility]IN 5 MG ORAL TABLET 1 TAB PO Q HS 1 [facility] MEL[facility]IN 5 MG ORAL TABLET 124018 MELATONIN Inactive PREDNISONE 20 MG ORAL TABLET 3 tabs for 2 days, 2 tabs for 4 days 1 ta for 4 days, 1/2 tab for 4 days PREDNISONE 20 MG ORAL T ABLET 089205 PREDNISONE Inactive PREDNISONE 20 MG ORAL TABLET 2 tabs po daily x3 days 2 PREDNISONE 20 MG ORAL TABLET 826649 PREDNISONE Inactive FLONASE ALLERGY RELIEF 50 MCG/ACT NASAL SUSPENSION 1 spray e ach nare BID FLONASE ALLERGY RELIEF 50 MCG/ACT NASAL SUSPENSION 8193978 FLUTICASONE PROPIONATE Inactive CLARITIN 10 MG ORAL TABLET 1 tab daily C LARITIN 10 MG ORAL TABLET 545780 LORATADINE Inactive ATORVASTATIN CALCIUM 20 MG ORAL TABLET 1 po qHS 20 01/04/06 ATORVASTATIN CALCIUM 20 MG ORAL TABLET 331227 ATORVASTATIN CALCIUM Inactive TESSALON PERLES 100 MG ORAL CAPSULE 1 tablet by mouth 3 times da gin TESSALON PERLES 100 MG ORAL CAPSULE 333438 BENZONATATE Inactive PREDNISONE 20 MG ORAL TABLET 2 po qd x 5 days PREDNISONE 20 MG ORAL TABLET 976361 PREDNISONE Inactive ATORVASTATIN CALCIUM 20 MG ORAL TABLET 1 po qHS 20 02/07/19 ATORVASTATIN CALCIUM 20 MG ORAL TABLET 966558 ATORVASTATIN CALCIUM Inactive AMOXICILLIN-POT CLAVULANATE 875-125 MG ORAL TABLET 1 pill by mouth twice daily AMOXICILLIN-POT CLAVULANATE 875-125 MG ORAL TABL ET 200683 AMOXICILLIN-POT CLAVULANATE Inactive ZITHROMAX Z-FELA 250 MG ORAL TABLET 2 today, then 1 daily for 4 d ays ZITHROMAX Z-FELA 250 MG ORAL TABLET 125424 AZITHROMYCIN Inactive AUGMENTIN 875-125 MG ORAL TABLET 1 po BID x 10 days 30/10/14 AUGMENTIN 875-125 MG ORAL TABLET AMOXICILLIN-POT CLAVULANATE Inactive CEFUROXIME AXETIL 500 MG ORAL TABLET 0.5 tab by mouth twice a da y CEFUROXIME AXETIL 500 MG ORAL TABLET 728677 CEFUROXIME AXETIL Inactive PREDNISONE 20 MG ORAL TABLET take 40 mg dialy for 6 days PREDNISONE 20 MG ORAL TABLET 143195 PREDNISONE Inactive Immunizations Vaccine Administration Date Value [...] mg/dL Encounters Code Encounter Date Provider Facility CPT-23577 Level 3 Est. Patient 09:05:56 SHAKE FEEDER Tigre fu [facility] CPT-65126 Level 4 Est. Patient 09:00:38 SHAKE FEEDER Remigio Childress MD [facility] CPT-76576 Level 3 Est. Patient 14:18:32 CDT Tigre fu [facility] CPT-90101 Level 4 Est. Patient 13:48:04 CDT Remigio Childress MD [facility] CPT-76321 [id number] Vst-Est Level III 10:10:19 SHAKE FEEDER Alban Boyce MD [facility] CPT-28001 Level 3 Est. Patient 13:45:32 SHAKE FEEDER Trina tapia [facility] CPT-73653 Level 3 Est. Patient 10:03:23 CDT Remigio Childress MD [facility] Procedures Code Procedure Name Date Entry Date Standard Desc ription CPT-88926 Prv Med Est Pt 18-39yrs 12:46:30 SHAKE FEEDER 05/31 CPT-50406 Prv Med Est Pt 18-39yrs 12:25:19 SHAKE FEEDER 05/31 CPT-31769 IM or SQ Injection 09:09:52 SHAKE FEEDER CPT-85352 41750 - Immun Admin 1 vac 09:08:43 SHAKE FEEDER 2018 CPT-05738 Flulaval Quadrivalent (Flu) 10Pk Syringe IM 2018 09:08:43 SHAKE FEEDER CPT-000 Give PPD 13:51:16 CDT
--- OUTSIDE RECORDS SUMMARY | 2019-07-22 04:58 | XMS REPORT | Clinical Summary ---
Author Author Admin, Virgen MICHELET Organization [email or web address] Address Unknown Phone Unavailable Allergies, Adverse Reactions, [...] tube Mycoplasma pneumonia 483.0 Active Tigre Braden MANAGER HEART FAILURE Pneumonia due to Mycoplasma pneumoniae Gynecological examination, [...] ORAL CAPSULE 1 tablet daily CETIRIZINE HCL 11881752185 Active Lashawn Blank Active TESSALON PERLES 100 MG ORAL CAPSULE 1 tablet by mouth 3 times da gin BENZONATATE 52162809836 No Longer Active Lashawn Blank Activ e PREDNISONE 20 MG ORAL TABLET take 40 mg dialy for 6 days PREDNISONE 40990463154 No Longer Active Tigre Braden APRN Active ATORVASTATIN CALCIUM 20 MG ORAL TABLET 1 po qHS 20 01/04/06 ATORVASTATIN CALCIUM 60191160022 No Longer Active Remigio Childress MD Active LAMICTAL 200 MG ORAL TABLET 1.5 po qHS LAMOTRIGIN E 07001343814 Active Remigio Childress MD Active CLARITIN 10 MG ORAL TABLET 1 tab daily LORATADI NE 89751468709 No Longer Active Remigio Childress MD Active FLONASE ALLERGY RELIEF 50 MCG/ACT NASAL SUSPENSION 1 spray e ach nare BID FLUTICASONE PROPIONATE 95887617261 No Longer Active Aleksandra Childress MD Active PREDNISONE 20 MG ORAL TABLET 2 tabs po daily x3 days 2 PREDNISONE 56637131248 No Longer Active Remigio Childress MD Activ e CEFUROXIME AXETIL 500 MG ORAL TABLET 0.5 tab by mouth twice a da y CEFUROXIME AXETIL 47273350463 No Longer Active Kiana Miller MANAGER HEART FAILURE-C Active AUGMENTIN 875-125 MG ORAL TABLET 1 po BID x 10 days 20 30/10/14 AMOXICILLIN-POT CLAVULANATE No Longer Active Tigre Braden APRN Active PRAZOSIN HCL 1 MG ORAL CAPSULE 2 po qHS PRAZOSIN HCL 85684290991 Active Remigio Childress MD Active BUPROPION HCL ER (XL) 300 MG ORAL TABLET EXTENDED RELEASE 24 HOUR 1 po qd BUPROPION HCL 42892170566 Active Remigio Childress MD Active MULTIVITAMIN ADULT ORAL TABLET 1 po qd MULTI PLE VITAMINS-MINERALS 70634489272 Active Remigio Childress MD Active PROAIR HFA 108 (90 BASE) MCG/ACT INHALATION AEROSOL SO LUTION 2 puffs q4hr PRN Shortness of air/Wheezing ALBUTEROL SULFATE 23900478707 Ac gifty Childress MD Active FLUTICASONE PROPIONATE 50 MCG/ACT NASAL SUSPENSION 2 s prays/nostril qd PRN Congestion/Allergies FLUTICASONE PROPIONATE 56138893729 Ac gifty Childress MD Active ENSKYCE 0.15-30 MG-MCG ORAL TABLET 1 po qd DESOGESTREL-ETHINYL ESTRADIOL 37651244244 Active Remigio Childress MD Active ZITHROMAX Z-FELA 250 MG ORAL TABLET 2 today, then 1 daily for 4 d ays AZITHROMYCIN 75616064562 No Longer Active Alban Boyce MD Active PREDNISONE 20 MG ORAL TABLET 3 tabs for 2 days, 2 tabs for 4 days 1 ta for 4 days, 1/2 tab for 4 days PREDNISONE 60915430015 No Longer Active Alban Boyce MD Active AMOXICILLIN-POT CLAVULANATE 875-125 MG ORAL TABLET 1 pill by mouth twice daily AMOXICILLIN-POT CLAVULANATE 47761922246 No Longer Act parth Trina Sell MANAGER HEART FAILURE Active ATORVASTATIN CALCIUM 20 MG ORAL TABLET 1 po qHS 20 02/07/19 ATORVASTATIN CALCIUM 14732124105 No Longer Active Trina Sell MANAGER HEART FAILURE Active [facility] 5 MG ORAL TABLET 1 TAB PO Q HS ME LATONIN 38386137405 No Longer Active Trina Sell MANAGER HEART FAILURE Active PROMETHAZINE-CODEINE 6.25-10 MG/5ML ORAL SYRUP 5ml po q6hr PRN C ough PROMETHAZINE-CODEINE 81976400624 No Longer Active Trina Sell MANAGER HEART FAILURE Active PREDNISONE 20 MG ORAL TABLET 2 po qd x 5 days P REDNISONE 19941751481 No Longer Active Remigio Childress MD Active PROMETHAZINE-CODEINE 6.25-10 MG/5ML ORAL SYRUP 5ml po q6hr PRN C ough PROMETHAZINE-CODEINE 6.25-10 MG/5ML ORAL SYRUP 905514 PROMETHAZINE-CODEINE Inactive [facility] MEL[facility] 5 MG ORAL TABLET 1 TAB PO Q HS 1 [facility] MEL[facility]IN 5 MG ORAL TABLET 208878 MELATONIN Inactive PREDNISONE 20 MG ORAL TABLET 3 tabs for 2 days, 2 tabs for 4 days 1 ta for 4 days, 1/2 tab for 4 days PREDNISONE 20 MG ORAL T ABLET 889661 PREDNISONE Inactive PREDNISONE 20 MG ORAL TABLET 2 tabs po daily x3 days 2 PREDNISONE 20 MG ORAL TABLET 968380 PREDNISONE Inactive FLONASE ALLERGY RELIEF 50 MCG/ACT NASAL SUSPENSION 1 spray e ach nare BID FLONASE ALLERGY RELIEF 50 MCG/ACT NASAL SUSPENSION 6847843 FLUTICASONE PROPIONATE Inactive CLARITIN 10 MG ORAL TABLET 1 tab daily C LARITIN 10 MG ORAL TABLET 154736 LORATADINE Inactive ATORVASTATIN CALCIUM 20 MG ORAL TABLET 1 po qHS 20 01/04/06 ATORVASTATIN CALCIUM 20 MG ORAL TABLET 365783 ATORVASTATIN CALCIUM Inactive TESSALON PERLES 100 MG ORAL CAPSULE 1 tablet by mouth 3 times da gin TESSALON PERLES 100 MG ORAL CAPSULE 517841 BENZONATATE Inactive PREDNISONE 20 MG ORAL TABLET 2 po qd x 5 days PREDNISONE 20 MG ORAL TABLET 359820 PREDNISONE Inactive ATORVASTATIN CALCIUM 20 MG ORAL TABLET 1 po qHS 20 02/07/19 ATORVASTATIN CALCIUM 20 MG ORAL TABLET 822271 ATORVASTATIN CALCIUM Inactive AMOXICILLIN-POT CLAVULANATE 875-125 MG ORAL TABLET 1 pill by mouth twice daily AMOXICILLIN-POT CLAVULANATE 875-125 MG ORAL TABL ET 858509 AMOXICILLIN-POT CLAVULANATE Inactive ZITHROMAX Z-FELA 250 MG ORAL TABLET 2 today, then 1 daily for 4 d ays ZITHROMAX Z-FELA 250 MG ORAL TABLET 523227 AZITHROMYCIN Inactive AUGMENTIN 875-125 MG ORAL TABLET 1 po BID x 10 days 30/10/14 AUGMENTIN 875-125 MG ORAL TABLET AMOXICILLIN-POT CLAVULANATE Inactive CEFUROXIME AXETIL 500 MG ORAL TABLET 0.5 tab by mouth twice a da y CEFUROXIME AXETIL 500 MG ORAL TABLET 358315 CEFUROXIME AXETIL Inactive PREDNISONE 20 MG ORAL TABLET take 40 mg dialy for 6 days PREDNISONE 20 MG ORAL TABLET 231075 PREDNISONE Inactive Immunizations Vaccine Administration Date Value [...] mg/dL Encounters Code Encounter Date Provider Facility CPT-46081 Level 3 Est. Patient 09:05:56 TELEVISION ENGINEER Tigre fu [facility] CPT-07099 Level 4 Est. Patient 09:00:38 TELEVISION ENGINEER Remigio Childress MD [facility] CPT-21971 Level 3 Est. Patient 14:18:32 CDT Tigre fu [facility] CPT-32962 Level 4 Est. Patient 13:48:04 CDT Remigio Childress MD [facility] CPT-85593 [id number] Vst-Est Level III 10:10:19 TELEVISION ENGINEER Alban Boyce MD [facility] CPT-93947 Level 3 Est. Patient 13:45:32 TELEVISION ENGINEER Trina tapia [facility] CPT-34980 Level 3 Est. Patient 10:03:23 CDT Remigio Childress MD [facility] Procedures Code Procedure Name Date Entry Date Standard Desc ription CPT-68522 Prv Med Est Pt 18-39yrs 12:46:30 TELEVISION ENGINEER 05/31 CPT-69921 Prv Med Est Pt 18-39yrs 12:25:19 TELEVISION ENGINEER 05/31 CPT-99805 IM or SQ Injection 09:09:52 TELEVISION ENGINEER CPT-68224 63769 - Immun Admin 1 vac 09:08:43 TELEVISION ENGINEER 2018 CPT-53874 Flulaval Quadrivalent (Flu) 10Pk Syringe IM 2018 09:08:43 TELEVISION ENGINEER CPT-000 Give PPD 13:51:16 CDT
--- OUTSIDE RECORDS SUMMARY | 2019-07-22 04:59 | XMS REPORT | Clinical Summary ---
Author Author Admin, Virgen MICHELET Organization [employer] Address Unknown Phone Unavailable Allergies, Adverse Reactions, [...] by mouth 3 times da gin BENZONATATE 68717655808 Active Tigre Braden APRN Activ e PREDNISONE 20 MG ORAL TABLET take 40 mg dialy for 6 days PREDNISONE 83326695201 Active Tigre Braden APRN Active ATORVASTATIN CALCIUM 20 MG ORAL TABLET 1 po qHS 20 01/04/06 ATORVASTATIN CALCIUM 58911646199 No Longer Active Remigio Childress MD Active LAMICTAL 200 MG ORAL TABLET 1.5 po qHS LAMOTRIGIN E 25572244539 Active Remigio Childress MD Active CLARITIN 10 MG ORAL TABLET 1 tab daily LORATADI NE 53187707733 No Longer Active Remigio Childress MD Active FLONASE ALLERGY RELIEF 50 MCG/ACT NASAL SUSPENSION 1 spray e ach nare BID FLUTICASONE PROPIONATE 49593380369 No Longer Active Aleksandra Childress MD Active PREDNISONE 20 MG ORAL TABLET 2 tabs po daily x3 days 2 PREDNISONE 50655108814 No Longer Active Remigio Childress MD Activ e CEFUROXIME AXETIL 500 MG ORAL TABLET 0.5 tab by mouth twice a da y CEFUROXIME AXETIL 78891548932 No Longer Active Kiana Miller APRN-C Active AUGMENTIN 875-125 MG ORAL TABLET 1 po BID x 10 days 20 30/10/14 AMOXICILLIN-POT CLAVULANATE No Longer Active Tigre Braden APRN Active PRAZOSIN HCL 1 MG ORAL CAPSULE 2 po qHS PRAZOSIN HCL 74135779078 Active Remigio Childress MD Active BUPROPION HCL ER (XL) 300 MG ORAL TABLET EXTENDED RELEASE 24 HOUR 1 po qd BUPROPION HCL 07928061891 Active Remigio Childress MD Active MULTIVITAMIN ADULT ORAL TABLET 1 po qd MULTI PLE VITAMINS-MINERALS 43461724432 Active Remigio Childress MD Active PROAIR HFA 108 (90 BASE) MCG/ACT INHALATION AEROSOL SO LUTION 2 puffs q4hr PRN Shortness of air/Wheezing ALBUTEROL SULFATE 04300799906 Ac rickve Remigio Childress MD Active FLUTICASONE PROPIONATE 50 MCG/ACT NASAL SUSPENSION 2 s prays/nostril qd PRN Congestion/Allergies FLUTICASONE PROPIONATE 40171954591 Ac gifty Childress MD Active ENSKYCE 0.15-30 MG-MCG ORAL TABLET 1 po qd DESOGESTREL-ETHINYL ESTRADIOL 49052807831 Active Remigio Childress MD Active ZITHROMAX Z-FELA 250 MG ORAL TABLET 2 today, then 1 daily for 4 d ays AZITHROMYCIN 23977657405 No Longer Active Alban Boyce MD Active PREDNISONE 20 MG ORAL TABLET 3 tabs for 2 days, 2 tabs for 4 days 1 ta for 4 days, 1/2 tab for 4 days PREDNISONE 95856546144 No Longer Active Alban Boyce MD Active AMOXICILLIN-POT CLAVULANATE 875-125 MG ORAL TABLET 1 pill by mouth twice daily AMOXICILLIN-POT CLAVULANATE 86090546420 No Longer Act parth Trina Sell KINDERGARTEN ASSISTANT Active ATORVASTATIN CALCIUM 20 MG ORAL TABLET 1 po qHS 20 02/07/19 ATORVASTATIN CALCIUM 43195294393 No Longer Active Trina Sell KINDERGARTEN ASSISTANT Active [facility] 5 MG ORAL TABLET 1 TAB PO Q HS ME LATONIN 45441832724 No Longer Active Trina Sell KINDERGARTEN ASSISTANT Active PROMETHAZINE-CODEINE 6.25-10 MG/5ML ORAL SYRUP 5ml po q6hr PRN C ou PROMETHAZINE-CODEINE 08911749819 No Longer Active Trina Sell KINDERGARTEN ASSISTANT Active PREDNISONE 20 MG ORAL TABLET 2 po qd x 5 days P REDNISONE 73190770618 No Longer Active Remigio Childress MD Active PROMETHAZINE-CODEINE 6.25-10 MG/5ML ORAL SYRUP 5ml po q6hr PRN C ou PROMETHAZINE-CODEINE 6.25-10 MG/5ML ORAL SYRUP 722166 PROMETHAZINE-CODEINE Inactive [facility] MEL[facility]IN 5 MG ORAL TABLET 1 TAB PO Q HS 1 [facility] MEL[facility]IN 5 MG ORAL TABLET 200753 MELATONIN Inactive PREDNISONE 20 MG ORAL TABLET 3 tabs for 2 days, 2 tabs for 4 days 1 ta for 4 days, 1/2 tab for 4 days PREDNISONE 20 MG ORAL T ABLET 904877 PREDNISONE Inactive PREDNISONE 20 MG ORAL TABLET 2 tabs po daily x3 days 2 PREDNISONE 20 MG ORAL TABLET 496480 PREDNISONE Inactive FLONASE ALLERGY RELIEF 50 MCG/ACT NASAL SUSPENSION 1 spray e ach nare BID FLONASE ALLERGY RELIEF 50 MCG/ACT NASAL SUSPENSION 0690190 FLUTICASONE PROPIONATE Inactive CLARITIN 10 MG ORAL TABLET 1 tab daily C LARITIN 10 MG ORAL TABLET 002125 LORATADINE Inactive ATORVASTATIN CALCIUM 20 MG ORAL TABLET 1 po qHS 20 01/04/06 ATORVASTATIN CALCIUM 20 MG ORAL TABLET 494053 ATORVASTATIN CALCIUM Inactive PREDNISONE 20 MG ORAL TABLET 2 po qd x 5 days PREDNISONE 20 MG ORAL TABLET 167710 PREDNISONE Inactive ATORVASTATIN CALCIUM 20 MG ORAL TABLET 1 po qHS 20 02/07/19 ATORVASTATIN CALCIUM 20 MG ORAL TABLET 379985 ATORVASTATIN CALCIUM Inactive AMOXICILLIN-POT CLAVULANATE 875-125 MG ORAL TABLET 1 pill by mouth twice daily AMOXICILLIN-POT CLAVULANATE 875-125 MG ORAL TABL ET 920133 AMOXICILLIN-POT CLAVULANATE Inactive ZITHROMAX Z-FELA 250 MG ORAL TABLET 2 today, then 1 daily for 4 d ays ZITHROMAX Z-FELA 250 MG ORAL TABLET 991690 AZITHROMYCIN Inactive AUGMENTIN 875-125 MG ORAL TABLET 1 po BID x 10 days 30/10/14 AUGMENTIN 875-125 MG ORAL TABLET AMOXICILLIN-POT CLAVULANATE Inactive CEFUROXIME AXETIL 500 MG ORAL TABLET 0.5 tab by mouth twice a da y CEFUROXIME AXETIL 500 MG ORAL TABLET 513467 CEFUROXIME AXETIL Inactive Immunizations Vaccine Administration Date Value Standard [...] mg/dL Encounters Code Encounter Date Provider Facility CPT-82453 Level 3 Est. Patient 09:05:56 MARINE WATER TENDER Tigre fu [facility] CPT-10721 Level 4 Est. Patient 09:00:38 MARINE WATER TENDER Remigio Childress MD [facility] CPT-90929 Level 3 Est. Patient 14:18:32 CDT Tigre fu [facility] CPT-08390 Level 4 Est. Patient 13:48:04 CDT Remigio Childress MD [facility] CPT-90139 [id number] Vst-Est Level III 10:10:19 MARINE WATER TENDER Alban Boyce MD [facility] CPT-95097 Level 3 Est. Patient 13:45:32 MARINE WATER TENDER Trina tapia KINDERGARTEN ASSISTANT [facility] CPT-78590 Level 3 Est. Patient 10:03:23 CDT Remigio Childress MD [facility] Procedures Code Procedure Name Date Entry Date Standard Desc ription CPT-56923 IM or SQ Injection 09:09:52 MARINE WATER TENDER CPT-58812 91304 - Immun Admin 1 vac 09:08:43 MARINE WATER TENDER 2018 CPT-62588 Flulaval Quadrivalent (Flu) 10Pk Syringe IM 2018 09:08:43 MARINE WATER TENDER CPT-000 Give PPD 13:51:16 CDT
--- OUTSIDE RECORDS SUMMARY | 2019-07-22 04:59 | XMS REPORT | Clinical Summary ---
Author Author Admin, Virgen MICHELET Organization [employer] Address Unknown Phone Unavailable Allergies, Adverse Reactions, [...] by mouth 3 times da gin BENZONATATE [id number] Active Tigre Braden APRN Activ e PREDNISONE 20 MG ORAL TABLET take 40 mg dialy for 6 days PREDNISONE 66978890174 Active Tigre Braden APRN Active ATORVASTATIN CALCIUM 20 MG ORAL TABLET 1 po qHS 20 01/04/06 ATORVASTATIN CALCIUM 17165553207 No Longer Active Remigio Childress MD Active LAMICTAL 200 MG ORAL TABLET 1.5 po qHS LAMOTRIGIN E 20518925974 Active Remigio Childress MD Active CLARITIN 10 MG ORAL TABLET 1 tab daily LORATADI NE 98956524610 No Longer Active Remigio Childress MD Active FLONASE ALLERGY RELIEF 50 MCG/ACT NASAL SUSPENSION 1 spray e ach nare BID FLUTICASONE PROPIONATE 46217513157 No Longer Active Aleksandra Childress MD Active PREDNISONE 20 MG ORAL TABLET 2 tabs po daily x3 days 2 PREDNISONE 17193810372 No Longer Active Remigio Childress MD Activ e CEFUROXIME AXETIL 500 MG ORAL TABLET 0.5 tab by mouth twice a da y CEFUROXIME AXETIL 69017157040 No Longer Active Kiana Miller APRN-C Active AUGMENTIN 875-125 MG ORAL TABLET 1 po BID x 10 days 20 30/10/14 AMOXICILLIN-POT CLAVULANATE No Longer Active Tigre Braden APRN Active PRAZOSIN HCL 1 MG ORAL CAPSULE 2 po qHS PRAZOSIN HCL 95390452699 Active Remigio Childress MD Active BUPROPION HCL ER (XL) 300 MG ORAL TABLET EXTENDED RELEASE 24 HOUR 1 po qd BUPROPION HCL 39767473868 Active Remigio Childress MD Active MULTIVITAMIN ADULT ORAL TABLET 1 po qd MULTI PLE VITAMINS-MINERALS 58672644026 Active Remigio Childress MD Active PROAIR HFA 108 (90 BASE) MCG/ACT INHALATION AEROSOL SO LUTION 2 puffs q4hr PRN Shortness of air/Wheezing ALBUTEROL SULFATE 09925941874 Ac rickve Remigio Childress MD Active FLUTICASONE PROPIONATE 50 MCG/ACT NASAL SUSPENSION 2 s prays/nostril qd PRN Congestion/Allergies FLUTICASONE PROPIONATE 16774068967 Ac gifty Childress MD Active ENSKYCE 0.15-30 MG-MCG ORAL TABLET 1 po qd DESOGESTREL-ETHINYL ESTRADIOL 11527162209 Active Remigio Childress MD Active ZITHROMAX Z-FELA 250 MG ORAL TABLET 2 today, then 1 daily for 4 d ays AZITHROMYCIN 93664513214 No Longer Active Alban Boyce MD Active PREDNISONE 20 MG ORAL TABLET 3 tabs for 2 days, 2 tabs for 4 days 1 ta for 4 days, 1/2 tab for 4 days PREDNISONE 26268078770 No Longer Active Alban Boyce MD Active AMOXICILLIN-POT CLAVULANATE 875-125 MG ORAL TABLET 1 pill by mouth twice daily AMOXICILLIN-POT CLAVULANATE 17022623159 No Longer Act parth Trina Sell NEUROSCIENTIST Active ATORVASTATIN CALCIUM 20 MG ORAL TABLET 1 po qHS 20 02/07/19 ATORVASTATIN CALCIUM 18624859129 No Longer Active Trina Sell NEUROSCIENTIST Active [facility] MEL[facility] 5 MG ORAL TABLET 1 TAB PO Q HS ME LATONIN 81560917951 No Longer Active Trina Sell NEUROSCIENTIST Active PROMETHAZINE-CODEINE 6.25-10 MG/5ML ORAL SYRUP 5ml po q6hr PRN C ou PROMETHAZINE-CODEINE 26362816041 No Longer Active Trina Sell NEUROSCIENTIST Active PREDNISONE 20 MG ORAL TABLET 2 po qd x 5 days P REDNISONE 89659291975 No Longer Active Remigio Childress MD Active PROMETHAZINE-CODEINE 6.25-10 MG/5ML ORAL SYRUP 5ml po q6hr PRN C ou PROMETHAZINE-CODEINE 6.25-10 MG/5ML ORAL SYRUP 476486 PROMETHAZINE-CODEINE Inactive [facility] MELAT[facility]IN 5 MG ORAL TABLET 1 TAB PO Q HS 1 [facility] MEL[facility]IN 5 MG ORAL TABLET 630310 MELATONIN Inactive PREDNISONE 20 MG ORAL TABLET 3 tabs for 2 days, 2 tabs for 4 days 1 ta for 4 days, 1/2 tab for 4 days PREDNISONE 20 MG ORAL T ABLET 559910 PREDNISONE Inactive PREDNISONE 20 MG ORAL TABLET 2 tabs po daily x3 days 2 PREDNISONE 20 MG ORAL TABLET 949058 PREDNISONE Inactive FLONASE ALLERGY RELIEF 50 MCG/ACT NASAL SUSPENSION 1 spray e ach nare BID FLONASE ALLERGY RELIEF 50 MCG/ACT NASAL SUSPENSION 7180671 FLUTICASONE PROPIONATE Inactive CLARITIN 10 MG ORAL TABLET 1 tab daily C LARITIN 10 MG ORAL TABLET 491905 LORATADINE Inactive ATORVASTATIN CALCIUM 20 MG ORAL TABLET 1 po qHS 20 01/04/06 ATORVASTATIN CALCIUM 20 MG ORAL TABLET 720779 ATORVASTATIN CALCIUM Inactive PREDNISONE 20 MG ORAL TABLET 2 po qd x 5 days PREDNISONE 20 MG ORAL TABLET 954193 PREDNISONE Inactive ATORVASTATIN CALCIUM 20 MG ORAL TABLET 1 po qHS 20 02/07/19 ATORVASTATIN CALCIUM 20 MG ORAL TABLET 641241 ATORVASTATIN CALCIUM Inactive AMOXICILLIN-POT CLAVULANATE 875-125 MG ORAL TABLET 1 pill by mouth twice daily AMOXICILLIN-POT CLAVULANATE 875-125 MG ORAL TABL ET 031272 AMOXICILLIN-POT CLAVULANATE Inactive ZITHROMAX Z-FELA 250 MG ORAL TABLET 2 today, then 1 daily for 4 d ays ZITHROMAX Z-FELA 250 MG ORAL TABLET 008897 AZITHROMYCIN Inactive AUGMENTIN 875-125 MG ORAL TABLET 1 po BID x 10 days 30/10/14 AUGMENTIN 875-125 MG ORAL TABLET AMOXICILLIN-POT CLAVULANATE Inactive CEFUROXIME AXETIL 500 MG ORAL TABLET 0.5 tab by mouth twice a da y CEFUROXIME AXETIL 500 MG ORAL TABLET 037017 CEFUROXIME AXETIL Inactive Immunizations Vaccine Administration Date [...] mg/dL Encounters Code Encounter Date Provider Facility CPT-14033 Level 3 Est. 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 Patient 09:00:38 GRAVITY PROSPECTING SUPERVISOR Remigio Childress MD [facility] CPT-85085 Level 3 Est. Patient 14:18:32 CDT Tigre fu [facility] CPT-85095 Level 4 Est. Patient 13:48:04 CDT Remigio Childress MD [facility] CPT-87758 85722-Cop Vst-Est Level III 10:10:19 GRAVITY PROSPECTING SUPERVISOR Alban Boyce MD [facility] CPT-21636 Level 3 Est. Patient 13:45:32 GRAVITY PROSPECTING SUPERVISOR Trina tapia NEUROSCIENTIST [facility] CPT-64390 Level 3 Est. Patient 10:03:23 CDT Remigio Childress MD [facility] Procedures Code Procedure Name Date Entry Date Standard Desc ription CPT-86447 IM or SQ Injection 09:09:52 GRAVITY PROSPECTING SUPERVISOR CPT-27653 36565 - Immun Admin 1 vac 09:08:43 GRAVITY PROSPECTING SUPERVISOR 2018 CPT-75234 Flulaval Quadrivalent (Flu) 10Pk Syringe IM 2018 09:08:43 GRAVITY PROSPECTING SUPERVISOR CPT-000 Give PPD 13:51:16 CDT
--- OUTSIDE RECORDS SUMMARY | 2019-07-22 04:59 | XMS REPORT | Clinical Summary ---
Author Author Admin, Virgen MICHELET Organization [employer] Address Unknown Phone Unavailable Allergies, Adverse Reactions, [...] by mouth 3 times da gin BENZONATATE 07026686169 Active Tigre Braden APRN Activ e PREDNISONE 20 MG ORAL TABLET take 40 mg dialy for 6 days PREDNISONE 19443792645 Active Tigre Braden APRN Active ATORVASTATIN CALCIUM 20 MG ORAL TABLET 1 po qHS 20 01/04/06 ATORVASTATIN CALCIUM 08438907668 No Longer Active Remigio Childress MD Active LAMICTAL 200 MG ORAL TABLET 1.5 po qHS LAMOTRIGIN E 21839049574 Active Remigio Childress MD Active CLARITIN 10 MG ORAL TABLET 1 tab daily LORATADI NE 02132613477 No Longer Active Remigio Childress MD Active FLONASE ALLERGY RELIEF 50 MCG/ACT NASAL SUSPENSION 1 spray e ach nare BID FLUTICASONE PROPIONATE 63117037608 No Longer Active Aleksandra Childress MD Active PREDNISONE 20 MG ORAL TABLET 2 tabs po daily x3 days 2 PREDNISONE 87039032007 No Longer Active Remigio Childress MD Activ e CEFUROXIME AXETIL 500 MG ORAL TABLET 0.5 tab by mouth twice a da y CEFUROXIME AXETIL 30108895862 No Longer Active Kiana Miller APRN-C Active AUGMENTIN 875-125 MG ORAL TABLET 1 po BID x 10 days 20 30/10/14 AMOXICILLIN-POT CLAVULANATE No Longer Active Tigre Braden APRN Active PRAZOSIN HCL 1 MG ORAL CAPSULE 2 po qHS PRAZOSIN HCL 15521716548 Active Remigio Childress MD Active BUPROPION HCL ER (XL) 300 MG ORAL TABLET EXTENDED RELEASE 24 HOUR 1 po qd BUPROPION HCL 35622353265 Active Remigio Childress MD Active MULTIVITAMIN ADULT ORAL TABLET 1 po qd MULTI PLE VITAMINS-MINERALS 47704231947 Active Remigio Childress MD Active PROAIR HFA 108 (90 BASE) MCG/ACT INHALATION AEROSOL SO LUTION 2 puffs q4hr PRN Shortness of air/Wheezing ALBUTEROL SULFATE 18459417418 Ac rickve Remigio Childress MD Active FLUTICASONE PROPIONATE 50 MCG/ACT NASAL SUSPENSION 2 s prays/nostril qd PRN Congestion/Allergies FLUTICASONE PROPIONATE 49791450618 Ac gifty Childress MD Active ENSKYCE 0.15-30 MG-MCG ORAL TABLET 1 po qd DESOGESTREL-ETHINYL ESTRADIOL 00628372994 Active Remigio Childress MD Active ZITHROMAX Z-FELA 250 MG ORAL TABLET 2 today, then 1 daily for 4 d ays AZITHROMYCIN 82643892823 No Longer Active Alban Boyce MD Active PREDNISONE 20 MG ORAL TABLET 3 tabs for 2 days, 2 tabs for 4 days 1 ta for 4 days, 1/2 tab for 4 days PREDNISONE 62724146343 No Longer Active Alban Boyce MD Active AMOXICILLIN-POT CLAVULANATE 875-125 MG ORAL TABLET 1 pill by mouth twice daily AMOXICILLIN-POT CLAVULANATE 32270248246 No Longer Act parth Trina Sell ENGINEERING DESIGNER Active ATORVASTATIN CALCIUM 20 MG ORAL TABLET 1 po qHS 20 02/07/19 ATORVASTATIN CALCIUM 58228237815 No Longer Active Trina Sell ENGINEERING DESIGNER Active [facility] MEL[facility] 5 MG ORAL TABLET 1 TAB PO Q HS ME LATONIN 20794531056 No Longer Active Trina Sell ENGINEERING DESIGNER Active PROMETHAZINE-CODEINE 6.25-10 MG/5ML ORAL SYRUP 5ml po q6hr PRN C ou PROMETHAZINE-CODEINE 10638834003 No Longer Active Trina Sell ENGINEERING DESIGNER Active PREDNISONE 20 MG ORAL TABLET 2 po qd x 5 days P REDNISONE 80568731826 No Longer Active Remigio Childress MD Active PROMETHAZINE-CODEINE 6.25-10 MG/5ML ORAL SYRUP 5ml po q6hr PRN C ou PROMETHAZINE-CODEINE 6.25-10 MG/5ML ORAL SYRUP 026938 PROMETHAZINE-CODEINE Inactive [facility] MELAT[facility]IN 5 MG ORAL TABLET 1 TAB PO Q HS 1 [facility] MELAT[facility]IN 5 MG ORAL TABLET 383419 MELATONIN Inactive PREDNISONE 20 MG ORAL TABLET 3 tabs for 2 days, 2 tabs for 4 days 1 ta for 4 days, 1/2 tab for 4 days PREDNISONE 20 MG ORAL T ABLET 566513 PREDNISONE Inactive PREDNISONE 20 MG ORAL TABLET 2 tabs po daily x3 days 2 PREDNISONE 20 MG ORAL TABLET 149748 PREDNISONE Inactive FLONASE ALLERGY RELIEF 50 MCG/ACT NASAL SUSPENSION 1 spray e ach nare BID FLONASE ALLERGY RELIEF 50 MCG/ACT NASAL SUSPENSION 0780479 FLUTICASONE PROPIONATE Inactive CLARITIN 10 MG ORAL TABLET 1 tab daily C LARITIN 10 MG ORAL TABLET 318325 LORATADINE Inactive ATORVASTATIN CALCIUM 20 MG ORAL TABLET 1 po qHS 20 01/04/06 ATORVASTATIN CALCIUM 20 MG ORAL TABLET 640743 ATORVASTATIN CALCIUM Inactive PREDNISONE 20 MG ORAL TABLET 2 po qd x 5 days PREDNISONE 20 MG ORAL TABLET 975767 PREDNISONE Inactive ATORVASTATIN CALCIUM 20 MG ORAL TABLET 1 po qHS 20 02/07/19 ATORVASTATIN CALCIUM 20 MG ORAL TABLET 572829 ATORVASTATIN CALCIUM Inactive AMOXICILLIN-POT CLAVULANATE 875-125 MG ORAL TABLET 1 pill by mouth twice daily AMOXICILLIN-POT CLAVULANATE 875-125 MG ORAL TABL ET 983828 AMOXICILLIN-POT CLAVULANATE Inactive ZITHROMAX Z-FELA 250 MG ORAL TABLET 2 today, then 1 daily for 4 d ays ZITHROMAX Z-FELA 250 MG ORAL TABLET 825806 AZITHROMYCIN Inactive AUGMENTIN 875-125 MG ORAL TABLET 1 po BID x 10 days 30/10/14 AUGMENTIN 875-125 MG ORAL TABLET AMOXICILLIN-POT CLAVULANATE Inactive CEFUROXIME AXETIL 500 MG ORAL TABLET 0.5 tab by mouth twice a da y CEFUROXIME AXETIL 500 MG ORAL TABLET 707837 CEFUROXIME AXETIL Inactive Immunizations Vaccine Administration Date [...] mg/dL Encounters Code Encounter Date Provider Facility CPT-08583 Level 3 Est. Patient 09:05:56 HEBREW CANTOR Tigre fu [facility] CPT-38493 Level 4 Est. Patient 09:00:38 HEBREW CANTOR Remigio Childress MD [facility] CPT-72603 Level 3 Est. Patient 14:18:32 CDT Tigre fu [facility] CPT-44738 Level 4 Est. Patient 13:48:04 CDT Remigio Childress MD [facility] CPT-72042 08018-Ehh Vst-Est Level III 10:10:19 HEBREW CANTOR Alban Boyce MD [facility] CPT-94720 Level 3 Est. Patient 13:45:32 HEBREW CANTOR Trina tapia ENGINEERING DESIGNER [facility] CPT-76979 Level 3 Est. Patient 10:03:23 CDT Remigio Childress MD [facility] Procedures Code Procedure Name Date Entry Date Standard Desc ription CPT-82812 IM or SQ Injection 09:09:52 HEBREW CANTOR CPT-25553 02929 - Immun Admin 1 vac 09:08:43 HEBREW CANTOR 2018 CPT-73049 Flulaval Quadrivalent (Flu) 10Pk Syringe IM 2018 09:08:43 HEBREW CANTOR CPT-000 Give PPD 13:51:16 CDT
--- OUTSIDE RECORDS SUMMARY | 2019-07-22 04:59 | XMS REPORT | Clinical Summary ---
Author Author Admin, Virgen MICHELET Organization [employer] Address Unknown Phone Unavailable Allergies, Adverse Reactions, [...] by mouth 3 times da gin BENZONATATE 32858643524 Active Tigre Braden APRN Activ e PREDNISONE 20 MG ORAL TABLET take 40 mg dialy for 6 days PREDNISONE 67282028367 Active Tigre Braden APRN Active ATORVASTATIN CALCIUM 20 MG ORAL TABLET 1 po qHS 20 01/04/06 ATORVASTATIN CALCIUM 71180368848 No Longer Active Remigio Childress MD Active LAMICTAL 200 MG ORAL TABLET 1.5 po qHS LAMOTRIGIN E 58042761835 Active Remigio Childress MD Active CLARITIN 10 MG ORAL TABLET 1 tab daily LORATADI NE 03075047874 No Longer Active Remigio Childress MD Active FLONASE ALLERGY RELIEF 50 MCG/ACT NASAL SUSPENSION 1 spray e ach nare BID FLUTICASONE PROPIONATE 78163778351 No Longer Active Aleksandra Childress MD Active PREDNISONE 20 MG ORAL TABLET 2 tabs po daily x3 days 2 PREDNISONE 54503979595 No Longer Active Remigio Childress MD Activ e CEFUROXIME AXETIL 500 MG ORAL TABLET 0.5 tab by mouth twice a da y CEFUROXIME AXETIL 20851387558 No Longer Active Kiana Miller APRN-C Active AUGMENTIN 875-125 MG ORAL TABLET 1 po BID x 10 days 20 30/10/14 AMOXICILLIN-POT CLAVULANATE No Longer Active Tigre Braden APRN Active PRAZOSIN HCL 1 MG ORAL CAPSULE 2 po qHS PRAZOSIN HCL 14578961136 Active Remigio Childress MD Active BUPROPION HCL ER (XL) 300 MG ORAL TABLET EXTENDED RELEASE 24 HOUR 1 po qd BUPROPION HCL 37044745408 Active Remigio Childress MD Active MULTIVITAMIN ADULT ORAL TABLET 1 po qd MULTI PLE VITAMINS-MINERALS 63008812703 Active Remigio Childress MD Active PROAIR HFA 108 (90 BASE) MCG/ACT INHALATION AEROSOL SO LUTION 2 puffs q4hr PRN Shortness of air/Wheezing ALBUTEROL SULFATE 04801742339 Ac rickve Remigio Childress MD Active FLUTICASONE PROPIONATE 50 MCG/ACT NASAL SUSPENSION 2 s prays/nostril qd PRN Congestion/Allergies FLUTICASONE PROPIONATE 51511476553 Ac gifty Childress MD Active ENSKYCE 0.15-30 MG-MCG ORAL TABLET 1 po qd DESOGESTREL-ETHINYL ESTRADIOL 13857702859 Active Remigio Childress MD Active ZITHROMAX Z-FELA 250 MG ORAL TABLET 2 today, then 1 daily for 4 d ays AZITHROMYCIN 43705705959 No Longer Active Alban Boyce MD Active PREDNISONE 20 MG ORAL TABLET 3 tabs for 2 days, 2 tabs for 4 days 1 ta for 4 days, 1/2 tab for 4 days PREDNISONE 04776261923 No Longer Active Alban Boyce MD Active AMOXICILLIN-POT CLAVULANATE 875-125 MG ORAL TABLET 1 pill by mouth twice daily AMOXICILLIN-POT CLAVULANATE 40587602996 No Longer Act parth Trina Sell COST ANALYST Active ATORVASTATIN CALCIUM 20 MG ORAL TABLET 1 po qHS 20 02/07/19 ATORVASTATIN CALCIUM 07489502832 No Longer Active Trina Sell COST ANALYST Active [facility] MEL[facility]IN 5 MG ORAL TABLET 1 TAB PO Q HS ME LATONIN 90954867041 No Longer Active Trina Sell COST ANALYST Active PROMETHAZINE-CODEINE 6.25-10 MG/5ML ORAL SYRUP 5ml po q6hr PRN C ou PROMETHAZINE-CODEINE 53591494778 No Longer Active Trina Sell COST ANALYST Active PREDNISONE 20 MG ORAL TABLET 2 po qd x 5 days P REDNISONE 09847925300 No Longer Active Remigio Childress MD Active PROMETHAZINE-CODEINE 6.25-10 MG/5ML ORAL SYRUP 5ml po q6hr PRN C ou PROMETHAZINE-CODEINE 6.25-10 MG/5ML ORAL SYRUP 821473 PROMETHAZINE-CODEINE Inactive [facility] MELATONIN 5 MG ORAL TABLET 1 TAB PO Q HS 1 [facility] MELATONIN 5 MG ORAL TABLET 327850 MELATONIN Inactive PREDNISONE 20 MG ORAL TABLET 3 tabs for 2 days, 2 tabs for 4 days 1 ta for 4 days, 1/2 tab for 4 days PREDNISONE 20 MG ORAL T ABLET 472176 PREDNISONE Inactive PREDNISONE 20 MG ORAL TABLET 2 tabs po daily x3 days 2 PREDNISONE 20 MG ORAL TABLET 605223 PREDNISONE Inactive FLONASE ALLERGY RELIEF 50 MCG/ACT NASAL SUSPENSION 1 spray e ach nare BID FLONASE ALLERGY RELIEF 50 MCG/ACT NASAL SUSPENSION 9186870 FLUTICASONE PROPIONATE Inactive CLARITIN 10 MG ORAL TABLET 1 tab daily C LARITIN 10 MG ORAL TABLET 713911 LORATADINE Inactive ATORVASTATIN CALCIUM 20 MG ORAL TABLET 1 po qHS 20 01/04/06 ATORVASTATIN CALCIUM 20 MG ORAL TABLET 144635 ATORVASTATIN CALCIUM Inactive PREDNISONE 20 MG ORAL TABLET 2 po qd x 5 days PREDNISONE 20 MG ORAL TABLET 060348 PREDNISONE Inactive ATORVASTATIN CALCIUM 20 MG ORAL TABLET 1 po qHS 20 02/07/19 ATORVASTATIN CALCIUM 20 MG ORAL TABLET 420989 ATORVASTATIN CALCIUM Inactive AMOXICILLIN-POT CLAVULANATE 875-125 MG ORAL TABLET 1 pill by mouth twice daily AMOXICILLIN-POT CLAVULANATE 875-125 MG ORAL TABL ET 124922 AMOXICILLIN-POT CLAVULANATE Inactive ZITHROMAX Z-FELA 250 MG ORAL TABLET 2 today, then 1 daily for 4 d ays ZITHROMAX Z-FELA 250 MG ORAL TABLET 925300 AZITHROMYCIN Inactive AUGMENTIN 875-125 MG ORAL TABLET 1 po BID x 10 days 30/10/14 AUGMENTIN 875-125 MG ORAL TABLET AMOXICILLIN-POT CLAVULANATE Inactive CEFUROXIME AXETIL 500 MG ORAL TABLET 0.5 tab by mouth twice a da y CEFUROXIME AXETIL 500 MG ORAL TABLET 255213 CEFUROXIME AXETIL Inactive Immunizations Vaccine Administration Date [...] pressure, diastolic, repeated by physician 96 BP [place] blood pressure, diastolic 96 mm[Hg] BP [place] [...] d blood pressure, diastolic 90 mm[Hg] BP [place] blood pressure, systolic 124 mm[Hg] BP sys [...] mg/dL Encounters Code Encounter Date Provider Facility CPT-19303 Level 3 Est. 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 Patient 09:00:38 BLEACH BOILER PACKER Remigio Childress MD [facility] CPT-32050 Level 3 Est. Patient 14:18:32 CDT Tigre fu [facility] CPT-24307 Level 4 Est. Patient 13:48:04 CDT Remigio Childress MD [facility] CPT-45676 28859-Tlo Vst-Est Level III 10:10:19 BLEACH BOILER PACKER Alban Boyce MD [facility] CPT-38024 Level 3 Est. Patient 13:45:32 BLEACH BOILER PACKER Trina tapia COST ANALYST [facility] CPT-39230 Level 3 Est. Patient 10:03:23 CDT Remigio Childress MD [facility] Procedures Code Procedure Name Date Entry Date Standard Desc ription CPT-83683 IM or SQ Injection 09:09:52 BLEACH BOILER PACKER CPT-73248 37888 - Immun Admin 1 vac 09:08:43 BLEACH BOILER PACKER 2018 CPT-11872 Flulaval Quadrivalent (Flu) 10Pk Syringe IM 2018 09:08:43 BLEACH BOILER PACKER CPT-000 Give PPD 13:51:16 CDT
--- OUTSIDE RECORDS SUMMARY | 2019-07-22 04:59 | XMS REPORT | Clinical Summary ---
Author Author Admin, Virgen MICHELET Organization [employer] Address Unknown Phone Unavailable Allergies, Adverse Reactions, Alerts Allergy Name Reaction Description Start Date Severity Status Pr ovider IODINE rash Mild Active Alban gentile MD LATEX rash Mild Active Alban gentile MD Conditions or Problems Problem Name Problem Code Onset Date Status Entry Date Provider Comment Standard Description Annotate Upper respiratory infection, viral 465.9 Resolved 2 Remigio Chilrdess MD Acute upper respiratory infections of un [...] Index 35.0- 35.9, adult BMI 35-35.9 Active Remigio Childress MD Body Mass Index [...] Remigio Childress MD Dysfunction of Eustachian tube Upper respiratory infection, viral ICD-465.9 I nactive [...] Generic Name NDC Status Provider Patient Instruction ATORVASTATIN CALCIUM 20 MG ORAL TABLET 1 po qHS 20 01/04/06 ATORVASTATIN CALCIUM 42736012699 No Longer Active Remigio Childress MD Active LAMICTAL 200 MG ORAL TABLET 1.5 po qHS LAMOTRIGIN E 95647577608 Active Remigio Childress MD Active CLARITIN 10 MG ORAL TABLET 1 tab daily LORATADI NE 72070140297 No Longer Active Remigio Childress MD Active FLONASE ALLERGY RELIEF 50 MCG/ACT NASAL SUSPENSION 1 spray e ach nare BID FLUTICASONE PROPIONATE 84592382032 No Longer Active Aleksandra Childress MD Active PREDNISONE 20 MG ORAL TABLET 2 tabs po daily x3 days 2 PREDNISONE 49667436692 No Longer Active Remigio Childress MD Activ e CEFUROXIME AXETIL 500 MG ORAL TABLET 0.5 tab by mouth twice a da y CEFUROXIME AXETIL 80644587410 No Longer Active Kiana Miller BURGLAR ALARM INSTALLER-C Active AUGMENTIN 875-125 MG ORAL TABLET 1 po BID x 10 days 20 30/10/14 AMOXICILLIN-POT CLAVULANATE No Longer Active Tigre Braden APRN Active PRAZOSIN HCL 1 MG ORAL CAPSULE 2 po qHS PRAZOSIN HCL 25676022810 Active Remigio Childress MD Active BUPROPION HCL ER (XL) 300 MG ORAL TABLET EXTENDED RELEASE 24 HOUR 1 po qd BUPROPION HCL 29789289395 Active Remigio Childress MD Active MULTIVITAMIN ADULT ORAL TABLET 1 po qd MULTI PLE VITAMINS-MINERALS 36671057842 Active Remigio Childress MD Active PROAIR HFA 108 (90 BASE) MCG/ACT INHALATION AEROSOL SO LUTION 2 puffs q4hr PRN Shortness of air/Wheezing ALBUTEROL SULFATE 99789096043 Ac gifty Childress MD Active FLUTICASONE PROPIONATE 50 MCG/ACT NASAL SUSPENSION 2 s prays/nostril qd PRN Congestion/Allergies FLUTICASONE PROPIONATE 38080445655 Ac gifty Childress MD Active ENSKYCE 0.15-30 MG-MCG ORAL TABLET 1 po qd DESOGESTREL-ETHINYL ESTRADIOL 69872143190 Active Remigio Childress MD Active ZITHROMAX Z-FELA 250 MG ORAL TABLET 2 today, then 1 daily for 4 d ays AZITHROMYCIN 32650559919 No Longer Active Alban Boyce MD Active PREDNISONE 20 MG ORAL TABLET 3 tabs for 2 days, 2 tabs for 4 days 1 ta for 4 days, 1/2 tab for 4 days PREDNISONE 60883585074 No Longer Active Alban Boyce MD Active AMOXICILLIN-POT CLAVULANATE 875-125 MG ORAL TABLET 1 pill by mouth twice daily AMOXICILLIN-POT CLAVULANATE 11660661629 No Longer Act parth Trina Sell BURGLAR ALARM INSTALLER Active ATORVASTATIN CALCIUM 20 MG ORAL TABLET 1 po qHS 20 02/07/19 ATORVASTATIN CALCIUM 38139384250 No Longer Active Trina Sell BURGLAR ALARM INSTALLER Active [facility] MEL[facility] 5 MG ORAL TABLET 1 TAB PO Q HS ME LATONIN 78863852725 No Longer Active Trina Sell BURGLAR ALARM INSTALLER Active PROMETHAZINE-CODEINE 6.25-10 MG/5ML ORAL SYRUP 5ml po q6hr PRN C ou PROMETHAZINE-CODEINE 78224352533 No Longer Active Trina Sell BURGLAR ALARM INSTALLER Active PREDNISONE 20 MG ORAL TABLET 2 po qd x 5 days P REDNISONE 04438835766 No Longer Active Remigio Childress MD Active PROMETHAZINE-CODEINE 6.25-10 MG/5ML ORAL SYRUP 5ml po q6hr PRN C ou PROMETHAZINE-CODEINE 6.25-10 MG/5ML ORAL SYRUP 183372 PROMETHAZINE-CODEINE Inactive [facility] MELAT[facility]IN 5 MG ORAL TABLET 1 TAB PO Q HS 1 [facility] MEL[facility]IN 5 MG ORAL TABLET 300288 MELATONIN Inactive PREDNISONE 20 MG ORAL TABLET 3 tabs for 2 days, 2 tabs for 4 days 1 ta for 4 days, 1/2 tab for 4 days PREDNISONE 20 MG ORAL T ABLET 855285 PREDNISONE Inactive PREDNISONE 20 MG ORAL TABLET 2 tabs po daily x3 days 2 PREDNISONE 20 MG ORAL TABLET 831852 PREDNISONE Inactive FLONASE ALLERGY RELIEF 50 MCG/ACT NASAL SUSPENSION 1 spray e ach nare BID FLONASE ALLERGY RELIEF 50 MCG/ACT NASAL SUSPENSION 5802057 FLUTICASONE PROPIONATE Inactive CLARITIN 10 MG ORAL TABLET 1 tab daily C LARITIN 10 MG ORAL TABLET 869534 LORATADINE Inactive ATORVASTATIN CALCIUM 20 MG ORAL TABLET 1 po qHS 20 01/04/06 ATORVASTATIN CALCIUM 20 MG ORAL TABLET 068209 ATORVASTATIN CALCIUM Inactive PREDNISONE 20 MG ORAL TABLET 2 po qd x 5 days PREDNISONE 20 MG ORAL TABLET 756828 PREDNISONE Inactive ATORVASTATIN CALCIUM 20 MG ORAL TABLET 1 po qHS 20 02/07/19 ATORVASTATIN CALCIUM 20 MG ORAL TABLET 281066 ATORVASTATIN CALCIUM Inactive AMOXICILLIN-POT CLAVULANATE 875-125 MG ORAL TABLET 1 pill by mouth twice daily AMOXICILLIN-POT CLAVULANATE 875-125 MG ORAL TABL ET 813515 AMOXICILLIN-POT CLAVULANATE Inactive ZITHROMAX Z-FELA 250 MG ORAL TABLET 2 today, then 1 daily for 4 d ays ZITHROMAX Z-FELA 250 MG ORAL TABLET 387331 AZITHROMYCIN Inactive AUGMENTIN 875-125 MG ORAL TABLET 1 po BID x 10 days 30/10/14 AUGMENTIN 875-125 MG ORAL TABLET AMOXICILLIN-POT CLAVULANATE Inactive CEFUROXIME AXETIL 500 MG ORAL TABLET 0.5 tab by mouth twice a da y CEFUROXIME AXETIL 500 MG ORAL TABLET 585999 CEFUROXIME AXETIL Inactive Immunizations Vaccine Administration Date Value Standard Heber cription influenza immunization (Flu Vax) has been administered 03/19 Flulaval Quadrivalent (Flu) 10Pk Syringe IM influenza virus vaccine, unspecified formulation influenza immunization (Flu Vax) has been administered 02/26 Done according to patient influenza virus vaccine, unspecified for mulation Vital Signs Date Name Value Unit Range Description blood pressure, diastolic, repeated by physician 78 [...] mg/dL Encounters Code Encounter Date Provider Facility CPT-22570 Level 4 Est. Patient 09:00:38 DOCK ASSOCIATE Remigio Childress MD [facility] CPT-35282 Level 3 Est. Patient 14:18:32 CDT Tigre fu [facility] CPT-58007 Level 4 Est. Patient 13:48:04 CDT Remigio Childress MD [facility] CPT-84138 [id number] Vst-Est Level III 10:10:19 DOCK ASSOCIATE Alban Boyce MD [facility] CPT-23116 Level 3 Est. Patient 13:45:32 DOCK ASSOCIATE Trina tapia [facility] CPT-91089 Level 3 Est. Patient 10:03:23 CDT Remigio Childress MD [facility] Procedures Code Procedure Name Date Entry Date Standard Desc ription CPT-66243 IM or SQ Injection 09:09:52 DOCK ASSOCIATE CPT-89022 67915 - Immun Admin 1 vac 09:08:43 DOCK ASSOCIATE 2018 CPT-22704 Flulaval Quadrivalent (Flu) 10Pk Syringe IM 2018 09:08:43 DOCK ASSOCIATE CPT-000 Give PPD 13:51:16 CDT
--- OUTSIDE RECORDS SUMMARY | 2019-07-22 05:00 | XMS REPORT | Clinical Summary ---
Author Author Admin, Virgen MICHELET Organization [employer] Address Unknown Phone Unavailable Allergies, Adverse Reactions, [...] respiratory infection, viral ICD-465.9 I nactive Remigio Chidlress MD Sinusitis, acute frontal ICD-461.1 Inactive Remigio [...] 1 po qHS 20 01/04/06 ATORVASTATIN CALCIUM 81351890472 No Longer Active Remigio Childress MD Active LAMICTAL 200 MG ORAL TABLET 1.5 po qHS LAMOTRIGIN E 92447803356 Active Remigio Childress MD Active CLARITIN 10 MG ORAL TABLET 1 tab daily LORATADI NE 42079421767 No Longer Active Remigio Childress MD Active FLONASE ALLERGY RELIEF 50 MCG/ACT NASAL SUSPENSION 1 spray e ach nare BID FLUTICASONE PROPIONATE 71926167033 No Longer Active Aleksandra Childress MD Active PREDNISONE 20 MG ORAL TABLET 2 tabs po daily x3 days 2 PREDNISONE 54332998548 No Longer Active Remigio Childress MD Activ e CEFUROXIME AXETIL 500 MG ORAL TABLET 0.5 tab by mouth twice a da y CEFUROXIME AXETIL 50335276466 No Longer Active Kiana Miller WELFARE SUPERVISOR-C Active AUGMENTIN 875-125 MG ORAL TABLET 1 po BID x 10 days 30/10/14 AMOXICILLIN-POT CLAVULANATE No Longer Active Tigre Braden APRN Active PRAZOSIN HCL 1 MG ORAL CAPSULE 2 po qHS PRAZOSIN HCL 64154898840 Active Remigio Childress MD Active BUPROPION HCL ER (XL) 300 MG ORAL TABLET EXTENDED RELEASE 24 HOUR 1 po qd BUPROPION HCL 70223909665 Active Remigio Childress MD Active MULTIVITAMIN ADULT ORAL TABLET 1 po qd MULTI PLE VITAMINS-MINERALS 88343711377 Active Remigio Childress MD Active PROAIR HFA 108 (90 BASE) MCG/ACT INHALATION AEROSOL SO LUTION 2 puffs q4hr PRN Shortness of air/Wheezing ALBUTEROL SULFATE 24323859810 Ac gifty Childress MD Active FLUTICASONE PROPIONATE 50 MCG/ACT NASAL SUSPENSION 2 s prays/nostril qd PRN Congestion/Allergies FLUTICASONE PROPIONATE 10464149089 Ac gifty Childress MD Active ENSKYCE 0.15-30 MG-MCG ORAL TABLET 1 po qd DESOGESTREL-ETHINYL ESTRADIOL 00580207074 Active Remigio Childress MD Active ZITHROMAX Z-FELA 250 MG ORAL TABLET 2 today, then 1 daily for 4 d ays AZITHROMYCIN 59123351409 No Longer Active Alban Boyce MD Active PREDNISONE 20 MG ORAL TABLET 3 tabs for 2 days, 2 tabs for 4 days 1 ta for 4 days, 1/2 tab for 4 days PREDNISONE 96935843917 No Longer Active Alban Boyce MD Active AMOXICILLIN-POT CLAVULANATE 875-125 MG ORAL TABLET 1 pill by mouth twice daily AMOXICILLIN-POT CLAVULANATE 97060173455 No Longer Act parth Trina Sell WELFARE SUPERVISOR Active ATORVASTATIN CALCIUM 20 MG ORAL TABLET 1 po qHS 20 02/07/19 ATORVASTATIN CALCIUM 01122219274 No Longer Active Trina Sell WELFARE SUPERVISOR Active [facility] 5 MG ORAL TABLET 1 TAB PO Q HS ME LATONIN 49922348784 No Longer Active Trina Sell WELFARE SUPERVISOR Active PROMETHAZINE-CODEINE 6.25-10 MG/5ML ORAL SYRUP 5ml po q6hr PRN C [facility] PROMETHAZINE-CODEINE 01290004352 No Longer Active Trina Sell WELFARE SUPERVISOR Active PREDNISONE 20 MG ORAL TABLET 2 po qd x 5 days P REDNISONE 73886032697 No Longer Active Remigio Childress MD Active PROMETHAZINE-CODEINE 6.25-10 MG/5ML ORAL SYRUP 5ml po q6hr PRN C [facility] PROMETHAZINE-CODEINE 6.25-10 MG/5ML ORAL SYRUP 903543 PROMETHAZINE-CODEINE Inactive [facility] 5 MG ORAL TABLET 1 TAB PO Q HS 1 [facility] MEL[facility]IN 5 MG ORAL TABLET 786031 MELATONIN Inactive PREDNISONE 20 MG ORAL TABLET 3 tabs for 2 days, 2 tabs for 4 days 1 ta for 4 days, 1/2 tab for 4 days PREDNISONE 20 MG ORAL T ABLET 708481 PREDNISONE Inactive PREDNISONE 20 MG ORAL TABLET 2 tabs po daily x3 days 2 PREDNISONE 20 MG ORAL TABLET 121477 PREDNISONE Inactive FLONASE ALLERGY RELIEF 50 MCG/ACT NASAL SUSPENSION 1 spray e ach nare BID FLONASE ALLERGY RELIEF 50 MCG/ACT NASAL SUSPENSION 7697476 FLUTICASONE PROPIONATE Inactive CLARITIN 10 MG ORAL TABLET 1 tab daily C LARITIN 10 MG ORAL TABLET 601160 LORATADINE Inactive ATORVASTATIN CALCIUM 20 MG ORAL TABLET 1 po qHS 20 01/04/06 ATORVASTATIN CALCIUM 20 MG ORAL TABLET 521492 ATORVASTATIN CALCIUM Inactive PREDNISONE 20 MG ORAL TABLET 2 po qd x 5 days PREDNISONE 20 MG ORAL TABLET 126714 PREDNISONE Inactive ATORVASTATIN CALCIUM 20 MG ORAL TABLET 1 po qHS 20 02/07/19 ATORVASTATIN CALCIUM 20 MG ORAL TABLET 893128 ATORVASTATIN CALCIUM Inactive AMOXICILLIN-POT CLAVULANATE 875-125 MG ORAL TABLET 1 pill by mouth twice daily AMOXICILLIN-POT CLAVULANATE 875-125 MG ORAL TABL ET 774086 AMOXICILLIN-POT CLAVULANATE Inactive ZITHROMAX Z-FELA 250 MG ORAL TABLET 2 today, then 1 daily for 4 d ays ZITHROMAX Z-FELA 250 MG ORAL TABLET 905216 AZITHROMYCIN Inactive AUGMENTIN 875-125 MG ORAL TABLET 1 po BID x 10 days 30/10/14 AUGMENTIN 875-125 MG ORAL TABLET AMOXICILLIN-POT CLAVULANATE Inactive CEFUROXIME AXETIL 500 MG ORAL TABLET 0.5 tab by mouth twice a da y CEFUROXIME AXETIL 500 MG ORAL TABLET 020458 CEFUROXIME AXETIL Inactive Immunizations Vaccine Administration Date [...] mg/dL Encounters Code Encounter Date Provider Facility CPT-26342 Level 4 Est. Patient 09:00:38 SENIOR GAME DESIGNER Remigio Childress MD [facility] CPT-59648 Level 3 Est. Patient 14:18:32 CDT Tigre michelee [facility] [place] CPT-74616 Level 4 Est. Patient 13:48:04 CDT Remigio Childress MD [facility] CPT-06505 [id number] Vst-Est Level III 10:10:19 SENIOR GAME DESIGNER Alban Boyce MD [facility] CPT-84455 Level 3 Est. Patient 13:45:32 SENIOR GAME DESIGNER Trina tapia [facility] [place] CPT-93696 Level 3 Est. Patient 10:03:23 CDT Remigio Childress MD [facility] Procedures Code Procedure Name Date Entry Date Standard Desc ription CPT-18080 IM or SQ Injection 09:09:52 SENIOR GAME DESIGNER CPT-86930 08622 - Immun Admin 1 vac 09:08:43 SENIOR GAME DESIGNER 2018 CPT-31156 Flulaval Quadrivalent (Flu) 10Pk Syringe IM 2018 09:08:43 SENIOR GAME DESIGNER CPT-000 Give PPD 13:51:16 CDT
--- OUTSIDE RECORDS SUMMARY | 2019-07-22 05:00 | XMS REPORT | Clinical Summary ---
Author Author Admin, Virgen MICHELET Organization [employer] Address Unknown Phone Unavailable Allergies, Adverse Reactions, Alerts Allergy Name Reaction Description Start Date Severity Status Pr ovider IODINE rash Mild Active Alban gentile MD LATEX rash Mild Active Alban gnetile MD Conditions or Problems Problem Name Problem [...] Index 35.0- 35.9, adult BMI 36-36.9 Active Kiana MELENDEZ Body Mass Index 35.0-35.9, adult Obesity Class II (BMI 35-39.9) 278.00 Active Remigio Childress MD Obesity, unspecified Hyperlipidemia 272.4 Active Remigio Childress MD Other and unspecified hyperlipidemia Bitten by cat, initial encounter & Other injury of unspecified body region, initial encounter 879.8 Active Tigre Braden APRN Open wound(s) (multiple) of unspecified site(s) except limbs, without mention of complication Acute sinusitis 461.9 Active Kiana Miller APRN-C Acute sinusitis, unspecified Chronic sinusitis 473.9 Active Kiana Miller APRN- C Unspecified sinusitis (chronic) Eustachian tube dysfunction, bilateral 381.81 Active Kiana Miller APRN-C Dysfunction of Eustachian tube Upper respiratory infection, viral ICD-465.9 I nactive Remigio Childress MD Sinusitis, acute frontal ICD-461.1 Inactive Remigio Childress MD Medication List Medication Instructions Start Date Stop Date Generic Name NDC Status Provider Patient Instruction FLONASE ALLERGY RELIEF 50 MCG/ACT NASAL SUSPENSION 1 spray e ach nare BID FLUTICASONE PROPIONATE 00076920838 Active Kiana Miller APR N-C Active PREDNISONE 20 MG ORAL TABLET 2 tabs po daily x3 days PREDNISONE 40805837572 Active Kiana Miller APRN-C Active CEFUROXIME AXETIL 500 MG ORAL TABLET 0.5 tab by mouth twice a da y CEFUROXIME AXETIL 33501026558 No Longer Active Kiana Miller APRN-C Active CLARITIN 10 MG ORAL TABLET 1 tab daily LORATADINE 86807467990 Active Kinaa Miller APRN-C Active AUGMENTIN 875-125 MG ORAL TABLET 1 po BID x 10 days 20 30/10/14 AMOXICILLIN-POT CLAVULANATE No Longer Active Tigre Braden APRN Active LAMICTAL 200 MG ORAL TABLET 2 po qHS LAMOTRIGINE 53104443227 Active Remigio Childress MD Active PRAZOSIN HCL 1 MG ORAL CAPSULE 2 po qHS PRAZOSIN HCL 68252980798 Active Remigio Childress MD Active BUPROPION HCL ER (XL) 300 MG ORAL TABLET EXTENDED RELEASE 24 HOUR 1 po qd BUPROPION HCL 78280188739 Active Remigio Childress MD Active ATORVASTATIN CALCIUM 20 MG ORAL TABLET 1 po qHS ATORVASTATIN CALCIUM 37278214348 Active Remigio Childress MD Active MULTIVITAMIN ADULT ORAL TABLET 1 po qd MULTI PLE VITAMINS-MINERALS 65659736248 Active Remigio Childress MD Active PROAIR HFA 108 (90 BASE) MCG/ACT INHALATION AEROSOL SO LUTION 2 puffs q4hr PRN Shortness of air/Wheezing ALBUTEROL SULFATE 09827239593 Ac tive Remigio Childress MD Active FLUTICASONE PROPIONATE 50 MCG/ACT NASAL SUSPENSION 2 s prays/nostril qd PRN Congestion/Allergies FLUTICASONE PROPIONATE 58574986066 Ac tive Remigio Childress MD Active ENSKYCE 0.15-30 MG-MCG ORAL TABLET 1 po qd DESOGESTREL-ETHINYL ESTRADIOL 77399499598 Active Remigio Childress MD Active ZITHROMAX Z-FELA 250 MG ORAL TABLET 2 today, then 1 daily for 4 d ays AZITHROMYCIN 57815010481 No Longer Active Alban Boyce MD Active PREDNISONE 20 MG ORAL TABLET 3 tabs for 2 days, 2 tabs for 4 days 1 ta for 4 days, 1/2 tab for 4 days PREDNISONE 87301592476 No Longer Active Alban Boyce MD Active AMOXICILLIN-POT CLAVULANATE 875-125 MG ORAL TABLET 1 pill by mouth twice daily AMOXICILLIN-POT CLAVULANATE 53871768280 No Longer Act parth Trina Sell SQUADRON WORKER Active ATORVASTATIN CALCIUM 20 MG ORAL TABLET 1 po qHS 20 02/07/19 ATORVASTATIN CALCIUM 79728014494 No Longer Active Trina Sell SQUADRON WORKER Active [facility] MEL[facility] 5 MG ORAL TABLET 1 TAB PO Q HS ME LATONIN 43097074663 No Longer Active Trina Sell SQUADRON WORKER Active PROMETHAZINE-CODEINE 6.25-10 MG/5ML ORAL SYRUP 5ml po q6hr PRN C [facility] PROMETHAZINE-CODEINE 42416796004 No Longer Active Trina Ramirez SQUADRON WORKER Active PREDNISONE 20 MG ORAL TABLET 2 po qd x 5 days P REDNISONE 25468281534 No Longer Active Remigio Childress MD Active PROMETHAZINE-CODEINE 6.25-10 MG/5ML ORAL SYRUP 5ml po q6hr PRN C [facility] PROMETHAZINE-CODEINE 6.25-10 MG/5ML ORAL SYRUP 508166 PROMETHAZINE-CODEINE Inactive [facility] MELAT[facility]IN 5 MG ORAL TABLET 1 TAB PO Q HS 1 [facility] MELAT[facility]IN 5 MG ORAL TABLET 226011 MELATONIN Inactive PREDNISONE 20 MG ORAL TABLET 3 tabs for 2 days, 2 tabs for 4 days 1 ta for 4 days, 1/2 tab for 4 days PREDNISONE 20 MG ORAL T ABLET 990896 PREDNISONE Inactive PREDNISONE 20 MG ORAL TABLET 2 po qd x 5 days PREDNISONE 20 MG ORAL TABLET 167619 PREDNISONE Inactive ATORVASTATIN CALCIUM 20 MG ORAL TABLET 1 po qHS 02/07/19 ATORVASTATIN CALCIUM 20 MG ORAL TABLET 322918 ATORVASTATIN CALCIUM Inactive AMOXICILLIN-POT CLAVULANATE 875-125 MG ORAL TABLET 1 pill by mouth twice daily AMOXICILLIN-POT CLAVULANATE 875-125 MG ORAL TABL ET 969996 AMOXICILLIN-POT CLAVULANATE Inactive ZITHROMAX Z-FELA 250 MG ORAL TABLET 2 today, then 1 daily for 4 d ays ZITHROMAX Z-FELA 250 MG ORAL TABLET 866460 AZITHROMYCIN Inactive AUGMENTIN 875-125 MG ORAL TABLET 1 po BID x 10 days 30/10/14 AUGMENTIN 875-125 MG ORAL TABLET AMOXICILLIN-POT CLAVULANATE Inactive CEFUROXIME AXETIL 500 MG ORAL TABLET 0.5 tab by mouth twice a da y CEFUROXIME AXETIL 500 MG ORAL TABLET 020094 CEFUROXIME AXETIL Inactive Immunizations Vaccine Administration Date Value Standard Heber cription influenza immunization (Flu Vax) has been administered 02/26 Done according to patient influenza virus vaccine, unspecified for mulation Vital Signs Date Name Value Unit Range Description blood pressure, diastolic, repeated by physician 96 [...] weight E&M 191 [lb_av] Weight Measure d temperature E&M 98.1 [degF] Body temp erature weight E&M 190 [lb_av] Weight Measure d Diagnostic Results Date Name Value Unit Range Description Office Visit: congestion,fever,cough - C hemistry HDL cholesterol, serum, target level 40 mg/dL cholesterol, target level 200 mg/dL triglyceride, target level 150 mg/dL Encounters Code Encounter Date Provider Facility CPT-83815 Level 3 Est. Patient 14:18:32 CDT Tigre fu [facility] CPT-15385 Level 4 Est. Patient 13:48:04 CDT Remigio Childress MD [facility] CPT-26896 [id number] Vst-Est Level III 10:10:19 CORE SHAPER TOP Alban Boyce MD [facility] CPT-81279 Level 3 Est. Patient 13:45:32 CORE SHAPER TOP Trina tapia [facility] CPT-17105 Level 3 Est. Patient 10:03:23 CDT Remigio Childress MD [facility] Procedures Code Procedure Name Date Entry Date Standard Desc ription CPT-000 Give PPD 13:51:16 CDT
--- OUTSIDE RECORDS SUMMARY | 2019-07-22 05:00 | XMS REPORT | Clinical Summary ---
Author Author Admin, Virgen MICHELET Organization [facility] Address Unknown Phone Unavailable Allergies, Adverse Reactions, [...] 1 po qHS 20 01/04/06 ATORVASTATIN CALCIUM 18138379837 No Longer Active Remigio Childress MD Active LAMICTAL 200 MG ORAL TABLET 1.5 po qHS LAMOTRIGIN E 14232274340 Active Remigio Childress MD Active CLARITIN 10 MG ORAL TABLET 1 tab daily LORATADI NE 33033507510 No Longer Active Remigio Childress MD Active FLONASE ALLERGY RELIEF 50 MCG/ACT NASAL SUSPENSION 1 spray e ach nare BID FLUTICASONE PROPIONATE 29994172973 No Longer Active Aleksandra Childress MD Active PREDNISONE 20 MG ORAL TABLET 2 tabs po daily x3 days 2 PREDNISONE 09110987317 No Longer Active Remigio Childress MD Activ e CEFUROXIME AXETIL 500 MG ORAL TABLET 0.5 tab by mouth twice a da y CEFUROXIME AXETIL 89606415453 No Longer Active Kiana Miller MARKET RESEARCH INTERVIEWER-C Active AUGMENTIN 875-125 MG ORAL TABLET 1 po BID x 10 days 20 30/10/14 AMOXICILLIN-POT CLAVULANATE No Longer Active Tigre Braden APRN Active PRAZOSIN HCL 1 MG ORAL CAPSULE 2 po qHS PRAZOSIN HCL 19281304937 Active Remigio Childress MD Active BUPROPION HCL ER (XL) 300 MG ORAL TABLET EXTENDED RELEASE 24 HOUR 1 po qd BUPROPION HCL 80869654320 Active Remigio Childress MD Active MULTIVITAMIN ADULT ORAL TABLET 1 po qd MULTI PLE VITAMINS-MINERALS 00747218436 Active Remigio Childress MD Active PROAIR HFA 108 (90 BASE) MCG/ACT INHALATION AEROSOL SO LUTION 2 puffs q4hr PRN Shortness of air/Wheezing ALBUTEROL SULFATE 32219325611 Ac rickve Remigio Childress MD Active FLUTICASONE PROPIONATE 50 MCG/ACT NASAL SUSPENSION 2 s prays/nostril qd PRN Congestion/Allergies FLUTICASONE PROPIONATE 26365814310 Ac gifty Childress MD Active ENSKYCE 0.15-30 MG-MCG ORAL TABLET 1 po qd DESOGESTREL-ETHINYL ESTRADIOL 93486131672 Active Remigio Childress MD Active ZITHROMAX Z-FELA 250 MG ORAL TABLET 2 today, then 1 daily for 4 d ays AZITHROMYCIN 54139068330 No Longer Active Alban Boyce MD Active PREDNISONE 20 MG ORAL TABLET 3 tabs for 2 days, 2 tabs for 4 days 1 ta for 4 days, 1/2 tab for 4 days PREDNISONE 34254691702 No Longer Active Alban Boyce MD Active AMOXICILLIN-POT CLAVULANATE 875-125 MG ORAL TABLET 1 pill by mouth twice daily AMOXICILLIN-POT CLAVULANATE 25187098401 No Longer Act parth Trina Sell MARKET RESEARCH INTERVIEWER Active ATORVASTATIN CALCIUM 20 MG ORAL TABLET 1 po qHS 20 02/07/19 ATORVASTATIN CALCIUM 10430989051 No Longer Active Trina Sell MARKET RESEARCH INTERVIEWER Active [facility] MELAT[facility]IN 5 MG ORAL TABLET 1 TAB PO Q HS ME LATONIN 55069298125 No Longer Active Trina Sell MARKET RESEARCH INTERVIEWER Active PROMETHAZINE-CODEINE 6.25-10 MG/5ML ORAL SYRUP 5ml po q6hr PRN C ou PROMETHAZINE-CODEINE 13739100494 No Longer Active Trina Sell MARKET RESEARCH INTERVIEWER Active PREDNISONE 20 MG ORAL TABLET 2 po qd x 5 days P REDNISONE 06422778330 No Longer Active Remigio Childress MD Active PROMETHAZINE-CODEINE 6.25-10 MG/5ML ORAL SYRUP 5ml po q6hr PRN C ou PROMETHAZINE-CODEINE 6.25-10 MG/5ML ORAL SYRUP 169263 PROMETHAZINE-CODEINE Inactive [facility] MELATONIN 5 MG ORAL TABLET 1 TAB PO Q HS 1 [facility] MELATONIN 5 MG ORAL TABLET 597051 MELATONIN Inactive PREDNISONE 20 MG ORAL TABLET 3 tabs for 2 days, 2 tabs for 4 days 1 ta for 4 days, 1/2 tab for 4 days PREDNISONE 20 MG ORAL T ABLET 884926 PREDNISONE Inactive PREDNISONE 20 MG ORAL TABLET 2 tabs po daily x3 days 2 PREDNISONE 20 MG ORAL TABLET 064886 PREDNISONE Inactive FLONASE ALLERGY RELIEF 50 MCG/ACT NASAL SUSPENSION 1 spray e ach nare BID FLONASE ALLERGY RELIEF 50 MCG/ACT NASAL SUSPENSION 8334001 FLUTICASONE PROPIONATE Inactive CLARITIN 10 MG ORAL TABLET 1 tab daily C LARITIN 10 MG ORAL TABLET 319372 LORATADINE Inactive ATORVASTATIN CALCIUM 20 MG ORAL TABLET 1 po qHS 20 01/04/06 ATORVASTATIN CALCIUM 20 MG ORAL TABLET 047933 ATORVASTATIN CALCIUM Inactive PREDNISONE 20 MG ORAL TABLET 2 po qd x 5 days PREDNISONE 20 MG ORAL TABLET 264344 PREDNISONE Inactive ATORVASTATIN CALCIUM 20 MG ORAL TABLET 1 po qHS 20 02/07/19 ATORVASTATIN CALCIUM 20 MG ORAL TABLET 178288 ATORVASTATIN CALCIUM Inactive AMOXICILLIN-POT CLAVULANATE 875-125 MG ORAL TABLET 1 pill by mouth twice daily AMOXICILLIN-POT CLAVULANATE 875-125 MG ORAL TABL ET 565472 AMOXICILLIN-POT CLAVULANATE Inactive ZITHROMAX Z-FELA 250 MG ORAL TABLET 2 today, then 1 daily for 4 d ays ZITHROMAX Z-FELA 250 MG ORAL TABLET 764512 AZITHROMYCIN Inactive AUGMENTIN 875-125 MG ORAL TABLET 1 po BID x 10 days 30/10/14 AUGMENTIN 875-125 MG ORAL TABLET AMOXICILLIN-POT CLAVULANATE Inactive CEFUROXIME AXETIL 500 MG ORAL TABLET 0.5 tab by mouth twice a da y CEFUROXIME AXETIL 500 MG ORAL TABLET 200468 CEFUROXIME AXETIL Inactive Immunizations Vaccine Administration Date [...] mg/dL Encounters Code Encounter Date Provider Facility CPT-33536 Level 4 Est. Patient 09:00:38 HOSTESS Remigio Childress MD [facility] CPT-60413 Level 3 Est. Patient 14:18:32 CDT Tigre fu [facility] CPT-92150 Level 4 Est. Patient 13:48:04 CDT Remigio Childress MD [facility] CPT-36887 [id number] Vst-Est Level III 10:10:19 HOSTESS Alban Boyce MD [facility] CPT-32721 Level 3 Est. Patient 13:45:32 HOSTESS Trina tapia [facility] CPT-77557 Level 3 Est. Patient 10:03:23 CDT Remigio Childress MD [facility] Procedures Code Procedure Name Date Entry Date Standard Desc ription CPT-49881 IM or SQ Injection 09:09:52 HOSTESS CPT-77200 95426 - Immun Admin 1 vac 09:08:43 HOSTESS 2018 CPT-04238 Flulaval Quadrivalent (Flu) 10Pk Syringe IM 2018 09:08:43 HOSTESS CPT-000 Give PPD 13:51:16 CDT
--- OUTSIDE RECORDS SUMMARY | 2019-07-22 05:00 | XMS REPORT | Clinical Summary ---
Author Author Admin, Virgen MICHELET Organization [employer] Address Unknown Phone Unavailable Allergies, Adverse Reactions, [...] spray e ach nare BID FLUTICASONE PROPIONATE 26459565955 Active Kiana Miller APR N-C Active PREDNISONE 20 MG ORAL TABLET 2 tabs po daily x3 days PREDNISONE 87341616927 Active Kiana Miller APRN-C Active CEFUROXIME AXETIL 500 MG ORAL TABLET 0.5 tab by mouth twice a da y CEFUROXIME AXETIL 96365184119 Active Kiana Miller APRN-C Active CLARITIN 10 MG ORAL TABLET 1 tab daily LORATADINE 15006541460 Active Kiana Miller APRN-C Active AUGMENTIN 875-125 MG ORAL TABLET 1 po BID x 10 days 20 30/10/14 AMOXICILLIN-POT CLAVULANATE No Longer Active Tigre Braden APRN Active LAMICTAL 200 MG ORAL TABLET 2 po qHS LAMOTRIGINE 19006981252 Active Remigio Childress MD Active PRAZOSIN HCL 1 MG ORAL CAPSULE 2 po qHS PRAZOSIN HCL 08409074846 Active Remigio Childress MD Active BUPROPION HCL ER (XL) 300 MG ORAL TABLET EXTENDED RELEASE 24 HOUR 1 po qd BUPROPION HCL 48199803044 Active Remigio Childress MD Active ATORVASTATIN CALCIUM 20 MG ORAL TABLET 1 po qHS ATORVASTATIN CALCIUM 11132353645 Active Remigio Childress MD Active MULTIVITAMIN ADULT ORAL TABLET 1 po qd MULTI PLE VITAMINS-MINERALS 63772742194 Active Remigio Childress MD Active PROAIR HFA 108 (90 BASE) MCG/ACT INHALATION AEROSOL SO LUTION 2 puffs q4hr PRN Shortness of air/Wheezing ALBUTEROL SULFATE 42456304135 Ac tive Remigio Childress MD Active FLUTICASONE PROPIONATE 50 MCG/ACT NASAL SUSPENSION 2 s prays/nostril qd PRN Congestion/Allergies FLUTICASONE PROPIONATE 87996314856 Ac tive Remigio Childress MD Active ENSKYCE 0.15-30 MG-MCG ORAL TABLET 1 po qd DESOGESTREL-ETHINYL ESTRADIOL 61450612510 Active Remigio Childress MD Active ZITHROMAX Z-FELA 250 MG ORAL TABLET 2 today, then 1 daily for 4 d ays AZITHROMYCIN 33656708616 No Longer Active Alban Boyce MD Active PREDNISONE 20 MG ORAL TABLET 3 tabs for 2 days, 2 tabs for 4 days 1 ta for 4 days, 1/2 tab for 4 days PREDNISONE 15703992369 No Longer Active Alban Boyce MD Active AMOXICILLIN-POT CLAVULANATE 875-125 MG ORAL TABLET 1 pill by mouth twice daily AMOXICILLIN-POT CLAVULANATE 22238233859 No Longer Act parth Trina Sell CUT ORDER HAND Active ATORVASTATIN CALCIUM 20 MG ORAL TABLET 1 po qHS 20 02/07/19 ATORVASTATIN CALCIUM 31072241594 No Longer Active Trina Sell CUT ORDER HAND Active [facility] MELATONIN 5 MG ORAL TABLET 1 TAB PO Q HS ME LATONIN 40838645230 No Longer Active Trina Sell CUT ORDER HAND Active PROMETHAZINE-CODEINE 6.25-10 MG/5ML ORAL SYRUP 5ml po q6hr PRN C ough PROMETHAZINE-CODEINE 39583359188 No Longer Active Trina Ramirez CUT ORDER HAND Active PREDNISONE 20 MG ORAL TABLET 2 po qd x 5 days P REDNISONE 30584197338 No Longer Active Remigio Childress MD Active PROMETHAZINE-CODEINE 6.25-10 MG/5ML ORAL SYRUP 5ml po q6hr PRN C ough PROMETHAZINE-CODEINE 6.25-10 MG/5ML ORAL SYRUP 182741 PROMETHAZINE-CODEINE Inactive [facility] MELATONIN 5 MG ORAL TABLET 1 TAB PO Q HS 1 [facility] MELATONIN 5 MG ORAL TABLET 423565 MELATONIN Inactive PREDNISONE 20 MG ORAL TABLET 3 tabs for 2 days, 2 tabs for 4 days 1 ta for 4 days, 1/2 tab for 4 days PREDNISONE 20 MG ORAL T ABLET 977140 PREDNISONE Inactive PREDNISONE 20 MG ORAL TABLET 2 po qd x 5 days PREDNISONE 20 MG ORAL TABLET 729968 PREDNISONE Inactive ATORVASTATIN CALCIUM 20 MG ORAL TABLET 1 po qHS 02/07/19 ATORVASTATIN CALCIUM 20 MG ORAL TABLET 745252 ATORVASTATIN CALCIUM Inactive AMOXICILLIN-POT CLAVULANATE 875-125 MG ORAL TABLET 1 pill by mouth twice daily AMOXICILLIN-POT CLAVULANATE 875-125 MG ORAL TABL ET 352227 AMOXICILLIN-POT CLAVULANATE Inactive ZITHROMAX Z-FELA 250 MG ORAL TABLET 2 today, then 1 daily for 4 d ays ZITHROMAX Z-FELA 250 MG ORAL TABLET 356085 AZITHROMYCIN Inactive AUGMENTIN 875-125 MG ORAL TABLET 1 po BID x 10 days 30/10/14 AUGMENTIN 875-125 MG ORAL TABLET AMOXICILLIN-POT CLAVULANATE Inactive Immunizations Vaccine Administration Date Value Standard [...] mg/dL Encounters Code Encounter Date Provider Facility CPT-93189 Level 3 Est. Patient 14:18:32 CDT Tigre fu [facility] CPT-03220 Level 4 Est. Patient 13:48:04 CDT Remigio Childress MD [facility] CPT-37779 [id number] Vst-Est Level III 10:10:19 VISUAL EDUCATION DIRECTOR Alban Boyce MD [facility] CPT-16247 Level 3 Est. Patient 13:45:32 VISUAL EDUCATION DIRECTOR Trina tapia [facility] CPT-05062 Level 3 Est. Patient 10:03:23 CDT Remigio Childress MD [facility] Procedures Code Procedure Name Date Entry Date Standard Desc ription CPT-000 Give PPD 13:51:16 CDT
--- OUTSIDE RECORDS SUMMARY | 2019-07-22 05:00 | XMS REPORT | Clinical Summary ---
Author Author Admin, Virgen MICHELET Organization [employer] Address Unknown Phone Unavailable Allergies, Adverse Reactions, [...] spray e ach nare BID FLUTICASONE PROPIONATE 37698192571 Active Kiana Miller APR N-C Active PREDNISONE 20 MG ORAL TABLET 2 tabs po daily x3 days PREDNISONE 50587067803 Active Kiana Miller APRN-C Active CEFUROXIME AXETIL 500 MG ORAL TABLET 0.5 tab by mouth twice a da y CEFUROXIME AXETIL 26914263869 No Longer Active Kiana Miller APRN-C Active CLARITIN 10 MG ORAL TABLET 1 tab daily LORATADINE 58901188664 Active Kiana Miller APRN-C Active AUGMENTIN 875-125 MG ORAL TABLET 1 po BID x 10 days 20 30/10/14 AMOXICILLIN-POT CLAVULANATE No Longer Active Tigre Braden APRN Active LAMICTAL 200 MG ORAL TABLET 2 po qHS LAMOTRIGINE 41978640206 Active Remigio Childress MD Active PRAZOSIN HCL 1 MG ORAL CAPSULE 2 po qHS PRAZOSIN HCL 66251323270 Active Remigio Childress MD Active BUPROPION HCL ER (XL) 300 MG ORAL TABLET EXTENDED RELEASE 24 HOUR 1 po qd BUPROPION HCL 33570247883 Active Remigio Childress MD Active ATORVASTATIN CALCIUM 20 MG ORAL TABLET 1 po qHS ATORVASTATIN CALCIUM 19131207222 Active Remigio Childress MD Active MULTIVITAMIN ADULT ORAL TABLET 1 po qd MULTI PLE VITAMINS-MINERALS 83852666676 Active Remigio Childress MD Active PROAIR HFA 108 (90 BASE) MCG/ACT INHALATION AEROSOL SO LUTION 2 puffs q4hr PRN Shortness of air/Wheezing ALBUTEROL SULFATE 84257621639 Ac tive Remigio Childress MD Active FLUTICASONE PROPIONATE 50 MCG/ACT NASAL SUSPENSION 2 s prays/nostril qd PRN Congestion/Allergies FLUTICASONE PROPIONATE 95256652055 Ac tive Remigio Childress MD Active ENSKYCE 0.15-30 MG-MCG ORAL TABLET 1 po qd DESOGESTREL-ETHINYL ESTRADIOL 22973455709 Active Remigio Childress MD Active ZITHROMAX Z-FELA 250 MG ORAL TABLET 2 today, then 1 daily for 4 d ays AZITHROMYCIN 46915061509 No Longer Active Alban Boyce MD Active PREDNISONE 20 MG ORAL TABLET 3 tabs for 2 days, 2 tabs for 4 days 1 ta for 4 days, 1/2 tab for 4 days PREDNISONE 41012996096 No Longer Active Alban Boyce MD Active AMOXICILLIN-POT CLAVULANATE 875-125 MG ORAL TABLET 1 pill by mouth twice daily AMOXICILLIN-POT CLAVULANATE 94955749712 No Longer Act parth Trina Sell COMPUTER OPERATIONS TECHNICIAN Active ATORVASTATIN CALCIUM 20 MG ORAL TABLET 1 po qHS 20 02/07/19 ATORVASTATIN CALCIUM 89447176809 No Longer Active Trina Sell COMPUTER OPERATIONS TECHNICIAN Active [facility] MELATONIN 5 MG ORAL TABLET 1 TAB PO Q HS ME LATONIN 67874355819 No Longer Active Trina Sell COMPUTER OPERATIONS TECHNICIAN Active PROMETHAZINE-CODEINE 6.25-10 MG/5ML ORAL SYRUP 5ml po q6hr PRN C ough PROMETHAZINE-CODEINE 47708771804 No Longer Active Trina James RAZON Active PREDNISONE 20 MG ORAL TABLET 2 po qd x 5 days P REDNISONE 94836730459 No Longer Active Remigio Childress MD Active PROMETHAZINE-CODEINE 6.25-10 MG/5ML ORAL SYRUP 5ml po q6hr PRN C ough PROMETHAZINE-CODEINE 6.25-10 MG/5ML ORAL SYRUP 846299 PROMETHAZINE-CODEINE Inactive [facility] MELATONIN 5 MG ORAL TABLET 1 TAB PO Q HS 1 [facility] MELATONIN 5 MG ORAL TABLET 919756 MELATONIN Inactive PREDNISONE 20 MG ORAL TABLET 3 tabs for 2 days, 2 tabs for 4 days 1 ta for 4 days, 1/2 tab for 4 days PREDNISONE 20 MG ORAL T ABLET 647339 PREDNISONE Inactive PREDNISONE 20 MG ORAL TABLET 2 po qd x 5 days PREDNISONE 20 MG ORAL TABLET 866262 PREDNISONE Inactive ATORVASTATIN CALCIUM 20 MG ORAL TABLET 1 po qHS 02/07/19 ATORVASTATIN CALCIUM 20 MG ORAL TABLET 894272 ATORVASTATIN CALCIUM Inactive AMOXICILLIN-POT CLAVULANATE 875-125 MG ORAL TABLET 1 pill by mouth twice daily AMOXICILLIN-POT CLAVULANATE 875-125 MG ORAL TABL ET 538667 AMOXICILLIN-POT CLAVULANATE Inactive ZITHROMAX Z-FELA 250 MG ORAL TABLET 2 today, then 1 daily for 4 d ays ZITHROMAX Z-FELA 250 MG ORAL TABLET 960026 AZITHROMYCIN Inactive AUGMENTIN 875-125 MG ORAL TABLET 1 po BID x 10 days 30/10/14 AUGMENTIN 875-125 MG ORAL TABLET AMOXICILLIN-POT CLAVULANATE Inactive CEFUROXIME AXETIL 500 MG ORAL TABLET 0.5 tab by mouth twice a da y CEFUROXIME AXETIL 500 MG ORAL TABLET 089358 CEFUROXIME AXETIL Inactive Immunizations Vaccine Administration Date [...] mg/dL Encounters Code Encounter Date Provider Facility CPT-48115 Level 3 Est. Patient 14:18:32 CDT Tigre fu [facility] CPT-82331 Level 4 Est. Patient 13:48:04 CDT Remigio Childress MD [facility] CPT-34889 [id number] Vst-Est Level III 10:10:19 MANAGER SHIFT Alban oByce MD [facility] CPT-26306 Level 3 Est. Patient 13:45:32 MANAGER SHIFT Trina tapia [facility] CPT-62707 Level 3 Est. Patient 10:03:23 CDT Remigio Childress MD [facility] Procedures Code Procedure Name Date Entry Date Standard Desc ription CPT-000 Give PPD 13:51:16 CDT
--- OUTSIDE RECORDS SUMMARY | 2019-07-22 05:00 | XMS REPORT | Clinical Summary ---
Author Author Admin, Virgen MICHELET Organization [facility] Address Unknown Phone Unavailable Allergies, [...] spray e ach nare BID FLUTICASONE PROPIONATE 09865199751 Active Kiana Miller APR N-C Active PREDNISONE 20 MG ORAL TABLET 2 tabs po daily x3 days PREDNISONE 66842893406 Active Kiana Miller APRN-C Active CEFUROXIME AXETIL 500 MG ORAL TABLET 0.5 tab by mouth twice a da y CEFUROXIME AXETIL 70274389282 Active Kiana Miller APRN-C Active CLARITIN 10 MG ORAL TABLET 1 tab daily LORATADINE 58704411400 Active Kiana Miller APRN-C Active AUGMENTIN 875-125 MG ORAL TABLET 1 po BID x 10 days 20 30/10/14 AMOXICILLIN-POT CLAVULANATE No Longer Active Tigre Braden APRN Active LAMICTAL 200 MG ORAL TABLET 2 po qHS LAMOTRIGINE 19680389326 Active Remigio Childress MD Active PRAZOSIN HCL 1 MG ORAL CAPSULE 2 po qHS PRAZOSIN HCL 06319652724 Active Remigio Childress MD Active BUPROPION HCL ER (XL) 300 MG ORAL TABLET EXTENDED RELEASE 24 HOUR 1 po qd BUPROPION HCL 85446323780 Active Remigio Childress MD Active ATORVASTATIN CALCIUM 20 MG ORAL TABLET 1 po qHS ATORVASTATIN CALCIUM 26199272645 Active Remigio Childress MD Active MULTIVITAMIN ADULT ORAL TABLET 1 po qd MULTI PLE VITAMINS-MINERALS 44910961319 Active Remigio Childress MD Active PROAIR HFA 108 (90 BASE) MCG/ACT INHALATION AEROSOL SO LUTION 2 puffs q4hr PRN Shortness of air/Wheezing ALBUTEROL SULFATE 91892119148 Ac tive Remigio Childress MD Active FLUTICASONE PROPIONATE 50 MCG/ACT NASAL SUSPENSION 2 s prays/nostril qd PRN Congestion/Allergies FLUTICASONE PROPIONATE 05230362322 Ac tive Remigio Childress MD Active ENSKYCE 0.15-30 MG-MCG ORAL TABLET 1 po qd DESOGESTREL-ETHINYL ESTRADIOL 80892715799 Active Remigio Childress MD Active ZITHROMAX Z-FELA 250 MG ORAL TABLET 2 today, then 1 daily for 4 d ays AZITHROMYCIN 43331624811 No Longer Active Alban Boyce MD Active PREDNISONE 20 MG ORAL TABLET 3 tabs for 2 days, 2 tabs for 4 days 1 ta for 4 days, 1/2 tab for 4 days PREDNISONE 22165996854 No Longer Active Alban Boyce MD Active AMOXICILLIN-POT CLAVULANATE 875-125 MG ORAL TABLET 1 pill by mouth twice daily AMOXICILLIN-POT CLAVULANATE 75084326612 No Longer Act parth Trina Sell ACCOUNTS PAYABLE SUPERVISOR Active ATORVASTATIN CALCIUM 20 MG ORAL TABLET 1 po qHS 20 02/07/19 ATORVASTATIN CALCIUM 29570362062 No Longer Active Trina Sell ACCOUNTS PAYABLE SUPERVISOR Active [facility] MELATONIN 5 MG ORAL TABLET 1 TAB PO Q HS ME LATONIN 62331881260 No Longer Active Trina Sell ACCOUNTS PAYABLE SUPERVISOR Active PROMETHAZINE-CODEINE 6.25-10 MG/5ML ORAL SYRUP 5ml po q6hr PRN C ough PROMETHAZINE-CODEINE 67834085227 No Longer Active Trina Ramirez ACCOUNTS PAYABLE SUPERVISOR Active PREDNISONE 20 MG ORAL TABLET 2 po qd x 5 days P REDNISONE 56939341905 No Longer Active Remigio Childress MD Active PROMETHAZINE-CODEINE 6.25-10 MG/5ML ORAL SYRUP 5ml po q6hr PRN C ough PROMETHAZINE-CODEINE 6.25-10 MG/5ML ORAL SYRUP 035736 PROMETHAZINE-CODEINE Inactive [facility] MELATONIN 5 MG ORAL TABLET 1 TAB PO Q HS 1 [facility] MELATONIN 5 MG ORAL TABLET 119853 MELATONIN Inactive PREDNISONE 20 MG ORAL TABLET 3 tabs for 2 days, 2 tabs for 4 days 1 ta for 4 days, 1/2 tab for 4 days PREDNISONE 20 MG ORAL T ABLET 495147 PREDNISONE Inactive PREDNISONE 20 MG ORAL TABLET 2 po qd x 5 days PREDNISONE 20 MG ORAL TABLET 568263 PREDNISONE Inactive ATORVASTATIN CALCIUM 20 MG ORAL TABLET 1 po qHS 02/07/19 ATORVASTATIN CALCIUM 20 MG ORAL TABLET 990588 ATORVASTATIN CALCIUM Inactive AMOXICILLIN-POT CLAVULANATE 875-125 MG ORAL TABLET 1 pill by mouth twice daily AMOXICILLIN-POT CLAVULANATE 875-125 MG ORAL TABL ET 898518 AMOXICILLIN-POT CLAVULANATE Inactive ZITHROMAX Z-FELA 250 MG ORAL TABLET 2 today, then 1 daily for 4 d ays ZITHROMAX Z-FELA 250 MG ORAL TABLET 071860 AZITHROMYCIN Inactive AUGMENTIN 875-125 MG ORAL TABLET [...] mg/dL Encounters Code Encounter Date Provider Facility CPT-07829 Level 3 Est. Patient 14:18:32 CDT Tigre fu [facility] CPT-36487 Level 4 Est. Patient 13:48:04 CDT Remigio Childress MD [facility] CPT-32012 [id number] Vst-Est Level III 10:10:19 CLIP ON SUNGLASSES ASSEMBLER Alban Boyce MD [facility] CPT-91666 Level 3 Est. Patient 13:45:32 CLIP ON SUNGLASSES ASSEMBLER Trina tapia [facility] CPT-97860 Level 3 Est. Patient 10:03:23 CDT Remigio Childress MD [facility] Procedures Code Procedure Name Date Entry Date Standard Desc ription CPT-000 Give PPD 13:51:16 CDT
--- OUTSIDE RECORDS SUMMARY | 2019-07-22 05:01 | XMS REPORT | Clinical Summary ---
Author Author Admin, Virgen MICHELET Organization [employer] Address Unknown Phone Unavailable Allergies, Adverse Reactions, [...] Kiana Miller APRN-C Dysfunction of Eustachian tube Sinusitis, acute frontal ICD-461.1 Inactive Remigio Childress MD Upper respiratory infection, viral ICD-465.9 I nactive Remigio Childress MD Medication List Medication Instructions Start Date Stop Date Generic Name NDC Status Provider Patient Instruction FLONASE ALLERGY RELIEF 50 MCG/ACT NASAL SUSPENSION 1 spray e ach nare BID FLUTICASONE PROPIONATE 93824441173 Active Kiana Miller APR N-C Active PREDNISONE 20 MG ORAL TABLET 2 tabs po daily x3 days PREDNISONE 13969208084 Active Kiana Miller APRN-C Active CEFUROXIME AXETIL 500 MG ORAL TABLET 0.5 tab by mouth twice a da y CEFUROXIME AXETIL 90498039759 Active Kiana Miller APRN-C Active CLARITIN 10 MG ORAL TABLET 1 tab daily LORATADINE 12528482749 Active Kiana Miller APRN-C Active AUGMENTIN 875-125 MG ORAL TABLET 1 po BID x 10 days 20 30/10/14 AMOXICILLIN-POT CLAVULANATE No Longer Active Tigre Braden APRN Active LAMICTAL 200 MG ORAL TABLET 2 po qHS LAMOTRIGINE 00386659728 Active Remigio Childress MD Active PRAZOSIN HCL 1 MG ORAL CAPSULE 2 po qHS PRAZOSIN HCL 50799606101 Active Remigio Childress MD Active BUPROPION HCL ER (XL) 300 MG ORAL TABLET EXTENDED RELEASE 24 HOUR 1 po qd BUPROPION HCL 34929177721 Active Remigio Childress MD Active ATORVASTATIN CALCIUM 20 MG ORAL TABLET 1 po qHS ATORVASTATIN CALCIUM 32027036407 Active Remigio Childress MD Active MULTIVITAMIN ADULT ORAL TABLET 1 po qd MULTI PLE VITAMINS-MINERALS 29215312889 Active Remigio Childress MD Active PROAIR HFA 108 (90 BASE) MCG/ACT INHALATION AEROSOL SO LUTION 2 puffs q4hr PRN Shortness of air/Wheezing ALBUTEROL SULFATE 09225183555 Ac tive Remigio Childress MD Active FLUTICASONE PROPIONATE 50 MCG/ACT NASAL SUSPENSION 2 s prays/nostril qd PRN Congestion/Allergies FLUTICASONE PROPIONATE 20959714637 Ac tive Remigio Childress MD Active ENSKYCE 0.15-30 MG-MCG ORAL TABLET 1 po qd DESOGESTREL-ETHINYL ESTRADIOL 25586870883 Active Remigio Childress MD Active ZITHROMAX Z-FELA 250 MG ORAL TABLET 2 today, then 1 daily for 4 d ays AZITHROMYCIN 33591346958 No Longer Active Alban Boyce MD Active PREDNISONE 20 MG ORAL TABLET 3 tabs for 2 days, 2 tabs for 4 days 1 ta for 4 days, 1/2 tab for 4 days PREDNISONE 58268853306 No Longer Active Alban Boyce MD Active AMOXICILLIN-POT CLAVULANATE 875-125 MG ORAL TABLET 1 pill by mouth twice daily AMOXICILLIN-POT CLAVULANATE 45438086476 No Longer Act parth Trina Sell FIRE CONTROL OFFICER Active ATORVASTATIN CALCIUM 20 MG ORAL TABLET 1 po qHS 20 02/07/19 ATORVASTATIN CALCIUM 40175091497 No Longer Active Trina Sell FIRE CONTROL OFFICER Active [facility]EL[facility] 5 MG ORAL TABLET 1 TAB PO Q HS ME LATONIN 92584006597 No Longer Active Trina Sell FIRE CONTROL OFFICER Active PROMETHAZINE-CODEINE 6.25-10 MG/5ML ORAL SYRUP 5ml po q6hr PRN C ough PROMETHAZINE-CODEINE 93124517921 No Longer Active Trina Ramirez FIRE CONTROL OFFICER Active PREDNISONE 20 MG ORAL TABLET 2 po qd x 5 days P REDNISONE 01887891257 No Longer Active Remigio Childress MD Active PROMETHAZINE-CODEINE 6.25-10 MG/5ML ORAL SYRUP 5ml po q6hr PRN C ough PROMETHAZINE-CODEINE 6.25-10 MG/5ML ORAL SYRUP 222171 PROMETHAZINE-CODEINE Inactive [facility] MEL[facility]IN 5 MG ORAL TABLET 1 TAB PO Q HS 1 [facility] MELATONIN 5 MG ORAL TABLET 362924 MELATONIN Inactive PREDNISONE 20 MG ORAL TABLET 3 tabs for 2 days, 2 tabs for 4 days 1 ta for 4 days, 1/2 tab for 4 days PREDNISONE 20 MG ORAL T ABLET 421795 PREDNISONE Inactive PREDNISONE 20 MG ORAL TABLET 2 po qd x 5 days PREDNISONE 20 MG ORAL TABLET 394368 PREDNISONE Inactive ATORVASTATIN CALCIUM 20 MG ORAL TABLET 1 po qHS 02/07/19 ATORVASTATIN CALCIUM 20 MG ORAL TABLET 068083 ATORVASTATIN CALCIUM Inactive AMOXICILLIN-POT CLAVULANATE 875-125 MG ORAL TABLET 1 pill by mouth twice daily AMOXICILLIN-POT CLAVULANATE 875-125 MG ORAL TABL ET 370009 AMOXICILLIN-POT CLAVULANATE Inactive ZITHROMAX Z-FELA 250 MG ORAL TABLET 2 today, then 1 daily for 4 d ays ZITHROMAX Z-FELA 250 MG ORAL TABLET 871743 AZITHROMYCIN Inactive AUGMENTIN 875-125 MG ORAL TABLET [...] mg/dL Encounters Code Encounter Date Provider Facility CPT-20328 Level 3 Est. Patient 14:18:32 CDT Tigre fu [facility] CPT-57983 Level 4 Est. Patient 13:48:04 CDT Remigio Childress MD [facility] CPT-61452 [id number] Vst-Est Level III 10:10:19 POLICE AND FIRE DISPATCHER Alban Boyce MD [facility] CPT-43738 Level 3 Est. Patient 13:45:32 POLICE AND FIRE DISPATCHER Trina tapia [facility] CPT-57872 Level 3 Est. Patient 10:03:23 CDT Remigio Childress MD [facility] Procedures Code Procedure Name Date Entry Date Standard Desc ription CPT-000 Give PPD 13:51:16 CDT
--- OUTSIDE RECORDS SUMMARY | 2019-07-22 05:01 | XMS REPORT | Clinical Summary ---
Author Author Admin, Virgen MICHELET Organization [employer] Address Unknown Phone Unavailable Allergies, Adverse Reactions, [...] Childress MD Exercise induced bronchospasm BMI 35-35.9 Active Remigio Childress MD Body [...] site(s) except limbs, without mention of complication Upper respiratory infection, viral ICD-465.9 I nactive Remigio Childress MD Sinusitis, acute frontal ICD-461.1 Inactive Remigio Childress MD Medication List Medication Instructions Start Date Stop Date Generic Name NDC Status Provider Patient Instruction AUGMENTIN 875-125 MG ORAL TABLET 1 po BID x 10 days 20 30/10/14 AMOXICILLIN-POT CLAVULANATE Active Tigre Braden APRN Active LAMICTAL 200 MG ORAL TABLET 2 po qHS LAMOTRIGINE 74042845881 Active Remigio Childress MD Active PRAZOSIN HCL 1 MG ORAL CAPSULE 2 po qHS PRAZOSIN HCL 89388326218 Active Remigio Childress MD Active BUPROPION HCL ER (XL) 300 MG ORAL TABLET EXTENDED RELEASE 24 HOUR 1 po qd BUPROPION HCL 73727653746 Active Remigio Childress MD Active ATORVASTATIN CALCIUM 20 MG ORAL TABLET 1 po qHS ATORVASTATIN CALCIUM 55151519000 Active Remigio Childress MD Active MULTIVITAMIN ADULT ORAL TABLET 1 po qd MULTI PLE VITAMINS-MINERALS 00544073756 Active Remigio Childress MD Active PROAIR HFA 108 (90 BASE) MCG/ACT INHALATION AEROSOL SO LUTION 2 puffs q4hr PRN Shortness of air/Wheezing ALBUTEROL SULFATE 29628752407 Ac tive Remigio Childress MD Active FLUTICASONE PROPIONATE 50 MCG/ACT NASAL SUSPENSION 2 s prays/nostril qd PRN Congestion/Allergies FLUTICASONE PROPIONATE 30145441768 Ac tive Remigio Childress MD Active ENSKYCE 0.15-30 MG-MCG ORAL TABLET 1 po qd DESOGESTREL-ETHINYL ESTRADIOL 19534622900 Active Remigio Childress MD Active ZITHROMAX Z-FELA 250 MG ORAL TABLET 2 today, then 1 daily for 4 d ays AZITHROMYCIN 49115739452 No Longer Active Alban Boyce MD Active PREDNISONE 20 MG ORAL TABLET 3 tabs for 2 days, 2 tabs for 4 days 1 ta for 4 days, 1/2 tab for 4 days PREDNISONE 95929109480 No Longer Active Alban Boyce MD Active AMOXICILLIN-POT CLAVULANATE 875-125 MG ORAL TABLET 1 pill by mouth twice daily AMOXICILLIN-POT CLAVULANATE 72001995405 No Longer Act parth Trina Sell COMPUTER SYSTEMS MANAGER Active ATORVASTATIN CALCIUM 20 MG ORAL TABLET 1 po qHS 02/07/19 ATORVASTATIN CALCIUM 56526544089 No Longer Active Trina Sell COMPUTER SYSTEMS MANAGER Active [facility] MEL[facility]IN 5 MG ORAL TABLET 1 TAB PO Q HS ME LATONIN 18999420551 No Longer Active Trina Sell COMPUTER SYSTEMS MANAGER Active PROMETHAZINE-CODEINE 6.25-10 MG/5ML ORAL SYRUP 5ml po q6hr PRN C ou PROMETHAZINE-CODEINE 20817489547 No Longer Active Trina Sell COMPUTER SYSTEMS MANAGER Active PREDNISONE 20 MG ORAL TABLET 2 po qd x 5 days P REDNISONE 97162623884 No Longer Active Remigio Childress MD Active PROMETHAZINE-CODEINE 6.25-10 MG/5ML ORAL SYRUP 5ml po q6hr PRN C ou PROMETHAZINE-CODEINE 6.25-10 MG/5ML ORAL SYRUP 273988 PROMETHAZINE-CODEINE Inactive [facility] MELATONIN 5 MG ORAL TABLET 1 TAB PO Q HS 1 [facility] MELATONIN 5 MG ORAL TABLET 488535 MELATONIN Inactive PREDNISONE 20 MG ORAL TABLET 3 tabs for 2 days, 2 tabs for 4 days 1 ta for 4 days, 1/2 tab for 4 days PREDNISONE 20 MG ORAL T ABLET 804808 PREDNISONE Inactive PREDNISONE 20 MG ORAL TABLET 2 po qd x 5 days PREDNISONE 20 MG ORAL TABLET 334421 PREDNISONE Inactive ATORVASTATIN CALCIUM 20 MG ORAL TABLET 1 po qHS 02/07/19 ATORVASTATIN CALCIUM 20 MG ORAL TABLET 246054 ATORVASTATIN CALCIUM Inactive AMOXICILLIN-POT CLAVULANATE 875-125 MG ORAL TABLET 1 pill by mouth twice daily AMOXICILLIN-POT CLAVULANATE 875-125 MG ORAL TABL ET 949390 AMOXICILLIN-POT CLAVULANATE Inactive ZITHROMAX Z-FELA 250 MG ORAL TABLET 2 today, then 1 daily for 4 d ays ZITHROMAX Z-FELA 250 MG ORAL TABLET 674646 AZITHROMYCIN Inactive Immunizations Vaccine Administration Date Value Standard Heber cription influenza immunization (Flu Vax) has been administered 02/26 Done according to patient influenza virus vaccine, unspecified for mulation Vital Signs Date Name Value Unit Range Description blood pressure, diastolic 83 mm[Hg] BP bettencourt [...] mg/dL Encounters Code Encounter Date Provider Facility CPT-83899 Level 3 Est. Patient 14:18:32 CDT Tigre fu [facility] [place] CPT-23093 Level 4 Est. Patient 13:48:04 CDT Remigio Childress MD [facility] CPT-49311 [id number] Vst-Est Level III 10:10:19 TOP LIFT CUTTER Alban Boyce MD [facility] CPT-63027 Level 3 Est. Patient 13:45:32 TOP LIFT CUTTER Trina tapia [facility] [place] CPT-98732 Level 3 Est. Patient 10:03:23 CDT Remigio Childress MD [facility] Procedures Code Procedure Name Date Entry Date Standard Desc ription CPT-000 Give PPD 13:51:16 CDT
--- OUTSIDE RECORDS SUMMARY | 2019-07-22 05:01 | XMS REPORT | Clinical Summary ---
Author Author Admin, Virgen TAFOYA Organization [employer] Address Unknown Phone Unavailable Allergies, Adverse Reactions, [...] days 20 30/10/14 AMOXICILLIN-POT CLAVULANATE Active Tigre Asiya HOUSEKEEPING CLEANER Active LAMICTAL 200 MG ORAL TABLET 2 po qHS LAMOTRIGINE 89331724714 Active Remigio Childress MD Active PRAZOSIN HCL 1 MG ORAL CAPSULE 2 po qHS PRAZOSIN HCL 42474766218 Active Remigio Childress MD Active BUPROPION HCL ER (XL) 300 MG ORAL TABLET EXTENDED RELEASE 24 HOUR 1 po qd BUPROPION HCL 90188984446 Active Remigio Childress MD Active ATORVASTATIN CALCIUM 20 MG ORAL TABLET 1 po qHS ATORVASTATIN CALCIUM 13642360445 Active Remigio Childress MD Active MULTIVITAMIN ADULT ORAL TABLET 1 po qd MULTI PLE VITAMINS-MINERALS 73439280816 Active Remigio Childress MD Active PROAIR HFA 108 (90 BASE) MCG/ACT INHALATION AEROSOL SO LUTION 2 puffs q4hr PRN Shortness of air/Wheezing ALBUTEROL SULFATE 73085838824 Ac tive Remigio Childress MD Active FLUTICASONE PROPIONATE 50 MCG/ACT NASAL SUSPENSION 2 s prays/nostril qd PRN Congestion/Allergies FLUTICASONE PROPIONATE 71149341506 Ac tive Remigio Childress MD Active ENSKYCE 0.15-30 MG-MCG ORAL TABLET 1 po qd DESOGESTREL-ETHINYL ESTRADIOL 95440712036 Active Remigio Childress MD Active ZITHROMAX Z-FELA 250 MG ORAL TABLET 2 today, then 1 daily for 4 d ays AZITHROMYCIN 76041362604 No Longer Active Alban Boyce MD Active PREDNISONE 20 MG ORAL TABLET 3 tabs for 2 days, 2 tabs for 4 days 1 ta for 4 days, 1/2 tab for 4 days PREDNISONE 50745466179 No Longer Active Alban Boyce MD Active AMOXICILLIN-POT CLAVULANATE 875-125 MG ORAL TABLET 1 pill by mouth twice daily AMOXICILLIN-POT CLAVULANATE 69552790761 No Longer Act parth Trina Sell HOUSEKEEPING CLEANER Active ATORVASTATIN CALCIUM 20 MG ORAL TABLET 1 po qHS 02/07/19 ATORVASTATIN CALCIUM 27716474715 No Longer Active Trina Sell HOUSEKEEPING CLEANER Active [facility] MEL[facility]IN 5 MG ORAL TABLET 1 TAB PO Q HS ME LATONIN 64346256195 No Longer Active Trina Sell HOUSEKEEPING CLEANER Active PROMETHAZINE-CODEINE 6.25-10 MG/5ML ORAL SYRUP 5ml po q6hr PRN C ou PROMETHAZINE-CODEINE 83923529558 No Longer Active Trina Sell HOUSEKEEPING CLEANER Active PREDNISONE 20 MG ORAL TABLET 2 po qd x 5 days P REDNISONE 23800532606 No Longer Active Remigio Childress MD Active PROMETHAZINE-CODEINE 6.25-10 MG/5ML ORAL SYRUP 5ml po q6hr PRN C ou PROMETHAZINE-CODEINE 6.25-10 MG/5ML ORAL SYRUP 268526 PROMETHAZINE-CODEINE Inactive [facility] MELAT[facility]IN 5 MG ORAL TABLET 1 TAB PO Q HS 1 [facility] MELAT[facility]IN 5 MG ORAL TABLET 414876 MELATONIN Inactive PREDNISONE 20 MG ORAL TABLET 3 tabs for 2 days, 2 tabs for 4 days 1 ta for 4 days, 1/2 tab for 4 days PREDNISONE 20 MG ORAL T ABLET 451066 PREDNISONE Inactive PREDNISONE 20 MG ORAL TABLET 2 po qd x 5 days PREDNISONE 20 MG ORAL TABLET 499486 PREDNISONE Inactive ATORVASTATIN CALCIUM 20 MG ORAL TABLET 1 po qHS 02/07/19 ATORVASTATIN CALCIUM 20 MG ORAL TABLET 515315 ATORVASTATIN CALCIUM Inactive AMOXICILLIN-POT CLAVULANATE 875-125 MG ORAL TABLET 1 pill by mouth twice daily AMOXICILLIN-POT CLAVULANATE 875-125 MG ORAL TABL ET 316566 AMOXICILLIN-POT CLAVULANATE Inactive ZITHROMAX Z-FELA 250 MG ORAL TABLET 2 today, then 1 daily for 4 d ays ZITHROMAX Z-FELA 250 MG ORAL TABLET 019350 AZITHROMYCIN Inactive Immunizations Vaccine Administration Date Value [...] mg/dL Encounters Code Encounter Date Provider Facility CPT-63383 Level 3 Est. Patient 14:18:32 CDT Tigre fu [facility] CPT-93853 Level 4 Est. Patient 13:48:04 CDT Remigio Childress MD [facility] CPT-41754 [id number] Vst-Est Level III 10:10:19 TRANSFER WORKER Alban Boyce MD [facility] CPT-76351 Level 3 Est. Patient 13:45:32 TRANSFER WORKER Trina tapia [facility] CPT-07853 Level 3 Est. Patient 10:03:23 CDT Remigio Childress MD [facility] Procedures Code Procedure Name Date Entry Date Standard Desc ription CPT-000 Give PPD 13:51:16 CDT
--- OUTSIDE RECORDS SUMMARY | 2019-07-22 05:01 | XMS REPORT | Clinical Summary ---
Author Author Admin, Virgen TAFOYA Organization [facility] Address Unknown Phone Unavailable Allergies, Adverse Reactions, [...] MG ORAL TABLET 2 po qHS LAMOTRIGINE 03662183756 Active Remigio Childress MD Active PRAZOSIN HCL 1 MG ORAL CAPSULE 2 po qHS PRAZOSIN HCL 00607953146 Active Remigio Childress MD Active BUPROPION HCL ER (XL) 300 MG ORAL TABLET EXTENDED RELEASE 24 HOUR 1 po qd BUPROPION HCL 59342323216 Active Remigio Childress MD Active ATORVASTATIN CALCIUM 20 MG ORAL TABLET 1 po qHS ATORVASTATIN CALCIUM 55320137790 Active Remigio Childress MD Active MULTIVITAMIN ADULT ORAL TABLET 1 po qd MULTI PLE VITAMINS-MINERALS 34561781243 Active Remigio Childress MD Active PROAIR HFA 108 (90 BASE) MCG/ACT INHALATION AEROSOL SO LUTION 2 puffs q4hr PRN Shortness of air/Wheezing ALBUTEROL SULFATE 82901952188 Ac gifty Childress MD Active FLUTICASONE PROPIONATE 50 MCG/ACT NASAL SUSPENSION 2 s prays/nostril qd PRN Congestion/Allergies FLUTICASONE PROPIONATE 68412813377 Ac gifty Childress MD Active ENSKYCE 0.15-30 MG-MCG ORAL TABLET 1 po qd DESOGESTREL-ETHINYL ESTRADIOL 32214559187 Active Remigio Childress MD Active ZITHROMAX Z-FELA 250 MG ORAL TABLET 2 today, then 1 daily for 4 d ays AZITHROMYCIN 74002274364 No Longer Active Alban Boyce MD Active PREDNISONE 20 MG ORAL TABLET 3 tabs for 2 days, 2 tabs for 4 days 1 ta for 4 days, 1/2 tab for 4 days PREDNISONE 52733355964 No Longer Active Alban Boyce MD Active AMOXICILLIN-POT CLAVULANATE 875-125 MG ORAL TABLET 1 pill by mouth twice daily AMOXICILLIN-POT CLAVULANATE 93732676275 No Longer Act parth Trina Sell SALES OFFICER Active ATORVASTATIN CALCIUM 20 MG ORAL TABLET 1 po qHS 02/07/19 ATORVASTATIN CALCIUM 53891517674 No Longer Active Trina Sell SALES OFFICER Active [facility] MELATONIN 5 MG ORAL TABLET 1 TAB PO Q HS ME LATONIN 39833771742 No Longer Active Trina Sell SALES OFFICER Active PROMETHAZINE-CODEINE 6.25-10 MG/5ML ORAL SYRUP 5ml po q6hr PRN C ou PROMETHAZINE-CODEINE 17822924953 No Longer Active Trina Sell SALES OFFICER Active PREDNISONE 20 MG ORAL TABLET 2 po qd x 5 days P REDNISONE 09838150608 No Longer Active Remigio Childress MD Active PROMETHAZINE-CODEINE 6.25-10 MG/5ML ORAL SYRUP 5ml po q6hr PRN C ou PROMETHAZINE-CODEINE 6.25-10 MG/5ML ORAL SYRUP 822610 PROMETHAZINE-CODEINE Inactive [facility] MELATONIN 5 MG ORAL TABLET 1 TAB PO Q HS 1 [facility] MELATONIN 5 MG ORAL TABLET 194875 MELATONIN Inactive PREDNISONE 20 MG ORAL TABLET 3 tabs for 2 days, 2 tabs for 4 days 1 ta for 4 days, 1/2 tab for 4 days PREDNISONE 20 MG ORAL T ABLET 556249 PREDNISONE Inactive PREDNISONE 20 MG ORAL TABLET 2 po qd x 5 days PREDNISONE 20 MG ORAL TABLET 828361 PREDNISONE Inactive ATORVASTATIN CALCIUM 20 MG ORAL TABLET 1 po qHS 02/07/19 ATORVASTATIN CALCIUM 20 MG ORAL TABLET 315924 ATORVASTATIN CALCIUM Inactive AMOXICILLIN-POT CLAVULANATE 875-125 MG ORAL TABLET 1 pill by mouth twice daily AMOXICILLIN-POT CLAVULANATE 875-125 MG ORAL TABL ET 698557 AMOXICILLIN-POT CLAVULANATE Inactive ZITHROMAX Z-FELA 250 MG ORAL TABLET 2 today, then 1 daily for 4 d ays ZITHROMAX Z-FELA 250 MG ORAL TABLET 740718 AZITHROMYCIN Inactive AUGMENTIN 875-125 MG ORAL TABLET [...] mg/dL Encounters Code Encounter Date Provider Facility CPT-24478 Level 3 Est. Patient 14:18:32 CDT Tirge fu [facility] CPT-58989 Level 4 Est. 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 Patient 13:45:32 GRASS FARMER Trina tapia [facility] CPT-07246 Level 3 Est. Patient 10:03:23 CDT Remigio Childress MD [facility] Procedures Code Procedure Name Date Entry Date Standard Desc ription CPT-000 Give PPD 13:51:16 CDT
--- OUTSIDE RECORDS SUMMARY | 2019-07-22 05:01 | XMS REPORT | Clinical Summary ---
Author Author Admin, Virgen TAFOYA Organization [employer] Address Unknown Phone Unavailable Allergies, Adverse Reactions, [...] site(s) except limbs, without mention of complication Sinusitis, acute frontal ICD-461.1 Inactive Remigio Childress [...] MG ORAL TABLET 2 po qHS LAMOTRIGINE 46040092683 Active Remigio Childress MD Active PRAZOSIN HCL 1 MG ORAL CAPSULE 2 po qHS PRAZOSIN HCL 15434340641 Active Remigio Childress MD Active BUPROPION HCL ER (XL) 300 MG ORAL TABLET EXTENDED RELEASE 24 HOUR 1 po qd BUPROPION HCL 67200111527 Active Remigio Childress MD Active ATORVASTATIN CALCIUM 20 MG ORAL TABLET 1 po qHS ATORVASTATIN CALCIUM 80758586048 Active Remigio Childress MD Active MULTIVITAMIN ADULT ORAL TABLET 1 po qd MULTI PLE VITAMINS-MINERALS 46058998761 Active Remigio Childress MD Active PROAIR HFA 108 (90 BASE) MCG/ACT INHALATION AEROSOL SO LUTION 2 puffs q4hr PRN Shortness of air/Wheezing ALBUTEROL SULFATE 23750087956 Ac rickve Remigio Childress MD Active FLUTICASONE PROPIONATE 50 MCG/ACT NASAL SUSPENSION 2 s prays/nostril qd PRN Congestion/Allergies FLUTICASONE PROPIONATE 67019942302 Ac rickve Remigio Childress MD Active ENSKYCE 0.15-30 MG-MCG ORAL TABLET 1 po qd DESOGESTREL-ETHINYL ESTRADIOL 48426397777 Active Remigio Childress MD Active ZITHROMAX Z-FELA 250 MG ORAL TABLET 2 today, then 1 daily for 4 d ays AZITHROMYCIN 81101501241 No Longer Active Alban Boyce MD Active PREDNISONE 20 MG ORAL TABLET 3 tabs for 2 days, 2 tabs for 4 days 1 ta for 4 days, 1/2 tab for 4 days PREDNISONE 84504510662 No Longer Active Alban Boyce MD Active AMOXICILLIN-POT CLAVULANATE 875-125 MG ORAL TABLET 1 pill by mouth twice daily AMOXICILLIN-POT CLAVULANATE 36090555953 No Longer Act parth Trina Sell PALLET SORTER Active ATORVASTATIN CALCIUM 20 MG ORAL TABLET 1 po qHS 02/07/19 ATORVASTATIN CALCIUM 92535227987 No Longer Active Trina Sell PALLET SORTER Active [facility] MELAT[facility]IN 5 MG ORAL TABLET 1 TAB PO Q HS ME LATONIN 43401915397 No Longer Active Trina Sell PALLET SORTER Active PROMETHAZINE-CODEINE 6.25-10 MG/5ML ORAL SYRUP 5ml po q6hr PRN C ou PROMETHAZINE-CODEINE 54617837422 No Longer Active Trina Sell PALLET SORTER Active PREDNISONE 20 MG ORAL TABLET 2 po qd x 5 days P REDNISONE 68588689924 No Longer Active Remigio Childress MD Active PROMETHAZINE-CODEINE 6.25-10 MG/5ML ORAL SYRUP 5ml po q6hr PRN C ou PROMETHAZINE-CODEINE 6.25-10 MG/5ML ORAL SYRUP 418132 PROMETHAZINE-CODEINE Inactive [facility] MELATONIN 5 MG ORAL TABLET 1 TAB PO Q HS 1 [facility] MELATONIN 5 MG ORAL TABLET 862732 MELATONIN Inactive PREDNISONE 20 MG ORAL TABLET 3 tabs for 2 days, 2 tabs for 4 days 1 ta for 4 days, 1/2 tab for 4 days PREDNISONE 20 MG ORAL T ABLET 085856 PREDNISONE Inactive PREDNISONE 20 MG ORAL TABLET 2 po qd x 5 days PREDNISONE 20 MG ORAL TABLET 527286 PREDNISONE Inactive ATORVASTATIN CALCIUM 20 MG ORAL TABLET 1 po qHS 02/07/19 ATORVASTATIN CALCIUM 20 MG ORAL TABLET 523272 ATORVASTATIN CALCIUM Inactive AMOXICILLIN-POT CLAVULANATE 875-125 MG ORAL TABLET 1 pill by mouth twice daily AMOXICILLIN-POT CLAVULANATE 875-125 MG ORAL TABL ET 669361 AMOXICILLIN-POT CLAVULANATE Inactive ZITHROMAX Z-FELA 250 MG ORAL TABLET 2 today, then 1 daily for 4 d ays ZITHROMAX Z-FELA 250 MG ORAL TABLET 675445 AZITHROMYCIN Inactive AUGMENTIN 875-125 MG ORAL TABLET [...] mg/dL Encounters Code Encounter Date Provider Facility CPT-41520 Level 3 Est. Patient 14:18:32 CDT Tigre michelee [facility] CPT-91593 Level 4 Est. Patient 13:48:04 CDT Remigio Childress MD [facility] CPT-32271 44950-Ott Vst-Est Level III 10:10:19 MACHINIST LINOTYPE Alban Boyce MD [facility] CPT-14220 Level 3 Est. Patient 13:45:32 MACHINIST LINOTYPE Trina tapia [facility] CPT-68441 Level 3 Est. Patient 10:03:23 CDT Remigio Childress MD [facility] Procedures Code Procedure Name Date Entry Date Standard Desc ription CPT-000 Give PPD 13:51:16 CDT
--- OUTSIDE RECORDS SUMMARY | 2019-07-22 05:01 | XMS REPORT | Clinical Summary ---
Author Author Admin, Virgen TAFOYA Organization [employer] Address Unknown Phone Unavailable Allergies, Adverse Reactions, [...] rhinitis, cause unspecified Bipolar disorder 296.80 Active Remiigo Ann Bipolar disorder, unspecified Post traumatic stress [...] 20 30/10/14 AMOXICILLIN-POT CLAVULANATE Active Tigre Asiya OPER[employer] SCHOOL MANAGER Active LAMICTAL 200 MG ORAL TABLET 2 po qHS LAMOTRIGINE 52429746280 Active Remigio Childress MD Active PRAZOSIN HCL 1 MG ORAL CAPSULE 2 po qHS PRAZOSIN HCL 29473780261 Active Remigio Childress MD Active BUPROPION HCL ER (XL) 300 MG ORAL TABLET EXTENDED RELEASE 24 HOUR 1 po qd BUPROPION HCL 80899820620 Active Remigio Childress MD Active ATORVASTATIN CALCIUM 20 MG ORAL TABLET 1 po qHS ATORVASTATIN CALCIUM 93157679460 Active Remigio Childress MD Active MULTIVITAMIN ADULT ORAL TABLET 1 po qd MULTI PLE VITAMINS-MINERALS 00972291824 Active Remigio Childress MD Active PROAIR HFA 108 (90 BASE) MCG/ACT INHALATION AEROSOL SO LUTION 2 puffs q4hr PRN Shortness of air/Wheezing ALBUTEROL SULFATE 20307119696 Ac tive Remigio Childress MD Active FLUTICASONE PROPIONATE 50 MCG/ACT NASAL SUSPENSION 2 s prays/nostril qd PRN Congestion/Allergies FLUTICASONE PROPIONATE 42866624043 Ac tive Remigio Childress MD Active ENSKYCE 0.15-30 MG-MCG ORAL TABLET 1 po qd DESOGESTREL-ETHINYL ESTRADIOL 93300233251 Active Remigio Childress MD Active ZITHROMAX Z-FELA 250 MG ORAL TABLET 2 today, then 1 daily for 4 d ays AZITHROMYCIN 71576147495 No Longer Active Alban Boyce MD Active PREDNISONE 20 MG ORAL TABLET 3 tabs for 2 days, 2 tabs for 4 days 1 ta for 4 days, 1/2 tab for 4 days PREDNISONE 98849044483 No Longer Active Alban Boyce MD Active AMOXICILLIN-POT CLAVULANATE 875-125 MG ORAL TABLET 1 pill by mouth twice daily AMOXICILLIN-POT CLAVULANATE 68620333694 No Longer Act parth Trina Sell OPERATORS SCHOOL MANAGER Active ATORVASTATIN CALCIUM 20 MG ORAL TABLET 1 po qHS 02/07/19 ATORVASTATIN CALCIUM 93391152472 No Longer Active Trina Sell OPERATORS SCHOOL MANAGER Active [facility] MELATONIN 5 MG ORAL TABLET 1 TAB PO Q HS ME LATONIN 16806476432 No Longer Active Trina Sell OPERATORS SCHOOL MANAGER Active PROMETHAZINE-CODEINE 6.25-10 MG/5ML ORAL SYRUP 5ml po q6hr PRN C ou PROMETHAZINE-CODEINE 93195197292 No Longer Active Trina Sell OPERATORS SCHOOL MANAGER Active PREDNISONE 20 MG ORAL TABLET 2 po qd x 5 days P REDNISONE 94979013609 No Longer Active Remigio Childress MD Active PROMETHAZINE-CODEINE 6.25-10 MG/5ML ORAL SYRUP 5ml po q6hr PRN C ou PROMETHAZINE-CODEINE 6.25-10 MG/5ML ORAL SYRUP 432570 PROMETHAZINE-CODEINE Inactive [facility] MELAT[facility]IN 5 MG ORAL TABLET 1 TAB PO Q HS 1 [facility] MELATONIN 5 MG ORAL TABLET 044888 MELATONIN Inactive PREDNISONE 20 MG ORAL TABLET 3 tabs for 2 days, 2 tabs for 4 days 1 ta for 4 days, 1/2 tab for 4 days PREDNISONE 20 MG ORAL T ABLET 154581 PREDNISONE Inactive PREDNISONE 20 MG ORAL TABLET 2 po qd x 5 days PREDNISONE 20 MG ORAL TABLET 333093 PREDNISONE Inactive ATORVASTATIN CALCIUM 20 MG ORAL TABLET 1 po qHS 02/07/19 ATORVASTATIN CALCIUM 20 MG ORAL TABLET 997691 ATORVASTATIN CALCIUM Inactive AMOXICILLIN-POT CLAVULANATE 875-125 MG ORAL TABLET 1 pill by mouth twice daily AMOXICILLIN-POT CLAVULANATE 875-125 MG ORAL TABL ET 776185 AMOXICILLIN-POT CLAVULANATE Inactive ZITHROMAX Z-FELA 250 MG ORAL TABLET 2 today, then 1 daily for 4 d ays ZITHROMAX Z-FELA 250 MG ORAL TABLET 250366 AZITHROMYCIN Inactive Immunizations Vaccine Administration Date Value [...] mg/dL Encounters Code Encounter Date Provider Facility CPT-13528 Level 3 Est. Patient 14:18:32 CDT Tigre fu [facility] [place] [facility] CPT-58375 Level 4 Est. Patient 13:48:04 CDT Remigio Childress MD [facility] CPT-93621 [id number] Vst-Est Level III 10:10:19 REGISTERED NURSE CARDIAC Alban Boyce MD [facility] CPT-79663 Level 3 Est. Patient 13:45:32 REGISTERED NURSE CARDIAC Trina tapia [facility] [place] [facility] CPT-11781 Level 3 Est. Patient 10:03:23 CDT Remigio Childress MD [facility] Procedures Code Procedure Name Date Entry Date Standard Desc ription CPT-000 Give PPD 13:51:16 CDT
--- OUTSIDE RECORDS SUMMARY | 2019-07-22 05:01 | XMS REPORT | Clinical Summary ---
Author Author Admin, Virgen MICHELET Organization [employer] Address Unknown Phone Unavailable Allergies, Adverse Reactions, [...] Remigio Childress MD Other and unspecified hyperlipidemia Upper respiratory infection, viral ICD-465.9 I nactive Remigio Childress MD Sinusitis, acute frontal ICD-461.1 Inactive Remigio Childress MD Medication List Medication Instructions Start Date Stop Date Generic Name NDC Status Provider Patient Instruction LAMICTAL 200 MG ORAL TABLET 2 po qHS LAMOTRIGINE 70580975764 Active Remigio Childress MD Active PRAZOSIN HCL 1 MG ORAL CAPSULE 2 po qHS PRAZOSIN HCL 23147526220 Active Remigio Childress MD Active BUPROPION HCL ER (XL) 300 MG ORAL TABLET EXTENDED RELEASE 24 HOUR 1 po qd BUPROPION HCL 60794704131 Active Remigio Childress MD Active ATORVASTATIN CALCIUM 20 MG ORAL TABLET 1 po qHS ATORVASTATIN CALCIUM 82894823429 Active Remigio Childress MD Active MULTIVITAMIN ADULT ORAL TABLET 1 po qd MULTI PLE VITAMINS-MINERALS 16077200708 Active Remigio Childress MD Active PROAIR HFA 108 (90 BASE) MCG/ACT INHALATION AEROSOL SO LUTION 2 puffs q4hr PRN Shortness of air/Wheezing ALBUTEROL SULFATE 60043528747 Ac gifty Childress MD Active FLUTICASONE PROPIONATE 50 MCG/ACT NASAL SUSPENSION 2 s prays/nostril qd PRN Congestion/Allergies FLUTICASONE PROPIONATE 33848573926 Ac gifty Childress MD Active ENSKYCE 0.15-30 MG-MCG ORAL TABLET 1 po qd DESOGESTREL-ETHINYL ESTRADIOL 48346744185 Active Remigio Childress MD Active ZITHROMAX Z-FELA 250 MG ORAL TABLET 2 today, then 1 daily for 4 d ays AZITHROMYCIN 78892659234 No Longer Active Alban Boyce MD Active PREDNISONE 20 MG ORAL TABLET 3 tabs for 2 days, 2 tabs for 4 days 1 ta for 4 days, 1/2 tab for 4 days PREDNISONE 92574747467 No Longer Active Alban Boyce MD Active AMOXICILLIN-POT CLAVULANATE 875-125 MG ORAL TABLET 1 pill by mouth twice daily AMOXICILLIN-POT CLAVULANATE 17695253000 No Longer Act parth Trina Sell CURB HOP Active ATORVASTATIN CALCIUM 20 MG ORAL TABLET 1 po qHS 20 02/07/19 ATORVASTATIN CALCIUM 73537173134 No Longer Active Trina Sell CURB HOP Active [facility] MEL[facility]IN 5 MG ORAL TABLET 1 TAB PO Q HS ME LATONIN 75834548991 No Longer Active Trina Sell CURB HOP Active PROMETHAZINE-CODEINE 6.25-10 MG/5ML ORAL SYRUP 5ml po q6hr PRN C ou PROMETHAZINE-CODEINE 06378183603 No Longer Active Trina Sell CURB HOP Active PREDNISONE 20 MG ORAL TABLET 2 po qd x 5 days P REDNISONE 29692218804 No Longer Active Remigio Childress MD Active PROMETHAZINE-CODEINE 6.25-10 MG/5ML ORAL SYRUP 5ml po q6hr PRN C ou PROMETHAZINE-CODEINE 6.25-10 MG/5ML ORAL SYRUP 303649 PROMETHAZINE-CODEINE Inactive [facility] MELATONIN 5 MG ORAL TABLET 1 TAB PO Q HS 1 [facility] MELATONIN 5 MG ORAL TABLET 380797 MELATONIN Inactive PREDNISONE 20 MG ORAL TABLET 3 tabs for 2 days, 2 tabs for 4 days 1 ta for 4 days, 1/2 tab for 4 days PREDNISONE 20 MG ORAL T ABLET 192713 PREDNISONE Inactive PREDNISONE 20 MG ORAL TABLET 2 po qd x 5 days PREDNISONE 20 MG ORAL TABLET 204391 PREDNISONE Inactive ATORVASTATIN CALCIUM 20 MG ORAL TABLET 1 po qHS 02/07/19 ATORVASTATIN CALCIUM 20 MG ORAL TABLET 686263 ATORVASTATIN CALCIUM Inactive AMOXICILLIN-POT CLAVULANATE 875-125 MG ORAL TABLET 1 pill by mouth twice daily AMOXICILLIN-POT CLAVULANATE 875-125 MG ORAL TABL ET 633328 AMOXICILLIN-POT CLAVULANATE Inactive ZITHROMAX Z-FELA 250 MG ORAL TABLET 2 today, then 1 daily for 4 d ays ZITHROMAX Z-FELA 250 MG ORAL TABLET 287373 AZITHROMYCIN Inactive Immunizations Vaccine Administration Date Value Standard Heber cription influenza immunization (Flu Vax) has been administered 02/26 Done according to patient influenza virus vaccine, unspecified for mulation Vital Signs Date Name Value Unit Range Description blood pressure, diastolic 90 mm[Hg] BP bettencourt [...] mg/dL Encounters Code Encounter Date Provider Facility CPT-11971 Level 4 Est. Patient 13:48:04 CDT Remigio Childress MD [facility] CPT-10123 11968-Ckk Vst-Est Level III 10:10:19 SHAREPOINT ADMINISTRATOR Alban Boyce MD [facility] CPT-64537 Level 3 Est. Patient 13:45:32 SHAREPOINT ADMINISTRATOR Trina tapia APRN [facility] CPT-64011 Level 3 Est. Patient 10:03:23 CDT Remigio Childress MD [facility] Procedures Code Procedure Name Date Entry Date Standard Desc ription CPT-000 Give PPD 13:51:16 CDT
--- OUTSIDE RECORDS SUMMARY | 2019-07-22 05:02 | XMS REPORT | Clinical Summary ---
Author Author Admin, Virgen MICHELET Organization [employer] Address Unknown Phone Unavailable Allergies, Adverse Reactions, [...] MG ORAL TABLET 2 po qHS LAMOTRIGINE 54241197199 Active Remigio Childress MD Active PRAZOSIN HCL 1 MG ORAL CAPSULE 2 po qHS PRAZOSIN HCL 13062665724 Active Remigio Childress MD Active BUPROPION HCL ER (XL) 300 MG ORAL TABLET EXTENDED RELEASE 24 HOUR 1 po qd BUPROPION HCL 80940334791 Active Remigio Childress MD Active ATORVASTATIN CALCIUM 20 MG ORAL TABLET 1 po qHS ATORVASTATIN CALCIUM 75203515518 Active Remigio Childress MD Active MULTIVITAMIN ADULT ORAL TABLET 1 po qd MULTI PLE VITAMINS-MINERALS 69104209030 Active Remigio Childress MD Active PROAIR HFA 108 (90 BASE) MCG/ACT INHALATION AEROSOL SO LUTION 2 puffs q4hr PRN Shortness of air/Wheezing ALBUTEROL SULFATE 48321093665 Ac gifty Childress MD Active FLUTICASONE PROPIONATE 50 MCG/ACT NASAL SUSPENSION 2 s prays/nostril qd PRN Congestion/Allergies FLUTICASONE PROPIONATE 14755380303 Ac gifty Childress MD Active ENSKYCE 0.15-30 MG-MCG ORAL TABLET 1 po qd DESOGESTREL-ETHINYL ESTRADIOL 13108355766 Active Remigio Childress MD Active ZITHROMAX Z-FELA 250 MG ORAL TABLET 2 today, then 1 daily for 4 d ays AZITHROMYCIN 19748502287 No Longer Active Alban Boyce MD Active PREDNISONE 20 MG ORAL TABLET 3 tabs for 2 days, 2 tabs for 4 days 1 ta for 4 days, 1/2 tab for 4 days PREDNISONE 62867470679 No Longer Active Alban Boyce MD Active AMOXICILLIN-POT CLAVULANATE 875-125 MG ORAL TABLET 1 pill by mouth twice daily AMOXICILLIN-POT CLAVULANATE 66291151831 No Longer Act parth Trina Sell HAIRSPRING II INSPECTOR Active ATORVASTATIN CALCIUM 20 MG ORAL TABLET 1 po qHS 20 02/07/19 ATORVASTATIN CALCIUM 93716331479 No Longer Active Trina Sell HAIRSPRING II INSPECTOR Active [facility] MELATONIN 5 MG ORAL TABLET 1 TAB PO Q HS ME LATONIN 33288274418 No Longer Active Trina Sell HAIRSPRING II INSPECTOR Active PROMETHAZINE-CODEINE 6.25-10 MG/5ML ORAL SYRUP 5ml po q6hr PRN C ou PROMETHAZINE-CODEINE 70620790453 No Longer Active Trina Sell HAIRSPRING II INSPECTOR Active PREDNISONE 20 MG ORAL TABLET 2 po qd x 5 days P REDNISONE 84569938309 No Longer Active Remigio Childress MD Active PROMETHAZINE-CODEINE 6.25-10 MG/5ML ORAL SYRUP 5ml po q6hr PRN C ou PROMETHAZINE-CODEINE 6.25-10 MG/5ML ORAL SYRUP 506708 PROMETHAZINE-CODEINE Inactive [facility] MELATONIN 5 MG ORAL TABLET 1 TAB PO Q HS 1 [facility] MELAT[facility]IN 5 MG ORAL TABLET 062741 MELATONIN Inactive PREDNISONE 20 MG ORAL TABLET 3 tabs for 2 days, 2 tabs for 4 days 1 ta for 4 days, 1/2 tab for 4 days PREDNISONE 20 MG ORAL T ABLET 742988 PREDNISONE Inactive PREDNISONE 20 MG ORAL TABLET 2 po qd x 5 days PREDNISONE 20 MG ORAL TABLET 356948 PREDNISONE Inactive ATORVASTATIN CALCIUM 20 MG ORAL TABLET 1 po qHS 02/07/19 ATORVASTATIN CALCIUM 20 MG ORAL TABLET 340142 ATORVASTATIN CALCIUM Inactive AMOXICILLIN-POT CLAVULANATE 875-125 MG ORAL TABLET 1 pill by mouth twice daily AMOXICILLIN-POT CLAVULANATE 875-125 MG ORAL TABL ET 539657 AMOXICILLIN-POT CLAVULANATE Inactive ZITHROMAX Z-FELA 250 MG ORAL TABLET 2 today, then 1 daily for 4 d ays ZITHROMAX Z-FELA 250 MG ORAL TABLET 290977 AZITHROMYCIN Inactive Immunizations Vaccine Administration Date Value [...] mg/dL Encounters Code Encounter Date Provider Facility CPT-16118 Level 4 Est. Patient 13:48:04 CDT Remigio Childress MD [facility] CPT-80995 24730-Tgb Vst-Est Level III 10:10:19 ASSOCIATE PROFESSOR OF COUNSELING Alban Boyce MD [facility] CPT-23939 Level 3 Est. Patient 13:45:32 ASSOCIATE PROFESSOR OF COUNSELING Trina tapia APRN [facility] CPT-31588 Level 3 Est. Patient 10:03:23 CDT Remigio Childress MD [facility] Procedures Code Procedure Name Date Entry Date Standard Desc ription CPT-000 Give PPD 13:51:16 CDT
--- OUTSIDE RECORDS SUMMARY | 2019-07-22 05:02 | XMS REPORT | Clinical Summary ---
Author Author Admin, Virgen TAFOYA Organization [facility] Address Unknown Phone Unavailable Allergies, [...] Active Daryn Childress MD Exercise induced bronchospasm Upper respiratory infection, viral ICD-465.9 I nactive Remigio Childress MD Sinusitis, acute frontal ICD-461.1 Inactive Remigio Childress MD Medication List Medication Instructions Start Date Stop Date Generic Name NDC Status Provider Patient Instruction LAMICTAL 200 MG ORAL TABLET 2 po qHS LAMOTRIGINE 10480533973 Active Remigio Childress MD Active PRAZOSIN HCL 1 MG ORAL CAPSULE 2 po qHS PRAZOSIN HCL 03066728944 Active Remigio Childress MD Active BUPROPION HCL ER (XL) 300 MG ORAL TABLET EXTENDED RELEASE 24 HOUR 1 po qd BUPROPION HCL 36144517277 Active Remigio Childress MD Active ATORVASTATIN CALCIUM 20 MG ORAL TABLET 1 po qHS ATORVASTATIN CALCIUM 44206732921 Active Remigio Childress MD Active MULTIVITAMIN ADULT ORAL TABLET 1 po qd MULTI PLE VITAMINS-MINERALS 80800123366 Active Remigio Childress MD Active PROAIR HFA 108 (90 BASE) MCG/ACT INHALATION AEROSOL SO LUTION 2 puffs q4hr PRN Shortness of air/Wheezing ALBUTEROL SULFATE 94621031992 Ac tive Remigio Childress MD Active FLUTICASONE PROPIONATE 50 MCG/ACT NASAL SUSPENSION 2 s prays/nostril qd PRN Congestion/Allergies FLUTICASONE PROPIONATE 19342272934 Ac tive Remigio Childress MD Active ENSKYCE 0.15-30 MG-MCG ORAL TABLET 1 po qd DESOGESTREL-ETHINYL ESTRADIOL 17456110694 Active Reimgio Childress MD Active ZITHROMAX Z-FELA 250 MG ORAL TABLET 2 today, then 1 daily for 4 d ays AZITHROMYCIN 62373653892 No Longer Active Alban Boyce MD Active PREDNISONE 20 MG ORAL TABLET 3 tabs for 2 days, 2 tabs for 4 days 1 ta for 4 days, 1/2 tab for 4 days PREDNISONE 37074301543 No Longer Active Alban Boyce MD Active AMOXICILLIN-POT CLAVULANATE 875-125 MG ORAL TABLET 1 pill by mouth twice daily AMOXICILLIN-POT CLAVULANATE 70201825072 No Longer Act parth Trina Sell RAILROAD SIGNAL AND SWITCH OPERATOR Active ATORVASTATIN CALCIUM 20 MG ORAL TABLET 1 po qHS 20 02/07/19 ATORVASTATIN CALCIUM 37308919803 No Longer Active Trina Sell RAILROAD SIGNAL AND SWITCH OPERATOR Active [facility] MELATONIN 5 MG ORAL TABLET 1 TAB PO Q HS ME LATONIN 13594843039 No Longer Active Trina Sell RAILROAD SIGNAL AND SWITCH OPERATOR Active PROMETHAZINE-CODEINE 6.25-10 MG/5ML ORAL SYRUP 5ml po q6hr PRN C ough PROMETHAZINE-CODEINE 01811148572 No Longer Active Trina Ramirez APRN Active PREDNISONE 20 MG ORAL TABLET 2 po qd x 5 days P REDNISONE 84835900674 No Longer Active Remigio Childress MD Active PROMETHAZINE-CODEINE 6.25-10 MG/5ML ORAL SYRUP 5ml po q6hr PRN C ou PROMETHAZINE-CODEINE 6.25-10 MG/5ML ORAL SYRUP 400367 PROMETHAZINE-CODEINE Inactive [facility] MELATONIN 5 MG ORAL TABLET 1 TAB PO Q HS 1 [facility] MELAT[facility]IN 5 MG ORAL TABLET 042467 MELATONIN Inactive PREDNISONE 20 MG ORAL TABLET 3 tabs for 2 days, 2 tabs for 4 days 1 ta for 4 days, 1/2 tab for 4 days PREDNISONE 20 MG ORAL T ABLET 476247 PREDNISONE Inactive PREDNISONE 20 MG ORAL TABLET 2 po qd x 5 days PREDNISONE 20 MG ORAL TABLET 654798 PREDNISONE Inactive ATORVASTATIN CALCIUM 20 MG ORAL TABLET 1 po qHS 20 02/07/19 ATORVASTATIN CALCIUM 20 MG ORAL TABLET 007733 ATORVASTATIN CALCIUM Inactive AMOXICILLIN-POT CLAVULANATE 875-125 MG ORAL TABLET 1 pill by mouth twice daily AMOXICILLIN-POT CLAVULANATE 875-125 MG ORAL TABL ET 158613 AMOXICILLIN-POT CLAVULANATE Inactive ZITHROMAX Z-FELA 250 MG ORAL TABLET 2 today, then 1 daily for 4 d ays ZITHROMAX Z-FELA 250 MG ORAL TABLET 279445 AZITHROMYCIN Inactive Immunizations Vaccine Administration Date Value Standard Heber cription influenza immunization (Flu Vax) has been administered 02/26 Done according to patient influenza virus vaccine, unspecified for mulation Vital Signs Date Name Value Unit Range Description blood pressure, diastolic 86 mm[Hg] BP bettencourt [...] mg/dL Encounters Code Encounter Date Provider Facility CPT-99037 86566-Ang Vst-Est Level III 10:10:19 APPLE SOLUTIONS CONSULTANT Alban Boyce MD [facility] CPT-96322 Level 3 Est. Patient 13:45:32 APPLE SOLUTIONS CONSULTANT Trina tapia APRN [facility] CPT-57700 Level 3 Est. Patient 10:03:23 CDT Remigio Childress MD [facility]
--- OUTSIDE RECORDS SUMMARY | 2019-07-22 05:02 | XMS REPORT | Clinical Summary ---
Author Author Admin, Virgen MICHELET Organization [employer] Address Unknown Phone Unavailable Allergies, Adverse Reactions, [...] MG ORAL TABLET 2 po qHS LAMOTRIGINE 18285033956 Active Remigio Childress MD Active PRAZOSIN HCL 1 MG ORAL CAPSULE 2 po qHS PRAZOSIN HCL 69306808145 Active Remigio Childress MD Active BUPROPION HCL ER (XL) 300 MG ORAL TABLET EXTENDED RELEASE 24 HOUR 1 po qd BUPROPION HCL 36951041725 Active Remigio Childress MD Active ATORVASTATIN CALCIUM 20 MG ORAL TABLET 1 po qHS ATORVASTATIN CALCIUM 08438570146 Active Remigio Childress MD Active MULTIVITAMIN ADULT ORAL TABLET 1 po qd MULTI PLE VITAMINS-MINERALS 87598881744 Active Remigio Childress MD Active PROAIR HFA 108 (90 BASE) MCG/ACT INHALATION AEROSOL SO LUTION 2 puffs q4hr PRN Shortness of air/Wheezing ALBUTEROL SULFATE 15189581775 Ac gifty Childress MD Active FLUTICASONE PROPIONATE 50 MCG/ACT NASAL SUSPENSION 2 s prays/nostril qd PRN Congestion/Allergies FLUTICASONE PROPIONATE 80694362010 Ac gifty Childress MD Active ENSKYCE 0.15-30 MG-MCG ORAL TABLET 1 po qd DESOGESTREL-ETHINYL ESTRADIOL 29452565723 Active Remigio Childress MD Active ZITHROMAX Z-FELA 250 MG ORAL TABLET 2 today, then 1 daily for 4 d ays AZITHROMYCIN 60140871167 No Longer Active Alban Boyce MD Active PREDNISONE 20 MG ORAL TABLET 3 tabs for 2 days, 2 tabs for 4 days 1 ta for 4 days, 1/2 tab for 4 days PREDNISONE 85602081978 No Longer Active Alban Boyce MD Active AMOXICILLIN-POT CLAVULANATE 875-125 MG ORAL TABLET 1 pill by mouth twice daily AMOXICILLIN-POT CLAVULANATE 79500192272 No Longer Act parth Trina Sell LOGGER Active ATORVASTATIN CALCIUM 20 MG ORAL TABLET 1 po qHS 20 02/07/19 ATORVASTATIN CALCIUM 62022235955 No Longer Active Trina Sell LOGGER Active [facility] MELATONIN 5 MG ORAL TABLET 1 TAB PO Q HS ME LATONIN 96836225647 No Longer Active Trina Sell LOGGER Active PROMETHAZINE-CODEINE 6.25-10 MG/5ML ORAL SYRUP 5ml po q6hr PRN C ou PROMETHAZINE-CODEINE 86858549609 No Longer Active Trina Sell LOGGER Active PREDNISONE 20 MG ORAL TABLET 2 po qd x 5 days P REDNISONE 46492361305 No Longer Active Remigio Childress MD Active PROMETHAZINE-CODEINE 6.25-10 MG/5ML ORAL SYRUP 5ml po q6hr PRN C ou PROMETHAZINE-CODEINE 6.25-10 MG/5ML ORAL SYRUP 665230 PROMETHAZINE-CODEINE Inactive [facility] MELATONIN 5 MG ORAL TABLET 1 TAB PO Q HS 1 [facility] MELATONIN 5 MG ORAL TABLET 168007 MELATONIN Inactive PREDNISONE 20 MG ORAL TABLET 3 tabs for 2 days, 2 tabs for 4 days 1 ta for 4 days, 1/2 tab for 4 days PREDNISONE 20 MG ORAL T ABLET 059350 PREDNISONE Inactive PREDNISONE 20 MG ORAL TABLET 2 po qd x 5 days PREDNISONE 20 MG ORAL TABLET 824161 PREDNISONE Inactive ATORVASTATIN CALCIUM 20 MG ORAL TABLET 1 po qHS 02/07/19 ATORVASTATIN CALCIUM 20 MG ORAL TABLET 562264 ATORVASTATIN CALCIUM Inactive AMOXICILLIN-POT CLAVULANATE 875-125 MG ORAL TABLET 1 pill by mouth twice daily AMOXICILLIN-POT CLAVULANATE 875-125 MG ORAL TABL ET 293985 AMOXICILLIN-POT CLAVULANATE Inactive ZITHROMAX Z-FELA 250 MG ORAL TABLET 2 today, then 1 daily for 4 d ays ZITHROMAX Z-FELA 250 MG ORAL TABLET 033168 AZITHROMYCIN Inactive Immunizations Vaccine Administration Date Value [...] mg/dL Encounters Code Encounter Date Provider Facility CPT-92780 Level 4 Est. Patient 13:48:04 CDT Remigio Childress MD [facility] CPT-47452 47764-Ilh Vst-Est Level III 10:10:19 GM/SVP GLOBAL PUBLISHER BUSINESS Alban Boyce MD [facility] CPT-23204 Level 3 Est. Patient 13:45:32 GM/SVP GLOBAL PUBLISHER BUSINESS Trina tapia APRN [facility] CPT-20888 Level 3 Est. Patient 10:03:23 CDT Remigio Childress MD [facility] Procedures Code Procedure Name Date Entry Date Standard Desc ription CPT-000 Give PPD 13:51:16 CDT
--- OUTSIDE RECORDS SUMMARY | 2019-07-22 05:02 | XMS REPORT | Clinical Summary ---
Author Author Admin, Virgen MICHELET Organization [employer] Address Unknown Phone Unavailable Allergies, Adverse Reactions, Alerts Allergy Name Reaction Description Start Date Severity Status Pr ovider IODINE rash Mild Active Alban gentile MD LATEX rash Mild Active Alban gentile MD Conditions or Problems Problem Name Problem Code Onset Date Status Entry Date Provider Comment Standard Description Annotate Upper respiratory infection, viral 465.9 Resolved 2 Reimgio Childress MD Acute upper respiratory infections of [...] MG ORAL TABLET 2 po qHS LAMOTRIGINE 75910093025 Active Remigio Childress MD Active PRAZOSIN HCL 1 MG ORAL CAPSULE 2 po qHS PRAZOSIN HCL 22645961240 Active Remigio Childress MD Active BUPROPION HCL ER (XL) 300 MG ORAL TABLET EXTENDED RELEASE 24 HOUR 1 po qd BUPROPION HCL 67688619864 Active Remigio Childress MD Active ATORVASTATIN CALCIUM 20 MG ORAL TABLET 1 po qHS ATORVASTATIN CALCIUM 07081311735 Active Remigio Childress MD Active MULTIVITAMIN ADULT ORAL TABLET 1 po qd MULTI PLE VITAMINS-MINERALS 04054138474 Active Remigio Childress MD Active PROAIR HFA 108 (90 BASE) MCG/ACT INHALATION AEROSOL SO LUTION 2 puffs q4hr PRN Shortness of air/Wheezing ALBUTEROL SULFATE 28338393161 Ac gfity Childress MD Active FLUTICASONE PROPIONATE 50 MCG/ACT NASAL SUSPENSION 2 s prays/nostril qd PRN Congestion/Allergies FLUTICASONE PROPIONATE 50057302041 Ac gifty Childress MD Active ENSKYCE 0.15-30 MG-MCG ORAL TABLET 1 po qd DESOGESTREL-ETHINYL ESTRADIOL 59310432596 Active Remigio Childress MD Active ZITHROMAX Z-FELA 250 MG ORAL TABLET 2 today, then 1 daily for 4 d ays AZITHROMYCIN 93673326323 No Longer Active Alban Boyce MD Active PREDNISONE 20 MG ORAL TABLET 3 tabs for 2 days, 2 tabs for 4 days 1 ta for 4 days, 1/2 tab for 4 days PREDNISONE 42041167820 No Longer Active Alban Boyce MD Active AMOXICILLIN-POT CLAVULANATE 875-125 MG ORAL TABLET 1 pill by mouth twice daily AMOXICILLIN-POT CLAVULANATE 64540368578 No Longer Act parth Trina Sell PLANOGRAPH OPERATOR Active ATORVASTATIN CALCIUM 20 MG ORAL TABLET 1 po qHS 20 02/07/19 ATORVASTATIN CALCIUM 84042207024 No Longer Active Trina Sell PLANOGRAPH OPERATOR Active [facility] 5 MG ORAL TABLET 1 TAB PO Q HS ME LATONIN 29540655243 No Longer Active Trina Sell PLANOGRAPH OPERATOR Active PROMETHAZINE-CODEINE 6.25-10 MG/5ML ORAL SYRUP 5ml po q6hr PRN C ou PROMETHAZINE-CODEINE 66624037221 No Longer Active Trina Sell PLANOGRAPH OPERATOR Active PREDNISONE 20 MG ORAL TABLET 2 po qd x 5 days P REDNISONE 72340329368 No Longer Active Remigio Childress MD Active PROMETHAZINE-CODEINE 6.25-10 MG/5ML ORAL SYRUP 5ml po q6hr PRN C ou PROMETHAZINE-CODEINE 6.25-10 MG/5ML ORAL SYRUP 337894 PROMETHAZINE-CODEINE Inactive [facility]IN 5 MG ORAL TABLET 1 TAB PO Q HS 1 [facility] MEL[facility]IN 5 MG ORAL TABLET 357147 MELATONIN Inactive PREDNISONE 20 MG ORAL TABLET 3 tabs for 2 days, 2 tabs for 4 days 1 ta for 4 days, 1/2 tab for 4 days PREDNISONE 20 MG ORAL T ABLET 429826 PREDNISONE Inactive PREDNISONE 20 MG ORAL TABLET 2 po qd x 5 days PREDNISONE 20 MG ORAL TABLET 540122 PREDNISONE Inactive ATORVASTATIN CALCIUM 20 MG ORAL TABLET 1 po qHS 02/07/19 ATORVASTATIN CALCIUM 20 MG ORAL TABLET 856964 ATORVASTATIN CALCIUM Inactive AMOXICILLIN-POT CLAVULANATE 875-125 MG ORAL TABLET 1 pill by mouth twice daily AMOXICILLIN-POT CLAVULANATE 875-125 MG ORAL TABL ET 150782 AMOXICILLIN-POT CLAVULANATE Inactive ZITHROMAX Z-FELA 250 MG ORAL TABLET 2 today, then 1 daily for 4 d ays ZITHROMAX Z-FELA 250 MG ORAL TABLET 803779 AZITHROMYCIN Inactive Immunizations Vaccine Administration Date Value [...] mg/dL Encounters Code Encounter Date Provider Facility CPT-47131 Level 4 Est. Patient 13:48:04 CDT Remigio Childress MD [facility] CPT-51222 15880-Fpl Vst-Est Level III 10:10:19 CHIEF INSPECTOR Alban Boyce MD [facility] CPT-56256 Level 3 Est. Patient 13:45:32 CHIEF INSPECTOR Trina tapia APRN [facility] CPT-69237 Level 3 Est. Patient 10:03:23 CDT Remigio Childress MD [facility] Procedures Code Procedure Name Date Entry Date Standard Desc ription CPT-000 Give PPD 13:51:16 CDT
--- OUTSIDE RECORDS SUMMARY | 2019-07-22 05:02 | XMS REPORT | Clinical Summary ---
Author Author Admin, Virgen MICHELET Organization [facility] Address Unknown Phone Unavailable Allergies, Adverse Reactions, [...] facility Exercise induced asthma 493.81 Active Daryn Chlidress MD Exercise induced bronchospasm BMI 35-35.9 Active [...] MG ORAL TABLET 2 po qHS LAMOTRIGINE 46154192583 Active Remigio Childress MD Active PRAZOSIN HCL 1 MG ORAL CAPSULE 2 po qHS PRAZOSIN HCL 56675944333 Active Remigio Childress MD Active BUPROPION HCL ER (XL) 300 MG ORAL TABLET EXTENDED RELEASE 24 HOUR 1 po qd BUPROPION HCL 88380566347 Active Reimgio Childress MD Active ATORVASTATIN CALCIUM 20 MG ORAL TABLET 1 po qHS ATORVASTATIN CALCIUM 23881351704 Active Remigio Childress MD Active MULTIVITAMIN ADULT ORAL TABLET 1 po qd MULTI PLE VITAMINS-MINERALS 74650317302 Active Remigio Childress MD Active PROAIR HFA 108 (90 BASE) MCG/ACT INHALATION AEROSOL SO LUTION 2 puffs q4hr PRN Shortness of air/Wheezing ALBUTEROL SULFATE 39704269179 Ac gifty Childress MD Active FLUTICASONE PROPIONATE 50 MCG/ACT NASAL SUSPENSION 2 s prays/nostril qd PRN Congestion/Allergies FLUTICASONE PROPIONATE 02876443825 Ac gifty Childress MD Active ENSKYCE 0.15-30 MG-MCG ORAL TABLET 1 po qd DESOGESTREL-ETHINYL ESTRADIOL 23311613280 Active Remigio Childress MD Active ZITHROMAX Z-FELA 250 MG ORAL TABLET 2 today, then 1 daily for 4 d ays AZITHROMYCIN 06131822087 No Longer Active Alban Boyce MD Active PREDNISONE 20 MG ORAL TABLET 3 tabs for 2 days, 2 tabs for 4 days 1 ta for 4 days, 1/2 tab for 4 days PREDNISONE 39262203339 No Longer Active Alban Boyce MD Active AMOXICILLIN-POT CLAVULANATE 875-125 MG ORAL TABLET 1 pill by mouth twice daily AMOXICILLIN-POT CLAVULANATE 54253821176 No Longer Act parth Trina Sell GRIZZLY WORKER Active ATORVASTATIN CALCIUM 20 MG ORAL TABLET 1 po qHS 20 02/07/19 ATORVASTATIN CALCIUM 43088984523 No Longer Active Trina Sell GRIZZLY WORKER Active [facility] 5 MG ORAL TABLET 1 TAB PO Q HS ME LATONIN 59901206664 No Longer Active Trina Sell GRIZZLY WORKER Active PROMETHAZINE-CODEINE 6.25-10 MG/5ML ORAL SYRUP 5ml po q6hr PRN C ou PROMETHAZINE-CODEINE 91846482008 No Longer Active Trina Sell GRIZZLY WORKER Active PREDNISONE 20 MG ORAL TABLET 2 po qd x 5 days P REDNISONE 45411840788 No Longer Active Remigio Childress MD Active PROMETHAZINE-CODEINE 6.25-10 MG/5ML ORAL SYRUP 5ml po q6hr PRN C [facility] PROMETHAZINE-CODEINE 6.25-10 MG/5ML ORAL SYRUP 229234 PROMETHAZINE-CODEINE Inactive [facility] MELAT[facility]IN 5 MG ORAL TABLET 1 TAB PO Q HS 1 [facility] MEL[facility]IN 5 MG ORAL TABLET 281746 MELATONIN Inactive PREDNISONE 20 MG ORAL TABLET 3 tabs for 2 days, 2 tabs for 4 days 1 ta for 4 days, 1/2 tab for 4 days PREDNISONE 20 MG ORAL T ABLET 879886 PREDNISONE Inactive PREDNISONE 20 MG ORAL TABLET 2 po qd x 5 days PREDNISONE 20 MG ORAL TABLET 742576 PREDNISONE Inactive ATORVASTATIN CALCIUM 20 MG ORAL TABLET 1 po qHS 02/07/19 ATORVASTATIN CALCIUM 20 MG ORAL TABLET 294458 ATORVASTATIN CALCIUM Inactive AMOXICILLIN-POT CLAVULANATE 875-125 MG ORAL TABLET 1 pill by mouth twice daily AMOXICILLIN-POT CLAVULANATE 875-125 MG ORAL TABL ET 073873 AMOXICILLIN-POT CLAVULANATE Inactive ZITHROMAX Z-FELA 250 MG ORAL TABLET 2 today, then 1 daily for 4 d ays ZITHROMAX Z-FELA 250 MG ORAL TABLET 634665 AZITHROMYCIN Inactive Immunizations Vaccine Administration Date Value [...] mg/dL Encounters Code Encounter Date Provider Facility CPT-38397 Level 4 Est. Patient 13:48:04 CDT Remigio Childress MD [facility] CPT-31110 68231-Pex Vst-Est Level III 10:10:19 THERAPY ASSISTANT Alban Boyce MD [facility] CPT-25006 Level 3 Est. Patient 13:45:32 THERAPY ASSISTANT Trina tapia APRN [facility] CPT-66510 Level 3 Est. Patient 10:03:23 CDT Remigio Childress MD [facility] Procedures Code Procedure Name Date Entry Date Standard Desc ription CPT-000 Give PPD 13:51:16 CDT
--- OUTSIDE RECORDS SUMMARY | 2019-07-22 05:02 | XMS REPORT | Clinical Summary ---
Author Author Admin, Virgen MICHELET Organization [employer] Address Unknown Phone Unavailable Allergies, Adverse Reactions, [...] MG ORAL TABLET 2 po qHS LAMOTRIGINE 72719021947 Active Remigio Childress MD Active PRAZOSIN HCL 1 MG ORAL CAPSULE 2 po qHS PRAZOSIN HCL 47245845873 Active Remigio Childress MD Active BUPROPION HCL ER (XL) 300 MG ORAL TABLET EXTENDED RELEASE 24 HOUR 1 po qd BUPROPION HCL 21925904352 Active Remigio Childress MD Active ATORVASTATIN CALCIUM 20 MG ORAL TABLET 1 po qHS ATORVASTATIN CALCIUM 78111043291 Active Remigio Childress MD Active MULTIVITAMIN ADULT ORAL TABLET 1 po qd MULTI PLE VITAMINS-MINERALS 42174368653 Active Remigio Childress MD Active PROAIR HFA 108 (90 BASE) MCG/ACT INHALATION AEROSOL SO LUTION 2 puffs q4hr PRN Shortness of air/Wheezing ALBUTEROL SULFATE 29546128041 Ac gifty Childress MD Active FLUTICASONE PROPIONATE 50 MCG/ACT NASAL SUSPENSION 2 s prays/nostril qd PRN Congestion/Allergies FLUTICASONE PROPIONATE 33276312613 Ac gifty Childress MD Active ENSKYCE 0.15-30 MG-MCG ORAL TABLET 1 po qd DESOGESTREL-ETHINYL ESTRADIOL 48557945542 Active Remigio Childress MD Active ZITHROMAX Z-FELA 250 MG ORAL TABLET 2 today, then 1 daily for 4 d ays AZITHROMYCIN 13237612438 No Longer Active Alban Boyce MD Active PREDNISONE 20 MG ORAL TABLET 3 tabs for 2 days, 2 tabs for 4 days 1 ta for 4 days, 1/2 tab for 4 days PREDNISONE 56509932865 No Longer Active Alban Boyce MD Active AMOXICILLIN-POT CLAVULANATE 875-125 MG ORAL TABLET 1 pill by mouth twice daily AMOXICILLIN-POT CLAVULANATE 33998563317 No Longer Act parth Trina Sell SALES PROJECT MANAGER Active ATORVASTATIN CALCIUM 20 MG ORAL TABLET 1 po qHS 20 02/07/19 ATORVASTATIN CALCIUM 62312216674 No Longer Active Trina Sell SALES PROJECT MANAGER Active [facility] MEL[facility] 5 MG ORAL TABLET 1 TAB PO Q HS ME LATONIN 34311937913 No Longer Active Trina Sell SALES PROJECT MANAGER Active PROMETHAZINE-CODEINE 6.25-10 MG/5ML ORAL SYRUP 5ml po q6hr PRN C ou PROMETHAZINE-CODEINE 11718585646 No Longer Active Trina Sell SALES PROJECT MANAGER Active PREDNISONE 20 MG ORAL TABLET 2 po qd x 5 days P REDNISONE 94250207985 No Longer Active Remigio Childress MD Active PROMETHAZINE-CODEINE 6.25-10 MG/5ML ORAL SYRUP 5ml po q6hr PRN C ou PROMETHAZINE-CODEINE 6.25-10 MG/5ML ORAL SYRUP 476626 PROMETHAZINE-CODEINE Inactive [facility]EL[facility]IN 5 MG ORAL TABLET 1 TAB PO Q HS 1 [facility] MEL[facility]IN 5 MG ORAL TABLET 125927 MELATONIN Inactive PREDNISONE 20 MG ORAL TABLET 3 tabs for 2 days, 2 tabs for 4 days 1 ta for 4 days, 1/2 tab for 4 days PREDNISONE 20 MG ORAL T ABLET 108144 PREDNISONE Inactive PREDNISONE 20 MG ORAL TABLET 2 po qd x 5 days PREDNISONE 20 MG ORAL TABLET 070411 PREDNISONE Inactive ATORVASTATIN CALCIUM 20 MG ORAL TABLET 1 po qHS 02/07/19 ATORVASTATIN CALCIUM 20 MG ORAL TABLET 897487 ATORVASTATIN CALCIUM Inactive AMOXICILLIN-POT CLAVULANATE 875-125 MG ORAL TABLET 1 pill by mouth twice daily AMOXICILLIN-POT CLAVULANATE 875-125 MG ORAL TABL ET 700622 AMOXICILLIN-POT CLAVULANATE Inactive ZITHROMAX Z-FELA 250 MG ORAL TABLET 2 today, then 1 daily for 4 d ays ZITHROMAX Z-FELA 250 MG ORAL TABLET 874171 AZITHROMYCIN Inactive Immunizations Vaccine Administration Date Value [...] mg/dL Encounters Code Encounter Date Provider Facility CPT-93930 Level 4 Est. Patient 13:48:04 CDT Remigio Childress MD [facility] CPT-45401 67425-Sbb Vst-Est Level III 10:10:19 GLASSWORKER Alban Boyce MD [facility] CPT-06469 Level 3 Est. Patient 13:45:32 GLASSWORKER Trina tapia APRN [facility] CPT-48803 Level 3 Est. Patient 10:03:23 CDT Remigio Childress MD [facility] Procedures Code Procedure Name Date Entry Date Standard Desc ription CPT-000 Give PPD 13:51:16 CDT
--- OUTSIDE RECORDS SUMMARY | 2019-07-22 05:02 | XMS REPORT | Clinical Summary ---
Author Author Admin, Virgen MICHELET Organization [employer] Address Unknown Phone Unavailable Allergies, Adverse Reactions, Alerts Allergy Name Reaction Description Start Date Severity Status Pr ovider IODINE rash Mild Active Alban gentile MD LATEX rash Mild Active Alban gentile MD Conditions or Problems Problem Name Problem Code Onset Date Status Entry Date Provider Comment Standard Description Annotate Upper respiratory infection, viral 465.9 Active 2 Remigio Childress MD Acute upper respiratory infections of un specified site Sinusitis, acute frontal 461.1 Active Trina Se ll BILINGUAL SECRETARY Acute frontal sinusitis Medication List Medication Instructions Start Date Stop Date Generic Name NDC Status Provider Patient Instruction ZITHROMAX Z-FELA 250 MG ORAL TABLET 2 today, then 1 daily for 4 d ays AZITHROMYCIN 14673032385 No Longer Active Alban Boyce MD Active PREDNISONE 20 MG ORAL TABLET 3 tabs for 2 days, 2 tabs for 4 days 1 ta for 4 days, 1/2 tab for 4 days PREDNISONE 53968047133 No Longer Active Alban Boyce MD Active AMOXICILLIN-POT CLAVULANATE 875-125 MG ORAL TABLET 1 pill by mouth twice daily AMOXICILLIN-POT CLAVULANATE 94464089538 No Longer Act parth Trina Sell BILINGUAL SECRETARY Active ATORVASTATIN CALCIUM 20 MG ORAL TABLET 1 po qHS 20 02/07/19 ATORVASTATIN CALCIUM 03535160040 No Longer Active Trina Sell BILINGUAL SECRETARY Active [facility] 5 MG ORAL TABLET 1 TAB PO Q HS ME LATONIN 76183171284 No Longer Active Trina Sell BILINGUAL SECRETARY Active PROMETHAZINE-CODEINE 6.25-10 MG/5ML ORAL SYRUP 5ml po q6hr PRN C ough PROMETHAZINE-CODEINE 49854626108 No Longer Active Trina Ramirez APRN Active PREDNISONE 20 MG ORAL TABLET 2 po qd x 5 days P REDNISONE 07785572989 No Longer Active Remigio Childress MD Active ENSKYCE 0.15-30 MG-MCG ORAL TABLET 1 TAB PO DAILY DESOGESTREL- ETHINYL ESTRADIOL 73217533986 Active Remigio Childress MD Acti ve PROAIR HFA 108 (90 BASE) MCG/ACT INHALATION AEROSOL SOLUTION 1 INH PRN ALBUTEROL SULFATE 23950443698 Active Remigio Childress MD Active FLONASE 50 MCG/ACT NASAL SUSPENSION 2 INH EA NOSTRIL DAILY FLUTICASONE PROPIONATE 83882786001 Active Remigio Childress MD Active QC WOMENS DAILY MULTIVITAMIN ORAL TABLET 1 TAB PO IN THE AM MULTIPLE VITAMINS-MINERALS 99312721068 Active Remigio Childress MD Active ATORVASTATIN CALCIUM 20 MG ORAL TABLET 1 TAB PO Q HS ATORVASTATIN CALCIUM 80957208939 Active Remigio Childress MD Active BUPROPION HCL ER (XL) 300 MG ORAL TABLET EXTENDED RELE ASE 24 HOUR 1 TAB PO IN THE AM BUPROPION HCL 45469247470 Active Remigio Childress MD Active PRAZOSIN HCL 1 MG ORAL CAPSULE 2 CAPS PO Q HS P RAZOSIN HCL 32751539254 Active Remigio Childress MD Active LAMICTAL 200 MG ORAL TABLET 2 TABS PO Q HS LAMOTR IGINE 76588448080 Active Remigio Childress MD Active PROMETHAZINE-CODEINE 6.25-10 MG/5ML ORAL SYRUP 5ml po q6hr PRN C ou PROMETHAZINE-CODEINE 6.25-10 MG/5ML ORAL SYRUP 812296 PROMETHAZINE-CODEINE Inactive [facility] MEL[facility]IN 5 MG ORAL TABLET 1 TAB PO Q HS 1 [facility] MEL[facility]IN 5 MG ORAL TABLET 745600 MELATONIN Inactive PREDNISONE 20 MG ORAL TABLET 3 tabs for 2 days, 2 tabs for 4 days 1 ta for 4 days, 1/2 tab for 4 days PREDNISONE 20 MG ORAL T ABLET 203951 PREDNISONE Inactive PREDNISONE 20 MG ORAL TABLET 2 po qd x 5 days PREDNISONE 20 MG ORAL TABLET 307008 PREDNISONE Inactive ATORVASTATIN CALCIUM 20 MG ORAL TABLET 1 po qHS 20 02/07/19 ATORVASTATIN CALCIUM 20 MG ORAL TABLET 055746 ATORVASTATIN CALCIUM Inactive AMOXICILLIN-POT CLAVULANATE 875-125 MG ORAL TABLET 1 pill by mouth twice daily AMOXICILLIN-POT CLAVULANATE 875-125 MG ORAL TABL ET 353195 AMOXICILLIN-POT CLAVULANATE Inactive ZITHROMAX Z-FELA 250 MG ORAL TABLET 2 today, then 1 daily for 4 d ays ZITHROMAX Z-FELA 250 MG ORAL TABLET 017327 AZITHROMYCIN Inactive Immunizations Vaccine Administration Date Value [...] mg/dL Encounters Code Encounter Date Provider Facility CPT-76075 06686-Ptr Vst-Est Level III 10:10:19 DIAGNOSTIC SALES SPECIALIST Alban Boyce MD [facility] CPT-97581 Level 3 Est. Patient 13:45:32 DIAGNOSTIC SALES SPECIALIST Trina tapia APRN [facility] CPT-98561 Level 3 Est. Patient 10:03:23 CDT Remigio Childress MD [facility]
--- OUTSIDE RECORDS SUMMARY | 2019-07-22 05:02 | XMS REPORT | Clinical Summary ---
Author Author Admin, Virgen MICHELET Organization [facility] Address Unknown Phone Unavailable Allergies, Adverse [...] site Sinusitis, acute frontal 461.1 Resolved Remigio Chidlress MD Acute frontal sinusitis Allergic rhinitis 477.9 [...] MG ORAL TABLET 2 po qHS LAMOTRIGINE 28342106834 Active Remigio Childress MD Active PRAZOSIN HCL 1 MG ORAL CAPSULE 2 po qHS PRAZOSIN HCL 49582871057 Active Remigio Childress MD Active BUPROPION HCL ER (XL) 300 MG ORAL TABLET EXTENDED RELEASE 24 HOUR 1 po qd BUPROPION HCL 22077766355 Active Remigio Childress MD Active ATORVASTATIN CALCIUM 20 MG ORAL TABLET 1 po qHS ATORVASTATIN CALCIUM 15803985170 Active Remigio Childress MD Active MULTIVITAMIN ADULT ORAL TABLET 1 po qd MULTI PLE VITAMINS-MINERALS 18691058615 Active Remigio Childress MD Active PROAIR HFA 108 (90 BASE) MCG/ACT INHALATION AEROSOL SO LUTION 2 puffs q4hr PRN Shortness of air/Wheezing ALBUTEROL SULFATE 49379880230 Ac gifty Childress MD Active FLUTICASONE PROPIONATE 50 MCG/ACT NASAL SUSPENSION 2 s prays/nostril qd PRN Congestion/Allergies FLUTICASONE PROPIONATE 49038768679 Ac gifty Childress MD Active ENSKYCE 0.15-30 MG-MCG ORAL TABLET 1 po qd DESOGESTREL-ETHINYL ESTRADIOL 30816286531 Active Remigio Childress MD Active ZITHROMAX Z-FELA 250 MG ORAL TABLET 2 today, then 1 daily for 4 d ays AZITHROMYCIN 02199517673 No Longer Active Alban Boyce MD Active PREDNISONE 20 MG ORAL TABLET 3 tabs for 2 days, 2 tabs for 4 days 1 ta for 4 days, 1/2 tab for 4 days PREDNISONE 81511096819 No Longer Active Alban Boyce MD Active AMOXICILLIN-POT CLAVULANATE 875-125 MG ORAL TABLET 1 pill by mouth twice daily AMOXICILLIN-POT CLAVULANATE 15912955263 No Longer Act parth Trina Sell IT NETWORK ADMINISTRATOR Active ATORVASTATIN CALCIUM 20 MG ORAL TABLET 1 po qHS 20 02/07/19 ATORVASTATIN CALCIUM 49453376641 No Longer Active Trina Sell IT NETWORK ADMINISTRATOR Active [facility] MELAT[facility]IN 5 MG ORAL TABLET 1 TAB PO Q HS ME LATONIN 02769893500 No Longer Active Trina Sell IT NETWORK ADMINISTRATOR Active PROMETHAZINE-CODEINE 6.25-10 MG/5ML ORAL SYRUP 5ml po q6hr PRN C ou PROMETHAZINE-CODEINE 75066241420 No Longer Active Trina Sell IT NETWORK ADMINISTRATOR Active PREDNISONE 20 MG ORAL TABLET 2 po qd x 5 days P REDNISONE 73558418905 No Longer Active Remigio Childress MD Active PROMETHAZINE-CODEINE 6.25-10 MG/5ML ORAL SYRUP 5ml po q6hr PRN C [facility] PROMETHAZINE-CODEINE 6.25-10 MG/5ML ORAL SYRUP 521343 PROMETHAZINE-CODEINE Inactive [facility] MEL[facility]IN 5 MG ORAL TABLET 1 TAB PO Q HS 1 [facility] MEL[facility]IN 5 MG ORAL TABLET 327255 MELATONIN Inactive PREDNISONE 20 MG ORAL TABLET 3 tabs for 2 days, 2 tabs for 4 days 1 ta for 4 days, 1/2 tab for 4 days PREDNISONE 20 MG ORAL T ABLET 503676 PREDNISONE Inactive PREDNISONE 20 MG ORAL TABLET 2 po qd x 5 days PREDNISONE 20 MG ORAL TABLET 211044 PREDNISONE Inactive ATORVASTATIN CALCIUM 20 MG ORAL TABLET 1 po qHS 02/07/19 ATORVASTATIN CALCIUM 20 MG ORAL TABLET 536176 ATORVASTATIN CALCIUM Inactive AMOXICILLIN-POT CLAVULANATE 875-125 MG ORAL TABLET 1 pill by mouth twice daily AMOXICILLIN-POT CLAVULANATE 875-125 MG ORAL TABL ET 986995 AMOXICILLIN-POT CLAVULANATE Inactive ZITHROMAX Z-FELA 250 MG ORAL TABLET 2 today, then 1 daily for 4 d ays ZITHROMAX Z-FELA 250 MG ORAL TABLET 316950 AZITHROMYCIN Inactive Immunizations Vaccine Administration Date Value [...] mg/dL Encounters Code Encounter Date Provider Facility CPT-79330 Level 4 Est. Patient 13:48:04 CDT Remigio Childress MD [facility] CPT-19063 21359-Qtc Vst-Est Level III 10:10:19 AIRCRAFT CAPTAIN Alban Boyce MD [facility] CPT-67336 Level 3 Est. Patient 13:45:32 AIRCRAFT CAPTAIN Trina tapia APRN [facility] CPT-04604 Level 3 Est. Patient 10:03:23 CDT Remigio Childress MD [facility] Procedures Code Procedure Name Date Entry Date Standard Desc ription CPT-000 Give PPD 13:51:16 CDT
--- OUTSIDE RECORDS SUMMARY | 2019-07-22 05:02 | XMS REPORT | Clinical Summary ---
Author Author Admin, Virgen MICHELET Organization [employer] Address Unknown Phone Unavailable Allergies, Adverse Reactions, [...] acute frontal 461.1 Active Trina Se ll NAPHTHALENE OPERATOR Acute frontal sinusitis Medication List Medication Instructions Start Date Stop Date Generic Name NDC Status Provider Patient Instruction ZITHROMAX Z-FELA 250 MG ORAL TABLET 2 today, then 1 daily for 4 d ays AZITHROMYCIN 18228907239 No Longer Active Alban Boyce MD Active PREDNISONE 20 MG ORAL TABLET 3 tabs for 2 days, 2 tabs for 4 days 1 ta for 4 days, 1/2 tab for 4 days PREDNISONE 32388697931 No Longer Active Alban Boyce MD Active AMOXICILLIN-POT CLAVULANATE 875-125 MG ORAL TABLET 1 pill by mouth twice daily AMOXICILLIN-POT CLAVULANATE 62744385842 No Longer Act parth Trina Sell NAPHTHALENE OPERATOR Active ATORVASTATIN CALCIUM 20 MG ORAL TABLET 1 po qHS 20 02/07/19 ATORVASTATIN CALCIUM 29340327706 No Longer Active Trina Sell NAPHTHALENE OPERATOR Active [facility] MEL[facility]IN 5 MG ORAL TABLET 1 TAB PO Q HS ME LATONIN 67488756714 No Longer Active Trina Sell NAPHTHALENE OPERATOR Active PROMETHAZINE-CODEINE 6.25-10 MG/5ML ORAL SYRUP 5ml po q6hr PRN C ough PROMETHAZINE-CODEINE 02249751310 No Longer Active Trina Ramirez APRN Active PREDNISONE 20 MG ORAL TABLET 2 po qd x 5 days P REDNISONE 95656715738 No Longer Active Remigio Childress MD Active ENSKYCE 0.15-30 MG-MCG ORAL TABLET 1 TAB PO DAILY DESOGESTREL- ETHINYL ESTRADIOL 68761649670 Active Remigio Childress MD Acti ve PROAIR HFA 108 (90 BASE) MCG/ACT INHALATION AEROSOL SOLUTION 1 INH PRN ALBUTEROL SULFATE 96784768824 Active Remigio Childress MD Active FLONASE 50 MCG/ACT NASAL SUSPENSION 2 INH EA NOSTRIL DAILY FLUTICASONE PROPIONATE 54028862408 Active Remigio Childress MD Active QC WOMENS DAILY MULTIVITAMIN ORAL TABLET 1 TAB PO IN THE AM MULTIPLE VITAMINS-MINERALS 20902537278 Active Remigio Childress MD Active ATORVASTATIN CALCIUM 20 MG ORAL TABLET 1 TAB PO Q HS ATORVASTATIN CALCIUM 72319555232 Active Remigio Childress MD Active BUPROPION HCL ER (XL) 300 MG ORAL TABLET EXTENDED RELE ASE 24 HOUR 1 TAB PO IN THE AM BUPROPION HCL 57355565352 Active Remigio Childress MD Active PRAZOSIN HCL 1 MG ORAL CAPSULE 2 CAPS PO Q HS P RAZOSIN HCL 96915432945 Active Remigio Childress MD Active LAMICTAL 200 MG ORAL TABLET 2 TABS PO Q HS LAMOTR IGINE 35294798485 Active Remigio Childress MD Active PROMETHAZINE-CODEINE 6.25-10 MG/5ML ORAL SYRUP 5ml po q6hr PRN C ou PROMETHAZINE-CODEINE 6.25-10 MG/5ML ORAL SYRUP 210265 PROMETHAZINE-CODEINE Inactive [facility] MEL[facility]IN 5 MG ORAL TABLET 1 TAB PO Q HS 1 [facility] MEL[facility]ONIN 5 MG ORAL TABLET 949199 MELATONIN Inactive PREDNISONE 20 MG ORAL TABLET 3 tabs for 2 days, 2 tabs for 4 days 1 ta for 4 days, 1/2 tab for 4 days PREDNISONE 20 MG ORAL T ABLET 178512 PREDNISONE Inactive PREDNISONE 20 MG ORAL TABLET 2 po qd x 5 days PREDNISONE 20 MG ORAL TABLET 009046 PREDNISONE Inactive ATORVASTATIN CALCIUM 20 MG ORAL TABLET 1 po qHS 20 02/07/19 ATORVASTATIN CALCIUM 20 MG ORAL TABLET 976382 ATORVASTATIN CALCIUM Inactive AMOXICILLIN-POT CLAVULANATE 875-125 MG ORAL TABLET 1 pill by mouth twice daily AMOXICILLIN-POT CLAVULANATE 875-125 MG ORAL TABL ET 972675 AMOXICILLIN-POT CLAVULANATE Inactive ZITHROMAX Z-FELA 250 MG ORAL TABLET 2 today, then 1 daily for 4 d ays ZITHROMAX Z-FELA 250 MG ORAL TABLET 441318 AZITHROMYCIN Inactive Immunizations Vaccine Administration Date Value [...] mg/dL Encounters Code Encounter Date Provider Facility CPT-37285 87769-Ter Vst-Est Level III 10:10:19 RETAIL MARKETING COORDINATOR Alban Boyce MD [facility] CPT-01789 Level 3 Est. Patient 13:45:32 RETAIL MARKETING COORDINATOR Trina tapia APRN [facility] CPT-46717 Level 3 Est. Patient 10:03:23 CDT Remigio Childress MD [facility]
--- OUTSIDE RECORDS SUMMARY | 2019-07-22 05:03 | XMS REPORT | Clinical Summary ---
Author Author Admin, Virgen TAFOYA Organization [facility] [place] Address Unknown Phone Unavailable Allergies, Adverse Reactions, Alerts Allergy Name Reaction Description Start Date Severity Status Pr ovider No Known Allergies Claudia arizmendi LRT Conditions or Problems Problem Name Problem Code Onset Date Status Entry Date Provider Comment Standard Description Annotate Upper respiratory infection, viral 465.9 Active 2 Remigio Childress MD Acute upper respiratory infections of un specified site Elevated blood sugar 790.29 Active Ca[facility] Sim mons Other abnormal glucose Fatigue 780.79 Active [facility] [place] Other malaise and fatigue Hyperlipidemia 272.4 Active [facility] [place] Other and unspecified hyperlipidemia Sinusitis, acute frontal 461.1 Active Trina Se ll END PACKER Acute frontal sinusitis Medication List Medication Instructions Start Date Stop Date Generic Name NDC Status Provider Patient Instruction PREDNISONE 20 MG ORAL TABLET 3 tabs for 2 days, 2 tabs for 4 days 1 ta for 4 days, 1/2 tab for 4 days PREDNISONE 88137711808 Active Trina Sell END PACKER Active AMOXICILLIN-POT CLAVULANATE 875-125 MG ORAL TABLET 1 pill by mouth twice daily AMOXICILLIN-POT CLAVULANATE 28548896275 Active Trina Sell END PACKER Active ATORVASTATIN CALCIUM 20 MG ORAL TABLET 1 po qHS 20 02/07/19 ATORVASTATIN CALCIUM 65552682914 Active Trina Sell END PACKER Act parth [facility] MELATONIN 5 MG ORAL TABLET 1 TAB PO Q HS ME LATONIN 36658955640 No Longer Active Trina Sell END PACKER Active PROMETHAZINE-CODEINE 6.25-10 MG/5ML ORAL SYRUP 5ml po q6hr PRN C ough PROMETHAZINE-CODEINE 28212136803 No Longer Active Trina Ramirez APRN Active PREDNISONE 20 MG ORAL TABLET 2 po qd x 5 days P REDNISONE 40086856808 No Longer Active Remigio Childress MD Active ENSKYCE 0.15-30 MG-MCG ORAL TABLET 1 TAB PO DAILY DESOGESTREL- ETHINYL ESTRADIOL 34674236453 Active Remigio Childress MD Acti ve PROAIR HFA 108 (90 BASE) MCG/ACT INHALATION AEROSOL SOLUTION 1 INH PRN ALBUTEROL SULFATE 83354766256 Active Remigio Childress MD Active FLONASE 50 MCG/ACT NASAL SUSPENSION 2 INH EA NOSTRIL DAILY FLUTICASONE PROPIONATE 66183814764 Active Remigio Childress MD Active QC WOMENS DAILY MULTIVITAMIN ORAL TABLET 1 TAB PO IN THE AM MULTIPLE VITAMINS-MINERALS 78749623373 Active Remigio Childress MD Active ATORVASTATIN CALCIUM 20 MG ORAL TABLET 1 TAB PO Q HS ATORVASTATIN CALCIUM 99210115154 Active Remigio Childress MD Active BUPROPION HCL ER (XL) 300 MG ORAL TABLET EXTENDED RELE ASE 24 HOUR 1 TAB PO IN THE AM BUPROPION HCL 08191757953 Active Remigio Childress MD Active PRAZOSIN HCL 1 MG ORAL CAPSULE 2 CAPS PO Q HS P RAZOSIN HCL 38640021689 Active Remigio Childress MD Active LAMICTAL 200 MG ORAL TABLET 2 TABS PO Q HS LAMOTR IGINE 30414407453 Active Remigio Childress MD Active PROMETHAZINE-CODEINE 6.25-10 MG/5ML ORAL SYRUP 5ml po q6hr PRN C ough PROMETHAZINE-CODEINE 6.25-10 MG/5ML ORAL SYRUP 376859 PROMETHAZINE-CODEINE Inactive [facility] MELATONIN 5 MG ORAL TABLET 1 TAB PO Q HS 1 [facility] MELATONIN 5 MG ORAL TABLET 083650 MELATONIN Inactive PREDNISONE 20 MG ORAL TABLET 2 po qd x 5 days PREDNISONE 20 MG ORAL TABLET 820323 PREDNISONE Inactive Immunizations Vaccine Administration Date Value Standard Heber cription influenza immunization (Flu Vax) has been administered 02/26 Done according to patient influenza virus vaccine, unspecified for mulation Vital Signs Date Name Value Unit Range Description blood pressure, diastolic 89 mm[Hg] BP bet[place]court blood pressure, systolic 129 mm[Hg] BP sys pulse rate E&M 86 /min Heart rate temperature E&M 97.8 [degF] Body temp erature weight E&M 191 [lb_av] Weight Measure d temperature E&M 98.1 [degF] Body temp erature weight E&M 190 [lb_av] Weight Measure d Encounters Code Encounter Date Provider Facility CPT-74903 Level 3 Est. Patient 13:45:32 NEWSPAPER PEDDLER Trina tapia APRN [facility] CPT-29530 Level 3 Est. Patient 10:03:23 CDT Remigio Childress MD [facility]
--- OUTSIDE RECORDS SUMMARY | 2019-07-22 05:03 | XMS REPORT | Clinical Summary ---
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 Acute frontal sinusitis Medication List Medication Instructions Start Date Stop Date Generic Name NDC Status Provider Patient Instruction PREDNISONE 20 MG ORAL TABLET 3 tabs for 2 days, 2 tabs for 4 days 1 ta for 4 days, 1/2 tab for 4 days PREDNISONE 31777439929 Active Trina Sell CHALK MACHINE OPERATOR Active AMOXICILLIN-POT CLAVULANATE 875-125 MG ORAL TABLET 1 pill by mouth twice daily AMOXICILLIN-POT CLAVULANATE 85401769841 Active Trina Sell CHALK MACHINE OPERATOR Active ATORVASTATIN CALCIUM 20 MG ORAL TABLET 1 po qHS 02/07/19 ATORVASTATIN CALCIUM 86074023549 Active Trina Sell CHALK MACHINE OPERATOR Act parth [facility] MELATONIN 5 MG ORAL TABLET 1 TAB PO Q HS ME LATONIN 02422289382 No Longer Active Trina Sell CHALK MACHINE OPERATOR Active PROMETHAZINE-CODEINE 6.25-10 MG/5ML ORAL SYRUP 5ml po q6hr PRN C ough PROMETHAZINE-CODEINE 66204706563 No Longer Active Trina Ramirez APRN Active PREDNISONE 20 MG ORAL TABLET 2 po qd x 5 days P REDNISONE 39331947610 No Longer Active Remigio Childress MD Active ENSKYCE 0.15-30 MG-MCG ORAL TABLET 1 TAB PO DAILY DESOGESTREL- ETHINYL ESTRADIOL 21183217122 Active Remigio Childress MD Acti ve PROAIR HFA 108 (90 BASE) MCG/ACT INHALATION AEROSOL SOLUTION 1 INH PRN ALBUTEROL SULFATE 55685216679 Active Remigio Childress MD Active FLONASE 50 MCG/ACT NASAL SUSPENSION 2 INH EA NOSTRIL DAILY FLUTICASONE PROPIONATE 96956486104 Active Remigio Childress MD Active QC WOMENS DAILY MULTIVITAMIN ORAL TABLET 1 TAB PO IN THE AM MULTIPLE VITAMINS-MINERALS 87780157165 Active Remigio Childress MD Active ATORVASTATIN CALCIUM 20 MG ORAL TABLET 1 TAB PO Q HS ATORVASTATIN CALCIUM 75829930530 Active Remigio Childress MD Active BUPROPION HCL ER (XL) 300 MG ORAL TABLET EXTENDED RELE ASE 24 HOUR 1 TAB PO IN THE AM BUPROPION HCL 49266847967 Active Remigio Childress MD Active PRAZOSIN HCL 1 MG ORAL CAPSULE 2 CAPS PO Q HS P RAZOSIN HCL 35957721918 Active Remigio Childress MD Active LAMICTAL 200 MG ORAL TABLET 2 TABS PO Q HS LAMOTR IGINE 98369597694 Active Remigio Childress MD Active PROMETHAZINE-CODEINE 6.25-10 MG/5ML ORAL SYRUP 5ml po q6hr PRN C ough PROMETHAZINE-CODEINE 6.25-10 MG/5ML ORAL SYRUP 160449 PROMETHAZINE-CODEINE Inactive [facility] MELATONIN 5 MG ORAL TABLET 1 TAB PO Q HS 1 [facility] MELATONIN 5 MG ORAL TABLET 388407 MELATONIN Inactive PREDNISONE 20 MG ORAL TABLET 2 po qd x 5 days PREDNISONE 20 MG ORAL TABLET 671422 PREDNISONE Inactive Immunizations Vaccine Administration Date Value [...] d Encounters Code Encounter Date Provider Facility CPT-79904 Level 3 Est. 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 Patient 10:03:23 CDT Remigio Childress MD [facility]
--- OUTSIDE RECORDS SUMMARY | 2019-07-22 05:03 | XMS REPORT | Clinical Summary ---
Author Author Admin, Virgen TAFOYA Organization [facility] Address Unknown Phone Unavailable Allergies, [...] acute frontal 461.1 Active Trina Se ll OVEREDGER Acute frontal sinusitis Medication List Medication Instructions Start Date Stop Date Generic Name NDC Status Provider Patient Instruction PREDNISONE 20 MG ORAL TABLET 3 tabs for 2 days, 2 tabs for 4 days 1 ta for 4 days, 1/2 tab for 4 days PREDNISONE 90116112395 Active Trina Sell OVEREDGER Active AMOXICILLIN-POT CLAVULANATE 875-125 MG ORAL TABLET 1 pill by mouth twice daily AMOXICILLIN-POT CLAVULANATE 02295832538 No Longer Act parth Trina Sell OVEREDGER Active ATORVASTATIN CALCIUM 20 MG ORAL TABLET 1 po qHS 20 02/07/19 ATORVASTATIN CALCIUM 59105969337 No Longer Active Trina Sell OVEREDGER Active [facility] MELATONIN 5 MG ORAL TABLET 1 TAB PO Q HS ME LATONIN 33288264283 No Longer Active Trina Sell OVEREDGER Active PROMETHAZINE-CODEINE 6.25-10 MG/5ML ORAL SYRUP 5ml po q6hr PRN C ough PROMETHAZINE-CODEINE 91234883033 No Longer Active Trina Sell OVEREDGER Active PREDNISONE 20 MG ORAL TABLET 2 po qd x 5 days P REDNISONE 63281752238 No Longer Active Remigio Childress MD Active ENSKYCE 0.15-30 MG-MCG ORAL TABLET 1 TAB PO DAILY DESOGESTREL- ETHINYL ESTRADIOL 32227221695 Active Remigio Childress MD Acti ve PROAIR HFA 108 (90 BASE) MCG/ACT INHALATION AEROSOL SOLUTION 1 INH PRN ALBUTEROL SULFATE 24967837615 Active Remigio Childress MD Active FLONASE 50 MCG/ACT NASAL SUSPENSION 2 INH EA NOSTRIL DAILY FLUTICASONE PROPIONATE 87405586689 Active Remigio Childress MD Active QC WOMENS DAILY MULTIVITAMIN ORAL TABLET 1 TAB PO IN THE AM MULTIPLE VITAMINS-MINERALS 99272355768 Active Remigio Childress MD Active ATORVASTATIN CALCIUM 20 MG ORAL TABLET 1 TAB PO Q HS ATORVASTATIN CALCIUM 13318673921 Active Remigio Childress MD Active BUPROPION HCL ER (XL) 300 MG ORAL TABLET EXTENDED RELE ASE 24 HOUR 1 TAB PO IN THE AM BUPROPION HCL 19285838018 Active Remigio Childress MD Active PRAZOSIN HCL 1 MG ORAL CAPSULE 2 CAPS PO Q HS P RAZOSIN HCL 79990353381 Active Remigio Childress MD Active LAMICTAL 200 MG ORAL TABLET 2 TABS PO Q HS LAMOTR IGINE 50179588263 Active Remigio Childress MD Active PROMETHAZINE-CODEINE 6.25-10 MG/5ML ORAL SYRUP 5ml po q6hr PRN C ough PROMETHAZINE-CODEINE 6.25-10 MG/5ML ORAL SYRUP 135722 PROMETHAZINE-CODEINE Inactive [facility] MELATONIN 5 MG ORAL TABLET 1 TAB PO Q HS 1 [facility] MELATONIN 5 MG ORAL TABLET 934878 MELATONIN Inactive PREDNISONE 20 MG ORAL TABLET 2 po qd x 5 days PREDNISONE 20 MG ORAL TABLET 036477 PREDNISONE Inactive ATORVASTATIN CALCIUM 20 MG ORAL TABLET 1 po qHS 02/07/19 ATORVASTATIN CALCIUM 20 MG ORAL TABLET 857837 ATORVASTATIN CALCIUM Inactive AMOXICILLIN-POT CLAVULANATE 875-125 MG ORAL TABLET 1 pill by mouth twice daily AMOXICILLIN-POT CLAVULANATE 875-125 MG ORAL TABL ET 034049 AMOXICILLIN-POT CLAVULANATE Inactive Immunizations Vaccine Administration Date [...] d Encounters Code Encounter Date Provider Facility CPT-13718 Level 3 Est. 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 Patient 10:03:23 CDT Remigio Childress MD [facility]
--- OUTSIDE RECORDS SUMMARY | 2019-07-22 05:03 | XMS REPORT | Clinical Summary ---
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 Acute frontal sinusitis Medication List Medication Instructions Start Date Stop Date Generic Name NDC Status Provider Patient Instruction PREDNISONE 20 MG ORAL TABLET 3 tabs for 2 days, 2 tabs for 4 days 1 ta for 4 days, 1/2 tab for 4 days PREDNISONE 87882297421 Active Trina Sell PLACING JUDGE Active AMOXICILLIN-POT CLAVULANATE 875-125 MG ORAL TABLET 1 pill by mouth twice daily AMOXICILLIN-POT CLAVULANATE 59193675162 Active Trina Sell PLACING JUDGE Active ATORVASTATIN CALCIUM 20 MG ORAL TABLET 1 po qHS 02/07/19 ATORVASTATIN CALCIUM 76994485572 Active Trina Sell PLACING JUDGE Act parth [facility] MELATONIN 5 MG ORAL TABLET 1 TAB PO Q HS ME LATONIN 49649611116 No Longer Active Trina Sell PLACING JUDGE Active PROMETHAZINE-CODEINE 6.25-10 MG/5ML ORAL SYRUP 5ml po q6hr PRN C ough PROMETHAZINE-CODEINE 11825909420 No Longer Active Trina Ramirez APRN Active PREDNISONE 20 MG ORAL TABLET 2 po qd x 5 days P REDNISONE 31141292118 No Longer Active Remigio Childress MD Active ENSKYCE 0.15-30 MG-MCG ORAL TABLET 1 TAB PO DAILY DESOGESTREL- ETHINYL ESTRADIOL 52603000700 Active Remigio Childress MD Acti ve PROAIR HFA 108 (90 BASE) MCG/ACT INHALATION AEROSOL SOLUTION 1 INH PRN ALBUTEROL SULFATE 39108956287 Active Remigio Childress MD Active FLONASE 50 MCG/ACT NASAL SUSPENSION 2 INH EA NOSTRIL DAILY FLUTICASONE PROPIONATE 89526087220 Active Remigio Childress MD Active QC WOMENS DAILY MULTIVITAMIN ORAL TABLET 1 TAB PO IN THE AM MULTIPLE VITAMINS-MINERALS 73297034234 Active Remigio Childress MD Active ATORVASTATIN CALCIUM 20 MG ORAL TABLET 1 TAB PO Q HS ATORVASTATIN CALCIUM 70587029466 Active Remigio Childress MD Active BUPROPION HCL ER (XL) 300 MG ORAL TABLET EXTENDED RELE ASE 24 HOUR 1 TAB PO IN THE AM BUPROPION HCL 20074103675 Active Remigio Childress MD Active PRAZOSIN HCL 1 MG ORAL CAPSULE 2 CAPS PO Q HS P RAZOSIN HCL 57677791926 Active Remigio Childress MD Active LAMICTAL 200 MG ORAL TABLET 2 TABS PO Q HS LAMOTR IGINE 49904870484 Active Remigio Childress MD Active PROMETHAZINE-CODEINE 6.25-10 MG/5ML ORAL SYRUP 5ml po q6hr PRN C ough PROMETHAZINE-CODEINE 6.25-10 MG/5ML ORAL SYRUP 418467 PROMETHAZINE-CODEINE Inactive [facility] MELATONIN 5 MG ORAL TABLET 1 TAB PO Q HS 1 [facility] MELATONIN 5 MG ORAL TABLET 793779 MELATONIN Inactive PREDNISONE 20 MG ORAL TABLET 2 po qd x 5 days PREDNISONE 20 MG ORAL TABLET 090101 PREDNISONE Inactive Immunizations Vaccine Administration Date Value [...] d Encounters Code Encounter Date Provider Facility CPT-54961 Level 3 Est. 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 Patient 10:03:23 CDT Remigio Childress MD [facility]
--- OUTSIDE RECORDS SUMMARY | 2019-07-22 05:03 | XMS REPORT | Clinical Summary ---
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 Acute frontal sinusitis Medication List Medication Instructions Start Date Stop Date Generic Name NDC Status Provider Patient Instruction PREDNISONE 20 MG ORAL TABLET 3 tabs for 2 days, 2 tabs for 4 days 1 ta for 4 days, 1/2 tab for 4 days PREDNISONE 79926780457 Active Trina Sell GRINDER OUTSIDE DIAMETER Active AMOXICILLIN-POT CLAVULANATE 875-125 MG ORAL TABLET 1 pill by mouth twice daily AMOXICILLIN-POT CLAVULANATE 37471057863 Active Trina Sell GRINDER OUTSIDE DIAMETER Active ATORVASTATIN CALCIUM 20 MG ORAL TABLET 1 po qHS 02/07/19 ATORVASTATIN CALCIUM 17823377494 Active Trina Sell GRINDER OUTSIDE DIAMETER Act parth [facility] MELATONIN 5 MG ORAL TABLET 1 TAB PO Q HS ME LATONIN 09290626139 No Longer Active Trina Sell GRINDER OUTSIDE DIAMETER Active PROMETHAZINE-CODEINE 6.25-10 MG/5ML ORAL SYRUP 5ml po q6hr PRN C ough PROMETHAZINE-CODEINE 91256443086 No Longer Active Trina Ramirez APRN Active PREDNISONE 20 MG ORAL TABLET 2 po qd x 5 days P REDNISONE 60247041890 No Longer Active Remigio Childress MD Active ENSKYCE 0.15-30 MG-MCG ORAL TABLET 1 TAB PO DAILY DESOGESTREL- ETHINYL ESTRADIOL 89778607491 Active Remigio Childress MD Acti ve PROAIR HFA 108 (90 BASE) MCG/ACT INHALATION AEROSOL SOLUTION 1 INH PRN ALBUTEROL SULFATE 95474707867 Active Remigio Childress MD Active FLONASE 50 MCG/ACT NASAL SUSPENSION 2 INH EA NOSTRIL DAILY FLUTICASONE PROPIONATE 45695651638 Active Remigio Childress MD Active QC WOMENS DAILY MULTIVITAMIN ORAL TABLET 1 TAB PO IN THE AM MULTIPLE VITAMINS-MINERALS 56786348606 Active Remigio Childress MD Active ATORVASTATIN CALCIUM 20 MG ORAL TABLET 1 TAB PO Q HS ATORVASTATIN CALCIUM 45847499788 Active Remigio Childress MD Active BUPROPION HCL ER (XL) 300 MG ORAL TABLET EXTENDED RELE ASE 24 HOUR 1 TAB PO IN THE AM BUPROPION HCL 37442013196 Active Remigio Childress MD Active PRAZOSIN HCL 1 MG ORAL CAPSULE 2 CAPS PO Q HS P RAZOSIN HCL 14529231872 Active Remigio Childress MD Active LAMICTAL 200 MG ORAL TABLET 2 TABS PO Q HS LAMOTR IGINE 71448373663 Active Remigio Childress MD Active PROMETHAZINE-CODEINE 6.25-10 MG/5ML ORAL SYRUP 5ml po q6hr PRN C ough PROMETHAZINE-CODEINE 6.25-10 MG/5ML ORAL SYRUP 831767 PROMETHAZINE-CODEINE Inactive [facility] MELATONIN 5 MG ORAL TABLET 1 TAB PO Q HS 1 [facility] MELATONIN 5 MG ORAL TABLET 532755 MELATONIN Inactive PREDNISONE 20 MG ORAL TABLET 2 po qd x 5 days PREDNISONE 20 MG ORAL TABLET 844574 PREDNISONE Inactive Immunizations Vaccine Administration Date Value [...] d Encounters Code Encounter Date Provider Facility CPT-87722 Level 3 Est. 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 Patient 10:03:23 CDT Remigio Childress MD [facility]
--- OUTSIDE RECORDS SUMMARY | 2019-07-22 05:03 | XMS REPORT | Clinical Summary ---
Author Author Admin, Virgen MICHELET Organization [employer] Address Unknown Phone Unavailable Allergies, Adverse Reactions, [...] acute frontal 461.1 Active Trina Se ll GIG TENDER Acute frontal sinusitis Medication List Medication Instructions Start Date Stop Date Generic Name NDC Status Provider Patient Instruction ZITHROMAX Z-FELA 250 MG ORAL TABLET 2 today, then 1 daily for 4 d ays AZITHROMYCIN 78516988791 Active Alban Boyce MD Ac tive PREDNISONE 20 MG ORAL TABLET 3 tabs for 2 days, 2 tabs for 4 days 1 ta for 4 days, 1/2 tab for 4 days PREDNISONE 87641752377 No Longer Active Alban Boyce MD Active AMOXICILLIN-POT CLAVULANATE 875-125 MG ORAL TABLET 1 pill by mouth twice daily AMOXICILLIN-POT CLAVULANATE 20980578464 No Longer Act parth Trina Sell GIG TENDER Active ATORVASTATIN CALCIUM 20 MG ORAL TABLET 1 po qHS 20 02/07/19 ATORVASTATIN CALCIUM 01348767255 No Longer Active Trina Sell GIG TENDER Active [facility] MELATONIN 5 MG ORAL TABLET 1 TAB PO Q HS ME LATONIN 34975631482 No Longer Active Trina Sell GIG TENDER Active PROMETHAZINE-CODEINE 6.25-10 MG/5ML ORAL SYRUP 5ml po q6hr PRN C ough PROMETHAZINE-CODEINE 02841090364 No Longer Active Trina Ramirez APRN Active PREDNISONE 20 MG ORAL TABLET 2 po qd x 5 days P REDNISONE 63308377956 No Longer Active Remigio Childress MD Active ENSKYCE 0.15-30 MG-MCG ORAL TABLET 1 TAB PO DAILY DESOGESTREL- ETHINYL ESTRADIOL 54273979361 Active Remigio Childress MD Acti ve PROAIR HFA 108 (90 BASE) MCG/ACT INHALATION AEROSOL SOLUTION 1 INH PRN ALBUTEROL SULFATE 80832608855 Active Remigio Childress MD Active FLONASE 50 MCG/ACT NASAL SUSPENSION 2 INH EA NOSTRIL DAILY FLUTICASONE PROPIONATE 60433348572 Active Remigio Childress MD Active QC WOMENS DAILY MULTIVITAMIN ORAL TABLET 1 TAB PO IN THE AM MULTIPLE VITAMINS-MINERALS 12561247063 Active Remigio Childress MD Active ATORVASTATIN CALCIUM 20 MG ORAL TABLET 1 TAB PO Q HS ATORVASTATIN CALCIUM 82689578064 Active Remigio Childress MD Active BUPROPION HCL ER (XL) 300 MG ORAL TABLET EXTENDED RELE ASE 24 HOUR 1 TAB PO IN THE AM BUPROPION HCL 04896869048 Active Remigio Childress MD Active PRAZOSIN HCL 1 MG ORAL CAPSULE 2 CAPS PO Q HS P RAZOSIN HCL 58249784032 Active Remigio Childress MD Active LAMICTAL 200 MG ORAL TABLET 2 TABS PO Q HS LAMOTR IGINE 29825638718 Active Remigio Childress MD Active PROMETHAZINE-CODEINE 6.25-10 MG/5ML ORAL SYRUP 5ml po q6hr PRN C ou PROMETHAZINE-CODEINE 6.25-10 MG/5ML ORAL SYRUP 167241 PROMETHAZINE-CODEINE Inactive [facility] MELATONIN 5 MG ORAL TABLET 1 TAB PO Q HS 1 [facility] MELATONIN 5 MG ORAL TABLET 211715 MELATONIN Inactive PREDNISONE 20 MG ORAL TABLET 3 tabs for 2 days, 2 tabs for 4 days 1 ta for 4 days, 1/2 tab for 4 days PREDNISONE 20 MG ORAL T ABLET 269179 PREDNISONE Inactive PREDNISONE 20 MG ORAL TABLET 2 po qd x 5 days PREDNISONE 20 MG ORAL TABLET 319199 PREDNISONE Inactive ATORVASTATIN CALCIUM 20 MG ORAL TABLET 1 po qHS 20 02/07/19 ATORVASTATIN CALCIUM 20 MG ORAL TABLET 045118 ATORVASTATIN CALCIUM Inactive AMOXICILLIN-POT CLAVULANATE 875-125 MG ORAL TABLET 1 pill by mouth twice daily AMOXICILLIN-POT CLAVULANATE 875-125 MG ORAL TABL ET 867230 AMOXICILLIN-POT CLAVULANATE Inactive Immunizations Vaccine Administration Date [...] mg/dL Encounters Code Encounter Date Provider Facility CPT-10743 [id number] Vst-Est Level III 10:10:19 SLOT MANAGER Alban Boyce MD [facility] CPT-01595 Level 3 Est. Patient 13:45:32 SLOT MANAGER Trina tapia APRN [facility] CPT-73388 Level 3 Est. Patient 10:03:23 CDT Remigio Childress MD [facility]
--- OUTSIDE RECORDS SUMMARY | 2019-07-22 05:03 | XMS REPORT | Clinical Summary ---
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 Acute frontal sinusitis Medication List Medication Instructions Start Date Stop Date Generic Name NDC Status Provider Patient Instruction PREDNISONE 20 MG ORAL TABLET 3 tabs for 2 days, 2 tabs for 4 days 1 ta for 4 days, 1/2 tab for 4 days PREDNISONE 97034803805 Active Trina Sell ELEMENTARY SUPERVISOR Active AMOXICILLIN-POT CLAVULANATE 875-125 MG ORAL TABLET 1 pill by mouth twice daily AMOXICILLIN-POT CLAVULANATE 65999474728 Active Trina Sell ELEMENTARY SUPERVISOR Active ATORVASTATIN CALCIUM 20 MG ORAL TABLET 1 po qHS 20 02/07/19 ATORVASTATIN CALCIUM 17808000301 Active Trina Sell ELEMENTARY SUPERVISOR Act parth [facility] MELATONIN 5 MG ORAL TABLET 1 TAB PO Q HS ME LATONIN 82782476823 No Longer Active Trina Sell ELEMENTARY SUPERVISOR Active PROMETHAZINE-CODEINE 6.25-10 MG/5ML ORAL SYRUP 5ml po q6hr PRN C ough PROMETHAZINE-CODEINE 30332103375 No Longer Active Trina Ramirez APRN Active PREDNISONE 20 MG ORAL TABLET 2 po qd x 5 days P REDNISONE 42876306830 No Longer Active Remigio Childress MD Active ENSKYCE 0.15-30 MG-MCG ORAL TABLET 1 TAB PO DAILY DESOGESTREL- ETHINYL ESTRADIOL 48617631222 Active Remigio Childress MD Acti ve PROAIR HFA 108 (90 BASE) MCG/ACT INHALATION AEROSOL SOLUTION 1 INH PRN ALBUTEROL SULFATE 94878374627 Active Remigio Childress MD Active FLONASE 50 MCG/ACT NASAL SUSPENSION 2 INH EA NOSTRIL DAILY FLUTICASONE PROPIONATE 87808541772 Active Remigio Childress MD Active QC WOMENS DAILY MULTIVITAMIN ORAL TABLET 1 TAB PO IN THE AM MULTIPLE VITAMINS-MINERALS 19582530829 Active Remigio Childress MD Active ATORVASTATIN CALCIUM 20 MG ORAL TABLET 1 TAB PO Q HS ATORVASTATIN CALCIUM 84273852839 Active Remigio Childress MD Active BUPROPION HCL ER (XL) 300 MG ORAL TABLET EXTENDED RELE ASE 24 HOUR 1 TAB PO IN THE AM BUPROPION HCL 30142584750 Active Remigio Childress MD Active PRAZOSIN HCL 1 MG ORAL CAPSULE 2 CAPS PO Q HS P RAZOSIN HCL 22516966011 Active Remigio Childress MD Active LAMICTAL 200 MG ORAL TABLET 2 TABS PO Q HS LAMOTR IGINE 75227132456 Active Remigio Childress MD Active PROMETHAZINE-CODEINE 6.25-10 MG/5ML ORAL SYRUP 5ml po q6hr PRN C ough PROMETHAZINE-CODEINE 6.25-10 MG/5ML ORAL SYRUP 727198 PROMETHAZINE-CODEINE Inactive [facility] MELATONIN 5 MG ORAL TABLET 1 TAB PO Q HS 1 [facility] MELATONIN 5 MG ORAL TABLET 116388 MELATONIN Inactive PREDNISONE 20 MG ORAL TABLET 2 po qd x 5 days PREDNISONE 20 MG ORAL TABLET 454293 PREDNISONE Inactive Immunizations Vaccine Administration Date Value [...] d Encounters Code Encounter Date Provider Facility CPT-04212 Level 3 Est. 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 Patient 10:03:23 CDT Remigio Childress MD [facility]
--- OUTSIDE RECORDS SUMMARY | 2019-07-22 05:03 | XMS REPORT | Clinical Summary ---
Author Author Admin, Virgen TAFOYA Organization [facility] Address Unknown Phone Unavailable Allergies, Adverse Reactions, [...] acute frontal 461.1 Active Trina Se ll CABLE ENGINEER Acute frontal sinusitis Medication List Medication Instructions Start Date Stop Date Generic Name NDC Status Provider Patient Instruction PREDNISONE 20 MG ORAL TABLET 3 tabs for 2 days, 2 tabs for 4 days 1 ta for 4 days, 1/2 tab for 4 days PREDNISONE 12409758579 Active Trina Sell CABLE ENGINEER Active AMOXICILLIN-POT CLAVULANATE 875-125 MG ORAL TABLET 1 pill by mouth twice daily AMOXICILLIN-POT CLAVULANATE 84182816704 No Longer Act parth Trina Sell CABLE ENGINEER Active ATORVASTATIN CALCIUM 20 MG ORAL TABLET 1 po qHS 20 02/07/19 ATORVASTATIN CALCIUM 49854789890 No Longer Active Trina Sell CABLE ENGINEER Active [facility] MELATONIN 5 MG ORAL TABLET 1 TAB PO Q HS ME LATONIN 26346526734 No Longer Active Trina Sell CABLE ENGINEER Active PROMETHAZINE-CODEINE 6.25-10 MG/5ML ORAL SYRUP 5ml po q6hr PRN C ough PROMETHAZINE-CODEINE 95773392485 No Longer Active Trina Sell CABLE ENGINEER Active PREDNISONE 20 MG ORAL TABLET 2 po qd x 5 days P REDNISONE 28165362500 No Longer Active Remigio Childress MD Active ENSKYCE 0.15-30 MG-MCG ORAL TABLET 1 TAB PO DAILY DESOGESTREL- ETHINYL ESTRADIOL 79815160713 Active Remigio Childress MD Acti ve PROAIR HFA 108 (90 BASE) MCG/ACT INHALATION AEROSOL SOLUTION 1 INH PRN ALBUTEROL SULFATE 89318725563 Active Remigio Childress MD Active FLONASE 50 MCG/ACT NASAL SUSPENSION 2 INH EA NOSTRIL DAILY FLUTICASONE PROPIONATE 19565602162 Active Remigio Childress MD Active QC WOMENS DAILY MULTIVITAMIN ORAL TABLET 1 TAB PO IN THE AM MULTIPLE VITAMINS-MINERALS 44322606427 Active Remigio Childress MD Active ATORVASTATIN CALCIUM 20 MG ORAL TABLET 1 TAB PO Q HS ATORVASTATIN CALCIUM 04034964310 Active Remigio Childress MD Active BUPROPION HCL ER (XL) 300 MG ORAL TABLET EXTENDED RELE ASE 24 HOUR 1 TAB PO IN THE AM BUPROPION HCL 58144232685 Active Remigio Childress MD Active PRAZOSIN HCL 1 MG ORAL CAPSULE 2 CAPS PO Q HS P RAZOSIN HCL 00259998103 Active Remigio Childress MD Active LAMICTAL 200 MG ORAL TABLET 2 TABS PO Q HS LAMOTR IGINE 07751143840 Active Remigio Childress MD Active PROMETHAZINE-CODEINE 6.25-10 MG/5ML ORAL SYRUP 5ml po q6hr PRN C ough PROMETHAZINE-CODEINE 6.25-10 MG/5ML ORAL SYRUP 004376 PROMETHAZINE-CODEINE Inactive [facility] MELATONIN 5 MG ORAL TABLET 1 TAB PO Q HS 1 [facility] MELATONIN 5 MG ORAL TABLET 890464 MELATONIN Inactive PREDNISONE 20 MG ORAL TABLET 2 po qd x 5 days PREDNISONE 20 MG ORAL TABLET 073984 PREDNISONE Inactive ATORVASTATIN CALCIUM 20 MG ORAL TABLET 1 po qHS 02/07/19 ATORVASTATIN CALCIUM 20 MG ORAL TABLET 394209 ATORVASTATIN CALCIUM Inactive AMOXICILLIN-POT CLAVULANATE 875-125 MG ORAL TABLET 1 pill by mouth twice daily AMOXICILLIN-POT CLAVULANATE 875-125 MG ORAL TABL ET 844787 AMOXICILLIN-POT CLAVULANATE Inactive Immunizations Vaccine Administration Date [...] d Encounters Code Encounter Date Provider Facility CPT-06617 Level 3 Est. 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 Patient 10:03:23 CDT Remigio Childress MD [facility]
--- OUTSIDE RECORDS SUMMARY | 2019-07-22 05:03 | XMS REPORT | Clinical Summary ---
Author Author Admin, Virgen TAFOYA Organization [employer] Address Unknown Phone Unavailable Allergies, Adverse Reactions, Alerts Allergy Name Reaction Description Start Date Severity Status Pr ovider No Known Allergies Caludia arizmendi LRT Conditions or Problems Problem Name Problem Code Onset Date Status Entry Date Provider Comment Standard Description Annotate Upper respiratory infection, viral 465.9 Active 2 Remigio Childress MD Acute upper respiratory infections of un specified site Elevated blood sugar 790.29 Active Nondenominational Sim mons Other abnormal glucose Fatigue 780.79 Active Nondenominational [place] Other malaise and fatigue Hyperlipidemia 272.4 Active Nondenominational [place] Other and unspecified hyperlipidemia Sinusitis, acute frontal 461.1 Active 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 Se ll 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 GRADER Acute frontal sinusitis Medication List Medication Instructions Start Date Stop Date Generic Name NDC Status Provider Patient Instruction PREDNISONE 20 MG ORAL TABLET 3 tabs for 2 days, 2 tabs for 4 days 1 ta for 4 days, 1/2 tab for 4 days PREDNISONE 94524943773 Active Trina Sell LINEN GRADER Active AMOXICILLIN-POT CLAVULANATE 875-125 MG ORAL TABLET 1 pill by mouth twice daily AMOXICILLIN-POT CLAVULANATE 67368964872 Active Trina Sell LINEN GRADER Active ATORVASTATIN CALCIUM 20 MG ORAL TABLET 1 po qHS 02/07/19 ATORVASTATIN CALCIUM 53880616375 Active Trina Sell LINEN GRADER Act parth [facility] MELATONIN 5 MG ORAL TABLET 1 TAB PO Q HS ME LATONIN 88029618423 No Longer Active Trina Sell LINEN GRADER Active PROMETHAZINE-CODEINE 6.25-10 MG/5ML ORAL SYRUP 5ml po q6hr PRN C ough PROMETHAZINE-CODEINE 15457176775 No Longer Active Trina Ramirez APRN Active PREDNISONE 20 MG ORAL TABLET 2 po qd x 5 days P REDNISONE 26549172276 No Longer Active Remigio Childress MD Active ENSKYCE 0.15-30 MG-MCG ORAL TABLET 1 TAB PO DAILY DESOGESTREL- ETHINYL ESTRADIOL 76912357562 Active Remigio Childress MD Acti ve PROAIR HFA 108 (90 BASE) MCG/ACT INHALATION AEROSOL SOLUTION 1 INH PRN ALBUTEROL SULFATE 82959723398 Active Remigio Childress MD Active FLONASE 50 MCG/ACT NASAL SUSPENSION 2 INH EA NOSTRIL DAILY FLUTICASONE PROPIONATE 74272341289 Active Remigio Childress MD Active QC WOMENS DAILY MULTIVITAMIN ORAL TABLET 1 TAB PO IN THE AM MULTIPLE VITAMINS-MINERALS 92403645617 Active Remigio Childress MD Active ATORVASTATIN CALCIUM 20 MG ORAL TABLET 1 TAB PO Q HS ATORVASTATIN CALCIUM 07800527532 Active Remigio Childress MD Active BUPROPION HCL ER (XL) 300 MG ORAL TABLET EXTENDED RELE ASE 24 HOUR 1 TAB PO IN THE AM BUPROPION HCL 71034011562 Active Remigio Childress MD Active PRAZOSIN HCL 1 MG ORAL CAPSULE 2 CAPS PO Q HS P RAZOSIN HCL 28836598595 Active Remigio Childress MD Active LAMICTAL 200 MG ORAL TABLET 2 TABS PO Q HS LAMOTR IGINE 60037136736 Active Remigio Childress MD Active PROMETHAZINE-CODEINE 6.25-10 MG/5ML ORAL SYRUP 5ml po q6hr PRN C ough PROMETHAZINE-CODEINE 6.25-10 MG/5ML ORAL SYRUP 071713 PROMETHAZINE-CODEINE Inactive [facility] MELATONIN 5 MG ORAL TABLET 1 TAB PO Q HS 1 [facility] MELATONIN 5 MG ORAL TABLET 239800 MELATONIN Inactive PREDNISONE 20 MG ORAL TABLET 2 po qd x 5 days PREDNISONE 20 MG ORAL TABLET 237442 PREDNISONE Inactive Immunizations Vaccine Administration Date Value [...] d Encounters Code Encounter Date Provider Facility CPT-87604 Level 3 Est. Patient 13:45:32 CONE WORKER Trina tapia APRN [facility] CPT-57135 Level 3 Est. Patient 10:03:23 CDT Remigio Childress MD [facility]
--- OUTSIDE RECORDS SUMMARY | 2019-07-22 05:03 | XMS REPORT | Clinical Summary ---
Author Author Admin, Virgen MICHELET Organization [employer] Address Unknown Phone Unavailable Allergies, Adverse Reactions, [...] acute frontal 461.1 Active Trina Se ll GUT CARRIER Acute frontal sinusitis Medication List Medication Instructions Start Date Stop Date Generic Name NDC Status Provider Patient Instruction ZITHROMAX Z-FELA 250 MG ORAL TABLET 2 today, then 1 daily for 4 d ays AZITHROMYCIN 97196966475 Active Alban Boyce MD Ac tive PREDNISONE 20 MG ORAL TABLET 3 tabs for 2 days, 2 tabs for 4 days 1 ta for 4 days, 1/2 tab for 4 days PREDNISONE 05769896636 No Longer Active Alban Boyce MD Active AMOXICILLIN-POT CLAVULANATE 875-125 MG ORAL TABLET 1 pill by mouth twice daily AMOXICILLIN-POT CLAVULANATE 43656843468 No Longer Act parth Trina Sell GUT CARRIER Active ATORVASTATIN CALCIUM 20 MG ORAL TABLET 1 po qHS 20 02/07/19 ATORVASTATIN CALCIUM 59667341656 No Longer Active Trina Sell GUT CARRIER Active [facility] MELATONIN 5 MG ORAL TABLET 1 TAB PO Q HS ME LATONIN 82184295318 No Longer Active Trina Sell GUT CARRIER Active PROMETHAZINE-CODEINE 6.25-10 MG/5ML ORAL SYRUP 5ml po q6hr PRN C ough PROMETHAZINE-CODEINE 13068729012 No Longer Active Trina Ramirez APRN Active PREDNISONE 20 MG ORAL TABLET 2 po qd x 5 days P REDNISONE 57658652828 No Longer Active Remigio Childress MD Active ENSKYCE 0.15-30 MG-MCG ORAL TABLET 1 TAB PO DAILY DESOGESTREL- ETHINYL ESTRADIOL 65110760309 Active Remigio Childress MD Acti ve PROAIR HFA 108 (90 BASE) MCG/ACT INHALATION AEROSOL SOLUTION 1 INH PRN ALBUTEROL SULFATE 04044264379 Active Remigio Childress MD Active FLONASE 50 MCG/ACT NASAL SUSPENSION 2 INH EA NOSTRIL DAILY FLUTICASONE PROPIONATE 13873146304 Active Remigio Childress MD Active QC WOMENS DAILY MULTIVITAMIN ORAL TABLET 1 TAB PO IN THE AM MULTIPLE VITAMINS-MINERALS 23520953002 Active Remigio Childress MD Active ATORVASTATIN CALCIUM 20 MG ORAL TABLET 1 TAB PO Q HS ATORVASTATIN CALCIUM 77597545907 Active Remigio Childress MD Active BUPROPION HCL ER (XL) 300 MG ORAL TABLET EXTENDED RELE ASE 24 HOUR 1 TAB PO IN THE AM BUPROPION HCL 38023229267 Active Remigio Childress MD Active PRAZOSIN HCL 1 MG ORAL CAPSULE 2 CAPS PO Q HS P RAZOSIN HCL 25968538324 Active Remigio Childress MD Active LAMICTAL 200 MG ORAL TABLET 2 TABS PO Q HS LAMOTR IGINE 90214236177 Active Remigio Childress MD Active PROMETHAZINE-CODEINE 6.25-10 MG/5ML ORAL SYRUP 5ml po q6hr PRN C ou PROMETHAZINE-CODEINE 6.25-10 MG/5ML ORAL SYRUP 851201 PROMETHAZINE-CODEINE Inactive [facility] MELATONIN 5 MG ORAL TABLET 1 TAB PO Q HS 1 [facility] MELATONIN 5 MG ORAL TABLET 592788 MELATONIN Inactive PREDNISONE 20 MG ORAL TABLET 3 tabs for 2 days, 2 tabs for 4 days 1 ta for 4 days, 1/2 tab for 4 days PREDNISONE 20 MG ORAL T ABLET 505873 PREDNISONE Inactive PREDNISONE 20 MG ORAL TABLET 2 po qd x 5 days PREDNISONE 20 MG ORAL TABLET 930170 PREDNISONE Inactive ATORVASTATIN CALCIUM 20 MG ORAL TABLET 1 po qHS 20 02/07/19 ATORVASTATIN CALCIUM 20 MG ORAL TABLET 272399 ATORVASTATIN CALCIUM Inactive AMOXICILLIN-POT CLAVULANATE 875-125 MG ORAL TABLET 1 pill by mouth twice daily AMOXICILLIN-POT CLAVULANATE 875-125 MG ORAL TABL ET 994665 AMOXICILLIN-POT CLAVULANATE Inactive Immunizations Vaccine Administration Date [...] mg/dL Encounters Code Encounter Date Provider Facility CPT-97170 [id number] Vst-Est Level III 10:10:19 IMPLEMENTATION MANAGER Alban Boyce MD [facility] CPT-46301 Level 3 Est. Patient 13:45:32 IMPLEMENTATION MANAGER Trina tapia APRN [facility] CPT-00437 Level 3 Est. Patient 10:03:23 CDT Remigio Childress MD [facility]
--- OUTSIDE RECORDS SUMMARY | 2019-07-22 05:03 | XMS REPORT | Clinical Summary ---
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 Acute frontal sinusitis Medication List Medication Instructions Start Date Stop Date Generic Name NDC Status Provider Patient Instruction ZITHROMAX Z-FELA 250 MG ORAL TABLET 2 today, then 1 daily for 4 d ays AZITHROMYCIN 72928060781 Active Alban Boyce MD Ac tive PREDNISONE 20 MG ORAL TABLET 3 tabs for 2 days, 2 tabs for 4 days 1 ta for 4 days, 1/2 tab for 4 days PREDNISONE 49939633187 No Longer Active Alban Boyce MD Active AMOXICILLIN-POT CLAVULANATE 875-125 MG ORAL TABLET 1 pill by mouth twice daily AMOXICILLIN-POT CLAVULANATE 10085316535 No Longer Act parth Trina Sell PATIENT SAFETY ATTENDANT Active ATORVASTATIN CALCIUM 20 MG ORAL TABLET 1 po qHS 20 02/07/19 ATORVASTATIN CALCIUM 88432668868 No Longer Active Trina Sell PATIENT SAFETY ATTENDANT Active [facility] MELATONIN 5 MG ORAL TABLET 1 TAB PO Q HS ME LATONIN 38979683229 No Longer Active Trina Sell PATIENT SAFETY ATTENDANT Active PROMETHAZINE-CODEINE 6.25-10 MG/5ML ORAL SYRUP 5ml po q6hr PRN C ough PROMETHAZINE-CODEINE 53705182197 No Longer Active Trina Ramirez APRN Active PREDNISONE 20 MG ORAL TABLET 2 po qd x 5 days P REDNISONE 30270059612 No Longer Active Remigio Childress MD Active ENSKYCE 0.15-30 MG-MCG ORAL TABLET 1 TAB PO DAILY DESOGESTREL- ETHINYL ESTRADIOL 59284244294 Active Remigio Childress MD Acti ve PROAIR HFA 108 (90 BASE) MCG/ACT INHALATION AEROSOL SOLUTION 1 INH PRN ALBUTEROL SULFATE 06920486565 Active Remigio Childress MD Active FLONASE 50 MCG/ACT NASAL SUSPENSION 2 INH EA NOSTRIL DAILY FLUTICASONE PROPIONATE 66544239498 Active Remigio Childress MD Active QC WOMENS DAILY MULTIVITAMIN ORAL TABLET 1 TAB PO IN THE AM MULTIPLE VITAMINS-MINERALS 49693878126 Active Remigio Childress MD Active ATORVASTATIN CALCIUM 20 MG ORAL TABLET 1 TAB PO Q HS ATORVASTATIN CALCIUM 62298413936 Active Remigio Childress MD Active BUPROPION HCL ER (XL) 300 MG ORAL TABLET EXTENDED RELE ASE 24 HOUR 1 TAB PO IN THE AM BUPROPION HCL 10872463808 Active Remigio Childress MD Active PRAZOSIN HCL 1 MG ORAL CAPSULE 2 CAPS PO Q HS P RAZOSIN HCL 66928037310 Active Remigio Childress MD Active LAMICTAL 200 MG ORAL TABLET 2 TABS PO Q HS LAMOTR IGINE 33386637647 Active Remigio Childress MD Active PROMETHAZINE-CODEINE 6.25-10 MG/5ML ORAL SYRUP 5ml po q6hr PRN C ou PROMETHAZINE-CODEINE 6.25-10 MG/5ML ORAL SYRUP 494262 PROMETHAZINE-CODEINE Inactive [facility] MELATONIN 5 MG ORAL TABLET 1 TAB PO Q HS 1 [facility] MELATONIN 5 MG ORAL TABLET 542887 MELATONIN Inactive PREDNISONE 20 MG ORAL TABLET 3 tabs for 2 days, 2 tabs for 4 days 1 ta for 4 days, 1/2 tab for 4 days PREDNISONE 20 MG ORAL T ABLET 050178 PREDNISONE Inactive PREDNISONE 20 MG ORAL TABLET 2 po qd x 5 days PREDNISONE 20 MG ORAL TABLET 514233 PREDNISONE Inactive ATORVASTATIN CALCIUM 20 MG ORAL TABLET 1 po qHS 20 02/07/19 ATORVASTATIN CALCIUM 20 MG ORAL TABLET 405280 ATORVASTATIN CALCIUM Inactive AMOXICILLIN-POT CLAVULANATE 875-125 MG ORAL TABLET 1 pill by mouth twice daily AMOXICILLIN-POT CLAVULANATE 875-125 MG ORAL TABL ET 686546 AMOXICILLIN-POT CLAVULANATE Inactive Immunizations Vaccine Administration Date [...] mg/dL Encounters Code Encounter Date Provider Facility CPT-66105 [id number] Vst-Est Level III 10:10:19 SENIOR LITIGATION PARALEGAL Alban Boyce MD [facility] CPT-05745 Level 3 Est. Patient 13:45:32 SENIOR LITIGATION PARALEGAL Trina tapia APRN [facility] CPT-79162 Level 3 Est. Patient 10:03:23 CDT Remigio Childress MD [facility]
--- OUTSIDE RECORDS SUMMARY | 2019-07-22 05:04 | XMS REPORT | Clinical Summary ---
Author Author Admin, Virgen TAFOYA Organization [facility] Address Unknown Phone Unavailable Allergies, Adverse Reactions, Alerts Allergy Name Reaction Description Start Date Severity Status Pr ovider No Known Allergies Yumiko uriostegui Conditions or Problems Problem Name Problem Code Onset Date Status Entry Date Provider Comment Standard Description Annotate Upper respiratory infection, viral 465.9 Active 2 Remigio Childress MD Acute upper respiratory infections of un specified site Medication List Medication Instructions Start Date Stop Date Generic Name NDC Status Provider Patient Instruction PROMETHAZINE-CODEINE 6.25-10 MG/5ML ORAL SYRUP 5ml po q6hr PRN C ough PROMETHAZINE-CODEINE 66488260395 Active Remigio Childress MD Active PREDNISONE 20 MG ORAL TABLET 2 po qd x 5 days P REDNISONE 32792128227 Active Remigio Childress MD Active ENSKYCE 0.15-30 MG-MCG ORAL TABLET 1 TAB PO DAILY DESOGESTREL- ETHINYL ESTRADIOL 46020821639 Active Remigio Childress MD Acti ve PROAIR HFA 108 (90 BASE) MCG/ACT INHALATION AEROSOL SOLUTION 1 INH PRN ALBUTEROL SULFATE 80167608664 Active Remigio Childress MD Active FLONASE 50 MCG/ACT NASAL SUSPENSION 2 INH EA NOSTRIL DAILY FLUTICASONE PROPIONATE 50960186104 Active Remigio Childress MD Active QC WOMENS DAILY MULTIVITAMIN ORAL TABLET 1 TAB PO IN THE AM MULTIPLE VITAMINS-MINERALS 05934373939 Active Remigio Childress MD Active [facility]S MELATONIN 5 MG ORAL TABLET 1 TAB PO Q HS STEPHANIE TONIN 08052595612 Active Remigio Childress MD Active ATORVASTATIN CALCIUM 20 MG ORAL TABLET 1 TAB PO Q HS ATORVASTATIN CALCIUM 63454951056 Active Remigio Childress MD Active BUPROPION HCL ER (XL) 300 MG ORAL TABLET EXTENDED RELE ASE 24 HOUR 1 TAB PO IN THE AM BUPROPION HCL 50662455534 Active Remigio Childress MD Active PRAZOSIN HCL 1 MG ORAL CAPSULE 2 CAPS PO Q HS P RAZOSIN HCL 66200999423 Active Remigio Childress MD Active LAMICTAL 200 MG ORAL TABLET 2 TABS PO Q HS LAMOTR IGINE 95156515858 Active Remigio Childress MD Active Immunizations Vaccine Administration Date Value Standard Heber cription influenza immunization (Flu Vax) has been administered 02/26 Done according to patient influenza virus vaccine, unspecified for mulation Vital Signs Date Name Value Unit Range Description temperature E&M 98.1 [degF] Body temp erature weight E&M 190 [lb_av] Weight Measure d Encounters Code Encounter Date Provider Facility CPT-17555 Level 3 Est. Patient 10:03:23 CDT Remigio Childress MD [facility]
--- OUTSIDE RECORDS SUMMARY | 2019-07-22 05:04 | XMS REPORT | Clinical Summary ---
Author Author Admin, Virgen TAFOYA Organization [facility] Address Unknown Phone Unavailable Allergies, Adverse [...] 5ml po q6hr PRN C ough PROMETHAZINE-CODEINE 68561998488 Active Remigio Childress MD Active PREDNISONE 20 MG ORAL TABLET 2 po qd x 5 days P REDNISONE 51578442740 Active Remigio Childress MD Active ENSKYCE 0.15-30 MG-MCG ORAL TABLET 1 TAB PO DAILY DESOGESTREL- ETHINYL ESTRADIOL 65159745374 Active Remigio Childress MD Acti ve PROAIR HFA 108 (90 BASE) MCG/ACT INHALATION AEROSOL SOLUTION 1 INH PRN ALBUTEROL SULFATE 14838149088 Active Remigio Childress MD Active FLONASE 50 MCG/ACT NASAL SUSPENSION 2 INH EA NOSTRIL DAILY FLUTICASONE PROPIONATE 13960333042 Active Remigio Childress MD Active QC WOMENS DAILY MULTIVITAMIN ORAL TABLET 1 TAB PO IN THE AM MULTIPLE VITAMINS-MINERALS 42393190901 Active Remigio Childress MD Active [facility]S MELATONIN 5 MG ORAL TABLET 1 TAB PO Q HS STEPHANIE TONIN 13999574886 Active Remigio Childress MD Active ATORVASTATIN CALCIUM 20 MG ORAL TABLET 1 TAB PO Q HS ATORVASTATIN CALCIUM 00285786715 Active Remigio Childress MD Active BUPROPION HCL ER (XL) 300 MG ORAL TABLET EXTENDED RELE ASE 24 HOUR 1 TAB PO IN THE AM BUPROPION HCL 00851422411 Active Remigio Childress MD Active PRAZOSIN HCL 1 MG ORAL CAPSULE 2 CAPS PO Q HS P RAZOSIN HCL 69004855194 Active Remigio Childress MD Active LAMICTAL 200 MG ORAL TABLET 2 TABS PO Q HS LAMOTR IGINE 02389059573 Active Remigio Childress MD Active Immunizations Vaccine Administration Date Value Standard Heber cription influenza immunization (Flu Vax) has been administered 02/26 Done according to patient influenza virus vaccine, unspecified for mulation Vital Signs Date Name Value Unit Range Description temperature E&M 98.1 [degF] Body temp erature weight E&M 190 [lb_av] Weight Measure d Encounters Code Encounter Date Provider Facility CPT-22799 Level 3 Est. Patient 10:03:23 CDT Remigio Childress MD [facility]
--- OUTSIDE RECORDS SUMMARY | 2019-07-22 05:04 | XMS REPORT | Clinical Summary ---
Author Author Admin, Virgen TAFOYA Organization [facility] Address Unknown Phone Unavailable Allergies, Adverse [...] 5ml po q6hr PRN C ough PROMETHAZINE-CODEINE 30870397227 Active Remigio Childress MD Active PREDNISONE 20 MG ORAL TABLET 2 po qd x 5 days P REDNISONE 86151452589 No Longer Active Remigio Childress MD Active ENSKYCE 0.15-30 MG-MCG ORAL TABLET 1 TAB PO DAILY DESOGESTREL- ETHINYL ESTRADIOL 16272692064 Active Remigio Childress MD Acti ve PROAIR HFA 108 (90 BASE) MCG/ACT INHALATION AEROSOL SOLUTION 1 INH PRN ALBUTEROL SULFATE 67006280483 Active Remigio Childress MD Active FLONASE 50 MCG/ACT NASAL SUSPENSION 2 INH EA NOSTRIL DAILY FLUTICASONE PROPIONATE 77356855521 Active Remigio Childress MD Active QC WOMENS DAILY MULTIVITAMIN ORAL TABLET 1 TAB PO IN THE AM MULTIPLE VITAMINS-MINERALS 29304942724 Active Remigio Childress MD Active [facility]S MELATONIN 5 MG ORAL TABLET 1 TAB PO Q HS STEPHANIE TONIN 15222741192 Active Remigio Childress MD Active ATORVASTATIN CALCIUM 20 MG ORAL TABLET 1 TAB PO Q HS ATORVASTATIN CALCIUM 44508990383 Active Remigio Childress MD Active BUPROPION HCL ER (XL) 300 MG ORAL TABLET EXTENDED RELE ASE 24 HOUR 1 TAB PO IN THE AM BUPROPION HCL 09384463136 Active Remigio Childress MD Active PRAZOSIN HCL 1 MG ORAL CAPSULE 2 CAPS PO Q HS P RAZOSIN HCL 92844848166 Active Remigio Childress MD Active LAMICTAL 200 MG ORAL TABLET 2 TABS PO Q HS LAMOTR IGINE 46125721676 Active Remigio Childress MD Active PREDNISONE 20 MG ORAL TABLET 2 po qd x 5 days PREDNISONE 20 MG ORAL TABLET 517004 PREDNISONE Inactive Immunizations Vaccine Administration Date Value Standard Heber cription influenza immunization (Flu Vax) has been administered 02/26 Done according to patient influenza virus vaccine, unspecified for mulation Vital Signs Date Name Value Unit Range Description temperature E&M 98.1 [degF] Body temp erature weight E&M 190 [lb_av] Weight Measure d Encounters Code Encounter Date Provider Facility CPT-21544 Level 3 Est. Patient 10:03:23 CDT Remigio Childress MD [facility]
--- OUTSIDE RECORDS SUMMARY | 2019-07-22 05:04 | XMS REPORT | Continuity of Care Document ---
Author Organization Unknown Address Unknown Phone Unavailable Allergies Active Description Code Type Severity Reaction Onset Reported/Identified Relationship to Patient Clinical Status Yes Iodine and Iodide Containing Produc [id number] Drug Allergy Mild RASH 0 07/17/2019 Yes latex [id number] Drug Allergy Mild RASH 07/17/2019 Yes lavender (Lavandula angustifolia) [id number] Drug Allergy Mild RASH 0 Medications There is no data. Problems Date Dx Coded Attending Type Code Diagnosis Diagnosed By 02/26/2018 Remigio Childress MD J06.9 Upper respiratory infection, viral 04/02/2018 Remigio Childress MD E78.5 Hyperlipidemia 04/02/2018 Remigio Childress MD R53.8 3 Fatigue 04/02/2018 Remigio Childress MD R73.9 Elevated blood sugar 06/03/2018 Remigio Childress MD J01.1 0 Sinusitis, acute frontal 09/20/2018 Remigio Childress MD F31.9 Bipolar disorder 09/20/2018 Remigio Childress MD F43.1 0 Post traumatic stress disorder 09/20/2018 Remigio Childress MD J30.9 Allergic rhinitis 09/20/2018 Remigio Childress MD J45.9 90 Exercise induced asthma 09/20/2018 Remigio Childress MD Z13.9 Health screening 09/20/2018 Remigio Childress MD E66.9 Obesity Class II (BMI 35-39.9) 09/20/2018 Remigio Childress MD E78.5 Hyperlipidemia 09/20/2018 Remigio Childress MD Z68.3 5 BMI 35-35.9 10/21/2018 Remigio Childress MD W55.0 1xA Bitten by cat, initial encounter T Other injury of unspecified body region, initial encounter 01/01/2019 Remigio Childress MD H69.8 3 Eustachian tube dysfunction, bilateral 01/01/2019 Remigio Childress MD J01.9 0 Acute sinusitis 01/01/2019 Remigio Childress MD J32.9 Chronic sinusitis 01/01/2019 Remigio Childress MD Z68.3 6 BMI 36-36.9 03/19/2019 Remigio Childress MD Z68.3 5 BMI 35-35.9 03/24/2019 Remigio Childress MD J15.7 Mycoplasma pneumonia 03/24/2019 Remigio Childress MD Z68.3 6 BMI 36-36.9 03/31/2019 Remigio Childress MD L68.0 Hirsutism 03/31/2019 Remigio Childress MD Z01.4 19 Gynecological examination, routine 03/31/2019 Remigio Childress MD Z30.4 1 Contraceptive pill surveillance 03/31/2019 Remgiio Childress MD Z68.3 5 BMI 35-35.9 05/08/2019 Remigio Childress MD J34.8 9 Sinus congestion 05/08/2019 Remigio Childress MD R05 Productive cough purulent sputum 05/08/2019 Remigio Childress MD Z68.3 7 BMI 37-37.9 05/28/2019 Remigio Childress MD M54.5 Low back pain, acute 05/28/2019 Remigio Childress MD Z68.3 6 BMI 36-36.9 06/02/2019 JOVANI HAYES Reason For Visit J32.9 Chronic sinusitis, unspecified 07/17/2019 Remigio Childress MD Z01.8 10 Pre op cardiovascular exam 07/17/2019 JOVANI HAYES MD Ot Z01.818 ENCOUNTER FOR OTHER PREPROCEDURAL EXAMIN 07/17/2019 JOVANI HAYES MD Ot Z01.818 ENCOUNTER FOR OTHER PREPROCEDURAL EXAMIN 07/17/2019 JOVANI HAYES MD Ot Z01.818 ENCOUNTER FOR OTHER PREPROCEDURAL EXAMIN Procedures There is no data. Results Test Result Range Methicillin resistant Staphylococcus aur eus (MRSA) screening culture - 07/18/19 08:16 Methicillin resistant Staphylococcus aureus (MRSA) scr eening culture NEG NRG Encounters ACCT No. Visit Date/Time Discharge Status Pt. Type Provider Facility Loc./Unit Complaint [id number] 07/17/2019 07:42:02 ACT Unknown Remigio Childress MD [id number] 06/02/2019 13:07:56 0 23:59:59 DIS Outpatient JOVANI HAYES [facility] S[facility] RAD chronic reoccurent s inusitis [id number] 07/18/2019 07:54:00 020 11:55:00 DIS Outpatient ABIGAIL DE PAZ, JOVANI Regalado [facility] CHRONIC SINUSITIS, [employer] CONGE[employer]ION [id number] 07/17/2019 08:30:00 020 08:47:00 DIS Outpatient ABIGAIL DE PAZ, JOVANI Regalado [facility] PREOP CHRONIC SINUSITIS, [employer] CONGESTION
--- OUTSIDE RECORDS SUMMARY | 2019-07-22 05:04 | XMS REPORT | Clinical Summary ---
Author Author Admin, Virgen MICHELET Organization [facility] Address Unknown Phone Unavailable Allergies, Adverse [...] specified site Elevated blood sugar 790.29 Active [place] Other abnormal glucose Fatigue 780.79 Active [place] Other malaise and fatigue Hyperlipidemia 272.4 Active [place] Other and unspecified hyperlipidemia Medication List Medication Instructions Start Date Stop Date Generic Name NDC Status Provider Patient Instruction PROMETHAZINE-CODEINE 6.25-10 MG/5ML ORAL SYRUP 5ml po q6hr PRN C ough PROMETHAZINE-CODEINE 55510321395 Active Remigio Childress MD Active PREDNISONE 20 MG ORAL TABLET 2 po qd x 5 days P REDNISONE 34134123929 No Longer Active Remigio Childress MD Active ENSKYCE 0.15-30 MG-MCG ORAL TABLET 1 TAB PO DAILY DESOGESTREL- ETHINYL ESTRADIOL 90604599719 Active Remigio Childress MD Acti ve PROAIR HFA 108 (90 BASE) MCG/ACT INHALATION AEROSOL SOLUTION 1 INH PRN ALBUTEROL SULFATE 20625472102 Active Remigio Childress MD Active FLONASE 50 MCG/ACT NASAL SUSPENSION 2 INH EA NOSTRIL DAILY FLUTICASONE PROPIONATE 64999544100 Active Remigio Childress MD Active QC WOMENS DAILY MULTIVITAMIN ORAL TABLET 1 TAB PO IN THE AM MULTIPLE VITAMINS-MINERALS 52560530634 Active Remigio Childress MD Active CVS MELATONIN 5 MG ORAL TABLET 1 TAB PO Q HS STEPHANIE JUAN 43305265174 Active Remigio Childress MD Active ATORVASTATIN CALCIUM 20 MG ORAL TABLET 1 TAB PO Q HS ATORVASTATIN CALCIUM 18163526717 Active Remigio Childress MD Active BUPROPION HCL ER (XL) 300 MG ORAL TABLET EXTENDED RELE ASE 24 HOUR 1 TAB PO IN THE AM BUPROPION HCL 12907630397 Active Remigio Childress MD Active PRAZOSIN HCL 1 MG ORAL CAPSULE 2 CAPS PO Q HS P RAZOSIN HCL 17434720963 Active Remigio Childress MD Active LAMICTAL 200 MG ORAL TABLET 2 TABS PO Q HS LAMOTR IGINE 54376840080 Active Remigio Childress MD Active PREDNISONE 20 MG ORAL TABLET 2 po qd x 5 days PREDNISONE 20 MG ORAL TABLET [id number] PREDNISONE Inactive Immunizations Vaccine Administration Date Value Standard Heber cription influenza immunization (Flu Vax) has been administered 02/26 Done according to patient influenza virus vaccine, unspecified for mulation Vital Signs Date Name Value Unit Range Description temperature E&M 98.1 [degF] Body temp erature weight E&M 190 [lb_av] Weight Measure d Encounters Code Encounter Date Provider Facility CPT-07994 Level 3 Est. Patient 10:03:23 CDT Remigio Childress MD [facility]
--- OUTSIDE RECORDS SUMMARY | 2019-07-22 05:04 | XMS REPORT | Clinical Summary ---
Author Author Admin, Virgen TAFOYA Organization [facility] Address Unknown Phone Unavailable Allergies, [...] 5ml po q6hr PRN C ough PROMETHAZINE-CODEINE 44162940037 Active Remigio Childress MD Active PREDNISONE 20 MG ORAL TABLET 2 po qd x 5 days P REDNISONE 80362448487 Active Remigio Childress MD Active ENSKYCE 0.15-30 MG-MCG ORAL TABLET 1 TAB PO DAILY DESOGESTREL- ETHINYL ESTRADIOL 19617929792 Active Remigio Childress MD Acti ve PROAIR HFA 108 (90 BASE) MCG/ACT INHALATION AEROSOL SOLUTION 1 INH PRN ALBUTEROL SULFATE 68979784247 Active Remigio Childress MD Active FLONASE 50 MCG/ACT NASAL SUSPENSION 2 INH EA NOSTRIL DAILY FLUTICASONE PROPIONATE 96549502886 Active Remigio Childress MD Active QC WOMENS DAILY MULTIVITAMIN ORAL TABLET 1 TAB PO IN THE AM MULTIPLE VITAMINS-MINERALS 47700307130 Active Remigio Childress MD Active CVS MELATONIN 5 MG ORAL TABLET 1 TAB PO Q HS STEPHANIE TONIN 93696275180 Active Remigio Childress MD Active ATORVASTATIN CALCIUM 20 MG ORAL TABLET 1 TAB PO Q HS ATORVASTATIN CALCIUM 47293383676 Active Remigio Childress MD Active BUPROPION HCL ER (XL) 300 MG ORAL TABLET EXTENDED RELE ASE 24 HOUR 1 TAB PO IN THE AM BUPROPION HCL 27119034046 Active Remigio Childress MD Active PRAZOSIN HCL 1 MG ORAL CAPSULE 2 CAPS PO Q HS P RAZOSIN HCL 05385272224 Active Remigio Childress MD Active LAMICTAL 200 MG ORAL TABLET 2 TABS PO Q HS LAMOTR IGINE 23104067890 Active Remigio Childress MD Active Immunizations Vaccine Administration Date Value Standard Heber cription influenza immunization (Flu Vax) has been administered 02/26 Done according to patient influenza virus vaccine, unspecified for mulation Vital Signs Date Name Value Unit Range Description temperature E&M 98.1 [degF] Body temp erature weight E&M 190 [lb_av] Weight Measure d Encounters Code Encounter Date Provider Facility CPT-10276 Level 3 Est. Patient 10:03:23 CDT Remigio Childress MD [facility]
--- OUTSIDE RECORDS SUMMARY | 2019-07-22 05:04 | XMS REPORT | Clinical Summary ---
Author Author Admin, Virgen TAFOYA Organization [facility] Address Unknown Phone Unavailable Allergies, Adverse Reactions, Alerts Allergy Name Reaction Description Start Date Severity Status Pr ovider No Known Allergies Yuimko uriostegui Conditions or Problems Problem Name Problem Code Onset Date Status Entry Date Provider Comment Standard Description Annotate Upper respiratory infection, viral 465.9 Active 2 Remigio Childress MD Acute upper respiratory infections of un specified site Medication List Medication Instructions Start Date Stop Date Generic Name NDC Status Provider Patient Instruction PROMETHAZINE-CODEINE 6.25-10 MG/5ML ORAL SYRUP 5ml po q6hr PRN C ough PROMETHAZINE-CODEINE 88657542036 Active Remigio Childress MD Active PREDNISONE 20 MG ORAL TABLET 2 po qd x 5 days P REDNISONE 28481108557 No Longer Active Remigio Childress MD Active ENSKYCE 0.15-30 MG-MCG ORAL TABLET 1 TAB PO DAILY DESOGESTREL- ETHINYL ESTRADIOL 54388188348 Active Remigio Childress MD Acti ve PROAIR HFA 108 (90 BASE) MCG/ACT INHALATION AEROSOL SOLUTION 1 INH PRN ALBUTEROL SULFATE 28416102791 Active Remigio Childress MD Active FLONASE 50 MCG/ACT NASAL SUSPENSION 2 INH EA NOSTRIL DAILY FLUTICASONE PROPIONATE 41470206979 Active Remigio Childress MD Active QC WOMENS DAILY MULTIVITAMIN ORAL TABLET 1 TAB PO IN THE AM MULTIPLE VITAMINS-MINERALS 78986285741 Active Remigio Childress MD Active CVS MELATONIN 5 MG ORAL TABLET 1 TAB PO Q HS STEPHANIE TONIN 78659881630 Active Remigio Childress MD Active ATORVASTATIN CALCIUM 20 MG ORAL TABLET 1 TAB PO Q HS ATORVASTATIN CALCIUM 42922466563 Active Remigio Childress MD Active BUPROPION HCL ER (XL) 300 MG ORAL TABLET EXTENDED RELE ASE 24 HOUR 1 TAB PO IN THE AM BUPROPION HCL 59915663457 Active Remigio Childress MD Active PRAZOSIN HCL 1 MG ORAL CAPSULE 2 CAPS PO Q HS P RAZOSIN HCL 72724556327 Active Remigio Childress MD Active LAMICTAL 200 MG ORAL TABLET 2 TABS PO Q HS LAMOTR IGINE 45838443587 Active Remigio Childress MD Active PREDNISONE 20 MG ORAL TABLET 2 po qd x 5 days PREDNISONE 20 MG ORAL TABLET [id number] PREDNISONE Inactive Immunizations Vaccine Administration Date Value Standard Heber cription influenza immunization (Flu Vax) has been administered 02/26 Done according to patient influenza virus vaccine, unspecified for mulation Vital Signs Date Name Value Unit Range Description temperature E&M 98.1 [degF] Body temp erature weight E&M 190 [lb_av] Weight Measure d Encounters Code Encounter Date Provider Facility CPT-88799 Level 3 Est. Patient 10:03:23 CDT Remigio Childress MD [facility]
== END 2019-07-18 11:55 | disposition home or self-care (01) ==
LOC: EDSEX → SDC 07:54
PROVIDERS: ATTEND Otolaryngology Otolaryngology/Facial Plastic Surgery
DX: J32.9 Chronic sinusitis, unspecified (principal); J34.3 Hypertrophy of nasal turbinates; J34.1 Cyst and mucocele of nose and nasal sinus; J30.9 Allergic rhinitis, unspecified; R09.81 Nasal congestion; E66.9 Obesity, unspecified; F32.9 Major depressive disorder, single episode, unspecified; F41.9 Anxiety disorder, unspecified; Z88.8 Allergy status to other drugs, medicaments and biological substances; Z91.040 Latex allergy status; Z91.048 Other nonmedicinal substance allergy status; Z79.899 Other long term (current) drug therapy; Z68.35 Body mass index [BMI] 35.0-35.9, adult; Z91.041 Radiographic dye allergy status
CPT/HCPCS: 84703; 87081; 88305